=== PATIENT | male | born 1965 | race Caucasian/White ===

== ENCOUNTER 2019-09-05 00:25 | Inpatient (IN) | payer MEDICAID, SELFPAY ==
[2019-09-05] VITALS (15 sets, daily range): BP systolic 121–176; BP diastolic 65–112; PULSE 74–106; RESP 18–25; TEMP 36.6–37.1; O2SAT 90–97; BMI 31.4; BMI 31.1
--- NOTE | 2019-09-05 00:28 | ED.RN ---
CALLED FOR EKG, PULLED OLD EKGS FOR
--- NOTE | 2019-09-05 00:42 | EKG12_ITS ---
Test Reason : CP,SOB Blood Pressure : / mmHG Vent. Rate : 090 BPM Atrial Rate : 090 BPM P-R Int : 124 ms QRS Dur : 096 ms QT Int : 392 ms P-R-T Axes : 070 044 065 degrees QTc Int : 479 ms Normal sinus rhythm Nonspecific with ST flattening Borderline ECG Confirmed by EITAN YU ([id number]), assistant film editor YOLIE MAHONEY ([id number]) on 09/07/2019 11:13:42 AM Referred By: JUANIS Confirmed By:EITAN YU
--- NOTE | 2019-09-05 00:42 | CT_ITS ---
STUDY: CTA CHEST REASON FOR EXAM: Male, 53 years old. Chest pain RADIATION DOSAGE (If Supplied By Facility): CTDIvol = ( 7.64 ) mGy, DLP = ( 548.41 ) mGycm TECHNIQUE: The examination was performed with the intravenous administration of IV Isovue 370 100ml. Post-processing of the angiographic images was performed, with multiplanar reformation and 3D reconstruction. Individualized dose optimization techniques were used for this CT. COMPARISON: None. FINDINGS: Normal enhancement of the main pulmonary artery and right and left pulmonary arteries. Normal enhancement of the bilateral peripheral pulmonary arteries. There is no demonstrated pulmonary embolism. Normal thoracic aorta and visualized great vessels. There is no demonstrated aortic dissection. Normal heart and pericardium. Normal mediastinum. Normal hilar regions. Normal visualized trachea and bronchi. Lungs are expanded. There are moderate emphysematous changes. There are scattered fibrotic changes. There is a 12 mm spiculated density in the RIGHT upper lung on image 185. There is noncalcified nodular density in the LEFT lower lung on image 202. These could be fibrotic changes. Neoplastic nodules not entirely excluded. Short-term follow-up may be indicated. Normal chest wall structures. Normal osseous structures. Normal visualized upper abdomen. CT/CTA Chest W/WO Contrast IMPRESSION: Normal CTA chest examination, without a demonstrated pulmonary embolism or arterial dissection. Lungs are expanded. There are moderate emphysematous changes. There are scattered fibrotic changes. There is a 12 mm spiculated density in the RIGHT upper lung on image 185. There is noncalcified nodular density in the LEFT lower lung on image 202. These could be fibrotic changes. Neoplastic nodules not entirely excluded. Short-term follow-up may be indicated. Electronically Signed: Michele Gerber MD at 2:14 EST , Service support ,
--- NOTE | 2019-09-05 00:43 | ED.VIS.GEN ---
History of Present Illness Chief Complaint: Chest Pain Narrative: This patient is a 53-year-old male who presents with chest pain and shortness of breath. He initially developed left leg swelling and pain 1 week ago. Today he developed left-sided chest pain. He rates this as 7 out of 10. It is dull and aching. It is not pleuritic. No exacerbating factors but it does feel little better when he rubs his chest. He also complains of increased shortness of breath although he is short of breath at baseline with his COPD. He also has a chronic cough which he notes is slightly harsher than usual. Today he felt dizzy which he describes as near syncope. He has limited mobility and spends most of his time sitting due to his COPD. Otherwise no recent travel or surgery. No history of DVT, pulmonary embolism, known coagulopathies. Past Medical History - Allergies and Home Meds Allergies/Adverse Reactions: Allergies No Known Allergies Allergy (Verified 09/05/19 00:30) Primary Care Physician: Adolfo Bruce MD [Primary Care Provider] - Past Medical History: - - Prediabetes, hypertension, hyperlipidemia, COPD Surgical History: herniorrhaphy Smoking Status: Current every day smoker - Family History Maternal Family History: Reports: No pertinent history Paternal Family History: Reports: No pertinent history Review of Systems All systems negative except as indicated General: Denies: Fever Cardiovascular: Reports: Chest pain Respiratory: Reports: Dyspnea, Cough Gastrointestinal: Denies: Nausea, Vomiting Musculoskeletal: Reports: Extremity Pain. Denies: Myalgias Neurological: Reports: Headache Hematologic: Denies: Easy bruising, Easy bleeding Physical Exam Vital Signs/Narrative: Vital Signs Temp Pulse Resp BP Pulse Ox 09/05/19 00:37 94 19 H 163/105 H 96 09/05/19 00:26 98.6 F 98 25 H 176/112 H 90 Inital Vital Signs reviewed: Yes General: Well nourished, Well developed Head: Normocephalic Eyes: EOMI ENT: Moist mucous membranes Neck: Supple Cardiovascular: Regular rate, Regular rhythm Respiratory: - - Tachypnea with diffuse inspiratory and expiratory wheezing no rales breath sounds equal bilaterally Abdomen: Soft, Nontender, Nondistended Extremities: Nontender, - - Left lower extremity edema, calf tenderness, mild erythema, easily palpable dorsalis pedis pulse with brisk capillary refill and normal sensation to light touch Skin: Normal color Neurological: Alert Psychological: Normal affect Diagnostic/Tx/Re-eval Impressions Chest CTA 09/05/19 00:42 IMPRESSION: Normal CTA chest examination, without a demonstrated pulmonary embolism or arterial dissection. Lungs are expanded. There are moderate emphysematous changes. There are scattered fibrotic changes. There is a 12 mm spiculated density in the RIGHT upper lung on image 185. There is noncalcified nodular density in the LEFT lower lung on image 202. These could be fibrotic changes. Neoplastic nodules not entirely excluded. Short-term follow-up may be indicated. Electronically Signed: Michele Gerber MD at 2:14 EST , Service support , 09/05/19 00:42 CTA Chest W/WO Contrast [CT] Stat Laboratory Results 09/05/19 09/05/19 09/05/19 00:30 00:30 00:30 WBC 9.3 RBC 4.94 Hgb 15.1 Hct 45.8 MCV 92.7 MCH 30.6 MCHC 33.0 RDW Std Deviation 45.0 H RDW Coeff of Solange 13.2 Plt Count 302 MPV 11.2 Immature Gran % (Auto) 0.200 Neut % (Auto) 59.8 Lymph % (Auto) 26.9 [place] % (Auto) 8.0 Eos % (Auto) 4.2 Baso % (Auto) 0.9 Absolute Neuts (auto) 5.6 Absolute Lymphs (auto) 2.50 Nucleated RBC % 0 PT 13.3 INR 1.0 Sodium 139 Potassium 3.5 Chloride 106 Carbon Dioxide 27.0 Anion Gap 6 BUN 10 Creatinine 1.05 Estim Creat Clear Calc 85.94 Est GFR (MDRD) Af Amer 95 Est GFR (MDRD) Non-Af 79 BUN/Creatinine Ratio 9.5 L Glucose 98 Calcium 9.3 Troponin I < 0.015 - Medical Decision Making Patient's initial presentation was very concerning for possible pulmonary embolism. Therefore laboratory studies and a CTA of the chest were ordered. EKG shows normal sinus rhythm at a rate of 90. Labs unremarkable. CTA shows no demonstrated pulmonary embolism but there is a 12 mm spiculated density in the right upper lung. 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 There is also nodular density in the left lower lung. Although no PE was demonstrated patient will likely need a follow-up venous duplex of his left leg to rule out DVT. He does feel better after aerosols but is still on oxygen by nasal cannula and speaking in short sentences. Therefore we will treat as a COPD exacerbation. He was given IV Solu-Medrol. Patient was discussed with the hospitalist and admitted. ED Disposition - Plan for ED Patient: Disposition: Acute Care Hospital [facility] Diagnosis: COPD exacerbation, Left leg pain Referrals: Adolfo Bruce MD [Primary Care Provider] -
[2019-09-05] MEDS: Ondansetron 4 MG/2 ML Vial IV (00:48)
[2019-09-05] MEDS: Morphine 4 MG/ML Syringe IV (00:48)
[2019-09-05 00:58] LABS: Absolute Neutrophil Count 5.6 X10^3/uL (2.0-7.7); Basophil# 0.08 X10^3/uL; Basophil% 0.9 % (0-1); Eosinophil# 0.39 X10^3/uL; Eosinophils% 4.2 % (0-5); Hematocrit 45.8 % (40-54); Hemoglobin 15.1 g/dL (13.0-16.5); Lymphocyte % 26.9 % (19-41); Mean Corpuscular Hgb 30.6 pg (27.0-32.0); Mean Corpuscular Volume 92.7 fL (80-94); Mean Platelet Vol. 11.2 fl (6.2-12.0); Monocyte# 0.74 X10^3/uL; NRBC Flagged by Analyzer 0 % (0-5); Neutrophil # 5.56 X10^3/uL (2.7-7.7); Neutrophil % 59.8 % (47-70); Platelet Count 302 K/mm3 (150-450); RBC Distribution Width CV 13.2 % (11.6-14.6); Red Blood Count 4.94 M/mm3 (4.6-6.2); White Blood Count 9.3 K/mm3 (4.4-11.0)
[2019-09-05 01:01] LABS: Prothrombin Time (Protime)PT. 13.3 SECONDS (11.7-14.9)
[2019-09-05 01:07] LABS: Anion Gap 6 (5-15); BUN 10 mg/dL (7-18); BUN/Creat Ratio 9.5 RATIO (10-20); Calcium,Total 9.3 mg/dL (8.5-10.1); Chloride 106 mmol/L (98-107); Creatinine, Serum 1.05 mg/dL (0.70-1.30); EST Glomerular Filtration Rate 79 mL/min (>60); Est Glom Filt Rate - Afr Amer 95 mL/min (>60); Estimated Creatinine Clearance 85.94 ml/min; Glucose 98 mg/dL (74-106); Potassium 3.5 mmol/L (3.5-5.1); Sodium Level 139 mmol/L (136-145)
[2019-09-05] MEDS: Albuterol 2.5 MG/3 ML VIAL.NEB. INHALATION (01:17)
[2019-09-05] MEDS: Ipratropium/Albuterol Sulfate 3 ML AMPUL.NEB INHALATION ×6 (01:17→23:09)
[2019-09-05] MEDS: MethylPREDNISolone 125 MG/2 ML Vial IV (02:21)
--- NOTE | 2019-09-05 03:13 | HP.PCM_ITS ---
Problem List (1) COPD exacerbation Status: Acute History of Present Illness Date of Admission: 09/05/19 Chief Complaint: shortness of breath The patient is a 53 year old M with known severe COPD presents with 1 day history of increasing shortness of breath. Patient was feeling well has been chronically short of breath but became much worse yesterday. He was coughing up some yellow phlegm had some nasal congestion, rhinitis and [place] [facility] [place] 90% on room air. Placed on oxygen and sats improved. In the emergency room, patient received methylprednisolone as well as bronchodilators. Feeling somewhat better at this time. Patient has COPD and is still continue to smoke pack of cigarettes per day. [] Past Medical History Past Medical History (Chronic Problems): Chronic Problems COPD (chronic obstructive pulmonary disease) (Chronic) Hyperlipidemia (Chronic) Hypertension (Chronic) Allergies No Known Allergies Allergy (Verified 09/05/19 00:30) Home Medications: Ambulatory Orders Medication Instructions Recorded Albuterol Inhaler [Ventolin Hfa] 2 puff INHALATION Q6H PRN PRN 11/29/15 Lisinopril [Zestril] 10 mg PO DAILY 11/29/15 Pantoprazole Sodium [Protonix] 20 mg PO DAILY 11/29/15 Aspirin 325 mg PO DAILY@0800 09/05/19 Atorvastatin Calcium 10 mg PO DAILY 09/05/19 Mometasone/Formoterol [Dulera 200 2 puff IH DAILY 09/05/19 Mcg/5 Mcg Inhaler] Naproxen Sodium [Aleve] 220 mg PO BID 09/05/19 Ranitidine [Zantac] 150 mg PO DAILY 09/05/19 Umeclidinium [place] [Incruse 1 puff IH DAILY 09/05/19 Ellipta] metFORMIN HCl [Glucophage] 500 mg PO DAILY 09/05/19 Surgical History: herniorrhaphy Psychiatric History: No pertinent psych hx Smoking Status: Heavy Smoker (>10/day) Tobacco Use: Cigarettes - *Family History Maternal History Items: No pertinent history Paternal History Items: COPD Sibling History Items: COPD Review of Systems Constitutional: Denies: Anorexia, Chills, Fever, Night Sweats Eyes: Denies: Blurred vision, Double vision HEENT: Reports: Nasal Congestion, Sinus Congestion Cardiovascular: Reports: Edema - The past several days and left lower extremity. Denies: Chest Pain, Palpitations Respiratory: Reports: Cough, Shortness of Breath Gastrointestinal: Denies: Abdominal Pain, Nausea, Vomiting Genitourinary: Denies: Dysuria Musculoskeletal: Denies: Joint Pain, Joint Tenderness Skin: Denies: Dryness, Jaundice Neurological: Denies: Numbness, Tingling, Focal weakness Psychiatric: Denies: Anxiety, Depression Endocrine: Denies: Change in Body Habitus, Heat/ Cold Intolerance Hematologic/ Lymphatic: Denies: Easy Bruising, Easy Bleeding, Hx of blood clot Comment: All review systems are otherwise negative except for as mentioned above and in HPI. VTE Information - Inpt Only VTE Present on Admission: No VTE Mechan Device Prophylaxis: None VTE Pharm Prophylaxis ordered?: Yes Patient Problems: Active and Suspected Problems COPD exacerbation (Acute) Left leg pain (Acute) - Physical Exam Vitals/I&O's: Vital Signs Temp Pulse Resp BP Pulse Ox 37.0 C 96 18 160/94 H 93 09/05/19 00:26 09/05/19 02:01 09/05/19 02:01 09/05/19 02:01 09/05/19 02:01 Oxygen Flow Rate (L/min) 2 Oxygen Delivery Method Nasal Cannula Weight: 99.5 kg Body Mass Index (BMI) 31.4 General: Alert, Cooperative, No apparent distress HEENT: Atraumatic, PERRLA, EOMI, Normocephalic Oral: Moist Mucosa, No Gingival or Mucosal Lesions/ Ulcerations Neck: No Nodes, Trachea Midline Lungs: Diminished, Wheezes Cardiovascular: Regular rate, Regular Rhythm, Normal S1, Normal S2, No murmurs Abdomen: Bowel Sounds Present, Soft, Non Tender, Non-Distended, No Hepato- splenomegaly Extremities: No Calf Tenderness, Edema - in left lower extremity Skin: No rashes, No breakdown Musculoskeletal: No Tenderness to Palpation of Joints or Extremities, No Muscle Wasting Neurological: Deep Tendon Reflexes 2+/4 and Symmetrical, Sensory exam intact to light touch and pain Psych/Mental Status: Normal Affect, Appropriate Laboratory Results 09/05/19 00:30: WBC 9.3, RBC 4.94, Hgb 15.1, Hct 45.8, MCV 92.7, MCH 30.6, MCHC 33.0, RDW Std Deviation 45.0 H, RDW Coeff of Solange 13.2, Plt Count 302, MPV 11.2, Immature Gran % (Auto) 0.200, Neut % (Auto) 59.8, Lymph % (Auto) 26.9, [place] % (Auto) 8.0, Eos % (Auto) 4.2, Baso % (Auto) 0.9, Absolute Neuts (auto) 5.6, Absolute Lymphs (auto) 2.50, Nucleated RBC % 0 09/05/19 00:30: PT 13.3, INR 1.0 09/05/19 00:30: Sodium 139, Potassium 3.5, Chloride 106, Carbon Dioxide 27.0, Anion Gap 6, BUN 10, Creatinine 1.05, Estim Creat Clear Calc 85.94, Est GFR (MDRD) Af Amer 95, Est GFR (MDRD) Non-Af 79, BUN/Creatinine Ratio 9.5 L, Glucose 98, Calcium 9.3, Troponin I < 0.015 CTA of the chest reviewed and showed no PE, no infiltrate. Some emphysematous changes noted. Assessment/Plan All Active Problems COPD exacerbation (Acute) Left leg pain (Acute) Acute respiratory insufficiency (Acute) Acute kidney injury (Acute) COPD exacerbation (Acute) 1. Acute COPD exacerbation * Plan is to continue with methylprednisolone and bronchodilators. Will also add azithromycin to his regimen. * Patient reports that he has severe COPD. Patient is a smoker which is certainly a factor but given his fairly young age and severe COPD I be worried about underlying genetic process such as alpha-1 antitrypsin, particularly given his first-degree relatives with a COPD. 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 2. Left lower extremity edema * Patient had a negative CTA * The patient does have asymmetric swelling which is fairly new for the patient and not present previously * We will check a duplex of the left lower extremity 3. VTE prophylaxis: Moderate risk. Enoxaparin. 4. Advanced care planning: Discussed with patient. Patient wishes to have intubation in the event of respiratory arrest or failure and CPR in the event of cardiopulmonary arrest. Therefore, the patient is full CODE STATUS. Code Visit Inpatient E&M: 74785 Init Hosp L3
--- NOTE | 2019-09-05 03:36 | VDLE_ITS ---
Reason For Study: LLE Edema Procedure LEFT Exam performed portable in patient room. GSV is normal. A preliminary report was called and/or faxed CFV is compressible, spontaneous, phasic, to MS3. competent, and demonstrates normal augmentation. FV is compressible, spontaneous, phasic, competent and demonstrates normal augmentation. POP V is compressible, spontaneous, phasic, competent and demonstrates normal augmentation. T/P Trunk is compressible. PTV is compressible. LT PerV is compressible. Interpretation Summary There is no evidence of left lower extremity deep vein thrombosis. Left great saphenous vein appears patent and compressible segmentally. Ordering Physician: Dany Mckeon Referring Physician: Bill Bruce Performed By: Nancy Marcano RVT
[2019-09-05 06:46] LABS: Bedside Glucose 130 mg/dL (70-110)
[2019-09-05] MEDS: 0.9% Saline Lock 10 ML Syringe IV ×4 (06:58→21:59)
[2019-09-05] MEDS: Acetaminophen 325 MG Tablet 650 MG PO (07:24)
[2019-09-05] MEDS: Aspirin 325 MG Tablet PO (08:42)
[2019-09-05] MEDS: Enoxaparin 40 MG/0.4 ML Syringe SC (09:33)
[2019-09-05] MEDS: Naproxen 250 MG Tablet PO (09:34)
[2019-09-05] MEDS: Famotidine 20 MG Tablet PO (09:34)
[2019-09-05] MEDS: Pantoprazole Sodium 20 MG Tablet PO (09:34)
[2019-09-05] MEDS: Lisinopril 10 MG Tablet PO (09:34)
--- NOTE | 2019-09-05 11:03 | PN_ITS ---
Patient Problems: Active and Suspected Problems COPD exacerbation (Acute) Left leg pain (Acute) Subjective: Patient was seen and examined. He feels improved. Currently on 2 L of oxygen. Still wheezing. Denied any chest pain or dizziness. Vitals/I&O's: Vital Signs Temp Pulse Resp BP Pulse Ox 97.9 F 88 20 H 138/87 H 94 09/05/19 08:40 09/05/19 08:40 09/05/19 08:40 09/05/19 08:40 09/05/19 08:40 Oxygen Flow Rate (L/min) 2 Oxygen Delivery Method Nasal Cannula Weight: 98.43 kg Body Mass Index (BMI) 31.1 Intake and Output for Last 24 Hours 09/03/19 09/04/19 09/05/19 23:59 23:59 23:59 Intake Total 275 / 275 Balance 275 / 275 General: Alert, Oriented x3, Cooperative, No apparent distress HEENT: Atraumatic, PERRLA, EOMI, Normocephalic Oral: Moist Mucosa Neck: Supple Lungs: Diminished, Wheezes Cardiovascular: Regular rate, Regular Rhythm, Normal S1, Normal S2, No murmurs Abdomen: Bowel Sounds Present, Soft, Non Tender, Non-Distended, No Hepato- splenomegaly Extremities: No edema Skin: No rashes, No breakdown Musculoskeletal: No Tenderness to Palpation of Joints or Extremities Lymphatic: No Cervical, Supraclavicular, or Inguinal Adenopathy Neurological: Cranial nerves II-XII grossly intact, Neuro grossly intact Psych/Mental Status: Normal Affect, Appropriate Laboratory Results 09/05/19 00:30: WBC 9.3, RBC 4.94, Hgb 15.1, Hct 45.8, MCV 92.7, MCH 30.6, MCHC 33.0, RDW Std Deviation 45.0 H, RDW Coeff of Solange 13.2, Plt Count 302, MPV 11.2, Immature Gran % (Auto) 0.200, Neut % (Auto) 59.8, Lymph % (Auto) 26.9, [place] % (Auto) 8.0, Eos % (Auto) 4.2, Baso % (Auto) 0.9, Absolute Neuts (auto) 5.6, Absolute Lymphs (auto) 2.50, Nucleated RBC % 0 09/05/19 00:30: PT 13.3, INR 1.0 09/05/19 00:30: Sodium 139, Potassium 3.5, Chloride 106, Carbon Dioxide 27.0, Anion Gap 6, BUN 10, Creatinine 1.05, Estim Creat Clear Calc 85.94, Est GFR (MDRD) Af Amer 95, Est GFR (MDRD) Non-Af 79, BUN/Creatinine Ratio 9.5 L, Glucose 98, Calcium 9.3, Troponin I < 0.015 09/05/19 06:34: POC Glucose 130 H Current Medications Acetaminophen (Tylenol) 650 mg PO Q6H PRN PRN PRN Reason: Pain Score 1-3/Temp > 100.7 F Last Admin: 09/05/19 07:24 Dose: 650 mg Documented by: Albuterol Sulfate (Ventolin Aerosols) 2.5 mg INHALATION Q2H PRN PRN PRN Reason: SHORTNESS OF BREATH Albuterol/Ipratropium (Duoneb) 3 ml INHALATION Q4H.RT [facility] Last Admin: 09/05/19 07:05 Dose: 3 ml Documented by: Aspirin (Aspirin) 325 mg PO DAILY@0800 [facility] Last Admin: 09/05/19 08:42 Dose: 325 mg Documented by: Dextrose (D50w Syringe) 0 gm IV X1 PRN; Protocol PRN Reason: Hypoglycemia Enoxaparin Sodium (Lovenox) 40 mg SC DAILY@1000 [facility] Last Admin: 09/05/19 09:33 Dose: 40 mg Documented by: Famotidine (Pepcid) 20 mg PO DAILY [facility] Last Admin: 09/05/19 09:34 Dose: 20 mg Documented by: Glucagon () 1 mg IM .X1 PRN PRN Reason: Hypoglycemia Azithromycin 500 mg/ Dextrose 255 mls @ 250 mls/hr IV Q24 [facility] Stop: 09/07/19 11:02 Last Infusion: 09/05/19 10:30 Dose: Infused Documented by: Sodium Chloride () 250 mls @ 15 mls/hr IV .[id number] PRN PRN Reason: Saline Flush Ibuprofen (Motrin) 400 mg PO Q4H PRN PRN PRN Reason: Pain Score 1-3/Temp > 100.7 F Insulin Human Lispro (Humalog Kwikpen (Bkc)) 0 unit SC TIDAC [facility]; Protocol Last Admin: 09/05/19 06:58 Dose: Not Given Documented by: Lisinopril (Zestril) 10 mg PO DAILY [facility] Last Admin: 09/05/19 09:34 Dose: 10 mg Documented by: Melatonin (Melatonin) 3 mg PO QHS PRN PRN PRN Reason: INSOMNIA Methylprednisolone (Solu-Medrol) 40 mg IV Q8 [facility] Last Admin: 09/05/19 06:57 Dose: 40 mg Documented by: Naproxen (Naprosyn) 250 mg PO BID [facility] Last Admin: 09/05/19 09:34 Dose: 250 mg Documented by: Nicotine (Nicoderm Cq (Pbkc)) 21 mg TRANSDERM. DAILY [facility] Last Admin: 09/05/19 09:41 Dose: 21 mg Documented by: Ondansetron HCl (Zofran) 4 mg IV Q8H PRN PRN PRN Reason: NAUSEA/VOMITING Pantoprazole Sodium (Protonix) 20 mg PO DAILY [facility] Last Admin: 09/05/19 09:34 Dose: 20 mg Documented by: Sodium Chloride () 10 - 40 ml IV UD PRN PRN Reason: SALINE FLUSH Last Admin: 09/05/19 09:34 Dose: 10 ml Documented by: STROKE Vital Signs/Narrative: Vital Signs Temp Pulse Resp BP Pulse Ox 09/05/19 08:40 97.9 F 88 20 H 138/87 H 94 09/05/19 07:05 88 20 H 96 Medical Necessity - Tobacco Use Smoking Status: Heavy Smoker (>10/day) Tobacco Use: Cigarettes Assessment/Plan All Active Problems COPD exacerbation (Acute) Left leg pain (Acute) Acute respiratory insufficiency (Acute) Acute kidney injury (Acute) COPD exacerbation (Acute) 1. Acute COPD exacerbation, reported underlining COPD Currently on 2 L of oxygen, wheezes on exam Continue on Solu-Medrol, breathing treatments, azithromycin 2. Hypoxia secondary to #1, encourage use of incentive spirometer, Wean off oxygen 3. Nicotine dependence, advised to quit, on replacement 4. Hypertension, controlled, continue on lisinopril 5. Type II DM, on metformin, off metformin for now, blood sugars fairly controlled, continue insulin sliding scale 6. DVT prophylaxis with Lovenox subcu Code Visit Inpatient E&M: 73245 Subs Hosp L2
[2019-09-05 11:35] LABS: Bedside Glucose 233 mg/dL (70-110)
[2019-09-05] MEDS: Insulin Lispro 100 UNIT/ML INSULN.PEN SC (12:48)
--- NOTE | 2019-09-05 12:54 | CASEMGMT ---
RN CM Assessment Presentation: COPD exacerbation Intro role of CM and purpose of RN CM assessment to patient in room. Pt is awake, alert and able to participate in assessment. Demographics, PCP and Pharmacy verified. ANDREW CATHERINE spoke at length with pt re: smoking cessation. Pt has stopped in past, now is smoking again. States he understands he needs to quit for his health. Pt states his mother smoked for 45 years and is now on oxygen, and his sister quit nearly three years ago, but still has shortness of breath symptoms. Pt states he has a plan to have cigarettes out of home, and he already has smoking cessation patches. Discussed pt may need oxygen testing prior to discharge and if qualifies, may need Home oxygen set up. PCP: Dr. dAolfo Bruce Preferred Pharmacy: [facility] Insurance: [employer] Prescription Benefit: yes LNOK: Wendi sung Living Arrangements: Lives independently. No care needs identified. Pt states he is independent in ADL. Transportation: Drives DME: none. If Home O2 is needed, [facility], [facility] [place], [facility] are In Network. HHC: none Patient DC goals: Home DC PLAN: Home, may need Home oxygen testing prior to dc. Segundo CRAWFORD RN ACM
[2019-09-05 17:01] LABS: Bedside Glucose 135 mg/dL (70-110)
[2019-09-05 22:45] LABS: Bedside Glucose 144 mg/dL (70-110)
[2019-09-06] VITALS (11 sets, daily range): BP systolic 119–149; BP diastolic 77–86; PULSE 94–115; RESP 18–24; TEMP 36.6–36.9; O2SAT 84–96
[2019-09-06] MEDS: 0.9% Saline Lock 10 ML Syringe IV ×2 (06:52→22:02)
[2019-09-06] MEDS: Ipratropium/Albuterol Sulfate 3 ML AMPUL.NEB INHALATION ×5 (07:00→22:42)
[2019-09-06 07:16] LABS: Bedside Glucose 114 mg/dL (70-110)
[2019-09-06] MEDS: Enoxaparin 40 MG/0.4 ML Syringe SC (09:55)
[2019-09-06] MEDS: Aspirin 325 MG Tablet PO (09:55)
[2019-09-06] MEDS: Pantoprazole Sodium 20 MG Tablet PO (09:56)
[2019-09-06] MEDS: Famotidine 20 MG Tablet PO (09:56)
[2019-09-06] MEDS: Lisinopril 10 MG Tablet PO (09:56)
[2019-09-06 11:41] LABS: Bedside Glucose 149 mg/dL (70-110)
--- NOTE | 2019-09-06 12:24 | PN_ITS ---
Patient Problems: Active and Suspected Problems COPD exacerbation (Acute) Left leg pain (Acute) Subjective: Follow up on hypoxia and acute COPD exacerbation: Patient was seen and examined. He feels improved but still has wheezes. His oxygen levels drop with ambulation to 84%. Denies any fever or chills. Objective: Physical exam: General: Alert, Oriented x3, Cooperative, No apparent distress HEENT: Atraumatic, PERRLA, EOMI, Normocephalic Oral: Moist Mucosa Neck: Supple Lungs: Diminished, Wheezes ++ Cardiovascular: Regular rate, Regular Rhythm, Normal S1, Normal S2, No murmurs Abdomen: Bowel Sounds Present, Soft, Non Tender, Non-Distended, No Hepato- splenomegaly Extremities: No edema Skin: No rashes, No breakdown Musculoskeletal: No Tenderness to Palpation of Joints or Extremities Lymphatic: No Cervical, Supraclavicular, or Inguinal Adenopathy Neurological: Cranial nerves II-XII grossly intact, Neuro grossly intact Psych/Mental Status: Normal Affect, Appropriate Vitals/I&O's: Vital Signs Temp Pulse Resp BP Pulse Ox 98.2 F 102 H 20 H 135/86 H 92 09/06/19 09:48 09/06/19 11:17 09/06/19 11:17 09/06/19 09:48 09/06/19 11:17 Oxygen Flow Rate (L/min) 1 Oxygen Delivery Method Nasal Cannula Weight: 98.43 kg Body Mass Index (BMI) 31.1 Intake and Output for Last 24 Hours 09/04/19 09/05/19 09/06/19 23:59 23:59 23:59 Intake Total 1575 / 1875 1235 / 1235 Balance 1575 / 1875 1235 / 1235 Laboratory Results 09/05/19 16:40: POC Glucose 135 H 09/05/19 21:58: POC Glucose 144 H 09/06/19 06:48: POC Glucose 114 H 09/06/19 11:35: POC Glucose 149 H Current Medications Acetaminophen (Tylenol) 650 mg PO Q6H PRN PRN PRN Reason: Pain Score 1-3/Temp > 100.7 F Last Admin: 09/05/19 07:24 Dose: 650 mg Documented by: Albuterol Sulfate (Ventolin Aerosols) 2.5 mg INHALATION Q2H PRN PRN PRN Reason: SHORTNESS OF BREATH Albuterol/Ipratropium (Duoneb) 3 ml INHALATION Q4H.RT [facility] [place] Last Admin: 09/06/19 11:17 Dose: 3 ml Documented by: Aspirin (Aspirin) 325 mg PO DAILY@0800 [facility] [place] Last Admin: 09/06/19 09:55 Dose: 325 mg Documented by: Dextrose (D50w Syringe) 0 gm IV X1 PRN; Protocol PRN Reason: Hypoglycemia Enoxaparin Sodium (Lovenox) 40 mg SC DAILY@1000 [facility] [place] Last Admin: 09/06/19 09:55 Dose: 40 mg Documented by: Famotidine (Pepcid) 20 mg PO DAILY [facility] [place] Last Admin: 09/06/19 09:56 Dose: 20 mg Documented by: Glucagon () 1 mg IM .X1 PRN PRN Reason: Hypoglycemia Azithromycin 500 mg/ Dextrose 255 mls @ 250 mls/hr IV Q24 [facility] [place] Stop: 09/07/19 11:02 Last Infusion: 09/06/19 11:05 Dose: Infused Documented by: Sodium Chloride () 250 mls @ 15 mls/hr IV .[id number] PRN PRN Reason: Saline Flush Ibuprofen (Motrin) 400 mg PO Q4H PRN PRN PRN Reason: Pain Score 1-3/Temp > 100.7 F Insulin Human Lispro (Humalog [place] (Bkc)) 0 unit SC TIDAC [facility] [place]; Protocol Last Admin: 09/06/19 11:35 Dose: Not Given Documented by: Lisinopril (Zestril) 10 mg PO DAILY [facility] Last Admin: 09/06/19 09:56 Dose: 10 mg Documented by: Melatonin (Melatonin) 3 mg PO QHS PRN PRN PRN Reason: INSOMNIA Methylprednisolone (Solu-Medrol) 40 mg IV Q8 [facility] [place] Last Admin: 09/06/19 06:52 Dose: 40 mg Documented by: Nicotine (Nicoderm Cq (Pbkc)) 21 mg TRANSDERM. DAILY [facility] Last Admin: 09/06/19 09:54 Dose: 21 mg Documented by: Ondansetron HCl (Zofran) 4 mg IV Q8H PRN PRN PRN Reason: NAUSEA/VOMITING Pantoprazole Sodium (Protonix) 20 mg PO DAILY [facility] [place] Last Admin: 09/06/19 09:56 Dose: 20 mg Documented by: Sodium Chloride () 10 - 40 ml IV UD PRN PRN Reason: SALINE FLUSH Last Admin: 09/06/19 06:52 Dose: 10 ml Documented by: STROKE Vital Signs/Narrative: Vital Signs Temp Pulse Resp BP Pulse Ox 09/06/19 11:17 102 H 20 H 92 09/06/19 09:52 84 09/06/19 09:48 98.2 F 102 H 18 135/86 H 94 Medical Necessity - Tobacco Use Smoking Status: Heavy Smoker (>10/day) Tobacco Use: Cigarettes Assessment/Plan All Active Problems COPD exacerbation (Acute) Left leg pain (Acute) Acute respiratory insufficiency (Acute) Acute kidney injury (Acute) COPD exacerbation (Acute) 1. Acute COPD exacerbation, reported underlining COPD, Still has wheezes Will continue on Solu-Medrol, breathing treatments, azithromycin 2. Hypoxia secondary to #1, encourage use of incentive spirometer, Wean off oxygen 3. Nicotine dependence, advised to quit, on replacement 4. Hypertension, controlled, continue on lisinopril 5. Type II DM, on metformin, off metformin for now, blood sugars fairly controlled, continue insulin sliding scale 6. DVT prophylaxis with Lovenox subcu Code Visit Inpatient E&M: 35178 Subs Hosp L2
--- NOTE | 2019-09-06 15:01 | CON.PCM_ITS ---
Problem List (1) Lung nodule Status: Chronic Comment: Right upper lobe, followed by [facility] (2) COPD exacerbation Status: Acute (3) Left leg pain Status: Acute (4) Acute respiratory insufficiency Status: Acute (5) Acute kidney injury Status: Acute (6) Hyperlipidemia Status: Chronic (7) Hypertension Status: Chronic Reason for Consult Date of Consultation: 09/06/19 Reason for Consultation: COPD exacerbation History of Present Illness: The patient is a 53 year old M, with past medical history listed below, who presented with [facility] on 09/05/2019 secondary to progressive shortness of breath and pleuritic chest pain. Patient reported that he had developed some left lower extremity swelling and pain approximately 1 week ago. This progressed to left-sided chest pain that he rated at a 7 out of 10 and described as dull and achy. Patient started to notice a change in his sputum and increased shortness of breath. Patient states that he felt dizzy after some paroxysmal type coughing and decided to come to the ER for evaluation. Patient denied any recent travel or surgery. Patient does not have any history of DVT, PE or other known coagulopathies. Patient is an active smoker. In the emergency department, patient was noted to be desaturating on room air. Patient does not use supplemental oxygen at baseline. High clinical concern for pulmonary embolism led to a CTA of the chest. CTA head showed a 12 mm spiculated nodule in the right upper lobe. Duplex of the left lower extremity did not show any DVT. Patient was given aerosols, but failed to improve, so was admitted to the floor for further evaluation. Since being admitted, patient reports subjective improvement in overall condition. Patient states he continues to have a cough and reports that the chest pain has turned pleuritic in nature. Patient denies any hemoptysis. Patient does state that he follows with the [facility], Dr. Moreno at baseline. Patient is aware of his right upper lobe nodule and states that it was last visualized in October. Patient is unaware of his previous size of the lesion, but states that he has had 2 separate bronchoscopies for investigation that if been negative. Patient continues to smoke approximately 1 pack/day. Patient states that his last known FEV1 was 29%. Patient states that he has had 2 exacerbations in the last year requiring hospitalization. Patient does report snoring and states he has unrestful sleep. However, patient is never had a sleep study and is not on any CPAP or BiPAP to help with sleep. Patient does not believe he is ever been intubated or required noninvasive therapy secondary to a COPD exacerbation. Patient reports that he is contemplative on smoking cessation because this keeps landing me in the hospital. Patient reports that he is currently disabled. Patient does report exposure to fiberglass and possible asbestos in the past. Patient denies any alcohol or illicit drug use. No vaping is been reported. Review of systems otherwise negative from a constitutional, HEENT, respiratory, cardiovascular, GI, genitourinary, musculoskeletal, skin, neurologic, psychiatric and hematologic system unless stated above. Past Medical History Past Medical History (Chronic Problems): Chronic Problems Lung nodule (Chronic) Right upper lobe, followed by [facility] COPD (chronic obstructive pulmonary disease) (Chronic) Hyperlipidemia (Chronic) Hypertension (Chronic) Allergies No Known Allergies Allergy (Verified 09/05/19 00:30) Home Medications: Ambulatory Orders Medication Instructions Recorded Albuterol Inhaler [Ventolin Hfa] 2 puff INHALATION Q6H PRN PRN 11/29/15 Lisinopril [Zestril] 10 mg PO DAILY 11/29/15 Pantoprazole Sodium [Protonix] 20 mg PO QODAY 11/29/15 Aspirin 325 mg PO DAILY@0800 09/05/19 Mometasone/Formoterol [Dulera 200 2 puff IH BID 09/05/19 Mcg/5 Mcg Inhaler] Naproxen Sodium [Aleve] 220 mg PO BID 09/05/19 Ranitidine [Zantac] 150 mg PO QODAY 09/05/19 Umeclidinium Nogal [Incruse 1 puff IH DAILY 09/05/19 Ellipta] metFORMIN HCl [Glucophage] 500 mg PO DAILY 09/05/19 Surgical History: herniorrhaphy Psychiatric History: No pertinent psych hx Smoking Status: Heavy Smoker (>10/day) Tobacco Use: Cigarettes - *Family History Maternal History Items: No pertinent history Paternal History Items: COPD Sibling History Items: COPD Review of Systems Comment: See HPI Patient Problems: Active and Suspected Problems COPD exacerbation (Acute) Left leg pain (Acute) Objective: All imaging was personally reviewed. CTA of the chest shows no clots, but patient does have extensive emphysematous changes. Nodule described at 12 mm does have surrounding emphysematous changes and positive airway sign. No significant mediastinal lymphadenopathy is appreciated. - Physical Exam Vitals/I&O's: Vital Signs Temp Pulse Resp BP Pulse Ox 36.9 C 100 20 H 135/84 H 93 09/06/19 14:10 09/06/19 14:10 09/06/19 14:10 09/06/19 14:10 09/06/19 14:10 Oxygen Flow Rate (L/min) 1 Oxygen Delivery Method Room Air Weight: 98.43 kg Body Mass Index (BMI) 31.1 Intake and Output for Last 24 Hours 09/04/19 09/05/19 09/06/19 23:59 23:59 23:59 Intake Total 1575 / 1875 1235 / 1235 Balance 1575 / 1875 1235 / 1235 General: Alert, Oriented x3, Cooperative, - - Mild conversational dyspnea. Obese. HEENT: Atraumatic, PERRLA, EOMI, Normocephalic, - - No scleral icterus or injection noted Oral: Moist Mucosa, No Gingival or Mucosal Lesions/ Ulcerations Neck: Supple, No JVD, No Nodes, Trachea Midline Lungs: No rhonchi, No rales, Diminished, Wheezes, - - Symmetric expansion. No dullness to percussion. Cardiovascular: Regular rate, Regular Rhythm, Normal S1, Normal S2, No murmurs, No rub noted, No Gallop Abdomen: Bowel Sounds Present, Soft, Non Tender, Non-Distended Extremities: No clubbing, No cyanosis, Capillary Refill Less than 3 Seconds, Edema - 1+ left lower extremity Skin: No rashes, No breakdown Musculoskeletal: No Tenderness to Palpation of Joints or Extremities Lymphatic: No Cervical, Supraclavicular, or Inguinal Adenopathy Neurological: Cranial nerves II-XII grossly intact, Neuro grossly intact, Motor Exam 5/5 strength throughout Psych/Mental Status: Alert and oriented to time, place, person, mood and affect Laboratory Results 09/05/19 16:40: POC Glucose 135 H 09/05/19 21:58: POC Glucose 144 H 09/06/19 06:48: POC Glucose 114 H 09/06/19 11:35: POC Glucose 149 H Clinical Impression(s) from Imaging Studies Chest CTA 09/05/19 00:42 IMPRESSION: Normal CTA chest examination, without a demonstrated pulmonary embolism or arterial dissection. Lungs are expanded. There are moderate emphysematous changes. There are scattered fibrotic changes. There is a 12 mm spiculated density in the RIGHT upper lung on image 185. There is noncalcified nodular density in the LEFT lower lung on image 202. These could be fibrotic changes. Neoplastic nodules not entirely excluded. Short-term follow-up may be indicated. Electronically Signed: Michele Gerber MD at 2:14 EST , Service support , Current Medications Acetaminophen (Tylenol) 650 mg PO Q6H PRN PRN PRN Reason: Pain Score 1-3/Temp > 100.7 F Last Admin: 09/05/19 07:24 Dose: 650 mg Documented by: Albuterol Sulfate (Ventolin Aerosols) 2.5 mg INHALATION Q2H PRN PRN PRN Reason: SHORTNESS OF BREATH Albuterol/Ipratropium (Duoneb) 3 ml INHALATION Q4H.RT [facility] Last Admin: 09/06/19 11:17 Dose: 3 ml Documented by: Aspirin (Aspirin) 325 mg PO DAILY@0800 [facility] Last Admin: 09/06/19 09:55 Dose: 325 mg Documented by: Dextrose (D50w Syringe) 0 gm IV X1 PRN; Protocol PRN Reason: Hypoglycemia Enoxaparin Sodium (Lovenox) 40 mg SC DAILY@1000 [facility] Last Admin: 09/06/19 09:55 Dose: 40 mg Documented by: Famotidine (Pepcid) 20 mg PO DAILY [facility] Last Admin: 09/06/19 09:56 Dose: 20 mg Documented by: Glucagon () 1 mg IM .X1 PRN PRN Reason: Hypoglycemia Azithromycin 500 mg/ Dextrose 255 mls @ 250 mls/hr IV Q24 [facility] Stop: 09/07/19 11:02 Last Infusion: 09/06/19 11:05 Dose: Infused Documented by: Sodium Chloride () 250 mls @ 15 mls/hr IV .[id number] PRN PRN Reason: Saline Flush Ibuprofen (Motrin) 400 mg PO Q4H PRN PRN PRN Reason: Pain Score 1-3/Temp > 100.7 F Insulin Human Lispro (Humalog Kwikpen (Bkc)) 0 unit SC TIDAC [facility]; Protocol Last Admin: 09/06/19 11:35 Dose: Not Given Documented by: Lisinopril (Zestril) 10 mg PO DAILY [facility] Last Admin: 09/06/19 09:56 Dose: 10 mg Documented by: Melatonin (Melatonin) 3 mg PO QHS PRN PRN PRN Reason: INSOMNIA Methylprednisolone (Solu-Medrol) 40 mg IV Q8 [facility] Last Admin: 09/06/19 14:11 Dose: 40 mg Documented by: Nicotine (Nicoderm Cq (Pbkc)) 21 mg TRANSDERM. DAILY [facility] Last Admin: 09/06/19 09:54 Dose: 21 mg Documented by: Ondansetron HCl (Zofran) 4 mg IV Q8H PRN PRN PRN Reason: NAUSEA/VOMITING Pantoprazole Sodium (Protonix) 20 mg PO DAILY [facility] Last Admin: 09/06/19 09:56 Dose: 20 mg Documented by: Sodium Chloride () 10 - 40 ml IV UD PRN PRN Reason: SALINE FLUSH Last Admin: 09/06/19 06:52 Dose: 10 ml Documented by: Assessment/Plan All Active Problems COPD exacerbation (Acute) Left leg pain (Acute) Acute respiratory insufficiency (Acute) Acute kidney injury (Acute) COPD exacerbation (Acute) RECOMMENDATIONS: 1. Continue with IV steroids, bronchodilators and antibiotics 2. Possibly add mucolytic if fails to respond to therapy 3. Outpatient polysomnogram for evaluation of obstructive sleep apnea versus BiPAP 4. Follow-up with [facility] on nodule IMPRESSIONS: 1. Acute hypoxic respiratory insufficiency secondary to an acute COPD exacerbation Patient with reported relatively advanced COPD with an FEV1 of 29%. Patient is on appropriate therapy at this time, but do anticipate a protracted course given severity of underlying lung disease. Patient should continue with Solu-Medrol at current dosing for now. Would continue with aerosol therapy. Patient is unaware of any previous multidrug-resistant organisms. Would obtain a sputum culture if possible. Patient will need to follow-up with [facility] as an outpatient in the next 2 to 4 weeks. 2. Lung nodule Patient with a 12 mm right upper lobe nodule. This is not a very precarious position for CT-guided biopsy as it is surrounded by emphysematous changes and an airway. Patient reportedly has had negative biopsies in the past. Would defer to [facility]. Unclear if patient has had a PET scan previously. Patient is not reporting any signs or symptoms that require urgent inpatient evaluation. 3. Lower extremity edema Clinical suspicion for an element of cor pulmonale secondary to advanced lung disease and hypoxemia associated with COPD exacerbation. DVT and PE work- up have been negative thus far. Do not believe patient requires active diuresis, but will need a walking oximetry prior to discharge. 4. Tobacco abuse/hypertension/type 2 diabetes mellitus Complicates care, management, recovery and prognosis. Patient is aware that he is not a candidate for transplant as long as he is smoking. Will need to watch blood sugars very closely given IV Solu-Medrol. Blood pressure is acceptable at this time. Continue to discuss with patient about smoking cessation. Code Visit Inpatient E&M: 93339 Init Hosp L3
[2019-09-06 16:46] LABS: Bedside Glucose 128 mg/dL (70-110)
[2019-09-06 22:11] LABS: Bedside Glucose 131 mg/dL (70-110)
[2019-09-06] MEDS: MELATONIN 3 MG TABLET PO (23:48)
[2019-09-07] VITALS (12 sets, daily range): BP systolic 133–144; BP diastolic 73–90; PULSE 92–112; RESP 18–22; TEMP 36.6–36.8; O2SAT 85–96
[2019-09-07] MEDS: Ipratropium/Albuterol Sulfate 3 ML AMPUL.NEB INHALATION ×3 (02:20→11:30)
[2019-09-07] MEDS: 0.9% Saline Lock 10 ML Syringe IV ×3 (06:09→13:39)
[2019-09-07] MEDS: Ibuprofen 400 MG Tablet PO (06:14)
[2019-09-07 06:43] LABS: Absolute Lymphocyte Count 0.95 X10^3/uL (0.83-4.51); Absolute Neutrophil Count 13.5 X10^3/uL (2.0-7.7); Basophil# 0.01 X10^3/uL; Basophil% 0.1 % (0-1); Hematocrit 42.6 % (40-54); Hemoglobin 13.7 g/dL (13.0-16.5); Lymphocyte # 0.95 X10^3/ul (4.0); Lymphocyte % 6.3 % (19-41); Mean Corp Hgb Conc 32.2 g/dL (32-36); Mean Corpuscular Hgb 30.3 pg (27.0-32.0); Mean Corpuscular Volume 94.2 fL (80-94); Monocyte# 0.52 X10^3/uL; Monocyte% 3.4 % (0-10); NRBC Flagged by Analyzer 0 % (0-5); Neutrophil % 89.4 % (47-70); Platelet Count 270 K/mm3 (150-450); RBC Distribution Width SD 47.8 fl (35.1-43.9); Red Blood Count 4.52 M/mm3 (4.6-6.2); White Blood Count 15.1 K/mm3 (4.4-11.0)
[2019-09-07 06:46] LABS: Bedside Glucose 118 mg/dL (70-110)
[2019-09-07 06:59] LABS: Anion Gap 8 (5-15); BUN 28 mg/dL (7-18); BUN/Creat Ratio 24.6 RATIO (10-20); Calcium,Total 8.9 mg/dL (8.5-10.1); Chloride 105 mmol/L (98-107); Creatinine, Serum 1.14 mg/dL (0.70-1.30); EST Glomerular Filtration Rate 72 mL/min (>60); Est Glom Filt Rate - Afr Amer 87 mL/min (>60); Estimated Creatinine Clearance 79.15 ml/min; Glucose 130 mg/dL (74-106); Potassium 4.1 mmol/L (3.5-5.1); Sodium Level 139 mmol/L (136-145)
--- NOTE | 2019-09-07 07:10 | PN_ITS ---
Patient Problems: Active and Suspected Problems COPD exacerbation (Acute) Left leg pain (Acute) Subjective: The patient was seen and examined at the bedside this morning. Events from the last 24 hours have been reviewed. The patient is currently afebrile, hemodynamically stable and maintaining appropriate oxygen saturations on 2 L/min via nasal cannula. This morning, the patient does report interval improvement in his breathing quality over the last 24 hours. He does not regularly utilize supplemental oxygen at his baseline. Objective: The patient's most recent lab work, culture data and imaging studies have all been personally reviewed. CTA chest revealed no evidence for pulmonary embolism. Emphysematous changes were noted bilaterally. A 1.2 cm density with spiculation was noted in the right upper lobe. Left lower extremity Doppler study revealed no evidence for DVT. - Physical Exam Vitals/I&O's: Vital Signs Temp Pulse Resp BP Pulse Ox 97.9 F 92 20 H 133/73 H 95 09/07/19 04:40 09/07/19 04:40 09/07/19 04:48 09/07/19 04:40 09/07/19 04:48 Oxygen Flow Rate (L/min) 2 Oxygen Delivery Method Nasal Cannula Weight: 217 lb 0.016 oz Body Mass Index (BMI) 31.1 Intake and Output for Last 24 Hours 09/05/19 09/06/19 09/07/19 23:59 23:59 23:59 Intake Total 1575 / 1875 1235 / 1735 600 / 600 Balance 1575 / 1875 1235 / 1735 600 / 600 General: Alert, Oriented x3, Cooperative, No apparent distress HEENT: Atraumatic, PERRLA, Normocephalic Oral: Moist Mucosa, No Gingival or Mucosal Lesions/ Ulcerations Neck: Supple, No Nodes, Trachea Midline Lungs: Diminished, Wheezes - B/L Cardiovascular: Regular rate, Regular Rhythm, Normal S1, Normal S2, No murmurs Abdomen: Bowel Sounds Present, Soft, Non Tender, Obese Extremities: No clubbing, No cyanosis, Edema Skin: No breakdown Musculoskeletal: No Tenderness to Palpation of Joints or Extremities, No Muscle Wasting Lymphatic: No Cervical, Supraclavicular, or Inguinal Adenopathy Neurological: Cranial nerves II-XII grossly intact, Neuro grossly intact Psych/Mental Status: Alert and oriented to time, place, person, mood and affect Labs (Last 48 Hours) 09/05/19 09/05/19 09/05/19 11:29 16:40 21:58 WBC RBC Hgb Hct MCV MCH MCHC RDW Std Deviation RDW Coeff of Solange Plt Count MPV Immature Gran % (Auto) Neut % (Auto) Lymph % (Auto) [place] % (Auto) Eos % (Auto) Baso % (Auto) Absolute Neuts (auto) Absolute Lymphs (auto) Nucleated RBC % Sodium Potassium Chloride Carbon Dioxide Anion Gap BUN Creatinine Estim Creat Clear Calc Est GFR (MDRD) Af Amer Est GFR (MDRD) Non-Af BUN/Creatinine Ratio Glucose Calcium POC Glucose 233 H 135 H 144 H 09/06/19 09/06/19 09/06/19 06:48 11:35 16:39 WBC RBC Hgb Hct MCV MCH MCHC RDW Std Deviation RDW Coeff of Solange Plt Count MPV Immature Gran % (Auto) Neut % (Auto) Lymph % (Auto) [place] % (Auto) Eos % (Auto) Baso % (Auto) Absolute Neuts (auto) Absolute Lymphs (auto) Nucleated RBC % Sodium Potassium Chloride Carbon Dioxide Anion Gap BUN Creatinine Estim Creat Clear Calc Est GFR (MDRD) Af Amer Est GFR (MDRD) Non-Af BUN/Creatinine Ratio Glucose Calcium POC Glucose 114 H 149 H 128 H 09/06/19 09/07/19 09/07/19 21:59 06:10 06:10 WBC 15.1 H RBC 4.52 L Hgb 13.7 Hct 42.6 MCV 94.2 H MCH 30.3 MCHC 32.2 RDW Std Deviation 47.8 H RDW Coeff of Solange 14.0 Plt Count 270 MPV 11.0 Immature Gran % (Auto) 0.800 Neut % (Auto) 89.4 H Lymph % (Auto) 6.3 L [place] % (Auto) 3.4 Eos % (Auto) 0.0 Baso % (Auto) 0.1 Absolute Neuts (auto) 13.5 H Absolute Lymphs (auto) 0.95 Nucleated RBC % 0 Sodium 139 Potassium 4.1 Chloride 105 Carbon Dioxide 26.0 Anion Gap 8 BUN 28 H Creatinine 1.14 Estim Creat Clear Calc 79.15 Est GFR (MDRD) Af Amer 87 Est GFR (MDRD) Non-Af 72 BUN/Creatinine Ratio 24.6 H Glucose 130 H Calcium 8.9 POC Glucose 131 H 09/07/19 06:33 WBC RBC Hgb Hct MCV MCH MCHC RDW Std Deviation RDW Coeff of Solange Plt Count MPV Immature Gran % (Auto) Neut % (Auto) Lymph % (Auto) [place] % (Auto) Eos % (Auto) Baso % (Auto) Absolute Neuts (auto) Absolute Lymphs (auto) Nucleated RBC % Sodium Potassium Chloride Carbon Dioxide Anion Gap BUN Creatinine Estim Creat Clear Calc Est GFR (MDRD) Af Amer Est GFR (MDRD) Non-Af BUN/Creatinine Ratio Glucose Calcium POC Glucose 118 H Clinical Impression(s) from Imaging Studies Chest CTA 09/05/19 00:42 IMPRESSION: Normal CTA chest examination, without a demonstrated pulmonary embolism or arterial dissection. Lungs are expanded. There are moderate emphysematous changes. There are scattered fibrotic changes. There is a 12 mm spiculated density in the RIGHT upper lung on image 185. There is noncalcified nodular density in the LEFT lower lung on image 202. These could be fibrotic changes. Neoplastic nodules not entirely excluded. Short-term follow-up may be indicated. Electronically Signed: Michele Gerber MD at 2:14 EST , Service support , Current Medications Acetaminophen (Tylenol) 650 mg PO Q6H PRN PRN PRN Reason: Pain Score 1-3/Temp > 100.7 F Last Admin: 09/05/19 07:24 Dose: 650 mg Documented by: Albuterol Sulfate (Ventolin Aerosols) 2.5 mg INHALATION Q2H PRN PRN PRN Reason: SHORTNESS OF BREATH Albuterol/Ipratropium (Duoneb) 3 ml INHALATION Q4H.RT [facility] Last Admin: 09/07/19 06:59 Dose: 3 ml Documented by: Aspirin (Aspirin) 325 mg PO DAILY@0800 [facility] Last Admin: 09/06/19 09:55 Dose: 325 mg Documented by: Dextrose (D50w Syringe) 0 gm IV X1 PRN; Protocol PRN Reason: Hypoglycemia Enoxaparin Sodium (Lovenox) 40 mg SC DAILY@1000 [facility] Last Admin: 09/06/19 09:55 Dose: 40 mg Documented by: Famotidine (Pepcid) 20 mg PO DAILY [facility] Last Admin: 09/06/19 09:56 Dose: 20 mg Documented by: Glucagon () 1 mg IM .X1 PRN PRN Reason: Hypoglycemia Azithromycin 500 mg/ Dextrose 255 mls @ 250 mls/hr IV Q24 [facility] Stop: 09/07/19 11:02 Last Infusion: 09/06/19 11:05 Dose: Infused Documented by: Sodium Chloride () 250 mls @ 15 mls/hr IV .[id number] PRN PRN Reason: Saline Flush Ibuprofen (Motrin) 400 mg PO Q4H PRN PRN PRN Reason: Pain Score 1-3/Temp > 100.7 F Last Admin: 09/07/19 06:14 Dose: 400 mg Documented by: Insulin Human Lispro (Humalog [place] (Bkc)) 0 unit SC TIDAC [facility]; Protocol Last Admin: 09/07/19 06:33 Dose: Not Given Documented by: Lisinopril (Zestril) 10 mg PO DAILY [facility] Last Admin: 09/06/19 09:56 Dose: 10 mg Documented by: Melatonin (Melatonin) 3 mg PO QHS PRN PRN PRN Reason: INSOMNIA Last Admin: 09/06/19 23:48 Dose: 3 mg Documented by: Methylprednisolone (Solu-Medrol) 40 mg IV Q8 [facility] Last Admin: 09/07/19 06:09 Dose: 40 mg Documented by: Nicotine (Nicoderm Cq (Pbkc)) 21 mg TRANSDERM. DAILY [facility] Last Admin: 09/06/19 09:54 Dose: 21 mg Documented by: Ondansetron HCl (Zofran) 4 mg IV Q8H PRN PRN PRN Reason: NAUSEA/VOMITING Pantoprazole Sodium (Protonix) 20 mg PO DAILY [facility] Last Admin: 09/06/19 09:56 Dose: 20 mg Documented by: Sodium Chloride () 10 - 40 ml IV UD PRN PRN Reason: SALINE FLUSH Last Admin: 09/07/19 06:09 Dose: 10 ml Documented by: Medical Necessity - Tobacco Use Smoking Status: Heavy Smoker (>10/day) Tobacco Use: Cigarettes Assessment/Plan All Active Problems COPD exacerbation (Acute) Left leg pain (Acute) Acute respiratory insufficiency (Acute) Acute kidney injury (Acute) COPD exacerbation (Acute) RECOMMENDATIONS: 1. Continue scheduled bronchodilators and IV steroids. 2. Check respiratory viral panel. 3. Antibiotics can likely be discontinued, given the lack of pneumonia noted on CTA chest. 4. Wean supplemental oxygen to maintain saturations at or above 90%. 5. Encourage incentive spirometer use and mobilize patient as tolerated. 6. Outpatient follow-up with primary supervisor customer records division within 2 weeks of discharge. IMPRESSIONS: 1. Acute hypoxic respiratory insufficiency secondary to an acute COPD exacerbation Patient with reported relatively advanced COPD with an FEV1 of 29%. Patient is on appropriate therapy at this time, but do anticipate a protracted course given severity of underlying lung disease. Patient should continue with Solu-Medrol at current dosing for now. Would continue with aerosol therapy. Patient is unaware of any previous multidrug-resistant organisms. Recommend checking respiratory viral panel. Wean supplemental oxygen to maintain saturations at or above 90%. 2. Lung nodule Patient with a 12 mm right upper lobe nodule. Patient reportedly has had negati ve biopsies in the past. Would defer to [facility]. Unclear if patient has had a PET scan previously. Patient is not reporting any signs or symptoms that require urgent inpatient evaluation. 3. Lower extremity edema Clinical suspicion for an element of cor pulmonale secondary to advanced lung disease and hypoxemia associated with COPD exacerbation. DVT and PE work-up have been negative thus far. 4. Tobacco abuse/hypertension/type 2 diabetes mellitus Complicates care, management, recovery and prognosis. Smoking cessation is ad vised. Nicotine replacement therapy can be continued while admitted to the hospital. This note was generated with Encentuate dictation software. It may contain incorrect words, spelling, and punctuation that were not noted in checking the note before signing. Code Visit Inpatient E&M: 37557 Subs Hosp L2
[2019-09-07] MEDS: Aspirin 325 MG Tablet PO (07:38)
--- NOTE | 2019-09-07 07:49 | NURSING ---
Addendum entered by Bhargavi Tao 09/07/19 07:50: Requested PATIENCE Original Note: Request for records refaxed- awaiting results.
[2019-09-07] MEDS: Enoxaparin 40 MG/0.4 ML Syringe SC (09:04)
[2019-09-07] MEDS: Lisinopril 10 MG Tablet PO (09:09)
[2019-09-07] MEDS: Pantoprazole Sodium 20 MG Tablet PO (09:09)
[2019-09-07] MEDS: Famotidine 20 MG Tablet PO (09:09)
--- NOTE | 2019-09-07 09:14 | DCINST_ITS ---
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 You are advised not to smoke or go near open flames blunt on oxygen. Use your oxygen all the time. Complete your steroid taper. Continue to use your inhaler as needed for shortness of breath. Follow-up with your film touch up inspector within 1 to 2 weeks as well as with your primary care doctor. Allergies/Adverse Reactions: Allergies No Known Allergies Allergy (Verified 09/05/19 00:30) Medications to take at Discharge Albuterol Inhaler [Ventolin Hfa] 2 puff INHALATION Q6H PRN PRN 11/29/15 Lisinopril [Zestril] 10 mg PO DAILY 11/29/15 Pantoprazole Sodium [Protonix] 20 mg PO QODAY 11/29/15 Aspirin 325 mg PO DAILY@0800 09/05/19 Mometasone/Formoterol [Dulera 200 Mcg/5 Mcg Inhaler] 2 puff IH BID 09/05/19 Ranitidine [Zantac] 150 mg PO QODAY 09/05/19 Umeclidinium [place] [Incruse Ellipta] 1 puff IH DAILY 09/05/19 metFORMIN HCl [Glucophage] 500 mg PO DAILY 09/05/19 Nicotine [Nicoderm Cq] 21 mg TRANSDERM. DAILY #30 patch 09/07/19 Prednisone 10 mg PO DAILY #30 tab 09/07/19 The following prescriptions were given: Nicotine [Nicoderm Cq] 21 mg TRANSDERM. DAILY #30 patch Transmission Status: Pending to [facility] #30 Prednisone 10 mg PO DAILY #30 tab Transmission Status: Pending to [facility] #30 Primary Care Physician: Adolfo Bruce MD [Primary Care Provider] - Please follow up with your Primary Care Physician in: within 1-2 weeks Test Results: Test results from this visit will be discussed in further detail at your follow- up appointment, if applicable. When: Follow-up with your film touch up inspector within 2 weeks Proposed Discharge Date: 09/07/19
--- NOTE | 2019-09-07 09:31 | DS.PCM_ITS ---
Discharge Date and Diagnosis Date of Admission: 09/05/19 Date of Discharge: 09/07/19 - Primary Discharge Diagnosis Active and Suspected Problems Acute COPD exacerbation Nicotine dependence Hypoxia - Secondary Discharge Diagnosis Chronic Problems Lung nodule (Chronic) Right upper lobe, followed by [facility] COPD (chronic obstructive pulmonary disease) (Chronic) Hyperlipidemia (Chronic) Hypertension (Chronic) Hospital Course and Treatment Imaging Results: Clinical Impression(s) from Imaging Studies Chest CTA 09/05/19 00:42 IMPRESSION: Normal CTA chest examination, without a demonstrated pulmonary embolism or arterial dissection. Lungs are expanded. There are moderate emphysematous changes. There are scattered fibrotic changes. There is a 12 mm spiculated density in the RIGHT upper lung on image 185. There is noncalcified nodular density in the LEFT lower lung on image 202. These could be fibrotic changes. Neoplastic nodules not entirely excluded. Short-term follow-up may be indicated. Electronically Signed: Michele Gerber MD at 2:14 EST , Service support , Pulmonology Operations: None Procedures: None Summary of Care Provided: The patient is a 53 year old M with past medical history of reported COPD, questionable alpha antitrypsin 1 deficiency, follows up with a senior attorney in the [facility] system comes in with complaints of progressive shortness of breath. Patient's admitting CTA chest as she was negative for acute infiltrates. It showed moderate emphysematous changes with scattered fibrotic changes. There was a 12 mm spiculated density in the right upper lung that is not new. Had Doppler ultrasound done for leg swelling that was negative for acute DVT. Patient's management on the [facility] floor was of acute COPD exacerbation. Respiratory panel was negative. He was managed on breathing treatments, IV steroids, IV azithromycin. He completed 3 days of IV azithromycin. He was seen by pulmonology and recommended continuation of treatment. Patient qualified for home oxygen with SPO2 of 84% on ambulation, improved with 3 L of oxygen. He was discharged with a steroid taper asked to follow-up with his senior attorney in the outpatient within 2 weeks as well as his primary care doctor. He was advised to quit smoking especially while is on oxygen. Subjective: On the day of discharge, patient denied any new complaints. He felt improved. He had a few scattered wheezes. Remained on 2 L of oxygen. He was evaluated for ambulatory oxygen and qualified for oxygen because his SPO2 on ambulation dropped to 84%. Objective: Physical exam: General: Alert, Oriented x3, Cooperative, No apparent distress, on 2L oxygen HEENT: Atraumatic, PERRLA, EOMI, Normocephalic Oral: Moist Mucosa Neck: Supple Lungs: Diminished, few wheezes Cardiovascular: Regular rate, Regular Rhythm, Normal S1, Normal S2, No murmurs Abdomen: Bowel Sounds Present, Soft, Non Tender, Non-Distended, No Hepato- splenomegaly Extremities: No edema Skin: No rashes, No breakdown Musculoskeletal: No Tenderness to Palpation of Joints or Extremities Lymphatic: No Cervical, Supraclavicular, or Inguinal Adenopathy Neurological: Cranial nerves II-XII grossly intact, Neuro grossly intact Psych/Mental Status: Normal Affect, Appropriate - Physical Exam Vitals/I&O's: Vital Signs Temp Pulse Resp BP Pulse Ox 98.2 F 97 18 144/90 H 96 09/07/19 07:50 09/07/19 07:50 09/07/19 07:58 09/07/19 07:50 09/07/19 07:58 Oxygen Flow Rate (L/min) 2 Oxygen Delivery Method Nasal Cannula Weight: 98.43 kg Body Mass Index (BMI) 31.1 Intake and Output for Last 24 Hours 09/05/19 09/06/19 09/07/19 23:59 23:59 23:59 Intake Total 1575 / 1875 1235 / 1735 600 / 600 Balance 1575 / 1875 1235 / 1735 600 / 600 Laboratory Results 09/06/19 11:35: POC Glucose 149 H 09/06/19 16:39: POC Glucose 128 H 09/06/19 21:59: POC Glucose 131 H 09/07/19 06:10: WBC 15.1 H, RBC 4.52 L, Hgb 13.7, Hct 42.6, MCV 94.2 H, MCH 30.3, MCHC 32.2, RDW Std Deviation 47.8 H, RDW Coeff of Solange 14.0, Plt Count 270, MPV 11.0, Immature Gran % (Auto) 0.800, Neut % (Auto) 89.4 H, Lymph % (Auto) 6.3 L, [place] % (Auto) 3.4, Eos % (Auto) 0.0, Baso % (Auto) 0.1, Absolute Neuts (auto) 13.5 H, Absolute Lymphs (auto) 0.95, Nucleated RBC % 0 09/07/19 06:10: Sodium 139, Potassium 4.1, Chloride 105, Carbon Dioxide 26.0, Anion Gap 8, BUN 28 H, Creatinine 1.14, Estim Creat Clear Calc 79.15, Est GFR (MDRD) Af Amer 87, Est GFR (MDRD) Non-Af 72, BUN/Creatinine Ratio 24.6 H, Glucose 130 H, Calcium 8.9 09/07/19 06:33: POC Glucose 118 H Current Medications Acetaminophen (Tylenol) 650 mg PO Q6H PRN PRN PRN Reason: Pain Score 1-3/Temp > 100.7 F Last Admin: 09/05/19 07:24 Dose: 650 mg Documented by: Albuterol Sulfate (Ventolin Aerosols) 2.5 mg INHALATION Q2H PRN PRN PRN Reason: SHORTNESS OF BREATH Albuterol/Ipratropium (Duoneb) 3 ml INHALATION Q4H.RT [facility] Last Admin: 09/07/19 06:59 Dose: 3 ml Documented by: Aspirin (Aspirin) 325 mg PO DAILY@0800 [facility] Last Admin: 09/07/19 07:38 Dose: 325 mg Documented by: Dextrose (D50w Syringe) 0 gm IV X1 PRN; Protocol PRN Reason: Hypoglycemia Enoxaparin Sodium (Lovenox) 40 mg SC DAILY@1000 [facility] Last Admin: 09/07/19 09:04 Dose: 40 mg Documented by: Famotidine (Pepcid) 20 mg PO DAILY [facility] Last Admin: 09/07/19 09:09 Dose: 20 mg Documented by: Glucagon () 1 mg IM .X1 PRN PRN Reason: Hypoglycemia Azithromycin 500 mg/ Dextrose 255 mls @ 250 mls/hr IV Q24 [facility] Stop: 09/07/19 11:02 Last Admin: 09/07/19 09:11 Dose: 250 mls/hr Documented by: Sodium Chloride () 250 mls @ 15 mls/hr IV .[id number] PRN PRN Reason: Saline Flush Ibuprofen (Motrin) 400 mg PO Q4H PRN PRN PRN Reason: Pain Score 1-3/Temp > 100.7 F Last Admin: 09/07/19 06:14 Dose: 400 mg Documented by: Insulin Human Lispro (Humalog Kwikpen (Bkc)) 0 unit SC TIDAC [facility]; Protocol Last Admin: 09/07/19 06:33 Dose: Not Given Documented by: Lisinopril (Zestril) 10 mg PO DAILY [facility] Last Admin: 09/07/19 09:09 Dose: 10 mg Documented by: Melatonin (Melatonin) 3 mg PO QHS PRN PRN PRN Reason: INSOMNIA Last Admin: 09/06/19 23:48 Dose: 3 mg Documented by: Methylprednisolone (Solu-Medrol) 40 mg IV Q8 [facility] Last Admin: 09/07/19 06:09 Dose: 40 mg Documented by: Nicotine (Nicoderm Cq ([facility])) 21 mg TRANSDERM. DAILY [facility] Last Admin: 09/07/19 09:06 Dose: 21 mg Documented by: Ondansetron HCl (Zofran) 4 mg IV Q8H PRN PRN PRN Reason: NAUSEA/VOMITING Pantoprazole Sodium (Protonix) 20 mg PO DAILY [facility] Last Admin: 09/07/19 09:09 Dose: 20 mg Documented by: Sodium Chloride () 10 - 40 ml IV UD PRN PRN Reason: SALINE FLUSH Last Admin: 09/07/19 09:17 Dose: 10 ml Documented by: Discharge Diet: Low fat/ Low Cholesterol, 2000 mg Sodium Diet Discharge Activity: Return to Normal Activity Home Medications: Medications to take at Discharge Albuterol Inhaler [Ventolin Hfa] 2 puff INHALATION Q6H PRN PRN 11/29/15 Lisinopril [Zestril] 10 mg PO DAILY 11/29/15 Pantoprazole Sodium [Protonix] 20 mg PO QODAY 11/29/15 Aspirin 325 mg PO DAILY@0800 09/05/19 Mometasone/Formoterol [Dulera 200 Mcg/5 Mcg Inhaler] 2 puff IH BID 09/05/19 Ranitidine [Zantac] 150 mg PO QODAY 09/05/19 Umeclidinium [place] [Incruse Ellipta] 1 puff IH DAILY 09/05/19 metFORMIN HCl [Glucophage] 500 mg PO DAILY 09/05/19 Nicotine [Nicoderm Cq] 21 mg TRANSDERM. DAILY #30 patch 09/07/19 Prednisone 10 mg PO DAILY #30 tab 09/07/19 Following Prescrptions Were Given to Patient: Nicotine [Nicoderm Cq] 21 mg TRANSDERM. DAILY #30 patch Transmission Status: Received by [facility] #30 Prednisone 10 mg PO DAILY #30 tab Transmission Status: Received by [facility] #30 Primary Care Physician: Adolfo Bruce MD [Primary Care Provider] - Please follow up with your Primary Care Physician in: within 1-2 weeks When: Follow-up with your senior attorney within 2 weeks Disposition: Home Minutes spent on discharge:: 40 Patient Condition:: Stable Medical Necessity - Tobacco Use Smoking Status: Heavy Smoker (>10/day) Tobacco Use: Cigarettes Meaningful Use Info Meaningful Use Diagnoses (Choose all that apply): None applicable Code Visit Inpatient E&M: 71354 Disch Hosp
--- NOTE | 2019-09-07 11:05 | NURSING ---
Medical records obtained from [facility] at this time and placed in chart- Dr. Painter notified via [employer].
--- NOTE | 2019-09-07 12:00 | CASEMGMT ---
ANDREW CATHERINE received update from nursing that patient will need home oxygen at discharge. ANDREW CATHERINE in to discuss home oxygen and DME companies with patient. ANDREW CATHERINE provided list of DME companies and patient prefers [employer]. ANDREW CATHERINE received script for home oxygen and sent referral to [employer] and arranged for oxygen tank to be delivered to patient's room prior to discharge. Patient updated and had no further needs or concern at this time. Patient states he will follow-up with Dr. Moreno his bindery supervisor.
[2019-09-07 12:30] LABS: Bedside Glucose 98 mg/dL (70-110)
--- NOTE | 2019-09-10 15:58 | CASEMGMT ---
ANDREW CATHERINE DC PHONE CALL DC DATE: 09.08.19 DC Disposition: Home Diagnosis on Discharge: COPD LACE/STRATA: 07/26 No answer to phone call.
== END 2019-09-07 14:20 | disposition home or self-care (01) | DRG 140 ==
LOC: ED 02:21 → MS3 02:33
PROVIDERS: Emergency Provider Emergency Medicine; Family Provider Family Medicine; PCP Family Medicine; Visit Provider Internal Medicine
DX: J44.1 Chronic obstructive pulmonary disease with (acute) exacerbation (principal); R09.02 Hypoxemia; R60.0 Localized edema; R91.1 Solitary pulmonary nodule; E78.5 Hyperlipidemia, unspecified; I10 Essential (primary) hypertension; F17.210 Nicotine dependence, cigarettes, uncomplicated; Z79.84 Long term (current) use of oral hypoglycemic drugs; Z79.51 Long term (current) use of inhaled steroids; Z79.82 Long term (current) use of aspirin; Z79.899 Other long term (current) drug therapy; E11.9 Type 2 diabetes mellitus without complications; R06.89 Other abnormalities of breathing; N17.9 Acute kidney failure, unspecified; E66.9 Obesity, unspecified; Z68.31 Body mass index [BMI] 31.0-31.9, adult
CPT/HCPCS: 36415; 71275; 80048; 82962; 84484; 85025; 85610; 87633; 93005; 93971; 94640; 94667; 94668; 99251; 99285; 99406; J7040; Q9967; 90686; A4216; G0463; J2405

== ENCOUNTER 2021-09-21 08:34 | Emergency (ER) | payer MEDICAID, SELFPAY ==
[2021-09-21 08:35] VITALS: BP 149/102; PULSE 120; RESP 20; TEMP 36.6; O2SAT 95; BMI 29.0
--- NOTE | 2021-09-21 08:51 | EKG12_ITS ---
Test Reason : Blood Pressure : / mmHG Vent. Rate : 105 BPM Atrial Rate : 105 BPM P-R Int : 114 ms QRS Dur : 086 ms QT Int : 336 ms P-R-T Axes : 079 001 055 degrees QTc Int : 444 ms Sinus tachycardia Inferior infarct , age undetermined Abnormal ECG Confirmed by DEANDRA BLUM, MATTIE ([id number]), commissioning editor ESTELLE REYES ([id number]) on 09/22/2021 7:55:07 AM Referred By: CAESAR Confirmed By:MATTIE LIRIANO MD
--- NOTE | 2021-09-21 08:52 | EX.ED.DYSGE1 ---
HPI History of Present Illness Chief Complaint: Shortness of Breath Informant: patient Onset/Context/Timing Onset: Days Current Severity: Moderate Maximum Severity: Severe Narrative Narrative: Patient presents secondary to shortness of breath. He has a history of COPD and is on home oxygen. He states he is just getting over bronchitis and finished his antibiotics 2 days ago. He states since stopping the antibiotics he feels like his lungs of tightened up again. He received a DuoNeb treatment with EMS and states his breathing is much improved now. No fever or chills. Cough noted with clear sputum. He was on a steroid taper but is now back to his regular daily steroid dose. [facility] Medical History COPD (chronic obstructive pulmonary disease) Hyperlipidemia Hypertension Home Medications albuterol sulfate [Ventolin HFA] 2 puff INHALATION Q6H PRN PRN 11/29/15 [History Last Taken 09/04/19 23:30 2 puffs] lisinopril 10 mg PO DAILY 11/29/15 [History Last Taken 09/04/19 08:00 10 mg] pantoprazole 20 mg PO QODAY 11/29/15 [History Last Taken 09/04/19 08:00 20 mg] aspirin 325 mg PO DAILY@0800 09/05/19 [History Last Taken 09/04/19 08:00 325 mg] metformin 500 mg PO DAILY 09/05/19 [History Last Taken 09/04/19 08:00 500 mg] mometasone-formoterol 2 puff IH BID 09/05/19 [History Last Taken 09/04/19 22:00 2 puff] ranitidine HCl 150 mg PO QODAY 09/05/19 [History Last Taken 09/03/19 08:00 150 mg] umeclidinium 1 puff IH DAILY 09/05/19 [History Last Taken 09/04/19 08:00 1 puff] nicotine 21 mg TRANSDERM. DAILY #30 patch 09/07/19 [Rx Last Taken Unknown] prednisone 10 mg PO DAILY #30 tab 09/07/19 [Rx Last Taken Unknown] doxycycline monohydrate 100 mg PO BID #20 cap 09/21/21 [Rx Last Taken Unknown] prednisone See Taper PO DAILY #63 tab 09/21/21 [Rx Last Taken Unknown] Allergy/AdvReac Type Severity Reaction Status Date / Time No Known Allergies Allergy Verified 09/21/21 08:39 Social History Smoking Status: Heavy Smoker (>10/day) ROS ROS ED Constitutional Constitutional ED: Denies chills or fever(s) Eyes Eyes: Denies change in vision ENT ENT ED: Denies sore throat Cardiovascular Cardiovascular: Reports chest pain Respiratory/Chest Respiratory/Chest: Reports cough, dyspnea and sputum Gastrointestinal Gastrointestinal: Denies abdominal pain, diarrhea, nausea or vomiting Genitourinary Genitourinary ED: Denies dysuria Musculoskeletal Musculoskeletal: Denies back pain Integumentary Denies rash Neurologic Neurologic: Denies headache(s) or weakness Allergic/Immunologic Allergic/Immunologic ED: Denies urticaria EXAM Physical Exam Const Vital Signs: 09/21/21 08:35 09/21/21 09:20 09/21/21 09:21 Temperature 97.9 F 97.9 F Temperature Source Temporal Oral Pulse Rate 120 H 117 H 16 L Respiratory Rate 20 H 21 H 21 H Respiratory Effort Normal Non-Labored Respiratory Pattern Tachypnea Tachypnea Blood Pressure 149/102 H 133/86 H Blood Pressure Mean 117 101 Pulse Ox 95 90 Oxygen Delivery Method Nasal Cannula Nasal Cannula Oxygen Flow Rate (L/min) 2.5 2 09/21/21 11:09 09/21/21 11:10 09/21/21 11:12 Temperature 98.4 F Temperature Source Temporal Pulse Rate 89 Respiratory Rate 18 Respiratory Effort Respiratory Pattern Blood Pressure 129/83 H Blood Pressure Mean 98 Pulse Ox 96 94 Oxygen Delivery Method Room Air Room Air Room Air Oxygen Flow Rate (L/min) Positive well nourished and well developed General Appearance ED: well developed HEENT Reports normocephalic and head/scalp atraumatic Eyes PERRL and EOMs intact bilaterally Neck supple Chest Wall inspection of chest normal and palpation of chest normal Resp Resp Narrative: Tachypnea with expiratory wheezes throughout. Cardio regular rhythm Rate: tachycardic GI normal to inspection, nondistended, normoactive bowel sounds and non-tender Palpation: soft Extremity normal to inspection Neuro oriented x3 and no sensory deficits noted Sensorium / Orientation: alert Motor Exam: strength 5/5 throughout Psych mental status grossly normal Skin no rashes or lesions noted MDM MDM MDM Narrative Medical decision making narrative: Patient was given IV Solu-Medrol along with 2 additional albuterol treatments. He received a DuoNeb treatment just prior to arrival. Covid, lab work, chest x-ray obtained. Lab Data Attestation: I reviewed the patient's lab results. Labs: Laboratory Results - last 24 hr 09/21/21 09/21/21 08:25 08:25 WBC 12.9 H RBC 4.86 Hgb 15.9 Hct 49.8 MCV 102.5 H MCH 32.7 H MCHC 31.9 L RDW Std Deviation 51.3 H RDW Coeff of Solange 13.4 Plt Count 279 MPV 11.4 Immature Gran % (Auto) 0.500 Neut % (Auto) 92.8 H Lymph % (Auto) 3.5 L [place] % (Auto) 3.0 Eos % (Auto) 0.0 Baso % (Auto) 0.2 Absolute Neuts (auto) 12.0 H Absolute Lymphs (auto) 0.45 L Nucleated RBC % 0 Differential Comment COMMENT Sodium 141 Potassium 4.3 Chloride 104 Carbon Dioxide 34.0 H Anion Gap 3 L BUN 15 Creatinine 0.91 Estim Creat Clear Calc 96.93 Est GFR (MDRD) Af Amer 112 Est GFR (MDRD) Non-Af 92 BUN/Creatinine Ratio 16.5 Glucose 106 Calcium 9.3 Rapid Covid: Negative Radiography Chest X-Ray - ED: 1 View, Read by ED Physician and Chronic Changes Diagnostic Testing: Clinical Impression(s) from Imaging Studies Chest X-Ray 09/21/21 09:30 IMPRESSION: Hyperinflation. The lungs are clear. Electronically Signed: Simba Diaz MD at 10:06 EST , Service support , Treatment and Re-Evaluation Comments:: On repeat evaluation patient reports much improvement in his breathing. He is currently in 3 and half liters and satting in the high 90s. He was able to take his oxygen off for 10 minutes and did not desaturate. He does still have expiratory wheezes on auscultation, but much improved compared to earlier. He feels comfortable with discharge to home at this time. He will be placed on a longer prednisone taper. He has been on 2 rounds of Levaquin recently and will be placed on doxycycline at this time. Return instructions provided. Discharge Plan Triage Chief Complaint: Shortness of Breath ED Provider: Mandi Briones Dx/Rx/DC Orders Clinical Impression: COPD exacerbation Instructions: ED COPD Flare Prescriptions: New prednisone 10 mg tablet See Taper mg PO DAILY Qty: 63 RF: 0 doxycycline monohydrate 100 MG capsule 100 mg PO BID Qty: 20 RF: 0 No Action pantoprazole 20 MG tablet 20 mg PO QODAY RF: 0 lisinopril 10 MG tablet 10 mg PO DAILY RF: 0 albuterol sulfate [Ventolin HFA] 1 INHALER inhaler 2 puff inhalation Q6H PRN PRN (Reason: Sob &/Or Wheezing) RF: 0 metformin 500 MG tablet 500 mg PO DAILY RF: 0 aspirin 325 MG tablet 325 mg PO DAILY@0800 RF: 0 ranitidine HCl 150 MG tablet 150 mg PO QODAY RF: 0 mometasone-formoterol 13 GM HFA aerosol inhaler 2 puff IH BID RF: 0 umeclidinium 62.5 MCG blister with device 1 puff IH DAILY RF: 0 nicotine 21 MG patch 21 mg TRANSDERM. DAILY Qty: 30 RF: 0 prednisone 10 MG tablet 10 mg PO DAILY Qty: 30 RF: 0 Primary Care Provider: Adolfo Bruce Referrals: Adolfo Bruce MD [Primary Care Provider] - Activity Restrictions/Additional Instructions: Follow-up with your curriculum development specialist in 1 week. Please return to the ER if not improving. Disposition Disposition: Home, Self Care
[2021-09-21 09:01] LABS: Absolute Lymphocyte Count 0.45 X10^3/uL (0.83-4.51); Basophil# 0.02 X10^3/uL; Basophil% 0.2 % (0-1); Hematocrit 49.8 % (40-54); Hemoglobin 15.9 g/dL (13.0-16.5); Lymphocyte # 0.45 X10^3/ul (0.83-4.51); Lymphocyte % 3.5 % (19-41); Mean Corp Hgb Conc 31.9 g/dL (32-36); Mean Corpuscular Hgb 32.7 pg (27.0-32.0); Mean Corpuscular Volume 102.5 fL (80-94); Mean Platelet Vol. 11.4 fl (6.2-12.0); Monocyte# 0.39 X10^3/uL; NRBC Flagged by Analyzer 0 % (0-5); Neutrophil # 11.96 X10^3/uL (2.7-7.7); Neutrophil % 92.8 % (47-70); POSITIVE DIFFERENTIAL YES; Platelet Count 279 K/mm3 (150-450); RBC Distribution Width CV 13.4 % (11.6-14.6); RBC Distribution Width SD 51.3 fl (35.1-43.9); Red Blood Count 4.86 M/mm3 (4.6-6.2); White Blood Count 12.9 K/mm3 (4.4-11.0)
[2021-09-21 09:05] LABS: Differential Indicated SCAN CRITERIA MET
[2021-09-21] MEDS: Albuterol 2.5 MG/3 ML VIAL.NEB. INHALATION ×3 (09:18)
[2021-09-21] MEDS: MethylPREDNISolone 125 MG/2 ML Vial IV (09:19)
[2021-09-21 09:20] VITALS: PULSE 117; RESP 21
[2021-09-21 09:21] VITALS: BP 133/86; PULSE 16; RESP 21; TEMP 36.6; O2SAT 90
[2021-09-21 09:22] LABS: Anion Gap 3 (5-15); BUN 15 mg/dL (7-18); BUN/Creat Ratio 16.5 RATIO (10-20); Calcium,Total 9.3 mg/dL (8.5-10.1); Chloride 104 mmol/L (98-107); Creatinine, Serum 0.91 mg/dL (0.70-1.30); EST Glomerular Filtration Rate 92 mL/min (>60); Est Glom Filt Rate - Afr Amer 112 mL/min (>60); Estimated Creatinine Clearance 96.93 ml/min; Glucose 106 mg/dL (74-106); Potassium 4.3 mmol/L (3.5-5.1); Sodium Level 141 mmol/L (136-145)
--- NOTE | 2021-09-21 09:30 | RAD_ITS ---
STUDY: X-RAY CHEST REASON FOR EXAM: Male, 55 years old. 2-3 week history of shortness of breath. TECHNIQUE: Single AP portable view of the chest. COMPARISON: Comparison is made with prior study dated 05/04/2016. FINDINGS: EKG electrodes are seen. There is hyperinflation of the lungs consistent with chronic obstructive lung disease (COPD). There is no demonstrated pleural abnormality. Normal size heart. Normal mediastinum and fantasma. Normal visualized pulmonary arteries. Normal visualized aortic arch and descending thoracic aorta. Normal visualized thoracic spine. Normal visualized ribs, clavicles, and shoulders. There is no demonstrated abnormality of the visualized soft tissue structures of the upper abdomen. RAD/Chest 1 View (Portable) IMPRESSION: Hyperinflation. The lungs are clear. Electronically Signed: Simba Diaz MD at 10:06 EST , Service support ,
[2021-09-21 11:09] VITALS: O2SAT 96
[2021-09-21 11:12] VITALS: BP 129/83; PULSE 89; RESP 18; TEMP 36.9; O2SAT 94
[2021-09-21 12:57] VITALS: BP 137/90; PULSE 101; RESP 18; TEMP 37; O2SAT 96
== END 2021-09-21 13:02 | disposition home or self-care (01) ==
PROVIDERS: Emergency Provider Emergency Medicine; PCP Family Medicine
DX: J44.1 Chronic obstructive pulmonary disease with (acute) exacerbation (principal); F17.200 Nicotine dependence, unspecified, uncomplicated; I10 Essential (primary) hypertension; Z79.51 Long term (current) use of inhaled steroids; Z79.52 Long term (current) use of systemic steroids; Z79.82 Long term (current) use of aspirin; Z79.899 Other long term (current) drug therapy; Z79.84 Long term (current) use of oral hypoglycemic drugs
CPT/HCPCS: 71045; 80048; 85025; 87426; 93005; 94640; 96374; 99285; A4216

== ENCOUNTER 2021-10-13 11:33 | Emergency (ER) | payer MEDICAID, SELFPAY ==
[2021-10-13] VITALS (8 sets, daily range): BP systolic 128–169; BP diastolic 73–113; PULSE 88–112; RESP 12–28; TEMP 36.6; O2SAT 98–100; BMI 27.8
--- NOTE | 2021-10-13 11:34 | RAD_ITS ---
STUDY: X-RAY CHEST REASON FOR EXAM: Male, 56 years old. Cough, pneumonia, bilateral wheezing TECHNIQUE: Single AP portable view of the chest. COMPARISON: Comparison is made with prior study dated 09/21/2021. FINDINGS: EKG electrodes are seen. There is hyperinflation of the lungs consistent with chronic obstructive lung disease (COPD). Mild residual increased markings in the left suprahilar region. Further follow-up is recommended. There is no demonstrated pleural abnormality. Normal size heart. Normal mediastinum and fantasma. Normal visualized pulmonary arteries. Normal visualized aortic arch and descending thoracic aorta. Normal visualized thoracic spine. Normal visualized ribs, clavicles, and shoulders. There is no demonstrated abnormality of the visualized soft tissue structures of the upper abdomen. RAD/Chest 1 View (Portable) IMPRESSION: Hyperinflation. Mild degree of residual increased markings in the left suprahilar region as compared to prior study. Further radiographic follow-up is recommended. Electronically Signed: Simba Diaz MD at 14:18 EST , Service support ,
--- NOTE | 2021-10-13 11:35 | EKG12_ITS ---
Test Reason : Blood Pressure : / mmHG Vent. Rate : 099 BPM Atrial Rate : 099 BPM P-R Int : 116 ms QRS Dur : 092 ms QT Int : 368 ms P-R-T Axes : 080 -05 072 degrees QTc Int : 472 ms Normal sinus rhythm Low voltage QRS (Limb Leads) Anterior [place], age undetermined, cannot be excluded Inferior Mi, age undetermined, cannot b excluded Confirmed by DEANDRA BLUM, MATTIE ([id number]), index editor ESTELLE REYES ([id number]) on 10/19/2021 8:32:01 AM Referred By: ARSLAN Confirmed By:MATTIE LIRIANO MD
--- NOTE | 2021-10-13 11:38 | ED.VIS.DYS ---
HPI History of Present Illness Chief Complaint: Shortness of Breath Detail of Chief Complaint: Shortness of breath requiring more oxygen and pneumonia Informant: patient Onset/Context/Timing Onset: Weeks (Diagnosed with pneumonia in August. He just completed his fourth course of antibiotics.) Context: sudden and rest Timing: Continuous (Patient with significantly increased shortness of breath with increased oxygen demand.) Quality: Positive for Dyspnea on exertion and Wheezing; Negative for Orthopnea and PND Current Severity: Moderate Maximum Severity: Severe Worsened by: Exertion Relieved by: Nothing Associated Symptoms cough; Negative for rhinorrhea, post nasal drip, fever, sore throat, subjective or chills Chest Pain: Positive for None Narrative Narrative: Patient is a 56-year-old male with stage IV gold criteria COPD on home oxygen at 2 L by nasal cannula. Patient continues to smoke. Patient completed a course of amoxicillin this past Tuesday. That was his fourth course of antibiotics for pneumonia noted on chest x-ray. Patient's had multiple negative Covid test. Patient was vaccinated for the flu. He was not vaccinated for Covid and did not receive a Pneumovax. Patient denies history of PE or DVT. He does report leg swelling. He does not know if he has pulmonary hypertension. He denies history of congestive heart failure. Patient is presently on 10 mg of prednisone daily. PE Risk Factors: Negative for Cancer, OCP + Smoking + > 35, Prior DVT or PE, Recent immobilization, Recent surgery and Recent travel Prior similar symptoms: Yes Recent Illness/Hospitalization: Yes [facility] Medical History COPD (chronic obstructive pulmonary disease) Emphysema lung Hyperlipidemia Hypertension Home Medications albuterol sulfate [Ventolin HFA] 2 puff INHALATION Q6H PRN PRN 11/29/15 [History Last Taken 10/13/21] lisinopril 10 mg PO DAILY 11/29/15 [History Last Taken 10/12/21] aspirin 325 mg PO DAILY@0800 09/05/19 [History Last Taken 10/13/21] metformin 500 mg PO DAILY 09/05/19 [History Last Taken 10/13/21] mometasone-formoterol 2 puff IH BID 09/05/19 [History Last Taken 10/13/21] prednisone 10 mg PO DAILY #30 tab 09/07/19 [Rx Last Taken 10/13/21] dexamethasone [Decadron] 6 mg PO DAILY #9 tab 10/13/21 [Rx Last Taken Unknown] ezetimibe 10 mg PO DAILY 10/13/21 [History Last Taken 10/13/21] fluticasone propion-salmeterol 1 inh INHALATION BID 10/13/21 [History Last Taken 10/13/21] ibuprofen 800 mg PO .Q4-6H PRN 10/13/21 [History Last Taken 10/12/21] tiotropium bromide [Spiriva with HandiHaler] 18 mcg INHALATION DAILY 10/13/21 [History Last Taken 10/13/21] Allergy/AdvReac Type Severity Reaction Status Date / Time No Known Allergies Allergy Verified 10/13/21 11:40 Social History (Updated 10/13/21 @ 11:[address] Mitchell Egan MD) household members: none Smoking Status: Heavy Smoker (>10/day) substance use type: does not use ROS ROS ED Constitutional Constitutional ED: Reports weight loss; Denies chills, fever(s) or sweats Eyes Eyes: Denies blurry vision, change in vision or diplopia ENT ENT ED: Reports sore throat; Denies ear pain or rhinorrhea Cardiovascular Cardiovascular: Reports palpitations; Denies chest pain, orthopnea, paroxysmal nocturnal dyspnea or racing heartbeat Respiratory/Chest Respiratory/Chest: Reports cough, dyspnea and dyspnea on exertion; Denies orthopnea or paroxysmal nocturnal dyspnea Gastrointestinal Gastrointestinal: Denies abdominal pain, constipation, diarrhea, melena, nausea or vomiting Genitourinary Genitourinary ED: Denies dysuria, hematuria, LMP (females 10-50) or urinary frequency Musculoskeletal Musculoskeletal: Denies arthralgias, back pain, myalgias or neck pain Integumentary Reports rash; Denies Abrasions Neurologic Neurologic: Reports weakness; Denies headache(s) Psychiatric Psychiatric: Denies anxiety or depression Endocrine Endocrinology: Denies polydipsia, polyphagia or polyuria Hematologic/Lymphatic Hematologic/Lymphatic: Denies easy bleeding or easy bruising EXAM Physical Exam Const Vital Signs: 10/13/21 11:34 10/13/21 11:38 10/13/21 11:43 Temperature 97.9 F 97.9 F Temperature Source Axillary Axillary Pulse Rate 112 H 109 H Respiratory Rate 22 H 24 H Respiratory Effort Short of Breath Labored Respiratory Depth Shallow Respiratory Pattern Tachypnea Blood Pressure 169/113 H 169/113 H Blood Pressure Mean 131 131 Pulse Ox 100 100 Oxygen Delivery Method Room Air Nasal Cannula Nasal Cannula Oxygen Flow Rate (L/min) 2 2 10/13/21 12:16 10/13/21 12:30 10/13/21 13:20 Temperature Temperature Source Pulse Rate 88 108 H 108 H Respiratory Rate 20 H 28 H 12 Respiratory Effort Respiratory Depth Respiratory Pattern Normal Blood Pressure 147/96 H 144/97 H Blood Pressure Mean 113 112 Pulse Ox 99 99 Oxygen Delivery Method Venturi Mask Nasal Cannula Oxygen Flow Rate (L/min) 2 10/13/21 16:14 Temperature Temperature Source Pulse Rate 100 Respiratory Rate 21 H Respiratory Effort Respiratory Depth Respiratory Pattern Blood Pressure 129/73 H Blood Pressure Mean 91 Pulse Ox 98 Oxygen Delivery Method Room Air Oxygen Flow Rate (L/min) Positive well nourished and well developed Constitutional Narrative: Patient is in obvious respiratory distress with use of accessory muscles. He is tachycardic and tachypneic. Pulse ox on room air was 84%. General Appearance ED: well developed; Negative for NAD or pallor HEENT Reports TM's clear and dry mucous membranes HEENT Narrative: Nares patent. Ears normal. atraumatic Tympanic Membrane ED: Yes TM's clear Mouth ED: Yes dry mucous membranes Mouth: dry mucous membranes Eyes PERRL and EOMs intact bilaterally General Eye ED: Negative for pale conjunctiva or scleral icterus Neck no lymphadenopathy, supple, no meningeal signs and no JVD Resp No normal respiratory effort and No clear to auscultation bilaterally Effort and Inspection: Negative for pain with movement Auscultation: wheezes expiratory wheezes, scattered wheezes and throughout and diminished lung sounds Cardio regular rhythm and no murmurs; Negative for regular rate Rate: tachycardic GI non-tender, non-distended and no masses Auscultation: normoactive bowel sounds Palpation: soft Back/Spine no CVA tenderness and normal to inspection Extremity Negative for normal to inspection Extremity Narrative: Pitting edema bilaterally 3 to 4 mm General Extremety ED: Yes edema; Negative for tenderness General Extremity: edema Neuro oriented x3 and CN's II-XII intact bilaterally Whitney Coma Scale: document GCS findings Spontaneous Obeys Commands Oriented 15 Sensorium / Orientation: alert Psych mental status grossly normal Thought Process: normal thought process Skin no wounds General Skin Exam: Negative for jaundice or pallor Lesions: no lesions Rashes: no rashes MDM MDM MDM Narrative Medical decision making narrative: With respiratory distress history of persistent pneumonia with no improvement respiratory panel was obtained to determine if he has a viral pneumonia. Because he is on prednisone he received 125 mg Solu-Medrol. Oxygen was increased to 4 L. He received DuoNeb and albuterol as well. CBC was obtained assess white count and H&H. Basic metabolic panel to assess electrolytes as well as glucose since he has history of diabetes on Metformin. EKG to rule out cardiac ischemia. Chest x-ray to confirm infiltrate. Lab Data Attestation: I reviewed the patient's lab results. Lab results narrative: Respiratory panel was negative for all tests. Covid PCR test is negative. Plan is burst of prednisone. Follow-up with Mandi Tarango and Dr. Zazueta at the [facility] Labs: Laboratory Results - last 24 hr 10/13/21 10/13/21 10/13/21 11:45 11:45 12:00 WBC 8.5 RBC 4.58 L Hgb 14.7 Hct 45.5 MCV 99.3 H MCH 32.1 H MCHC 32.3 RDW Std Deviation 45.6 H RDW Coeff of Solange 12.6 Plt Count 230 MPV 10.7 Immature Gran % (Auto) 0.400 Neut % (Auto) 83.9 H Lymph % (Auto) 11.1 L [place] % (Auto) 4.0 Eos % (Auto) 0.4 Baso % (Auto) 0.2 Absolute Neuts (auto) 7.1 Absolute Lymphs (auto) 0.94 Nucleated RBC % 0 Sodium 140 Potassium 4.8 Chloride 102 Carbon Dioxide 31.0 Anion Gap 7 BUN 13 Creatinine 0.79 Estim Creat Clear Calc 110.37 Est GFR (MDRD) Af Amer 132 Est GFR (MDRD) Non-Af 109 BUN/Creatinine Ratio 16.5 Glucose 113 H Lactic Acid 1.1 Calcium 8.8 COVID-19 (ASCENCION) 10/13/21 12:16 WBC RBC Hgb Hct MCV MCH MCHC RDW Std Deviation RDW Coeff of Solange Plt Count MPV Immature Gran % (Auto) Neut % (Auto) Lymph % (Auto) [place] % (Auto) Eos % (Auto) Baso % (Auto) Absolute Neuts (auto) Absolute Lymphs (auto) Nucleated RBC % Sodium Potassium Chloride Carbon Dioxide Anion Gap BUN Creatinine Estim Creat Clear Calc Est GFR (MDRD) Af Amer Est GFR (MDRD) Non-Af BUN/Creatinine Ratio Glucose Lactic Acid Calcium COVID-19 (ASCENCION) Not Detected ABG Data ABG results: ABG 10/13/21 12:17 Specimen Type ART Sample Site L Radial pH 7.33 L Bicarbonate Actual 32.3 H Total CO2 34 Base Excess 6 H O2 Saturation 99 ABG pCO2 62.0 H ABG pO2 134 H Al Test Positive O2 Delivery Device Cannula Liter Flow 2.0 Radiography Chest X-Ray - ED: 1 View and Read by ED Physician (There is some haziness in the left super hilar region on the left. This is unchanged from prior.) Diagnostic Testing: Clinical Impression(s) from Imaging Studies Chest X-Ray 10/13/21 11:34 IMPRESSION: Hyperinflation. Mild degree of residual increased markings in the left suprahilar region as compared to prior study. Further radiographic follow-up is recommended. Electronically Signed: Simba Diaz MD at 14:18 EST , Service support , Rhythm Strip Rhythm Strip: Sinus Tach Rate: 115 Ectopy: - (ST segments look suspicious for ischemia. Twelve-lead EKG is pending.) EKG Initial EKG: Attestation: I personally reviewed and interpreted this EKG as follows: Interpretation: Sinus Rhythm (Normal sinus rhythm with a ventricular rate of 99. NM interval 260 ms per cures duration 92 ms. QT duration 3 and 68 ms. [place] is normal. EKG is normal.) Discharge Plan Triage Chief Complaint: Shortness of Breath ED Provider: Mitchell Egan Dx/Rx/DC Orders Clinical Impression: Acute exacerbation of chronic obstructive pulmonary disease, Acute bronchospasm Instructions: ED - COVID Monoclonal AB Infusion ..., ED COPD Flare Prescriptions: New dexamethasone [Decadron] 6 mg tablet 6 mg PO DAILY Qty: 9 RF: 0 No Action lisinopril 10 MG tablet 10 mg PO DAILY RF: 0 albuterol sulfate [Ventolin HFA] 1 INHALER inhaler 2 puff inhalation Q6H PRN PRN (Reason: Sob &/Or Wheezing) RF: 0 metformin 500 MG tablet 500 mg PO DAILY RF: 0 aspirin 325 MG tablet 325 mg PO DAILY@0800 RF: 0 mometasone-formoterol 13 GM HFA aerosol inhaler 2 puff IH BID RF: 0 prednisone 10 MG tablet 10 mg PO DAILY Qty: 30 RF: 0 fluticasone propion-salmeterol 250-50 mcg/dose blister with device 1 inh INHALATION BID RF: 0 ibuprofen 200 mg Tablet 800 mg PO .Q4-6H PRN (Reason: Pain) RF: 0 ezetimibe 10 mg tablet 10 mg PO DAILY RF: 0 Spiriva with HandiHaler 18 mcg capsule, w/inhalation device 18 mcg INHALATION DAILY RF: 0 Primary Care Provider: Adolfo Bruce Referrals: Adolfo Bruce MD [Primary Care Provider] - As Needed Disposition Disposition: Home, Self Care
[2021-10-13 11:59] LABS: Absolute Lymphocyte Count 0.94 X10^3/uL (0.83-4.51); Absolute Neutrophil Count 7.1 X10^3/uL (2.0-7.7); Basophil# 0.02 X10^3/uL; Basophil% 0.2 % (0-1); Eosinophil# 0.03 X10^3/uL; Eosinophils% 0.4 % (0-5); Hematocrit 45.5 % (40-54); Hemoglobin 14.7 g/dL (13.0-16.5); Lymphocyte # 0.94 X10^3/ul (0.83-4.51); Lymphocyte % 11.1 % (19-41); Mean Corp Hgb Conc 32.3 g/dL (32-36); Mean Corpuscular Hgb 32.1 pg (27.0-32.0); Mean Corpuscular Volume 99.3 fL (80-94); Mean Platelet Vol. 10.7 fl (6.2-12.0); Monocyte# 0.34 X10^3/uL; NRBC Flagged by Analyzer 0 % (0-5); Neutrophil # 7.12 X10^3/uL (2.7-7.7); Neutrophil % 83.9 % (47-70); Platelet Count 230 K/mm3 (150-450); RBC Distribution Width CV 12.6 % (11.6-14.6); RBC Distribution Width SD 45.6 fl (35.1-43.9); Red Blood Count 4.58 M/mm3 (4.6-6.2); White Blood Count 8.5 K/mm3 (4.4-11.0)
[2021-10-13] MEDS: 0.9% Normal Saline 1,000 ML 150 ML IV (12:02)
[2021-10-13] MEDS: MethylPREDNISolone 125 MG/2 ML Vial IV (12:02)
[2021-10-13] MEDS: Albuterol 2.5 MG/3 ML VIAL.NEB. INHALATION ×3 (12:16)
[2021-10-13] MEDS: Ipratropium/Albuterol Sulfate 3 ML AMPUL.NEB INHALATION (12:16)
[2021-10-13 12:21] LABS: Allen Test Positive; Base Excess 6 mmol/L (-2 to +2); Bicarbonate 32.3 mmol/L (22-26); Blood Gas Specimen Type ART; O2 Delivery Device Cannula; PO2 134 mmHG (75-100); SITE L Radial; SO2 99 % (95-99); Total Carbon Dioxide 34 mmol/L; pH 7.33 (7.35-7.45)
[2021-10-13 12:24] LABS: Anion Gap 7 (5-15); BUN 13 mg/dL (7-18); BUN/Creat Ratio 16.5 RATIO (10-20); Calcium,Total 8.8 mg/dL (8.5-10.1); Chloride 102 mmol/L (98-107); Creatinine, Serum 0.79 mg/dL (0.70-1.30); EST Glomerular Filtration Rate 109 mL/min (>60); Est Glom Filt Rate - Afr Amer 132 mL/min (>60); Estimated Creatinine Clearance 110.37 ml/min; Glucose 113 mg/dL (74-106); Potassium 4.8 mmol/L (3.5-5.1); Sodium Level 140 mmol/L (136-145)
[2021-10-13 12:33] LABS: Lactic Acid 1.1 mmol/L (0.4-1.9)
[2021-10-13] MEDS: dexAMETHasone 4 MG Tablet 6 MG PO (16:02)
== END 2021-10-13 17:07 | disposition home or self-care (01) ==
PROVIDERS: Emergency Provider Emergency Medicine; PCP Family Medicine
DX: J44.1 Chronic obstructive pulmonary disease with (acute) exacerbation (principal); F17.200 Nicotine dependence, unspecified, uncomplicated; I10 Essential (primary) hypertension; Z79.84 Long term (current) use of oral hypoglycemic drugs; Z99.81 Dependence on supplemental oxygen; Z79.82 Long term (current) use of aspirin; Z79.51 Long term (current) use of inhaled steroids
CPT/HCPCS: 36415; 36600; 71045; 80048; 82803; 83605; 85025; 87040; 87633; 87635; 93005; 94640; 96374; 99285; J7030; U0005; A4216; U0003

== ENCOUNTER 2021-10-22 03:34 | Inpatient (IN) | payer MEDICAID, SELFPAY ==
[2021-10-22] VITALS (20 sets, daily range): BP systolic 103–182; BP diastolic 54–127; PULSE 78–124; RESP 18–28; TEMP 36.5–37; O2SAT 74–98; BMI 27.4; BMI 27.0
--- NOTE | 2021-10-22 03:51 | EKG12_ITS ---
Test Reason : DYSRHYTHMIA Blood Pressure : / mmHG Vent. Rate : 113 BPM Atrial Rate : 113 BPM P-R Int : 112 ms QRS Dur : 090 ms QT Int : 342 ms P-R-T Axes : 092 005 074 degrees QTc Int : 469 ms Sinus tachycardia Otherwise normal ECG Poor R wave progression Anteroseptal Infarct Confirmed by AREN BLUM, NATY ([id number]), editorial writer ESTELLE REYES ([id number]) on 11/04/2021 10:24:00 AM Referred By: CHETAN Confirmed By:NATY YOUNGER MD
--- NOTE | 2021-10-22 03:51 | CT_ITS ---
STUDY: CTA CHEST REASON FOR EXAM: Male, 56 years old. Hemoptysis and hypoxia RADIATION DOSAGE (If Supplied By Facility): CTDIvol = ( 22.42 ) mGy, DLP = ( 454.86 ) mGycm TECHNIQUE: The examination was performed with the intravenous administration of IV 100mL Isovue-370. Post-processing of the angiographic images was performed, with multiplanar reformation and 3D reconstruction. Individualized dose optimization techniques were used for this CT. COMPARISON: 10/13/2021 chest x-ray, 09/21/2021, CT scan chest 09/05/2019 FINDINGS: Normal enhancement of the main pulmonary artery and right and left pulmonary arteries. Normal enhancement of the bilateral peripheral pulmonary arteries. There is no demonstrated pulmonary embolism. Normal thoracic aorta and visualized great vessels. There is no demonstrated aortic dissection. There is mild cardiac enlargement. There are coronary calcifications. There are a few nonspecific subcentimeter mediastinal lymph nodes. Normal hilar regions. This visualized bronchiectasis similar to the prior studies. There is minimal peribronchial thickening. However within the right upper lobe periphery, there is visualized focal nodularity and/or mucoid thickening of the distended bronchus bronchial structure collectively measuring 1.2 x 0.9 cm. Image #179 series 2. Within the left upper lobe there is a focus of patchy nodular density measuring 0.8 x 1.0 cm. There is peripheral peribronchial inflammatory change within the left lingula creating an almost nodular appearance. In part this is due to possible mucous plugging. There is a filling defect in one of the bronchial structures on image #175 series 2. There is also minimal mucoid material within the left mainstem bronchus. There are patchy areas of bronchiectasis and diffuse small emphysematous blebs throughout the hyperinflated lungs. Normal pleura. Normal chest wall structures. There are degenerative changes of thoracic spine. There is a well-circumscribed cyst right kidney measuring 2.2 cm with HOUNSFIELD units in the range of simple fluid. There is partial visualization of a cystic structure that measures 1.7 cm with HOUNSFIELD units in the range of simple fluid. CT/CTA Chest W/WO Contrast IMPRESSION: Pulmonary emphysema, chronic obstructive pulmonary disease bronchiectasis with areas of inflammatory mucoid thickening and/or plugging versus nodules in both lungs as detailed above. There is mild peribronchial inflammatory change or endobronchial mucous or inflammation in the left upper lobe bronchial structures. Findings are compatible with bronchiolitis.. Recommend follow-up to clearing given the nodular appearance. Mild cardiac enlargement coronary calcification. Benign-appearing right renal cysts. Electronically Signed: Ana Nguyen MD at 5:18 EST Tel , Service support ,
--- NOTE | 2021-10-22 03:57 | EX.ED.DYSGE1 ---
HPI History of Present Illness Chief Complaint: GI Bleed Narrative Narrative: Patient is a 56-year-old male past medical history of COPD who is to wear 2 L of nasal cannula oxygen 16/05. He states he has been sick for 3 to 4 weeks and was recently evaluated in ER on October 13. At that time he had a chest x-ray as well as basic labs and a viral swab obtained. He states that his work-up was negative and he was discharged home and placed on steroid. He reports he has just recently finished those and this evening he had increased shortness of breath and began coughing up blood. He states he is on a full-strength aspirin but denies any true blood thinners. He reports with the hemoptysis and increased shortness of breath he was concerned and therefore presents to the ER for evaluation [facility] Medical History COPD (chronic obstructive pulmonary disease) Emphysema lung Hyperlipidemia Hypertension Home Medications albuterol sulfate [Ventolin HFA] 2 puff INHALATION Q6H PRN PRN 11/29/15 [History Last Taken 10/13/21] lisinopril 10 mg PO DAILY 11/29/15 [History Last Taken 10/12/21] aspirin 325 mg PO DAILY@0800 09/05/19 [History Last Taken 10/13/21] metformin 500 mg PO DAILY 09/05/19 [History Last Taken 10/13/21] mometasone-formoterol 2 puff IH BID 09/05/19 [History Last Taken 10/13/21] prednisone 10 mg PO DAILY #30 tab 09/07/19 [Rx Last Taken 10/13/21] ezetimibe 10 mg PO DAILY 10/13/21 [History Last Taken 10/13/21] fluticasone propion-salmeterol 1 inh INHALATION BID 10/13/21 [History Last Taken 10/13/21] ibuprofen 800 mg PO .Q4-6H PRN 10/13/21 [History Last Taken 10/12/21] tiotropium bromide [Spiriva with HandiHaler] 18 mcg INHALATION DAILY 10/13/21 [History Last Taken 10/13/21] Allergy/AdvReac Type Severity Reaction Status Date / Time No Known Allergies Allergy Verified 10/22/21 03:35 Surgical History (Updated 10/22/21 @ 03:41 by Xi Austin) History of hand surgery History of hernia repair Social History (Updated 10/13/21 @ 11:[address] Mitchell Egan MD) household members: none Smoking Status: Heavy Smoker (>10/day) substance use type: does not use ROS ROS ED Constitutional Constitutional ED: Denies chills or fever(s) ENT ENT ED: Denies rhinorrhea or sore throat Cardiovascular Cardiovascular: Reports chest pain Respiratory/Chest Respiratory/Chest: Reports cough, dyspnea, sputum and other Details: Positive hemoptysis Gastrointestinal Gastrointestinal: Denies abdominal pain, diarrhea, nausea or vomiting Genitourinary Genitourinary ED: Denies dysuria Musculoskeletal Musculoskeletal: Denies myalgias Integumentary Denies rash Neurologic Neurologic: Denies headache(s) Hematologic/Lymphatic Hematologic/Lymphatic: Denies easy bleeding or easy bruising EXAM Physical Exam Const Vital Signs: 10/22/21 03:35 10/22/21 03:58 10/22/21 04:25 Temperature 98.1 F Temperature Source Temporal Pulse Rate 124 H 102 H 96 Respiratory Rate 28 H 26 H 18 Respiratory Effort Short of Breath Labored Accessory Muscle Use Retracting Respiratory Depth Shallow Respiratory Pattern Tachypnea Blood Pressure 182/127 H 120/76 Blood Pressure Mean 145 90 Pulse Ox 74 95 97 Oxygen Delivery Method Room Air Nasal Cannula Nasal Cannula Oxygen Flow Rate (L/min) 5 5 10/22/21 05:39 Temperature 98.6 F Temperature Source Temporal Pulse Rate 87 Respiratory Rate 18 Respiratory Effort Respiratory Depth Respiratory Pattern Blood Pressure 118/73 Blood Pressure Mean 88 Pulse Ox 95 Oxygen Delivery Method Room Air Oxygen Flow Rate (L/min) Positive well nourished, well developed and obese General Appearance ED: well developed Nutritional Appearance: obese HEENT HEENT Narrative: No tongue or lip swelling but there is blood noted throughout the oral cavity and posterior pharynx consistent with his hemoptysis. No obvious airway edema or compromise. No active bleeding noted Eyes PERRL and EOMs intact bilaterally General Eye ED: Negative for pale conjunctiva Neck supple and No no JVD Neck Narrative: No crepitance palpated Chest Wall palpation of chest normal Resp Resp Narrative: Patient is in moderate respiratory distress with tachypnea and accessory muscle use and slight retractions. Breath sounds are diminished throughout with diffuse inspiratory and expiratory wheezes. Cardio regular rhythm Rate: tachycardic and other Other Details: Radial pulses are +2-4 bilaterally are equal and symmetric GI normal to inspection, nondistended, normoactive bowel sounds, non-tender, non-distended and no masses GI Narrative: No voluntary guarding or rigidity no pulsatile mass Auscultation: normoactive bowel sounds Palpation: soft Extremity Extremity Narrative: +3 pitting edema to the bilateral lower extremities that is equal and symmetric. Negative Homans' sign Neuro oriented x3 and CN's II-XII intact bilaterally Sensorium / Orientation: alert Motor Exam: strength 5/5 throughout Psych mental status grossly normal Skin no rashes or lesions noted MDM MDM MDM Narrative Medical decision making narrative: Patient presented to the ER tachycardic and hypertensive in moderate distress with tachypnea and accessory muscle use and slight retraction. He reported hemoptysis at home and had a white washcloth that was covered in bright red blood in his oral mucosa was also stained completely with blood. Despite this however there was no active bleeding noted. With the patient's vital signs and hemoptysis there is concern he could have a pulmonary embolus so a basic work-up with CTA was added. White count was elevated 18.6 but he does state he just finished steroids and as patient is afebrile I feel the leukocytosis is most likely related to the steroids and not infection. The CTA showed no PE but it did show areas of mucous plugging and inflammation which could be secondary to a bacterial infection. Therefore he was started on Rocephin and Zithromax. The patient was given multiple breathing treatments and steroids and did have improvement in his breath sounds as well as work of breathing. At this time based on the patient's worsening symptoms and hemoptysis he will be kept in the hospital for further observation Lab Data Attestation: I reviewed the patient's lab results. Labs: Laboratory Results - last 24 hr 10/22/21 10/22/21 10/22/21 03:40 03:40 03:40 WBC 18.6 H RBC 5.09 Hgb 16.4 Hct 50.0 MCV 98.2 H MCH 32.2 H MCHC 32.8 RDW Std Deviation 44.6 H RDW Coeff of Solange 12.3 Plt Count 360 MPV 11.0 Immature Gran % (Auto) 0.600 Neut % (Auto) 80.2 H Lymph % (Auto) 11.7 L Berrien % (Auto) 7.3 Eos % (Auto) 0.0 Baso % (Auto) 0.2 Absolute Neuts (auto) 14.9 H Absolute Lymphs (auto) 2.17 Nucleated RBC % 0 PT INR APTT Sodium 136 Potassium 4.4 Chloride 103 Carbon Dioxide 23.0 Anion Gap 10 BUN 16 Creatinine 1.09 Estim Creat Clear Calc 79.99 Est GFR (MDRD) Af Amer 91 Est GFR (MDRD) Non-Af 75 BUN/Creatinine Ratio 14.7 Glucose 119 H Calcium 8.4 L Magnesium 2.0 Troponin I High Sens 54 B-Natriuretic Peptide 655.0 H 10/22/21 04:05 WBC RBC Hgb Hct MCV MCH MCHC RDW Std Deviation RDW Coeff of Solange Plt Count MPV Immature Gran % (Auto) Neut % (Auto) Lymph % (Auto) Berrien % (Auto) Eos % (Auto) Baso % (Auto) Absolute Neuts (auto) Absolute Lymphs (auto) Nucleated RBC % PT 13.3 INR 1.1 APTT 22.9 L Sodium Potassium Chloride Carbon Dioxide Anion Gap BUN Creatinine Estim Creat Clear Calc Est GFR (MDRD) Af Amer Est GFR (MDRD) Non-Af BUN/Creatinine Ratio Glucose Calcium Magnesium Troponin I High Sens B-Natriuretic Peptide Radiography Diagnostic Testing: Clinical Impression(s) from Imaging Studies Chest CTA 10/22/21 03:51 IMPRESSION: Pulmonary emphysema, chronic obstructive pulmonary disease bronchiectasis with areas of inflammatory mucoid thickening and/or plugging versus nodules in both lungs as detailed above. There is mild peribronchial inflammatory change or endobronchial mucous or inflammation in the left upper lobe bronchial structures. Findings are compatible with bronchiolitis.. Recommend follow-up to clearing given the nodular appearance. Mild cardiac enlargement coronary calcification. Benign-appearing right renal cysts. Electronically Signed: Ana Nguyen MD at 5:18 EST Tel , Service support , Discharge Plan Triage Chief Complaint: GI Bleed ED Provider: Ricky Israel Dx/Rx/DC Orders Clinical Impression: Hemoptysis, Acute exacerbation of chronic obstructive pulmonary disease (COPD) Prescriptions: No Action lisinopril 10 MG tablet 10 mg PO DAILY RF: 0 albuterol sulfate [Ventolin HFA] 1 INHALER inhaler 2 puff inhalation Q6H PRN PRN (Reason: Sob &/Or Wheezing) RF: 0 metformin 500 MG tablet 500 mg PO DAILY RF: 0 aspirin 325 MG tablet 325 mg PO DAILY@0800 RF: 0 mometasone-formoterol 13 GM HFA aerosol inhaler 2 puff IH BID RF: 0 prednisone 10 MG tablet 10 mg PO DAILY Qty: 30 RF: 0 fluticasone propion-salmeterol 250-50 mcg/dose blister with device 1 inh INHALATION BID RF: 0 ibuprofen 200 mg Tablet 800 mg PO .Q4-6H PRN (Reason: Pain) RF: 0 ezetimibe 10 mg tablet 10 mg PO DAILY RF: 0 Spiriva with HandiHaler 18 mcg capsule, w/inhalation device 18 mcg INHALATION DAILY RF: 0 Primary Care Provider: Adolfo Bruce Referrals: Adolfo Bruce MD [Primary Care Provider] - Disposition Disposition: Acute Care Hospital [facility]
[2021-10-22] MEDS: Albuterol 2.5 MG/3 ML VIAL.NEB. INHALATION (03:58)
[2021-10-22] MEDS: Ipratropium/Albuterol Sulfate 3 ML AMPUL.NEB 6 ML INHALATION (03:58)
[2021-10-22] MEDS: dilTIAZem 25 MG/5 ML Vial IV BOLUS (04:08)
[2021-10-22] MEDS: MethylPREDNISolone 125 MG/2 ML Vial IV (04:10)
[2021-10-22 04:16] LABS: Absolute Lymphocyte Count 2.17 X10^3/uL (0.83-4.51); Absolute Neutrophil Count 14.9 X10^3/uL (2.0-7.7); Basophil# 0.03 X10^3/uL; Basophil% 0.2 % (0-1); Hemoglobin 16.4 g/dL (13.0-16.5); Lymphocyte # 2.17 X10^3/ul (0.83-4.51); Lymphocyte % 11.7 % (19-41); Mean Corp Hgb Conc 32.8 g/dL (32-36); Mean Corpuscular Hgb 32.2 pg (27.0-32.0); Mean Corpuscular Volume 98.2 fL (80-94); Monocyte# 1.35 X10^3/uL; Monocyte% 7.3 % (0-10); NRBC Flagged by Analyzer 0 % (0-5); Neutrophil # 14.94 X10^3/uL (2.7-7.7); Neutrophil % 80.2 % (47-70); Platelet Count 360 K/mm3 (150-450); RBC Distribution Width CV 12.3 % (11.6-14.6); RBC Distribution Width SD 44.6 fl (35.1-43.9); Red Blood Count 5.09 M/mm3 (4.6-6.2); White Blood Count 18.6 K/mm3 (4.4-11.0)
[2021-10-22 04:22] LABS: International Normalized Ratio 1.1; Partial Thromboplast Time 22.9 Seconds (24.1-36.2); Prothrombin Time (Protime)PT. 13.3 SECONDS (11.7-14.9)
--- NOTE | 2021-10-22 04:34 | CPS ---
Additional x1 Duoneb and x1 Albuterol given to pt. in ER
[2021-10-22 04:36] LABS: Anion Gap 10 (5-15); BUN 16 mg/dL (7-18); BUN/Creat Ratio 14.7 RATIO (10-20); Calcium,Total 8.4 mg/dL (8.5-10.1); Chloride 103 mmol/L (98-107); Creatinine, Serum 1.09 mg/dL (0.70-1.30); EST Glomerular Filtration Rate 75 mL/min (>60); Est Glom Filt Rate - Afr Amer 91 mL/min (>60); Estimated Creatinine Clearance 79.99 ml/min; Glucose 119 mg/dL (74-106); Potassium 4.4 mmol/L (3.5-5.1); Sodium Level 136 mmol/L (136-145); Troponin-I HS 54 pg/mL (3.0-78.0)
[2021-10-22] MEDS: Ceftriaxone 1 GM/50 ML BAG IV (06:17)
--- NOTE | 2021-10-22 06:24 | ECHOCS_ITS ---
Version 2 Reason For Study: CHF Procedure This was a 2D Doppler, Color Flow transthoracic echocardiogram. The study was technically difficult. Exam performed portable in patient room. Left Ventricle Mild concentric left ventricular hypertrophy. Left ventricle appears mildly dilated. There is significant regional variation wall motion abnormality. The entire distal anterior wall the distal septum the left ventricular apex and apical inferior wall are akinetic. As a result difficult to estimate overall ejection fraction, visually estimated left ventricular ejection fraction is 25 to 30%. Contrast was used for better delineation of wall motion and cavity size. Did not see any definite filling defect to suggest LV apical thrombus although the akinetic apex is a det up for thrombus formation. Right Ventricle Normal RV size. Right ventricular size and systolic function appear normal. Atria Normal left atrium. Normal right atrium. Mitral Valve The mitral valve is structurally normal. No prolapse or stenosis seen. There is trivial mitral regurgitation. Mitral valve leaflets appear normal. There is no evidence of mitral annular calcification. Tricuspid Valve Normal tricuspid valve. There is no appreciable tricuspid regurgitation, his PA systolic pressure could not be estimated. Aortic Valve Normal aortic valve. Pulmonic Valve The pulmonic valve is not well visualized. Great Vessels Mildly dilated aortic root. Normal inferior vena cava. Pericardium/Pleural No pericardial effusion. There is no pleural effusion. Medication Diluted definity 2ml given slow IV push to enhance endocardial definition. MMode/2D Measurements & Calculations LVIDd: 5.3 cm IVSd: 1.2 cm Ao root diam: 3.5 cm LVIDs: 4.1 cm LVPWd: 1.2 cm RVDd: 3.3 cm FS: 23.7 % LAV(MOD-bp): 33.8 ml LVAd ap4: 45.4 cm2 LVAd ap2: 46.3 cm2 LAV(MOD-bp) Indexed: 16.5 ml/m2 LVLd ap4: 9.3 cm LVLd ap2: 9.3 cm LAV(MOD-sp2): 33.8 ml EDV(MOD-sp4): 181.9 ml EDV(MOD-sp2): 187.0 ml LAV(MOD-sp4): 29.8 ml EDV(sp4-el): 188.0 ml EDV(sp2-el): 194.7 ml LVAs ap4: 36.6 cm2 LVAs ap2: 37.1 cm2 LVLs ap4: 8.4 cm LVLs ap2: 8.7 cm ESV(MOD-sp4): 129.5 ml ESV(MOD-sp2): 127.4 ml ESV(sp4-el): 135.4 ml ESV(sp2-el): 133.9 ml EF(MOD-sp4): 28.8 % EF(MOD-sp2): 31.9 % EF(sp4-el): 28.0 % SV(MOD-sp4): 52.5 ml SV(MOD-sp2): 59.6 ml SV(sp4-el): 52.6 ml LA A4 area: 12.6 cm2 LA dimension(2D): 3.2 cm RA A4 area: 12.5 cm2 Time Measurements MV dec time: 0.23 sec Doppler Measurements & Calculations MV E max addi: 57.9 cm/sec Lat Peak E' Addi: 9.6 cm/sec Med Peak E' Addi: 5.5 cm/sec MV A max addi: 69.1 cm/sec E/E' lat: 6.0 E/E' med: 10.5 MV E/A: 0.84 Ao V2 max: 125.1 cm/sec LV V1 max: 86.6 cm/sec PA V2 max: 95.2 cm/sec Ao max P.3 mmHg LV V1 max P.0 mmHg ECHO/Echo Complete W/ Contrast Interpretation Summary Left ventricle appears mildly dilated. There is significant regional variation in wall motion. The entire distal anter ior wall the distal septum the left ventricular apex and apical inferior wall are akinetic. As a re sult it is difficult to estimate overall ejection fraction, visually estimated left ventricular ejec tion fraction is 25 to 30%. Contrast was used for better delineation of wall motion and cavity size. Grossly normal valves. Did not see any definite filling defect to suggest LV apical thrombus although the akinetic apex is a set up for this. There is no appreciable tricuspid regurgitation, PA systolic pressure could not be estimated. No previous echocardiogram report is available for comparison. . Ordering Physician: Josiane Comer Referring Physician: JULIAN CULLEN Performed By: Leeann Rincon RDCS
--- NOTE | 2021-10-22 06:27 | HP.PCM.HOS_ITS ---
[facility] - General General Date of Admission: 10/22/21 Date of Service: 10/22/21 Chief Complaint: Hemoptysis/shortness of breath HPI Narrative LEOBARDO AG, is a 56 M who presented to the emergency department [facility] on 10/22/2021 with a chief complaint of shortness of breath and hemoptysis. The patient has had ongoing shortness of breath with cough, fever, chills, and increased sputum production over the last month or so. He sees Dr. Moreno for pulmonology and saw him early on when his symptoms started and was placed on a tapering dose of prednisone as well as antibiotics. He is completed the antibiotics and he is currently on 10 mg of prednisone daily. Despite this treatment he has had persistently worsening shortness of breath and he presented finally today because he had an episode of hemoptysis. He had never had this previously and evidently he soaked a small washcloth with bloody secretions. He has had no hemoptysis since presentation. He is on a full dose aspirin at baseline but is not into anti-coagulated otherwise. The patient indicates he has had fevers of 101-101.5 at home with the most recent fever being last evening. He had been seen in the ER on 10/13/2021 and had a chest x- ray that was stable and basic labs that were unremarkable as well as a viral swab which was normal and he was discharged home. Upon my evaluation he also complained of some left intermittent chest pain that radiated to his left shoulder which was new as well. His exam revealed bilateral lower extremity e cecelia which he indicates is worse in the last month also. He is chronically on 2 L of oxygen at baseline and continues to smoke approximately 1 pack of cigarettes daily. He also had environmental exposures with work that increases risk for COPD. His vital signs in the emergency department show that he was mildly tachycardic on presentation but this has since resolved. He has been afebrile since presentation. He is tachypneic with respiratory rate from 18-28 and his oxygen saturations were 74% on room air and improved to 95 to 97% on 5 L nasal cannula. His CBC shows an elevated white count at 18.6 with a left shift however the patient has been on steroids. His hemoglobin is normal at 16.4. His platelet count is normal at 360. Coags were obtained and were normal. A BMP showed no significant abnormalities. A BNP was obtained and was elevated at 655. There are no previous for comparison.On initial presentation. A high-sensitivity troponin was obtained and was 54 on initial presentation. His EKG shows mild sinus tachycardia without any ST-T wave changes consistent with ischemia. A CTA of his chest was performed given his hemoptysis on presentation and it showed pulmonary emphysema with COPD and bronchiectasis as well as inflammatory changes with mucoid thickening and plugging versus nodules in both lungs, mild peribronchial inflammation and endobronchial mucous with inflammation of the left upper lobe bronchial structures. It is commented that the findings are consistent with bronchiolitis. He is also noted to have cardiac coronary calcification and benign-appearing renal cyst on the right. Given his hemoptysis and abnormal CTA of his chest the case was discussed with pulmonary medicine prior to admission and they recommended treatment for his bronchiolitis as well as antimicrobials to include CAP coverage. In the emergency department he was given a dose of azithromycin and ceftriaxone and was treated with methylprednisolone 125 mg x 1 dose as well as a DuoNeb x1. He will be admitted to PCU given his chest pain and BNP elevation. [facility] Medical History COPD (chronic obstructive pulmonary disease) Emphysema lung Hyperlipidemia Hypertension Home Medications albuterol sulfate [Ventolin HFA] 2 puff INHALATION Q6H PRN PRN 11/29/15 [History Last Taken 10/13/21] lisinopril 10 mg PO DAILY 11/29/15 [History Last Taken 10/12/21] aspirin 325 mg PO DAILY@0800 09/05/19 [History Last Taken 10/13/21] metformin 500 mg PO DAILY 09/05/19 [History Last Taken 10/13/21] mometasone-formoterol 2 puff IH BID 09/05/19 [History Last Taken 10/13/21] prednisone 10 mg PO DAILY #30 tab 09/07/19 [Rx Last Taken 10/13/21] ezetimibe 10 mg PO DAILY 10/13/21 [History Last Taken 10/13/21] fluticasone propion-salmeterol 1 inh INHALATION BID 10/13/21 [History Last Taken 10/13/21] ibuprofen 800 mg PO .Q4-6H PRN 10/13/21 [History Last Taken 10/12/21] tiotropium bromide [Spiriva with HandiHaler] 18 mcg INHALATION DAILY 10/13/21 [History Last Taken 10/13/21] Allergy/AdvReac Type Severity Reaction Status Date / Time No Known Allergies Allergy Verified 10/22/21 03:35 Family History (Updated 10/22/21 @ 06:[address] Josiane Comer DO) Other COPD (chronic obstructive pulmonary disease) Diabetes Heart disease Hypertension Surgical History History of hand surgery History of hernia repair Social History (Updated 10/22/21 @ 06:[address] Josiane Comer DO) household members: none Smoking Status: Heavy Smoker (>10/day) alcohol intake: current alcohol intake frequency: holidays/special occasions only substance use type: does not use ROS Constitutional Constitutional: Reports chills, fatigue, fever(s) and malaise; Denies anorexia, change in weight, night sweats, weakness or other Eyes Eyes: Denies blurry vision, change in eye color, change in vision, discharge from eye(s), double vision, erythema, eye pain, loss of vision or other ENT HEENT: Denies abnormal hearing, dysphagia, ear pain, epistaxis, headache(s), hearing loss, nasal congestion, nasal discharge, post nasal drip, sinus pressure, sore throat or other Cardiovascular Cardiovascular: Reports chest pain and dyspnea on exertion; Denies claudication, edema, lightheadedness, orthopnea, palpitations, paroxysmal nocturnal dyspnea, rapid heart rate, syncope or other Respiratory/Chest Respiratory/Chest: Reports cough, dyspnea, excessive phlegm production, hemoptysis, productive cough, shortness of breath at rest, shortness of breath with exertion and wheezing Gastrointestinal Gastrointestinal: Denies abdominal pain, coffee ground emesis, constipation, diarrhea, dyspepsia, hematemesis, hematochezia, loose stools, melena, nausea, vomiting or other Genitourinary Genitourinary: Denies burning urination, difficulty urinating, dysuria, hematuria, nocturia, urinary frequency, urinary hesitancy, urinary incontinence, urinary urgency or other Musculoskeletal Musculoskeletal: Denies arthralgias, back pain, joint pain, joint stiffness, joint swelling, myalgias, neck pain or other Neurologic Neurologic: Denies abnormal gait, abnormal speech, confusion, disequilibrium, dizziness, focal weakness, headache(s), numbness, paresthesias, seizure-like activity, seizures, syncope, tingling, tremor(s) or other Psychiatric Psychiatric: Denies anxiety, depression, homicidal ideation, suicidal ideation or other Endocrine Endocrinology: Denies change in body appearance, cold intolerance, excessive sweating, heat intolerance, polydipsia, polyuria or other Hematologic/Lymphatic Hematologic/Lymphatic: Denies anemia, easy bleeding, easy bruising, lymphadenopathy or other Allergic/Immunologic Allergic/Immunologic: Denies rhinitis, hives, eczemia, asthma or other Vital Signs Vital Signs Vital Signs: 10/22/21 03:35 10/22/21 03:58 10/22/21 04:25 Temperature 98.1 F Temperature Source Temporal Pulse Rate 124 H 102 H 96 Respiratory Rate 28 H 26 H 18 Respiratory Effort Short of Breath Labored Accessory Muscle Use Retracting Respiratory Depth Shallow Respiratory Pattern Tachypnea Blood Pressure 182/127 H 120/76 Blood Pressure Mean 145 90 Pulse Ox 74 95 97 Oxygen Delivery Method Room Air Nasal Cannula Nasal Cannula Oxygen Flow Rate (L/min) 5 5 10/22/21 05:39 Temperature 98.6 F Temperature Source Temporal Pulse Rate 87 Respiratory Rate 18 Respiratory Effort Respiratory Depth Respiratory Pattern Blood Pressure 118/73 Blood Pressure Mean 88 Pulse Ox 95 Oxygen Delivery Method Room Air Oxygen Flow Rate (L/min) Weight Weight: 86.8 kg Body Mass Index (BMI) 27.4 Physical Exam Const alert, oriented x3, no apparent distress and well nourished Constitutional Narrative: Middle-aged white male sitting up in bed, appears much older than stated age, smells of tobacco, nursing at bedside, nontoxic-appearing General Appearance: cooperative HEENT normocephalic, head/scalp atraumatic, hearing grossly normal bilaterally and moist oral mucous membranes HEENT Narrative: Patient does have some dried blood around his mouth, Mallampati is 2, no thrush, poor dentition Eyes PERRL, EOMs intact bilaterally and conjunctivae normal Eyes Narrative: No scleral icterus Neck no lymphadenopathy, supple, no JVD and no carotid bruits Neck Narrative: Trachea midline, no thyroid enlargement Resp normal respiratory effort, no retractions and no use of accessory muscles Resp Narrative: Mild dyspnea with conversation, markedly diminished diffusely, scattered inspiratory and expiratory wheezes Auscultation: wheezes; Negative for crackles, rales or rhonchi Cardio regular rate, regular rhythm, S1 normal heart sound, S2 normal heart sound, no murmurs, no rub, no gallops, no clicks and no JVD GI normal to inspection, nondistended, normoactive bowel sounds, soft to palpation, non-tender and non-distended Extremity Extremity Narrative: Clubbing without cyanosis, bilateral lower extremity 2+ pitting edema Peripheral Pulses: Yes pulses 2+ throughout Skin no rashes or lesions noted, no wounds, skin turgor normal, no jaundice, no petechiae and no mottling Skin Narrative: Bilateral lower extremity skin is very soft and doughy Neuro oriented x3, CN's II-XII intact bilaterally, moves all extremities and no focal motor deficits Sensorium / Orientation: awake and alert Speech: speech normal Motor Exam: strength 5/5 throughout Psych Psych Narrative: Affect is slightly flat but patient appropriately interactive Results Lab / Micro Data Attestation: I reviewed the patient's lab results. Result Diagrams: 10/22/21 03:40 10/22/21 03:40 Labs: Laboratory Results - last 24 hr 10/22/21 03:40: WBC 18.6 H, RBC 5.09, Hgb 16.4, Hct 50.0, MCV 98.2 H, MCH 32.2 H , MCHC 32.8, RDW Std Deviation 44.6 H, RDW Coeff of Solange 12.3, Plt Count 360, MPV 11.0, Immature Gran % (Auto) 0.600, Neut % (Auto) 80.2 H, Lymph % (Auto) 11.7 L, [place] % (Auto) 7.3, Eos % (Auto) 0.0, Baso % (Auto) 0.2, Absolute Neuts (auto) 14.9 H, Absolute Lymphs (auto) 2.17, Nucleated RBC % 0 10/22/21 03:40: Sodium 136, Potassium 4.4, Chloride 103, Carbon Dioxide 23.0, Anion Gap 10, BUN 16, Creatinine 1.09, Estim Creat Clear Calc 79.99, Est GFR (MDRD) Af Amer 91, Est GFR (MDRD) Non-Af 75, BUN/Creatinine Ratio 14.7, Glucose 119 H, Calcium 8.4 L, Magnesium 2.0, Troponin I High Sens 54 10/22/21 03:40: B-Natriuretic Peptide 655.0 H 10/22/21 04:05: PT 13.3, INR 1.1, APTT 22.9 L Micro: Microbiology 10/22/21 03:55 Nasal Secretion SARS-CoV-2 Antigen (Rapid) - Final Radiology Impression Chest CTA 10/22/21 03:51 IMPRESSION: Pulmonary emphysema, chronic obstructive pulmonary disease bronchiectasis with areas of inflammatory mucoid thickening and/or plugging versus nodules in both lungs as detailed above. There is mild peribronchial inflammatory change or endobronchial mucous or inflammation in the left upper lobe bronchial structures. Findings are compatible with bronchiolitis.. Recommend follow-up to clearing given the nodular appearance. Mild cardiac enlargement coronary calcification. Benign-appearing right renal cysts. Electronically Signed: Ana Nguyen MD at 5:18 EST Tel , Service support , Assessment & Plan Assessment/Plan (1) Acute respiratory failure with hypoxia: (2) Community acquired pneumonia: (3) Hemoptysis: (4) Lower extremity edema: (5) Elevated brain natriuretic peptide (BNP) level: (6) Chest pain: (7) Bronchiolitis: PLAN: Acute on chronic hypoxic respiratory failure-multifactorial -secondary to CAP/COPD exacerbation/bronchiolitis/decompensated heart failure -Baseline oxygen requirements are 2 L -Patient is currently requiring 5 L nasal cannula to maintain sats -Wean as able and titrate as needed -Check viral respiratory panel -Check strep pneumo and Legionella antigens -Solu-Medrol 40 every 8 -Incentive spirometry/Pep -Mucinex -Antibiotics with ceftriaxone and azithromycin -Pulmonary medicine consult Hemoptysis -Suspect related to acute infection -Hemoglobin was 16.4 on admission -We will repeat hemoglobin at 12 PM to assess for stability -No further hemoptysis since presentation -Hold home full dose aspirin -Pulmonary medicine consulted Chest pain -We will cycle out cardiac enzymes -Check echocardiogram -Hold aspirin given hemoptysis -If cardiac enzymes are elevated or echo shows wall motion abnormality would pursue cardiac work-up further -Initial troponin was 54 -EKG showed no changes consistent with acute ischemia -CTA is negative for PE -Patient does have a strong family history of coronary disease Bilateral lower extremity edema -Suspect patient at least has some right-sided heart failure given severity of lung disease -Start Lasix IV push twice daily -BNP is elevated at greater than 600 -Fluid restriction at 1500 cc daily -Sodium diet -Check echocardiogram COPD -Hold home inhalers while patient is being treated for acute exacerbation -Patient follows with Dr. Moreno as an outpatient -Consult pulmonary medicine Hypertension -Continue lisinopril DM-2 -Check hemoglobin A1c -Hold home metformin -Moderate high-dose sliding scale given steroid use -Accu-Cheks before meals and at bedtime Hyperlipidemia -Continue Zetia -Check lipids Tobacco abuse -Patient with ongoing tobacco abuse to spite severe COPD and baseline home O2 needs -Recommend cessation -Nicotine patch available DVT prophylaxis -SCDs -We will avoid chemoprophylaxis at this time given hemoptysis on presentation CODE STATUS -Full code Charges/Coding Visit Charges Inpatient E&M: 79822 Init Hosp L3
[2021-10-22 07:05] LABS: Bedside Glucose 185 mg/dL (70-110)
[2021-10-22] MEDS: Insulin Lispro 100 UNIT/ML INSULN.PEN SC ×2 (07:10→17:30)
[2021-10-22 07:55] LABS: Troponin-I HS 325 pg/mL (3.0-78.0)
[2021-10-22] MEDS: Ipratropium/Albuterol Sulfate 3 ML AMPUL.NEB INHALATION ×4 (08:13→19:23)
[2021-10-22] MEDS: Ezetimibe 10 MG Tablet PO (08:21)
[2021-10-22] MEDS: Lisinopril 10 MG Tablet PO (08:21)
[2021-10-22] MEDS: Famotidine 20 MG Tablet PO ×2 (08:21→21:16)
[2021-10-22] MEDS: Furosemide 40 MG/4 ML Vial IV (08:21)
[2021-10-22] MEDS: Azithromycin 250 MG Tablet 500 MG PO (08:22)
[2021-10-22 09:32] LABS: Hemoglobin A1c 5.9 % (3.8-5.6)
[2021-10-22 09:39] LABS: Cholesterol 217 mg/dL (200); High Density Lipoprotein 55 mg/dL; Triglycerides 131 mg/dL; Troponin-I HS 506 pg/mL (3.0-78.0); Very Low Density Lipoprotein 26 mg/dL (5-40)
--- NOTE | 2021-10-22 11:00 | PCM.CONS.C ---
HPI Consult Data Date of Consult: 10/24/21 HPI Narrative Reason for Consultation: Cardiology is asked to evaluate this patient at the request of Vijay Ricks [facility] Narrative: LEOBARDO AG, is a 56 M who presentsTo the emergency department with coughing up blood. He has had similar symptoms for more than 2 weeks. He has had worsening shortness of breath and cough, was treated with outpatient steroids and antibiotics with minimal relief. He continues to smoke a pack per day, has a diagnosis of COPD, requiring home oxygen 2 L/min. In the emergency department he also complained of chest discomfort, pressure sensation associated with coughing and deep breathing not associated with radiation to the neck arm or jaw, the chest pressure was also present prior to admission. Patient denies fever chills, orthopnea PND, has noticed lower extremity edema, no palpitations lightheadedness presyncope or syncope.His EKGs have shown a pattern of anterior septal myocardial infarction with Q waves and poor R wave progression. These changes were also noted on an EKG from 09/21/2021. Chest x-ray shows mild increase in cardiac silhouette. Cardiac risk factors include male sex hypertension diabetes dyslipidemia nicotine dependence and strong family history of premature coronary artery disease, father had a coronary event in his 40s. No history of recent travel or trauma Laboratory data showed GFR greater than 60 elevated troponin which is rising, with normal troponin on admission, CBC shows normal hemoglobin and hematocrit. BNP level is elevated. Medications and allergies reviewed. Review of systems is negative for headache diplopia difficulty swallowing sore throat vision disturbances abdominal pain nausea vomiting weakness of his lower extremities nuchal rigidity, positive for lower extremity edema. On physical examination patient is alert oriented x3 not in obvious distress in fact he was asleep. Did not appreciate jugular venous distention no carotid bruit patient does not appear toxic. He is afebrile. HEENT anicteric normocephalic lungs are clear with distant breath sounds heart sounds are regular without murmur rub or gallop abdomen is soft and nontender without epigastric or renal arterial bruit extremities show 2+ pitting edema at the ankles and above neurologically he has no gross cranial nerve deficits he is alert oriented x3 moves all extremities. Skin shows no petechia or rash musculoskeletal no major deformities identified. Echocardiogram was interpreted by me to show akinesis/severe hypokinesis of the mid and distal anterior wall the entire left ventricular apex and the apical inferior wall. Valves are grossly normal. RV systolic function grossly normal. PA pressure could not be estimated. No pericardial effusion. IVC shows normal collapse. Assessment: 1. Patient with an anterior apical myocardial infarction which probably occurred sometime before 09/21/2021 as evidenced by persistent EKG abnormalities dating back to that date. 2. Probable congestive heart failure 3. Recurrence of chest discomfort 4. Rising troponins-this could represent a reinfarction in the LAD distribution( post infarction angina with CHF ) 5. Severe LV systolic dysfunction 6. Multiple cardiac risk factors including diabetes hypertension dyslipidemia nicotine dependence and family history for premature coronary artery disease 7. Bronchiolitis 8. COPD on home oxygen. 9 Mixed hyperlipidemia 10.GFR greater than 60. Recommendations: 1. Echocardiogram was ordered and reviewed 2. Patient will benefit from aggressive risk factor modification, optimization of medical therapy to include beta-blockers and Entresto. Renal function should be closely followed. 3. High intensity statins-lipid profile shows elevated triglycerides and total cholesterol and LDL. Lovaza should be added if patient can afford it. 4. If other diabetic medications allow, he should be on Jardiance or Farxiga. Will defer to primary service 5. We will proceed with coronary angiography and possible intervention. Procedure risk benefits and alternatives were discussed, risk discussed included but were not limited to MD, stroke, , peripheral vascular compromise and allergic reaction to dye. Patient agrees to proceed. Please maintain n.p.o. except meds status, procedure to be done later today. Additional recommendations to be based on clinical course and findings. Encouraged patient to abstain from nicotine. Thank you for allowing us to participate in this patient's care, please do not hesitate to call if further questions arise, Sincerely, Clarisa Forrester MD [facility] Medical History COPD (chronic obstructive pulmonary disease) Emphysema lung Hyperlipidemia Hypertension Home Medications albuterol sulfate [Ventolin HFA] 2 puff INHALATION Q6H PRN PRN 11/29/15 [History Last Taken 10/13/21] lisinopril 10 mg PO DAILY 11/29/15 [History Last Taken 10/12/21] aspirin 325 mg PO DAILY@0800 09/05/19 [History Last Taken 10/13/21] metformin 500 mg PO DAILY 09/05/19 [History Last Taken 10/13/21] mometasone-formoterol 2 puff IH BID 09/05/19 [History Last Taken 10/13/21] prednisone 10 mg PO DAILY #30 tab 09/07/19 [Rx Last Taken 10/13/21] ezetimibe 10 mg PO DAILY 10/13/21 [History Last Taken 10/13/21] fluticasone propion-salmeterol 1 inh INHALATION BID 10/13/21 [History Last Taken 10/13/21] ibuprofen 800 mg PO .Q4-6H PRN 10/13/21 [History Last Taken 10/12/21] tiotropium bromide [Spiriva with HandiHaler] 18 mcg INHALATION DAILY 10/13/21 [History Last Taken 10/13/21] Allergy/AdvReac Type Severity Reaction Status Date / Time No Known Allergies Allergy Verified 10/22/21 03:35 Family History (Updated 10/22/21 @ 06:[address] Josiane Comer DO) Other COPD (chronic obstructive pulmonary disease) Diabetes Heart disease Hypertension Surgical History History of hand surgery History of hernia repair Social History (Updated 10/22/21 @ 06:[address] Josiane Comer DO) household members: none Smoking Status: Heavy Smoker (>10/day) alcohol intake: current alcohol intake frequency: holidays/special occasions only substance use type: does not use Risk Stratification Risk Stratification Applicable: Yes Age >/= 65: No >/= 3 CAD Risk Factors (HTN, HLD, DM, family hx of CAD, or current smoker): Yes Aspirin Use in the Past 7 Days: Yes Severe Angina (>/= episodes in 24 hours): Yes EKG ST Changes >/= 0.5mm: No Positive Cardiac Marker: Yes STAN Risk Stratification Score: 4 STAN % Risk: 20% Risk Objective Data Vital Signs: Vital Signs Temp Pulse Resp BP Pulse Ox 97.7 F L 98 24 H 120/72 97 10/22/21 08:05 10/22/21 08:10 10/22/21 08:10 10/22/21 08:05 10/22/21 08:10 Oxygen Flow Rate (L/min) 4 Oxygen Delivery Method Nasal Cannula Weight: 188 lb 7.924 oz Body Mass Index (BMI) 27.0 Intake & Output: Intake and Output for Last 24 Hours 10/20/21 10/21/21 10/22/21 23:59 23:59 23:59 Intake Total 50 / 50 Balance 50 / 50 Lab / Micro Data Result Diagrams: 10/23/21 05:28 10/23/21 05:28 Labs: Laboratory Results - last 24 hr 10/22/21 03:40: WBC 18.6 H, RBC 5.09, Hgb 16.4, Hct 50.0, MCV 98.2 H, MCH 32.2 H, MCHC 32.8, RDW Std Deviation 44.6 H, RDW Coeff of Solange 12.3, Plt Count 360, MPV 11.0, Immature Gran % (Auto) 0.600, Neut % (Auto) 80.2 H, Lymph % (Auto) 11.7 L, [place] % (Auto) 7.3, Eos % (Auto) 0.0, Baso % (Auto) 0.2, Absolute Neuts (auto) 14.9 H, Absolute Lymphs (auto) 2.17, Nucleated RBC % 0 10/22/21 03:40: Sodium 136, Potassium 4.4, Chloride 103, Carbon Dioxide 23.0, Anion Gap 10, BUN 16, Creatinine 1.09, Estim Creat Clear Calc 79.99, Est GFR (MDRD) Af Amer 91, Est GFR (MDRD) Non-Af 75, BUN/Creatinine Ratio 14.7, Glucose 119 H, Calcium 8.4 L, Magnesium 2.0, Troponin I High Sens 54 10/22/21 03:40: B-Natriuretic Peptide 655.0 H 10/22/21 04:05: PT 13.3, INR 1.1, APTT 22.9 L 10/22/21 06:45: Troponin I High Sens 325 H* 10/22/21 07:02: POC Glucose 185 H 10/22/21 08:38: Troponin I High Sens 506 H*, Triglycerides 131, Cholesterol 217 H, LDL Cholesterol 136 H, VLDL Cholesterol 26, HDL Cholesterol 55 10/22/21 08:38: Hemoglobin A1c 5.9 H Micro: Microbiology 10/22/21 06:20 Urine, Clean Catch Legionella Antigen - Final 10/22/21 06:20 Urine, Clean Catch Streptococcus pneumoniae Antigen (M - Final 10/22/21 03:55 Nasal Secretion SARS-CoV-2 Antigen (Rapid) - Final Cardiology Labs/Tests 10/22/21 03:40: WBC 18.6 H, RBC 5.09, Hgb 16.4, Hct 50.0, MCV 98.2 H, MCH 32.2 H, MCHC 32.8, Plt Count 360, MPV 11.0, Immature Gran % (Auto) 0.600, Neut % (Auto) 80.2 H, Lymph % (Auto) 11.7 L, [place] % (Auto) 7.3, Eos % (Auto) 0.0, Baso % (Auto) 0.2, Absolute Neuts (auto) 14.9 H, Nucleated RBC % 0 10/22/21 03:40: Sodium 136, Potassium 4.4, Chloride 103, Carbon Dioxide 23.0, Anion Gap 10, BUN 16, Creatinine 1.09, Est GFR (MDRD) Af Amer 91, Est GFR (MDRD) Non-Af 75, BUN/Creatinine Ratio 14.7, Glucose 119 H, Calcium 8.4 L, Magnesium 2.0 10/22/21 03:40: B-Natriuretic Peptide 655.0 H 10/22/21 04:05: PT 13.3, INR 1.1, APTT 22.9 L 10/22/21 08:38: Triglycerides 131, Cholesterol 217 H, LDL Cholesterol 136 H, VLDL Cholesterol 26, HDL Cholesterol 55 10/22/21 08:38: Hemoglobin A1c 5.9 H Rhythm: EKG: ECHO: Stress Test: Cardiac Cath: PCI: CT Surgery: Holter monitor: EPS: PPM: CXR: Chest CT Scan: Radiography Diagnostic Testing: Radiology Impression Chest CTA 10/22/21 03:51 IMPRESSION: Pulmonary emphysema, chronic obstructive pulmonary disease bronchiectasis with areas of inflammatory mucoid thickening and/or plugging versus nodules in both lungs as detailed above. There is mild peribronchial inflammatory change or endobronchial mucous or inflammation in the left upper lobe bronchial structures. Findings are compatible with bronchiolitis.. Recommend follow-up to clearing given the nodular appearance. Mild cardiac enlargement coronary calcification. Benign-appearing right renal cysts. Electronically Signed: Ana Nguyen MD at 5:18 EST Tel , Service support ,
--- NOTE | 2021-10-22 11:12 | CASEMGMT ---
According to [place] [employer] website, the following are tertiary facilities in-network with patient's insurance: [facility], [facility], [facility], [facility], [facility], [facility], [facility], [place], [facility], . ANDREW Yeager CM
--- NOTE | 2021-10-22 11:30 | CASEMGMT ---
RN CM Assessment: Face to Face with patient for initial transition planning/care coordination assessment. Patient alert and oriented, sitting up in bed with oxygen in place, in no apparent distress. CCM introduced self and role at [facility]. Care providers, pharmacy, and demographics verified. 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 LNOK: , Wendi Connolly Living Arrangements: Patient lives with , daughter and son in two story house with one step to enter the home. Patient states independent with ADLs prior to hospitalization. Social: smokes 1 ppd x 30 years, occasional ETOH, denies drug use Transportation: Self DME/HHC: Patient has oxygen concentrator and portable oxygen tanks at home, supplied by [employer] and ordered at 2LPM continuous. Patient also has nebulizer. Denies previous HHC or SNF stays. Plan: home
[2021-10-22 11:45] LABS: Hematocrit 43.8 % (40-54)
--- NOTE | 2021-10-22 11:51 | CHAPLAIN ---
Type of Pastoral Visit _x__ Initial Visit ___ Follow-up Visit ___ On-call Visit ___ General Patient Visit ___ Spiritual Assessment ___ Family Conference ___ Bereavement ___ Rapid Response ___ Code Blue ___ Other (describe below) Pastoral Care Referral From _x__ Patient ___ Family ___ Nurse ___ Physician ___ Manager Multimedia ___ Machine Builder ___ Other (describe below) Sacrament/Intervention _x__ Active listening ___ Anointing ___ Worship ___ Bereavement ___ Communion ___ Shauna exploration ___ ___ Life review _x__ Prayer ___ Reconciliation ___ Sacrament of Sick _x__ Supportive presence ___ Wedding ___ Other (describe below) Pastoral Comments patient reports this as a gipson for a month and a half; pt said he grew in concern and came to the hospital; pt is open to spiritual care and prayer
--- NOTE | 2021-10-22 12:07 | PN.HOSP_ITS ---
Documented by User: Fallon Carter NP-C 10/22/21 12:18 Subjective Subjective Patient seen and examined. Patient continues to complain of intermittent chest pain/pressure. Patient sitting in bed no distress noted. Patient undergoing echocardiogram at this time Objective Data Objective Data Vital Signs: Vital Signs Temp Pulse Resp BP Pulse Ox 97.7 F L 108 H 24 H 120/72 97 10/22/21 08:05 10/22/21 11:21 10/22/21 11:21 10/22/21 08:05 10/22/21 08:10 Oxygen Flow Rate (L/min) 4 Oxygen Delivery Method Nasal Cannula Weight: 188 lb 7.924 oz Body Mass Index (BMI) 27.0 Intake & Output: Intake and Output for Last 24 Hours 10/20/21 10/21/21 10/22/21 23:59 23:59 23:59 Intake Total 50 / 50 Balance 50 / 50 Lab / Micro Data Result Diagrams: 10/22/21 11:37 10/22/21 03:40 Labs: Laboratory Results - last 24 hr 10/22/21 03:40: WBC 18.6 H, RBC 5.09, Hgb 16.4, Hct 50.0, MCV 98.2 H, MCH 32.2 H , MCHC 32.8, RDW Std Deviation 44.6 H, RDW Coeff of Solange 12.3, Plt Count 360, MPV 11.0, Immature Gran % (Auto) 0.600, Neut % (Auto) 80.2 H, Lymph % (Auto) 11.7 L, [place] % (Auto) 7.3, Eos % (Auto) 0.0, Baso % (Auto) 0.2, Absolute Neuts (auto) 14.9 H, Absolute Lymphs (auto) 2.17, Nucleated RBC % 0 10/22/21 03:40: Sodium 136, Potassium 4.4, Chloride 103, Carbon Dioxide 23.0, Anion Gap 10, BUN 16, Creatinine 1.09, Estim Creat Clear Calc 79.99, Est GFR (MDRD) Af Amer 91, Est GFR (MDRD) Non-Af 75, BUN/Creatinine Ratio 14.7, Glucose 119 H, Calcium 8.4 L, Magnesium 2.0, Troponin I High Sens 54 10/22/21 03:40: B-Natriuretic Peptide 655.0 H 10/22/21 04:05: PT 13.3, INR 1.1, APTT 22.9 L 10/22/21 06:45: Troponin I High Sens 325 H* 10/22/21 07:02: POC Glucose 185 H 10/22/21 08:38: Troponin I High Sens 506 H*, Triglycerides 131, Cholesterol 217 H, LDL Cholesterol 136 H, VLDL Cholesterol 26, HDL Cholesterol 55 10/22/21 08:38: Hemoglobin A1c 5.9 H 10/22/21 11:37: Hgb 15.0, Hct 43.8 Micro: Microbiology 10/22/21 06:20 Urine, Clean Catch Legionella Antigen - Final 10/22/21 06:20 Urine, Clean Catch Streptococcus pneumoniae Antigen (M - Final 10/22/21 03:55 Nasal Secretion SARS-CoV-2 Antigen (Rapid) - Final Radiography Diagnostic Testing: Radiology Impression Chest CTA 10/22/21 03:51 IMPRESSION: Pulmonary emphysema, chronic obstructive pulmonary disease bronchiectasis with areas of inflammatory mucoid thickening and/or plugging versus nodules in both lungs as detailed above. There is mild peribronchial inflammatory change or endobronchial mucous or inflammation in the left upper lobe bronchial structures. Findings are compatible with bronchiolitis.. Recommend follow-up to clearing given the nodular appearance. Mild cardiac enlargement coronary calcification. Benign-appearing right renal cysts. Electronically Signed: Ana Nguyen MD at 5:18 EST Tel , Service support , Physical Exam Const alert, oriented x3 and no apparent distress HEENT head/scalp atraumatic Head and Scalp: normocephalic Eyes conjunctivae normal and no scleral icterus Neck full ROM and supple Resp normal respiratory effort Effort and Inspection: able to speak in complete sentences, symmetric chest movement and tachypneic Auscultation: diminished lung sounds Cardio regular rate, regular rhythm, S1 normal heart sound and S2 normal heart sound GI normal to inspection, nondistended, normoactive bowel sounds, soft to palpation and non-tender Extremity normal to inspection and full ROM General Extremity: edema bilateral lower extremity Details: moderate Peripheral Pulses: Yes pulses 2+ throughout Neuro oriented x3, moves all extremities, no focal motor deficits and no sensory deficits noted Sensorium / Orientation: awake and alert Psych affect normal Assessment & Plan Assessment/Plan (1) Chest pain: QUALIFIERS: Chest pain type: unspecified Qualified Code(s): R07.9 - Chest pain, unspecified (2) Bronchiolitis: (3) Elevated troponin: PLAN: 1. Chest pain with elevated troponin -Cardiology consulted, plan for patient to go for cardiac catheterization this afternoon due to continually elevated troponins -Per cardiology patient to be initiated on beta-blockers and Entresto along with high intensity statins. -Echo demonstrates EF 25 to 30% along with akinesis of distal anterior wall, distal septum, the left ventricle apex and apical inferior wall. 2. Bronchiolitis -Continue Mucinex, Solu-Medrol, Rocephin and azithromycin. -Patient currently on 2 L nasal cannula which is patient's baseline -Rapid antigen Covid negative as are Legionella and Streptococcus antigen. 3. Diabetes mellitus type 2 -AC at bedtime blood sugars with sliding scale insulin ordered -Home medication regimen on hold Continue patient's home medication regimens for chronic diseases as ordered. DVT prophylaxis-SCDs This patient was seen by RAMU Bermudez under the supervision of Dr. Kerns. Documented by User: Dr. Haider Kerns MD 10/22/21 18:50 Subjective Subjective Seen and examined. Patient having symptoms of shortness of breath for about 1 month. Patient also had hemoptysis. Bilateral leg swelling and dyspnea on minimal exertion. History of coronary artery disease and sudden cardiac in his father. Troponins admit inpatient cardiac cath in the morning. Objective Data Lab / Micro Data Result Diagrams: 10/22/21 11:37 10/22/21 03:40 Physical Exam Narrative General: Alert, Oriented x3, Cooperative, overweight BMI 27 kg/m? HEENT: Atraumatic, PERRLA, EOMI, Normocephalic Oral: No Gingival or Mucosal Lesions/ Ulcerations Neck: Supple, No JVD, Negative Carotid Bruits Lungs: Air entry diminished in bilateral lung bases. Bilateral crepitation pre sent. Cardiovascular: Regular rate, Regular Rhythm, Normal S1, Normal S2, No murmurs Abdomen: Bowel Sounds Present, Soft, Non Tender, Non-Distended : No renal angle tenderness. No suprapubic tenderness. Extremities: 2+ bilateral leg pitting edema, Capillary Refill Less than 3 Seconds Skin: No rashes, No breakdown Musculoskeletal: No Tenderness to Palpation of Joints or Extremities Neurological: Cranial nerves II-XII grossly intact, DTR 2+/4 and Symmetrical, Neuro grossly intact Psych/Mental Status: Normal Affect, Appropriate. Assessment & Plan Assessment/Plan (1) NSTEMI, initial episode of care: PLAN: This patient was seen in conjunction with ANTONY Lehman. I have independently interviewed and examined the patient and reviewed pertinent history, examination findings, laboratory and plan of management. I have reviewed the note and agree with the documented findings with the few additional points. In brief, patient is admitted for shortness of breath, chest pain with troponin consistent with non-STEMI. EKG showed anterior septal ME with Q waves and poor R wave progression. Patient had cardiac cath triple-vessel disease, RCA, diagonal and LAD. 2D echo reported EF 25 to 30%. Patient is recommended CABG therefore transfer call was made to [facility] and patient is accepted there. Patient is on metoprolol, Entresto, high intensity statin and Lasix. Patient has acute onset CHF Due to non-STEMI. Aspirin on hold because of anticipated CABG Patient CTA chest shows bronchiolitis with peribronchial thickening. On Mucinex Solu-Medrol Rocephin and Zithromax. Rapid antigen urinary antigens are negative Other comorbidities include diverticulitis type II. I have discussed my assessment with ANTONY Lehman and orders have been reviewed. Charges/Coding Visit Charges Inpatient E&M: 94187 Subs Hosp L2
--- NOTE | 2021-10-22 12:56 | CON.PCM.CA_ITS ---
HPI Consult Data Date of Consult: 10/22/21 HPI Narrative HPI Narrative: LEOBARDO AG, is a 56 M who presents [facility] Medical History COPD (chronic obstructive pulmonary disease) Emphysema lung Hyperlipidemia Hypertension Home Medications albuterol sulfate [Ventolin HFA] 2 puff INHALATION Q6H PRN PRN 11/29/15 [History Last Taken 10/13/21] lisinopril 10 mg PO DAILY 11/29/15 [History Last Taken 10/12/21] aspirin 325 mg PO DAILY@0800 09/05/19 [History Last Taken 10/13/21] metformin 500 mg PO DAILY 09/05/19 [History Last Taken 10/13/21] mometasone-formoterol 2 puff IH BID 09/05/19 [History Last Taken 10/13/21] prednisone 10 mg PO DAILY #30 tab 09/07/19 [Rx Last Taken 10/13/21] ezetimibe 10 mg PO DAILY 10/13/21 [History Last Taken 10/13/21] fluticasone propion-salmeterol 1 inh INHALATION BID 10/13/21 [History Last Taken 10/13/21] ibuprofen 800 mg PO .Q4-6H PRN 10/13/21 [History Last Taken 10/12/21] tiotropium bromide [Spiriva with HandiHaler] 18 mcg INHALATION DAILY 10/13/21 [History Last Taken 10/13/21] Allergy/AdvReac Type Severity Reaction Status Date / Time No Known Allergies Allergy Verified 10/22/21 03:35 Family History (Updated 10/22/21 @ 06:[address] Josiane Comer DO) Other COPD (chronic obstructive pulmonary disease) Diabetes Heart disease Hypertension Surgical History History of hand surgery History of hernia repair Social History (Updated 10/22/21 @ 06:[address] Josiane Comer DO) household members: none Smoking Status: Heavy Smoker (>10/day) alcohol intake: current alcohol intake frequency: holidays/special occasions only substance use type: does not use Objective Data Vital Signs: Vital Signs Temp Pulse Resp BP Pulse Ox 97.7 F L 108 H 24 H 120/72 97 10/22/21 08:05 10/22/21 11:21 10/22/21 11:21 10/22/21 08:05 10/22/21 08:10 Oxygen Flow Rate (L/min) 4 Oxygen Delivery Method Nasal Cannula Weight: 188 lb 7.924 oz Body Mass Index (BMI) 27.0 Intake & Output: Intake and Output for Last 24 Hours 10/20/21 10/21/21 10/22/21 23:59 23:59 23:59 Intake Total 50 / 50 Balance 50 / 50 Lab / Micro Data Result Diagrams: 10/22/21 11:37 10/22/21 03:40 Labs: Laboratory Results - last 24 hr 10/22/21 03:40: WBC 18.6 H, RBC 5.09, Hgb 16.4, Hct 50.0, MCV 98.2 H, MCH 32.2 H , MCHC 32.8, RDW Std Deviation 44.6 H, RDW Coeff of Solange 12.3, Plt Count 360, MPV 11.0, Immature Gran % (Auto) 0.600, Neut % (Auto) 80.2 H, Lymph % (Auto) 11.7 L, [place] % (Auto) 7.3, Eos % (Auto) 0.0, Baso % (Auto) 0.2, Absolute Neuts (auto) 14.9 H, Absolute Lymphs (auto) 2.17, Nucleated RBC % 0 10/22/21 03:40: Sodium 136, Potassium 4.4, Chloride 103, Carbon Dioxide 23.0, Anion Gap 10, BUN 16, Creatinine 1.09, Estim Creat Clear Calc 79.99, Est GFR ( RD) Af Amer 91, Est GFR (MDRD) Non-Af 75, BUN/Creatinine Ratio 14.7, Glucose 119 H, Calcium 8.4 L, Magnesium 2.0, Troponin I High Sens 54 10/22/21 03:40: B-Natriuretic Peptide 655.0 H 10/22/21 04:05: PT 13.3, INR 1.1, APTT 22.9 L 10/22/21 06:45: Troponin I High Sens 325 H* 10/22/21 07:02: POC Glucose 185 H 10/22/21 08:38: Troponin I High Sens 506 H*, Triglycerides 131, Cholesterol 217 H, LDL Cholesterol 136 H, VLDL Cholesterol 26, HDL Cholesterol 55 10/22/21 08:38: Hemoglobin A1c 5.9 H 10/22/21 11:37: Hgb 15.0, Hct 43.8 Micro: Microbiology 10/22/21 06:20 Urine, Clean Catch Legionella Antigen - Final 10/22/21 06:20 Urine, Clean Catch Streptococcus pneumoniae Antigen (M - Final 10/22/21 03:55 Nasal Secretion SARS-CoV-2 Antigen (Rapid) - Final Cardiology Labs/Tests 10/22/21 03:40: WBC 18.6 H, RBC 5.09, Hgb 16.4, Hct 50.0, MCV 98.2 H, MCH 32.2 H , MCHC 32.8, Plt Count 360, MPV 11.0, Immature Gran % (Auto) 0.600, Neut % (Auto) 80.2 H, Lymph % (Auto) 11.7 L, [place] % (Auto) 7.3, Eos % (Auto) 0.0, Baso % (Auto) 0.2, Absolute Neuts (auto) 14.9 H, Nucleated RBC % 0 10/22/21 03:40: Sodium 136, Potassium 4.4, Chloride 103, Carbon Dioxide 23.0, Anion Gap 10, BUN 16, Creatinine 1.09, Est GFR (MDRD) Af Amer 91, Est GFR (MDRD) Non-Af 75, BUN/Creatinine Ratio 14.7, Glucose 119 H, Calcium 8.4 L, Magnesium 2.0 10/22/21 03:40: B-Natriuretic Peptide 655.0 H 10/22/21 04:05: PT 13.3, INR 1.1, APTT 22.9 L 10/22/21 08:38: Triglycerides 131, Cholesterol 217 H, LDL Cholesterol 136 H, VLDL Cholesterol 26, HDL Cholesterol 55 10/22/21 08:38: Hemoglobin A1c 5.9 H 10/22/21 11:37: Hgb 15.0, Hct 43.8 Rhythm: EKG: ECHO: Stress Test: Cardiac Cath: PCI: CT Surgery: Holter monitor: EPS: PPM: CXR: Chest CT Scan: Radiography Diagnostic Testing: Radiology Impression Chest CTA 10/22/21 03:51 IMPRESSION: Pulmonary emphysema, chronic obstructive pulmonary disease bronchiectasis with areas of inflammatory mucoid thickening and/or plugging versus nodules in both lungs as detailed above. There is mild peribronchial inflammatory change or endobronchial mucous or inflammation in the left upper lobe bronchial structures. Findings are compatible with bronchiolitis.. Recommend follow-up to clearing given the nodular appearance. Mild cardiac enlargement coronary calcification. Benign-appearing right renal cysts. Electronically Signed: Ana Nguyen MD at 5:18 EST Tel , Service support ,
--- NOTE | 2021-10-22 13:12 | PCIREPORT_ITS ---
PCI Cardiac Cath Report PCI Report: Patient underwent left heart catheterization selective coronary angiography measurement of left ventricular end-diastolic pressure LV AO pullback via the right radial approach. Clinical indication: Rising troponins, abnormal EKG suggesting anterior lateral Q wave myocardial infarction, chest discomfort, congestive heart failure, and echocardiogram suggesting large anterior apical myocardial infarction. Right radial approach was used. A 5/6 slender sheath was inserted into the right radial artery without difficulty. All catheter exchanges were made over a 0.035 guidewire. A 5 Uzbek angled pigtail catheter was advanced into the left ventricle across the aortic valve. Left ventricular end-diastolic pressure was measured. Left ventriculography was deferred given echo findings, and to minimize contrast, and a slow manual pullback was performed across the aortic valve. The angled pigtail catheter was removed. A 5 Uzbek [place] diagnostic catheter was advanced in the left main coronary artery was selectively engaged, angiography was performed in multiple views. The same catheter was used to selectively engage the right coronary artery but selectively engaged the conus branch of the right coronary artery. Catheter was removed. In the process of exchanging catheters, the sheath was accidentally pulled out. The wire was in place. A 6 Uzbek short sheath was advanced over the existing wire into the right radial artery. Patient received intra-arterial nitroglycerin and heparin prior to the beginning of the procedure and after the sheath exchange. 5 Uzbek JR 5 diagnostic catheter was then advanced, and the right coronary artery was s electively engaged. Angiography of the right coronary artery was performed. The catheter was removed. The right radial sheath was removed and hemostasis was achieved. There were no immediate complications. Hemodynamics: Central aortic pressure was in the 90s, rhythm was sinus heart rate was in the low 100s, patient received IV metoprolol 2.5 mg x 2 doses. Left ventricular end-diastolic pressure was 15 mmHg with respiratory variation. No systolic gradient across the aortic valve. Coronary angiography: Patient has right dominant system Right coronary artery is large, proximal vessel has less than 10% stenosis mid vessel has 80% stenosis distal vessel has 20 to 30% smooth stenosis. Posterior descending artery and posterolateral ventricular branches measure 2.25 to 2.5 mm and have less than 10% stenosis. The right coronary artery arises from the right sinus of Valsalva. The conus branch arises separately, the conus branch is angiographically normal. The left main coronary artery arises from the left sinus of Valsalva. It trifurcates into the left anterior descending artery, ramus intermedius branch and the left circumflex artery. The left anterior descending artery has 20 to 30% smooth proximal stenosis. There is a complex lesion in the proximal mid left anterior descending artery, 80% in severity, with poststenotic ectasia. A major second mdiagonal branch measuring about 3 mm arises from within the segment of disease in the left anterior descending artery. This complexity is best outlined in the NEPALI caudal view. The distal mid and distal left anterior descending artery have less than 10% stenosis. Left anterior descending artery curves around the left ventricular apex. Septal perforators are relatively small and normal. The left circumflex artery is nondominant, and continues as a major obtuse marginal branch. The proximal left circumflex artery has about 20 to 30% smooth stenosis. The ramus intermedius branch measures about 3 mm, and has about 20% luminal narrowing. Summary: Right dominant system Left main coronary artery less than 10% stenosis Large wraparound left anterior descending artery with complex 80% proximal mid stenosis involving and extending into the origin of a large diagonal branch, which also has 80% ostial stenosis Ramus intermedius branch and left circumflex artery with mild disease Dominant RCA with 80% mid stenosis LVEDP 15 mmHg no systolic gradient across the aortic valve Left ventriculography was deferred, echocardiogram shows extensive severe wall motion abnormality mid and distal anterior wall and apex consistent with recent anterior apical myocardial infarction No mitral regurgitation based on echocardiogram Given patient's age, and diabetes and anatomical details, patient is best served with coronary artery bypass grafting. He is agreeable. Findings were discussed with hospitalist service. There were no immediate complications 49 cc of contrast was used. Films were reviewed with Dr. Adrian Walker, who agrees with the above plan.
[2021-10-22 13:18] LABS: Troponin-I HS 689 pg/mL (3.0-78.0)
[2021-10-22] MEDS: Metoprolol(XL)Succ 25 MG Tablet PO (13:22)
[2021-10-22 13:30] LABS: Bedside Glucose 120 mg/dL (70-110)
--- NOTE | 2021-10-22 13:50 | EX.PCM.CONCC ---
Assessment & Plan Assessment/Plan (1) Bronchiolitis: (2) Elevated troponin: PLAN: RECOMMENDATIONS: 1. Continue scheduled bronchodilators. 2. Continue IV steroids. Transition to prednisone taper at discharge. 3. Continue antimicrobials to complete 7 days of therapy. 4. Encourage incentive spirometer use and mobilize patient as tolerated. 5. Perform walking oximetry study prior to consideration for discharge home. 6. Potential transfer to tertiary care facility for CABG evaluation. 7. Given that the patient is at his baseline from a respiratory perspective, will sign off. Please call if hemoptysis recurs. IMPRESSIONS: 1. Self-limited hemoptysis Suspect that this could be related to underlying infection given radiographic evidence of bronchitis and bronchiectasis. The patient is currently maintaining appropriate oxygen saturations on his baseline 2 L/min. Hemoglobin is stable. No further hemoptysis has been noted. Recommend that the patient be continued on antimicrobials to complete 7 days of therapy along with scheduled bronchodilators and steroids. Perform walking oximetry study prior to consideration for discharge home. 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 2. Advanced age COPD/chronic hypoxemic respiratory failure/chronic tobacco dependency Continue supportive measures as noted above, including scheduled bronchodilators, IV steroids and antimicrobials. Continue nicotine replacement therapy as ordered. 3. Myocardial infarction The patient is status post cardiac catheterization with surgical revascularization recommended. Potential transfer to tertiary care facility is pending. This note was generated with [employer] dictation software. It may contain incorrect words, spelling, and punctuation that were not noted in checking the note before signing. HPI Consult Data Date of Consult: 10/22/21 HPI Narrative Reason for Consultation: Hemoptysis HPI Narrative: The patient is a 56-year-old male, with a history as outlined below, who presented to the emergency department on October 22 with shortness of breath and hemoptysis. The patient has an apparent history of advanced stage COPD/emphysema along with chronic hypoxemic respiratory failure with a baseline 2 L/min oxygen requirement and an extensive tobacco abuse history. He is currently followed by Dr. Moreno at [facility]. He is on a triple therapy inhaler regimen at his baseline. The patient reported that this morning he coughed up blood which soaked a small washcloth. He has not experienced any further episodes of hemoptysis since that time. He denies any epistaxis episodes recently. He is not on any systemic anticoagulation. On presentation to the emergency department, the patient was noted to be hypertensive, tachycardic and tachypneic. Laboratory evaluation revealed a white blood cell count of 18,000. Chemistry profile was unrevealing. Troponin was elevated at 325. BNP was elevated at 655. Rapid coronavirus antigen testing was negative. CTA chest showed no evidence for pulmonary embolism but did demonstrate evidence of emphysema with bronchiectasis along with findings consistent with bronchitis/bronchiolitis. The patient was initially placed on antimicrobials, bronchodilators and IV steroids. He was admitted to the progressive care unit for further management. Surface echocardiogram demonstrated a significant regional wall motion abnormality with an ejection fraction of 25 to 30%. The patient was subsequently evaluated by cardiology and taken for cardiac catheterization. [facility] Medical History COPD (chronic obstructive pulmonary disease) Emphysema lung Hyperlipidemia Hypertension Home Medications albuterol sulfate [Ventolin HFA] 2 puff INHALATION Q6H PRN PRN 11/29/15 [History Last Taken 10/13/21] lisinopril 10 mg PO DAILY 11/29/15 [History Last Taken 10/12/21] aspirin 325 mg PO DAILY@0800 09/05/19 [History Last Taken 10/13/21] metformin 500 mg PO DAILY 09/05/19 [History Last Taken 10/13/21] mometasone-formoterol 2 puff IH BID 09/05/19 [History Last Taken 10/13/21] prednisone 10 mg PO DAILY #30 tab 09/07/19 [Rx Last Taken 10/13/21] ezetimibe 10 mg PO DAILY 10/13/21 [History Last Taken 10/13/21] fluticasone propion-salmeterol 1 inh INHALATION BID 10/13/21 [History Last Taken 10/13/21] ibuprofen 800 mg PO .Q4-6H PRN 10/13/21 [History Last Taken 10/12/21] tiotropium bromide [Spiriva with HandiHaler] 18 mcg INHALATION DAILY 10/13/21 [History Last Taken 10/13/21] Allergy/AdvReac Type Severity Reaction Status Date / Time No Known Allergies Allergy Verified 10/22/21 03:35 Family History (Updated 10/22/21 @ 06:[address] Josiane Comer DO) Other COPD (chronic obstructive pulmonary disease) Diabetes Heart disease Hypertension Surgical History History of hand surgery History of hernia repair Social History (Updated 10/22/21 @ 06:[address] Josiane Comer DO) household members: none Smoking Status: Heavy Smoker (>10/day) alcohol intake: current alcohol intake frequency: holidays/special occasions only substance use type: does not use ROS Constitutional Constitutional: Denies chills, fatigue or fever(s) Eyes Eyes: Denies blurry vision or change in vision ENT HEENT: Denies epistaxis or headache(s) Cardiovascular Cardiovascular: Reports chest pain and dyspnea Respiratory/Chest Respiratory/Chest: Reports cough, dyspnea and hemoptysis Gastrointestinal Gastrointestinal: Denies abdominal pain, diarrhea, nausea or vomiting Genitourinary Genitourinary: Denies difficulty urinating Musculoskeletal Musculoskeletal: Denies arthralgias, back pain or joint pain Integumentary Integumentary: Denies lesions, rash or skin ulcer Neurologic Neurologic: Denies abnormal gait Psychiatric Psychiatric: Denies anxiety or depression Endocrine Endocrinology: Denies fatigue, polydipsia or polyuria Hematologic/Lymphatic Hematologic/Lymphatic: Denies easy bleeding or easy bruising Physical Exam Const alert, oriented x3 and no apparent distress General Appearance: cooperative HEENT normocephalic and head/scalp atraumatic Eyes PERRL, EOMs intact bilaterally and conjunctivae normal Neck supple General: trachea midline Chest inspection of chest normal Resp Auscultation: wheezes scattered wheezes and diminished lung sounds Cardio regular rate and regular rhythm Extremity no clubbing, cyanosis or edema Skin no rashes or lesions noted Neuro CN's II-XII intact bilaterally, moves all extremities and no focal motor deficits Psych cooperative and affect normal Lab / Micro Data Result Diagrams: 10/22/21 11:37 10/22/21 03:40 Labs: Laboratory Results - last 24 hr 10/22/21 03:40: WBC 18.6 H, RBC 5.09, Hgb 16.4, Hct 50.0, MCV 98.2 H, MCH 32.2 H, MCHC 32.8, RDW Std Deviation 44.6 H, RDW Coeff of Solange 12.3, Plt Count 360, MPV 11.0, Immature Gran % (Auto) 0.600, Neut % (Auto) 80.2 H, Lymph % (Auto) 11.7 L, [place] % (Auto) 7.3, Eos % (Auto) 0.0, Baso % (Auto) 0.2, Absolute Neuts (auto) 14.9 H, Absolute Lymphs (auto) 2.17, Nucleated RBC % 0 10/22/21 03:40: Sodium 136, Potassium 4.4, Chloride 103, Carbon Dioxide 23.0, Anion Gap 10, BUN 16, Creatinine 1.09, Estim Creat Clear Calc 79.99, Est GFR (MDRD) Af Amer 91, Est GFR (MDRD) Non-Af 75, BUN/Creatinine Ratio 14.7, Glucose 119 H, Calcium 8.4 L, Magnesium 2.0, Troponin I High Sens 54 10/22/21 03:40: B-Natriuretic Peptide 655.0 H 10/22/21 04:05: PT 13.3, INR 1.1, APTT 22.9 L 10/22/21 06:45: Troponin I High Sens 325 H* 10/22/21 07:02: POC Glucose 185 H 10/22/21 08:38: Troponin I High Sens 506 H*, Triglycerides 131, Cholesterol 217 H, LDL Cholesterol 136 H, VLDL Cholesterol 26, HDL Cholesterol 55 10/22/21 08:38: Hemoglobin A1c 5.9 H 10/22/21 11:37: Hgb 15.0, Hct 43.8 10/22/21 12:40: Troponin I High Sens 689 H* 10/22/21 13:19: POC Glucose 120 H Micro: Microbiology 10/22/21 06:20 Urine, Clean Catch Legionella Antigen - Final 10/22/21 06:20 Urine, Clean Catch Streptococcus pneumoniae Antigen (M - Final 10/22/21 03:55 Nasal Secretion SARS-CoV-2 Antigen (Rapid) - Final Radiology Impression Chest CTA 10/22/21 03:51 IMPRESSION: Pulmonary emphysema, chronic obstructive pulmonary disease bronchiectasis with areas of inflammatory mucoid thickening and/or plugging versus nodules in both lungs as detailed above. There is mild peribronchial inflammatory change or endobronchial mucous or inflammation in the left upper lobe bronchial structures. Findings are compatible with bronchiolitis.. Recommend follow-up to clearing given the nodular appearance. Mild cardiac enlargement coronary calcification. Benign-appearing right renal cysts. Electronically Signed: Ana Nguyen MD at 5:18 EST Tel , Service support , Charges/Coding Visit Charges Inpatient E&M: 79624 Init Hosp L3
[2021-10-22] MEDS: Furosemide 40 MG/4 ML Vial 20 MG IV (17:34)
[2021-10-22 17:56] LABS: Bedside Glucose 177 mg/dL (70-110)
--- NOTE | 2021-10-22 19:41 | PCS.PANDOC ---
PANDEMIC DOCUMENTATION INITIATED: Date: 06/08/2021 Time: 190
[2021-10-22] MEDS: 0.9% Saline Lock 10 ML Syringe IV (21:08)
[2021-10-22] MEDS: Atorvastatin Calcium 80 MG Tablet PO (21:16)
[2021-10-23] VITALS (16 sets, daily range): BP systolic 117–127; BP diastolic 67–80; PULSE 81–108; RESP 16–24; TEMP 36.4–36.7; O2SAT 94–96
[2021-10-23] MEDS: Ipratropium/Albuterol Sulfate 3 ML AMPUL.NEB INHALATION ×6 (03:43→23:25)
[2021-10-23 06:15] LABS: Absolute Lymphocyte Count 0.44 X10^3/uL (0.83-4.51); Absolute Neutrophil Count 12.4 X10^3/uL (2.0-7.7); Hematocrit 42.5 % (40-54); Hemoglobin 13.7 g/dL (13.0-16.5); Lymphocyte # 0.44 X10^3/ul (0.83-4.51); Lymphocyte % 3.3 % (19-41); Mean Corp Hgb Conc 32.2 g/dL (32-36); Mean Corpuscular Hgb 31.5 pg (27.0-32.0); Mean Corpuscular Volume 97.7 fL (80-94); Mean Platelet Vol. 10.7 fl (6.2-12.0); Monocyte# 0.59 X10^3/uL; Monocyte% 4.4 % (0-10); NRBC Flagged by Analyzer 0 % (0-5); Neutrophil # 12.36 X10^3/uL (2.7-7.7); Neutrophil % 91.8 % (47-70); POSITIVE DIFFERENTIAL YES; Platelet Count 265 K/mm3 (150-450); RBC Distribution Width CV 12.5 % (11.6-14.6); RBC Distribution Width SD 45.3 fl (35.1-43.9); Red Blood Count 4.35 M/mm3 (4.6-6.2); White Blood Count 13.5 K/mm3 (4.4-11.0)
[2021-10-23 06:24] LABS: Differential Indicated SCAN CRITERIA MET
[2021-10-23] MEDS: 0.9% Saline Lock 10 ML Syringe IV ×2 (06:30→20:54)
[2021-10-23 06:41] LABS: Bedside Glucose 136 mg/dL (70-110)
[2021-10-23 06:57] LABS: AST(SGOT) 12 U/L (15-37); Alanine Aminotransfer ALT/SGPT 33 U/L (16-61); Albumin, Serum 2.8 g/dL (3.2-5.0); Alkaline Phosphatase 58 U/L (45-117); Anion Gap 5 (5-15); BUN 24 mg/dL (7-18); BUN/Creat Ratio 29.8 RATIO (10-20); Calcium,Total 8.1 mg/dL (8.5-10.1); Chloride 101 mmol/L (98-107); Creatinine, Serum 0.81 mg/dL (0.70-1.30); EST Glomerular Filtration Rate 106 mL/min (>60); Est Glom Filt Rate - Afr Amer 128 mL/min (>60); Estimated Creatinine Clearance 107.65 ml/min; Globulin 2.8 g/dL (2.2-4.2); Glucose 135 mg/dL (74-106); Magnesium 2.3 mg/dL (1.6-2.6); Protein, Total 5.6 g/dL (6.4-8.2); Sodium Level 137 mmol/L (136-145)
[2021-10-23 07:06] LABS: Phosphorus 4.3 mg/dL (2.5-4.9)
[2021-10-23] MEDS: Metoprolol(XL)Succ 25 MG Tablet PO (09:04)
[2021-10-23] MEDS: Famotidine 20 MG Tablet PO ×2 (09:04→20:54)
[2021-10-23] MEDS: Furosemide 40 MG/4 ML Vial 20 MG IV ×2 (09:04→17:01)
[2021-10-23] MEDS: Azithromycin 250 MG Tablet 500 MG PO (09:21)
[2021-10-23] MEDS: Ceftriaxone 1 GM/50 ML BAG IV (10:41)
--- NOTE | 2021-10-23 11:02 | PN.HOSP_ITS ---
Documented by User: Fallon Carter NP-C 10/23/21 11:24 Subjective Subjective Seen and examined. Patient lying in bed no distress noted. Patient's family at bedside. Patient updated on status of transfer to [facility], voiced understanding. Objective Data Objective Data Vital Signs: Vital Signs Temp Pulse Resp BP Pulse Ox 97.9 F 82 21 H 122/75 H 94 10/23/21 08:17 10/23/21 10:54 10/23/21 10:54 10/23/21 09:04 10/23/21 08:22 Oxygen Flow Rate (L/min) 2 Oxygen Delivery Method Nasal Cannula Weight: 185 lb 10.067 oz Body Mass Index (BMI) 27.0 Intake & Output: Intake and Output for Last 24 Hours 10/21/21 10/22/21 10/23/21 23:59 23:59 23:59 Intake Total 530 / 530 Output Total 1450 / 1700 950 / 950 Balance -920 / -1170 -950 / -950 Medical Nutrition Assessment Dietitian: Malnutrition Criteria Met Start: 10/22/21 15:35 Freq: Status: Active Protocol: Document 10/22/21 15:35 AG (Rec: 10/22/21 15:35 AG [id number]) Nutrition Malnutrition Evidence of Malnutrition Exists Yes Malnutrition (severe): Acute Illness/Injury Evidenced By Suboptimal Energy Intake ( Severe),Weight Loss (Severe) Clinical Problem Acute Disease or Injury Related Malnutrition Etiology severe, acute malnutrition r/t inadequate energy intake Signs/Symptoms as evidenced by unintentional wt loss of 23.5#/11% x 1 month , estimated PO intake meeting <75% of estimated energy needs x 1 month Status Active Problem Recommendation Dietitian Recommendations/Changes continue cardiac, consistent CHO diet; will increase to 2200 calories/day to meet estimated needs. continue glucerna ONS TID Lab / Micro Data Result Diagrams: 10/23/21 05:28 10/23/21 05:28 Labs: Laboratory Results - last 24 hr 10/22/21 11:37: Hgb 15.0, Hct 43.8 10/22/21 12:40: Troponin I High Sens 689 H* 10/22/21 13:19: POC Glucose 120 H 10/22/21 17:28: POC Glucose 177 H 10/23/21 05:28: WBC 13.5 H, RBC 4.35 L, Hgb 13.7, Hct 42.5, MCV 97.7 H, MCH 31.5, MCHC 32.2, RDW Std Deviation 45.3 H, RDW Coeff of [place]ange 12.5, Plt Count 265, MPV 10.7, Immature Gran % (Auto) 0.500, Neut % (Auto) 91.8 H, Lymph % (Auto) 3.3 L, [place] % (Auto) 4.4, Eos % (Auto) 0.0, Baso % (Auto) 0.0, Absolute Neuts (auto) 12.4 H, Absolute Lymphs (auto) 0.44 L, Nucleated RBC % 0 10/23/21 05:28: Sodium 137, Potassium 4.0, Chloride 101, Carbon Dioxide 31.0, Anion Gap 5, BUN 24 H, Creatinine 0.81, Estim Creat Clear Calc 107.65, Est GFR (MDRD) Af Amer 128, Est GFR (MDRD) Non-Af 106, BUN/Creatinine Ratio 29.8 H, Glucose 135 H, Calcium 8.1 L, Magnesium 2.3, Total Bilirubin 0.50, AST 12 L, ALT 33, Alkaline Phosphatase 58, Total Protein 5.6 L, Albumin 2.8 L, Globulin 2.8, Albumin/Globulin Ratio 1.0 10/23/21 05:28: Phosphorus 4.3 10/23/21 06:25: POC Glucose 136 H Micro: Microbiology 10/22/21 06:20 Urine, Clean Catch Legionella Antigen - Final 10/22/21 06:20 Urine, Clean Catch Streptococcus pneumoniae Antigen (M - Final 10/22/21 03:55 Nasal Secretion SARS-CoV-2 Antigen (Rapid) - Final Physical Exam Const alert, oriented x3 and no apparent distress HEENT head/scalp atraumatic Head and Scalp: normocephalic Eyes conjunctivae normal and no scleral icterus Neck supple Resp normal respiratory effort and normal air movement Effort and Inspection: able to speak in complete sentences and symmetric chest movement Auscultation: diminished lung sounds Cardio regular rate, regular rhythm, S1 normal heart sound and S2 normal heart sound GI normal to inspection, nondistended, normoactive bowel sounds, soft to palpation and non-tender Extremity normal to inspection and full ROM Peripheral Pulses: Yes pulses 2+ throughout Skin no rashes or lesions noted, no wounds and skin turgor normal Neuro oriented x3, moves all extremities, no focal motor deficits and no sensory deficits noted Sensorium / Orientation: awake and alert Psych affect normal Assessment & Plan Assessment/Plan (1) NSTEMI, initial episode of care: (2) Bronchiolitis: (3) Acute respiratory failure with hypoxia: PLAN: 1. Acute respiratory failure with hypoxia secondary to congestive heart failure -Cardiology following, managing adjustments to medications regarding CHF 2. NSTEMI -Patient has been accepted at [facility] for evaluation for coronary artery bypass however they have no beds available at this time. -Continue cardiac monitoring as well as cardiac medications to optimize patient prior to transfer. DVT prophylaxis-SCDs This patient was seen by RAMU Bermudez under the supervision of Dr. Kerns. Documented by User: Dr. Haider Kerns MD 10/23/21 17:13 Objective Data Lab / Micro Data Result Diagrams: 10/23/21 05:28 10/23/21 05:28 Physical Exam Narrative Seen and examined Mild chest pain/pressure but resolved on its own. Still waiting for bed for transfer. General: Alert, Oriented x3, Cooperative, overweight BMI 27 kg/m? HEENT: Atraumatic, PERRLA, EOMI, Normocephalic Oral: No Gingival or Mucosal Lesions/ Ulcerations Neck: Supple, No JVD, Negative Carotid Bruits Lungs: Air entry diminished in bilateral lung bases. Lungs clear. No crepitations Cardiovascular: Regular rate, Regular Rhythm, Normal S1, Normal S2, No murmurs Abdomen: Bowel Sounds Present, Soft, Non Tender, Non-Distended : No renal angle tenderness. No suprapubic tenderness. Extremities: 2+ bilateral leg pitting edema, Capillary Refill Less than 3 Se conds Skin: No rashes, No breakdown Musculoskeletal: No Tenderness to Palpation of Joints or Extremities Neurological: Cranial nerves II-XII grossly intact, DTR 2+/4 and Symmetrical, Neuro grossly intact Psych/Mental Status: Normal Affect, Appropriate. HEENT normocephalic, head/scalp atraumatic, hearing grossly normal bilaterally and moist oral mucous membranes Eyes PERRL, EOMs intact bilaterally, conjunctivae normal and no scleral icterus Eyes Narrative: No scleral icterus Neck full ROM, no lymphadenopathy, supple, no JVD and no carotid bruits Neck Narrative: Trachea midline, no thyroid enlargement Resp normal respiratory effort, normal air movement and no use of accessory muscles Resp Narrative: Mild dyspnea with conversation, markedly diminished diffusely, scattered inspiratory and expiratory wheezes Effort and Inspection: able to speak in complete sentences, symmetric chest movement and tachypneic Auscultation: wheezes and diminished lung sounds; Negative for crackles, rales or rhonchi Cardio regular rate, regular rhythm, S1 normal heart sound, S2 normal heart sound, no murmurs, no rub, no gallops, no clicks and no JVD GI normal to inspection, nondistended, normoactive bowel sounds, soft to palpation, non-tender and non-distended Extremity normal to inspection and full ROM Extremity Narrative: Clubbing without cyanosis, bilateral lower extremity 2+ pitting edema General Extremity: edema bilateral lower extremity Details: moderate Skin no rashes or lesions noted, no wounds, skin turgor normal, no jaundice, no petechiae and no mottling Skin Narrative: Bilateral lower extremity skin is very soft and doughy Neuro oriented x3, CN's II-XII intact bilaterally, moves all extremities, no focal motor deficits and no sensory deficits noted Sensorium / Orientation: awake and alert Speech: speech normal Motor Exam: strength 5/5 throughout Psych affect normal Psych Narrative: Affect is slightly flat but patient appropriately interactive Assessment & Plan Assessment/Plan (1) NSTEMI, initial episode of care: PLAN: This patient was seen in conjunction with ANTONY Lehman. I have independently interviewed and examined the patient and reviewed pertinent history, examination findings, laboratory and plan of management. I have reviewed the note and agree with the documented findings with the few additional points. In brief, patient is admitted for shortness of breath, chest pain with troponin consistent with non-STEMI. EKG showed anterior septal TX with Q waves and poor R wave progression. Patient had cardiac cath triple-vessel disease, RCA, diagonal and LAD. 2D echo reported EF 25 to 30%. Patient is recommended CABG therefore transfer call was made to [facility] and patient is accepted there. Patient is on metoprolol, Entresto, high intensity statin and Lasix. Patient has acute onset CHF Due to non-STEMI. Aspirin on hold because of anticipated CABG Patient CTA chest shows bronchiolitis with peribronchial thickening. On Mucinex Solu-Medrol Rocephin and Zithromax. Rapid antigen urinary antigens are negative. Pulmonary consult reviewed. Recommended prednisone taper at discharge and continue antimicrobial to complete a total of 7 days. Continue incentive spirometry. Other comorbidities include diverticulitis type II. I have discussed my assessment with ANTONY Lehman and orders have been reviewed. Charges/Coding Visit Charges Inpatient E&M: 85249 Subs Hosp L2
[2021-10-23] MEDS: Insulin Lispro 100 UNIT/ML INSULN.PEN SC (11:12)
[2021-10-23 11:21] LABS: Bedside Glucose 166 mg/dL (70-110)
[2021-10-23 16:06] LABS: Bedside Glucose 152 mg/dL (70-110)
--- NOTE | 2021-10-23 19:52 | PCM.PN.CARD ---
Subjective Subjective Patient remains in respiratory isolation. He was interviewed and examined from a distance but within the room. He is resting comfortably laying flat in bed in no respiratory distress, his shortness of breath and cough have improved vastly. He denies any chest pressure tightness or heaviness. Objective Data Patient is awake alert speaking in full sentences no respiratory distress chest is rising symmetric. He is not coughing. His abdomen is not distended and his extremities show no edema. He is grossly nonfocal. Assessment:and Recommendations : 1. Patient with acute on chronic biventricular systolic heart failure related to a anterior apical myocardial infarction that happened sometime in August 2021, based on EKG changes, with postinfarction angina pectoris, and decompensated heart failure. 2. The hemoptysis he described on presentation I believe is more consistent with congestive heart failure, pulmonary service also following, patient is on steroids. 3. He does have a history of bronchiolitis. 4. He has extensive wall motion abnormalities on his echocardiogram involving the LAD distribution, with overall left ventricular ejection fraction of about 20 to 25% and no major valvular abnormalities. 5. He appears euvolemic today. 6. Had discussed with Dr. Arnold and decreased Lasix yesterday. 7. I would like to initiate Entresto, after lisinopril washout. Would start with 24/26 at bedtime, and increase to 24/26 p.o. twice daily as tolerated by blood pressure and potassium and renal function. 8. Can discontinue diuretics and use as needed at this time. 9. Patient should be evaluated and given the option for coronary artery bypass grafting. I understand that he is awaiting a bed at [facility]. Vital Signs: Vital Signs Temp Pulse Resp BP Pulse Ox 98.1 F 98 16 121/74 H 95 10/23/21 16:59 10/23/21 19:00 10/23/21 16:59 10/23/21 16:59 10/23/21 16:59 Oxygen Flow Rate (L/min) 2 Oxygen Delivery Method Nasal Cannula Weight: 185 lb 10.067 oz Body Mass Index (BMI) 27.0 Intake & Output: Intake and Output for Last 24 Hours 10/21/21 10/22/21 10/23/21 23:59 23:59 23:59 Intake Total 530 / 530 1350 / 1350 Output Total 1450 / 1700 3000 / 3000 Balance -920 / -1170 -1650 / -1650 Lab / Micro Data Result Diagrams: 10/23/21 05:28 10/23/21 05:28 Labs: Laboratory Results - last 24 hr 10/23/21 05:28: WBC 13.5 H, RBC 4.35 L, Hgb 13.7, Hct 42.5, MCV 97.7 H, MCH 31.5, MCHC 32.2, RDW Std Deviation 45.3 H, RDW Coeff of Solange 12.5, Plt Count 265, MPV 10.7, Immature Gran % (Auto) 0.500, Neut % (Auto) 91.8 H, Lymph % (Auto) 3.3 L, [place] % (Auto) 4.4, Eos % (Auto) 0.0, Baso % (Auto) 0.0, Absolute Neuts (auto) 12.4 H, Absolute Lymphs (auto) 0.44 L, Nucleated RBC % 0 10/23/21 05:28: Sodium 137, Potassium 4.0, Chloride 101, Carbon Dioxide 31.0, Anion Gap 5, BUN 24 H, Creatinine 0.81, Estim Creat Clear Calc 107.65, Est GFR (MDRD) Af Amer 128, Est GFR (MDRD) Non-Af 106, BUN/Creatinine Ratio 29.8 H, Glucose 135 H, Calcium 8.1 L, Magnesium 2.3, Total Bilirubin 0.50, AST 12 L, ALT 33, Alkaline Phosphatase 58, Total Protein 5.6 L, Albumin 2.8 L, Globulin 2.8, Albumin/Globulin Ratio 1.0 10/23/21 05:28: Phosphorus 4.3 10/23/21 06:25: POC Glucose 136 H 10/23/21 11:11: POC Glucose 166 H 10/23/21 16:00: POC Glucose 152 H Cardiology Labs/Tests 10/23/21 05:28: WBC 13.5 H, RBC 4.35 L, Hgb 13.7, Hct 42.5, MCV 97.7 H, MCH 31.5, MCHC 32.2, Plt Count 265, MPV 10.7, Immature Gran % (Auto) 0.500, Neut % (Auto) 91.8 H, Lymph % (Auto) 3.3 L, [place] % (Auto) 4.4, Eos % (Auto) 0.0, Baso % (Auto) 0.0, Absolute Neuts (auto) 12.4 H, Nucleated RBC % 0 10/23/21 05:28: Sodium 137, Potassium 4.0, Chloride 101, Carbon Dioxide 31.0, Anion Gap 5, BUN 24 H, Creatinine 0.81, Est GFR (MDRD) Af Amer 128, Est GFR (MDRD) Non-Af 106, BUN/Creatinine Ratio 29.8 H, Glucose 135 H, Calcium 8.1 L, Magnesium 2.3, Total Bilirubin 0.50 10/23/21 05:28: Phosphorus 4.3 Rhythm: EKG: ECHO: Stress Test: Cardiac Cath: PCI: CT Surgery: Holter monitor: EPS: PPM: CXR: Chest CT Scan:
[2021-10-23] MEDS: Atorvastatin Calcium 80 MG Tablet PO (20:54)
[2021-10-23 21:01] LABS: Bedside Glucose 163 mg/dL (70-110)
[2021-10-24] VITALS (14 sets, daily range): BP systolic 110–135; BP diastolic 64–106; PULSE 71–113; RESP 16–20; TEMP 36.6–36.9; O2SAT 94–100
[2021-10-24] MEDS: 0.9% Saline Lock 10 ML Syringe IV ×2 (05:04→07:20)
[2021-10-24 06:56] LABS: Bedside Glucose 139 mg/dL (70-110)
--- NOTE | 2021-10-24 07:00 | EKG12_ITS ---
Test Reason : CP Blood Pressure : / mmHG Vent. Rate : 094 BPM Atrial Rate : 094 BPM P-R Int : 116 ms QRS Dur : 102 ms QT Int : 370 ms P-R-T Axes : 072 009 087 degrees QTc Int : 462 ms Normal sinus rhythm Inferior infarct , age undetermined Abnormal ECG When compared with ECG of 22-OCT-2021 04:02, MANUAL COMPARISON REQUIRED, DATA IS UNCONFIRMED Confirmed by ROMMEL BLUM, CIERA ([id number]), editorial director ESTELLE REYES ([id number]) on 11/05/2021 2:00:21 PM Referred By: MEHDI Confirmed By:PRIYANKA CARNEY MD
[2021-10-24] MEDS: Nitroglycerin (INPATIENT USE) 0.4 MG TAB.SUBL SL ×2 (07:02→07:09)
[2021-10-24] MEDS: Ipratropium/Albuterol Sulfate 3 ML AMPUL.NEB INHALATION ×3 (07:03→16:02)
[2021-10-24] MEDS: Morphine 2 MG/ML Syringe IV (07:20)
[2021-10-24 09:11] LABS: Troponin-I HS 175 pg/mL (3.0-78.0)
[2021-10-24] MEDS: Furosemide 40 MG/4 ML Vial 20 MG IV ×2 (09:54→17:06)
[2021-10-24] MEDS: Azithromycin 250 MG Tablet 500 MG PO (09:56)
[2021-10-24] MEDS: Metoprolol(XL)Succ 25 MG Tablet PO (09:56)
[2021-10-24] MEDS: Famotidine 20 MG Tablet PO (09:56)
[2021-10-24] MEDS: Ceftriaxone 1 GM/50 ML BAG IV (10:00)
[2021-10-24 10:12] LABS: Troponin-I HS 178 pg/mL (3.0-78.0)
--- NOTE | 2021-10-24 10:42 | PN.HOSP_ITS ---
Documented by User: RAMU Bermudez 10/24/21 10:47 Subjective Subjective Patient seen and examined. Patient lying in bed no distress noted. Patient reports that his shortness of breath and chest pressure has greatly improved over the past 24 hours however patient continues to require 2 L nasal cannula oxygen Objective Data Objective Data Vital Signs: Vital Signs Temp Pulse Resp BP Pulse Ox 97.9 F 91 16 110/71 96 10/24/21 09:51 10/24/21 09:56 10/24/21 09:51 10/24/21 09:56 10/24/21 09:51 Oxygen Flow Rate (L/min) 2 Oxygen Delivery Method Nasal Cannula Weight: 180 lb 5.41 oz Body Mass Index (BMI) 27.0 Intake & Output: Intake and Output for Last 24 Hours 10/22/21 10/23/21 10/24/21 23:59 23:59 23:59 Intake Total 530 / 530 1350 / 1350 400 / 400 Output Total 1450 / 1700 3000 / 3000 1025 / 1025 Balance -920 / -1170 -1650 / -1650 -625 / -625 Medical Nutrition Assessment Dietitian: Malnutrition Criteria Met Start: 10/22/21 15:35 Freq: Status: Active Protocol: Document 10/22/21 15:35 AG (Rec: 10/22/21 15:35 AG [id number]) Nutrition Malnutrition Evidence of Malnutrition Exists Yes Malnutrition (severe): Acute Illness/Injury Evidenced By Suboptimal Energy Intake ( Severe),Weight Loss (Severe) Clinical Problem Acute Disease or Injury Related Malnutrition Etiology severe, acute malnutrition r/t inadequate energy intake Signs/Symptoms as evidenced by unintentional wt loss of 23.5#/11% x 1 month , estimated PO intake meeting <75% of estimated energy needs x 1 month Status Active Problem Recommendation Dietitian Recommendations/Changes continue cardiac, consistent CHO diet; will increase to 2200 calories/day to meet estimated needs. continue glucerna ONS TID Lab / Micro Data Result Diagrams: 10/23/21 05:28 10/23/21 05:28 Labs: Laboratory Results - last 24 hr 10/23/21 11:11: POC Glucose 166 H 10/23/21 16:00: POC Glucose 152 H 10/23/21 20:53: POC Glucose 163 H 10/24/21 06:37: POC Glucose 139 H 10/24/21 07:36: Troponin I High Sens 175 H* 10/24/21 09:20: Troponin I High Sens 178 H* Micro: Microbiology 10/22/21 06:20 Urine, Clean Catch Legionella Antigen - Final 10/22/21 06:20 Urine, Clean Catch Streptococcus pneumoniae Antigen (M - Final 10/22/21 03:55 Nasal Secretion SARS-CoV-2 Antigen (Rapid) - Final Physical Exam Const alert, oriented x3, no apparent distress and well nourished General Appearance: cooperative HEENT normocephalic, head/scalp atraumatic and moist oral mucous membranes Eyes conjunctivae normal and no scleral icterus Neck full ROM, no lymphadenopathy and supple Resp normal respiratory effort, normal air movement and no use of accessory muscles Effort and Inspection: able to speak in complete sentences, symmetric chest movement and tachypneic Auscultation: wheezes and diminished lung sounds Cardio regular rate, regular rhythm, S1 normal heart sound and S2 normal heart sound GI normal to inspection, nondistended, normoactive bowel sounds, soft to palpation and non-tender Extremity normal to inspection and full ROM Skin no rashes or lesions noted and no wounds Neuro oriented x3, moves all extremities, no focal motor deficits and no sensory de ficits noted Sensorium / Orientation: awake and alert Speech: speech normal Psych affect normal Assessment & Plan Assessment/Plan (1) NSTEMI, initial episode of care: PLAN: 1. Acute respiratory failure with hypoxia secondary to congestive heart failure -Cardiology following, managing adjustments to medications regarding CHF -Patient much improved with medication adjustments made by cardiology. 2. NSTEMI -Patient has been accepted at [facility] for evaluation for coronary artery bypass however they have no beds available at this time. -Continue cardiac monitoring as well as cardiac medications to optimize patient prior to transfer. DVT prophylaxis-SCDs This patient was seen by RAMU Bermudez under the supervision of Dr. Kerns. Documented by User: Dr. Hadier Kerns MD 10/24/21 13:17 Subjective Subjective Patient complain of right-sided chest calender let off operator today which moved to central and then radiation to left arm. Patient also has COPD exacerbation with wheezing. He presently feels more pain when he lays down feels better on leaning forward. Patient on IV Solu-Medrol. I talked to the rotary rig engine operator. Objective Data Lab / Micro Data Result Diagrams: 10/23/21 05:28 10/23/21 05:28 Physical Exam Narrative Seen and examined General: Alert, Oriented x3, Cooperative, overweight BMI 27 kg/m? HEENT: Atraumatic, PERRLA, EOMI, Normocephalic Oral: No Gingival or Mucosal Lesions/ Ulcerations Neck: Supple, No JVD, Negative Carotid Bruits Lungs: Air entry diminished in bilateral lung bases. Bilateral rhonchi and wheezing. Getting better Cardiovascular: Regular rate, Regular Rhythm, PVCs normal S1, Normal S2, No murmurs Abdomen: Bowel Sounds Present, Soft, Non Tender, Non-Distended : No renal angle tenderness. No suprapubic tenderness. Extremities: 2+ bilateral leg pitting edema, Capillary Refill Less than 3 Sec onds Skin: No rashes, No breakdown Musculoskeletal: No Tenderness to Palpation of Joints or Extremities Neurological: Cranial nerves II-XII grossly intact, DTR 2+/4 and Symmetrical, Neuro grossly intact Psych/Mental Status: Normal Affect, Appropriate. Assessment & Plan Assessment/Plan (1) NSTEMI, initial episode of care: PLAN: This patient was seen in conjunction with ANTONY Lehman. I have independently interviewed and examined the patient and reviewed pertinent history, examination findings, laboratory and plan of management. I have reviewed the note and agree with the documented findings with the few additional points. In brief, patient is admitted for shortness of breath, chest pain with troponin consistent with non-STEMI. EKG showed anterior septal VA with Q waves and poor R wave progression. Patient had cardiac cath triple-vessel disease, RCA, diagonal and LAD. 2D echo reported EF 25 to 30%. Patient is recommended CABG therefore transfer call was made to [facility] and patient is accepted there. Patient is on metoprolol, Entresto, high intensity statin and Lasix. P atient has acute onset CHF Due to non-STEMI. Aspirin on hold because of anticipated CABG Patient has chest pain right-sided with radiation to left arm. Discussed with the rotary rig engine operator. Twelve-lead EKG does not show acute change from previous EKG. High-sensitivity troponin is better than before. I discussed with the rotary rig engine operator Dr. Forrester and recommended 1 time GI cocktail. Patient on Protonix. Patient is also on IV Solu-Medrol for COPD exacerbation that will cover for pericarditis/pleuritis as anti-inflammatory. COPD exacerbation: Patient CTA chest shows bronchiolitis with peribronchial thickening. On Mucinex, Solu-Medrol Rocephin and Zithromax. Rapid antigen urinary antigens are negative. Pulmonary consult reviewed. Recommended prednisone taper at discharge and continue antimicrobial to complete a total of 7 days. Continue incentive spirometry. Other comorbidities include diverticulitis type II. I have discussed my assessment with ANTONY Lehman and orders have been reviewed. Charges/Coding Visit Charges Inpatient E&M: 99305 Subs Hosp L2
[2021-10-24] MEDS: Insulin Lispro 100 UNIT/ML INSULN.PEN SC (11:04)
[2021-10-24 11:16] LABS: Bedside Glucose 252 mg/dL (70-110)
[2021-10-24] MEDS: Mag Hydrox/Al Hydrox/Simeth 30 ML UDC PO (13:34)
[2021-10-24 16:01] LABS: Bedside Glucose 115 mg/dL (70-110)
--- NOTE | 2021-10-24 16:50 | NURSING ---
Report called to Angi at the [facility] at 1645.
[2021-10-24] MEDS: Aspirin 81 MG TAB.CHEW 324 MG PO (17:15)
--- NOTE | 2021-10-24 18:02 | PN.CARD_ITS ---
Subjective Subjective This morning patient had anterior chest discomfort. He described this as a pressure sensation that started on the right side of the chest then moved to the center of the chest and bent down his left arm. Discussed with the hospitalist Dr. Arnold. Patient was given sublingual nitroglycerin with improvement in sympt oms. EKG did not show any acute or diagnostic ST-T abnormalities. Patient was given aspirin 324 mg today. He had been on and off on aspirin. Aspirin will be continued at 81 mg daily. Patient does not complain of any shortness of breath, hemoptysis has resolved, orthopnea has resolved and lower extremity edema has resolved. Objective Data Hemodynamically stable, saturating at 100% remaining in normal sinus rhythm. There is extensive wheezing/rhonchi in both posterior lung hernandez no crepitations. Heart sounds are regular distant no murmur rub or gallop abdomen is soft and extremities show no edema patient is alert and oriented x3. Moving all extremities. Vital Signs: Vital Signs Temp Pulse Resp BP Pulse Ox 97.9 F 90 20 H 120/95 H 100 10/24/21 16:59 10/24/21 16:59 10/24/21 16:59 10/24/21 16:59 10/24/21 16:59 Oxygen Flow Rate (L/min) 2 Oxygen Delivery Method Nasal Cannula Weight: 180 lb 5.41 oz Body Mass Index (BMI) 27.0 Intake & Output: Intake and Output for Last 24 Hours 10/22/21 10/23/21 10/24/21 23:59 23:59 23:59 Intake Total 530 / 530 1350 / 1350 1060 / 1060 Output Total 1450 / 1700 3000 / 3000 2024 / 2024 Balance -920 / -1170 -1650 / -1650 -965 / -965 Lab / Micro Data Result Diagrams: 10/23/21 05:28 10/23/21 05:28 Labs: Laboratory Results - last 24 hr 10/23/21 20:53: POC Glucose 163 H 10/24/21 06:37: POC Glucose 139 H 10/24/21 07:36: Troponin I High Sens 175 H* 10/24/21 09:20: Troponin I High Sens 178 H* 10/24/21 11:01: POC Glucose 252 H 10/24/21 15:56: POC Glucose 115 H Cardiology Labs/Tests Rhythm: EKG: ECHO: Stress Test: Cardiac Cath: PCI: CT Surgery: Holter monitor: EPS: PPM: CXR: Chest CT Scan: Assessment & Plan Assessment/Plan (1) NSTEMI, initial episode of care: PLAN: Patient underwent coronary angiography which identified critical disease of the proximal mid left anterior descending artery and major diagonal branch, as well as mid RCA of dominant right coronary artery. LVEDP 20 mmHg. LVEF by echo 20%. Clinical impression is that of anterior apical myocardial infarction around September 21, 2021 or before, based on EKG abnormalities, with postinfarction angina pectoris and biventricular systolic heart failure functional class IV. Given age, diabetes, and anatomic details, coronary artery bypass grafting is the best recommended approach for revascularization. Patient has comorbidities to include history of bronchitis and currently there is exacerbation of reactive airway disease possible bronchiolitis. He remains on steroid therapy. The episode of chest discomfort he had today is probably angina pectoris, cannot exclude totally GI issues of chest discomfort. Based on coronary anatomy, unless to be proposed coronary vasospasm, rest angina seems unlikely. Hesitant to increase beta-blockers because of extensive bronchospasm. Please see prior notes regarding other details Recommendations: 1. Personally discussed with tertiary care center [facility], along with nurse practitioner Rambo. 2. Patient has been waiting for a bed at [facility] for a few days. 3. Patient has been accepted at [facility] vascular [place], I personally discussed clinical scenario with the accepting c ardiologist. 4. We will continue to optimize heart failure therapy. 5. Add nitrates, continue Entresto, increase dose as tolerated. Thank you Patient appears clinically stable for ground transport. (2) Elevated troponin: (3) Bronchiolitis: (4) Chest pain: QUALIFIERS: Chest pain type: unspecified Qualified Code(s): R07.9 - Chest pain, unspecified (5) Acute respiratory failure with hypoxia:
--- NOTE | 2021-10-25 08:01 | PCM.DC ---
Discharge Instructions Diet Discharge Diet: Low fat / Low cholesterol Follow Up Care Test Results: Test results from this visit will be discussed in further detail at your follow-up appointment, if applicable. Discharge Plan Admission Admit Date/Time: 10/22/21 06:00 Primary Reason for Your Visit: NSTEMI Attending Provider: Haider Kerns Primary Care Provider: Adolfo Bruce Consulting Providers: Eduardo Orellana ; Saud Gonzalez ; Elisa Huerta NP ; Clarisa Forrester Instructions Additional Instructions / Restrictions: Patient Problems: Altered Health Status related to Hospitalization Patient Goals: *Optimal Level of Health *Keep Appointments *Medication Compliance *Remain Safe Discharge Orders/Prescriptions Prescriptions: No Action lisinopril 10 MG tablet 10 mg PO DAILY RF: 0 albuterol sulfate [Ventolin HFA] 1 INHALER inhaler 2 puff inhalation Q6H PRN PRN (Reason: Sob &/Or Wheezing) RF: 0 metformin 500 MG tablet 500 mg PO DAILY RF: 0 aspirin 325 MG tablet 325 mg PO DAILY@0800 RF: 0 mometasone-formoterol 13 GM HFA aerosol inhaler 2 puff IH BID RF: 0 prednisone 10 MG tablet 10 mg PO DAILY Qty: 30 RF: 0 fluticasone propion-salmeterol 250-50 mcg/dose blister with device 1 inh INHALATION BID RF: 0 ibuprofen 200 mg Tablet 800 mg PO .Q4-6H PRN (Reason: Pain) RF: 0 ezetimibe 10 mg tablet 10 mg PO DAILY RF: 0 Spiriva with HandiHaler 18 mcg capsule, w/inhalation device 18 mcg INHALATION DAILY RF: 0 Referrals / Follow Up: Adolfo Bruce MD [Primary Care Provider] - Disposition Disposition (needs filled in before D/C Order can be placed): Acute Care Hospital
--- NOTE | 2021-10-25 08:03 | PCM.DC.SUM ---
Documented by User: RAMU Bermudez 10/25/21 08:08 Providers Date of Admission: 10/22/21 Primary Care Physician: Dr. Adolfo Bruce MD Consultations 10/22/21 06:39 Consult: Food Production Worker / Pulmonary Medicine Routine Consulting Provider: Pulmonary Medicine randall [place] Reason for Consult: Broncholitis/PNA/Hemoptysis EMERGENT Consult: No MD Notified: Yes Date Notified: 10/22/21 Time Notified: 06:54 Method of Notification: Text 10/22/21 09:52 Consult: Cardiology Routine Consulting Provider: Clarisa Forrester Reason for Consult: Elevated troponin EMERGENT Consult: No Notified: Yes Date Notified: 10/22/21 Time Notified: 09:52 Method of Notification: Provider Initiated Reason For Visit: CAP/BRONCHIOLITIS Diagnosis Discharge Diagnosis (1) NSTEMI, initial episode of care: Status: Acute Code(s): I21.4 - Non-ST elevation (NSTEMI) myocardial infarction (2) Elevated troponin: Status: Acute Code(s): R77.8 - Other specified abnormalities of plasma proteins (3) Bronchiolitis: Status: Acute Code(s): J21.9 - Acute bronchiolitis, unspecified (4) Chest pain: Status: Acute Code(s): R07.9 - Chest pain, unspecified Qualifiers: Chest pain type: unspecified Qualified Code(s): R07.9 - Chest pain, unspecified (5) Acute respiratory failure with hypoxia: Status: Acute Code(s): J96.01 - Acute respiratory failure with hypoxia Medications at Discharge Home Medications albuterol sulfate [Ventolin HFA] 2 puff INHALATION Q6H PRN PRN 11/29/15 lisinopril 10 mg PO DAILY 11/29/15 aspirin 325 mg PO DAILY@0800 09/05/19 metformin 500 mg PO DAILY 09/05/19 mometasone-formoterol 2 puff IH BID 09/05/19 prednisone 10 mg PO DAILY #30 tab 09/07/19 ezetimibe 10 mg PO DAILY 10/13/21 fluticasone propion-salmeterol 1 inh INHALATION BID 10/13/21 ibuprofen 800 mg PO .Q4-6H PRN 10/13/21 tiotropium bromide [Spiriva with HandiHaler] 18 mcg INHALATION DAILY 10/13/21 Hospital Course Operations None Procedures 2-D Echocardiogram, Cardiac catheterization and EKG Summary of Care Provided Minutes Spent on Discharge: 35 Hospital Course: Patient is a 56-year-old male who initially presented with shortness of breath and chest pain as well as lower extremity edema. Patient underwent an echocardiogram as well as a cardiac catheterization during his admission. Echocardiogram demonstrates EF running 5 to 30% with an akinetic left ventricular apex and apical inferior wall. Patient underwent cardiac catheterization which demonstrates 80% stenosis in the left anterior descending which extends to the origin of the large diagonal branch as well as 80% stenosis in the RCA. At cardiology's recommendations patient was transferred to [facility] for evaluation for coronary artery bypass graft. Prior to patient's transfer medications changes were made per cardiology to optimize patient's CHF exacerbation prior to evaluation for CABG. Physical Exam Const alert, oriented x3, no apparent distress and well nourished General Appearance: cooperative HEENT normocephalic, head/scalp atraumatic and moist oral mucous membranes Eyes conjunctivae normal and no scleral icterus Neck full ROM, no lymphadenopathy and supple Neck Narrative: Trachea midline, no thyroid enlargement Resp normal respiratory effort, normal air movement and no use of accessory muscles Effort and Inspection: able to speak in complete sentences, symmetric chest movement and tachypneic Auscultation: wheezes and diminished lung sounds Cardio regular rate, regular rhythm, S1 normal heart sound and S2 normal heart sound GI normal to inspection, nondistended, normoactive bowel sounds, soft to palpation and non-tender Extremity normal to inspection and full ROM Extremity Narrative: Clubbing without cyanosis, bilateral lower extremity 2+ pitting edema General Extremity: edema bilateral lower extremity Details: moderate Skin no rashes or lesions noted and no wounds Neuro oriented x3, moves all extremities, no focal motor deficits and no sensory deficits noted Sensorium / Orientation: awake and alert Speech: speech normal Motor Exam: strength 5/5 throughout Psych affect normal Weight / BMI Weight Weight: 180 lb 5.41 oz Body Mass Index (BMI) 27.0 ABG / Lab / Microbiology Data Result Diagrams: 10/23/21 05:28 10/23/21 05:28 Laboratory: Laboratory Results - last 24 hr 10/24/21 07:36: Troponin I High Sens 175 H* 10/24/21 09:20: Troponin I High Sens 178 H* 10/24/21 11:01: POC Glucose 252 H 10/24/21 15:56: POC Glucose 115 H Microbiology: Microbiology 10/22/21 06:20 Urine, Clean Catch Legionella Antigen - Final 10/22/21 06:20 Urine, Clean Catch Streptococcus pneumoniae Antigen (M - Final 10/22/21 03:55 Nasal Secretion SARS-CoV-2 Antigen (Rapid) - Final D/C Instructions Discharge Diet: Low fat / Low cholesterol Meaningful Use Info Meaningful Use Diagnoses (Choose all that apply): CHF CHF KINGS/ARB ordered at discharge?: Yes Documented LVEF (%): 25 Discharge Plan Admission Admit Date/Time: 10/22/21 06:00 Primary Reason for Your Visit: NSTEMI Attending Provider: Haider Kerns Primary Care Provider: Adolfo Bruce Consulting Providers: Eduardo Orellana ; Saud Gonzalez ; Elisa Huerta INFORMATION SYSTEMS AUDIT MANAGER ; Clarisa Forrester Instructions Additional Instructions / Restrictions: Patient Problems: Altered Health Status related to Hospitalization Patient Goals: *Optimal Level of Health *Keep Appointments *Medication Compliance *Remain Safe Discharge Orders/Prescriptions Prescriptions: No Action lisinopril 10 MG tablet 10 mg PO DAILY RF: 0 albuterol sulfate [Ventolin HFA] 1 INHALER inhaler 2 puff inhalation Q6H PRN PRN (Reason: Sob &/Or Wheezing) RF: 0 metformin 500 MG tablet 500 mg PO DAILY RF: 0 aspirin 325 MG tablet 325 mg PO DAILY@0800 RF: 0 mometasone-formoterol 13 GM HFA aerosol inhaler 2 puff IH BID RF: 0 prednisone 10 MG tablet 10 mg PO DAILY Qty: 30 RF: 0 fluticasone propion-salmeterol 250-50 mcg/dose blister with device 1 inh INHALATION BID RF: 0 ibuprofen 200 mg Tablet 800 mg PO .Q4-6H PRN (Reason: Pain) RF: 0 ezetimibe 10 mg tablet 10 mg PO DAILY RF: 0 Spiriva with HandiHaler 18 mcg capsule, w/inhalation device 18 mcg INHALATION DAILY RF: 0 Referrals / Follow Up: Adolfo Bruce MD [Primary Care Provider] - Disposition Disposition (needs filled in before D/C Order can be placed): [facility] Documented by User: Dr. Haider Kerns MD 10/25/21 15:47 Providers Date of Admission: 10/22/21 Date of Discharge: 10/24/21 Reason For Visit: CAP/BRONCHIOLITIS Medications at Discharge Home Medications albuterol sulfate [Ventolin HFA] 2 puff INHALATION Q6H PRN PRN 11/29/15 lisinopril 10 mg PO DAILY 11/29/15 aspirin 325 mg PO DAILY@0800 09/05/19 metformin 500 mg PO DAILY 09/05/19 mometasone-formoterol 2 puff IH BID 09/05/19 prednisone 10 mg PO DAILY #30 tab 09/07/19 ezetimibe 10 mg PO DAILY 10/13/21 fluticasone propion-salmeterol 1 inh INHALATION BID 10/13/21 ibuprofen 800 mg PO .Q4-6H PRN 10/13/21 tiotropium bromide [Spiriva with HandiHaler] 18 mcg INHALATION DAILY 10/13/21 Hospital Course Summary of Care Provided Hospital Course: This patient was seen in conjunction with ANTONY Lehman. I have independently interviewed and examined the patient and reviewed pertinent history, examination findings, laboratory and plan of management. I have reviewed the note and agree with the documented findings with the few additional points. In brief, patient is admitted for shortness of breath, chest pain with troponin consistent with non-STEMI. EKG showed anterior septal MS with Q waves and poor R wave progression. Patient had cardiac cath triple-vessel disease, RCA, diagonal and LAD. 2D echo showed EF 25 to 30% with akinetic left ventricular apex and apical inferior wall. Patient is on metoprolol, Entresto, high intensity statin and Lasix. Patient has acute onset CHF Due to non-STEMI. Aspirin on hold because of anticipated CABG Patient has chest pain right-sided with radiation to left arm on 10/24. Discussed with the material assembler. Twelve-lead EKG does not show acute change from previous EKG. High-sensitivity troponin is better than before. I discussed with the material assembler Dr. Forrester and recommended 1 time GI cocktail. Patient on Protonix. Patient is also on IV Solu-Medrol for COPD exacerbation that will cover for pericarditis/pleuritis as anti-inflammatory. As per material assembler it seems patient chest pain was of angina quality therefore required urgent transfer. As mentioned in progress note, patient is recommended CABG therefore transfer call was made to [facility] and patient was accepted there. After waiting for 2 days patient is still did not had a bed therefore transfer call was made to [facility] with the patient was accepted there and transferred there. COPD exacerbation: Patient CTA chest shows bronchiolitis with peribronchial thickening. On Mucinex, Solu-Medrol Rocephin and Zithromax. Rapid antigen urinary antigens are negative. Pulmonary consult reviewed. Recommended prednisone taper at discharge and continue antimicrobial to complete a total of 7 days. Continue incentive spirometry. Other comorbidities include diverticulitis type II. I have discussed my assessment with ANTONY Lehman and orders have been reviewed. Physical Exam Narrative Patient was transferred to [facility] for evaluation and management for CABG. Physical finding as documented in the progress note of the same date. ABG / Lab / Microbiology Data Result Diagrams: 10/23/21 05:28 10/23/21 05:28 Discharge Plan Admission Admit Date/Time: 10/22/21 06:00 Primary Reason for Your Visit: NSTEMI Attending Provider: Haider Kenrs Primary Care Provider: Adolfo Bruce Consulting Providers: Eduardo Orellana ; Saud Gonzalez ; Elisa Huerta INFORMATION SYSTEMS AUDIT MANAGER ; Clarisa Forrester Instructions Additional Instructions / Restrictions: Patient Problems: Altered Health Status related to Hospitalization Patient Goals: *Optimal Level of Health *Keep Appointments *Medication Compliance *Remain Safe Discharge Orders/Prescriptions Prescriptions: No Action lisinopril 10 MG tablet 10 mg PO DAILY RF: 0 albuterol sulfate [Ventolin HFA] 1 INHALER inhaler 2 puff inhalation Q6H PRN PRN (Reason: Sob &/Or Wheezing) RF: 0 metformin 500 MG tablet 500 mg PO DAILY RF: 0 aspirin 325 MG tablet 325 mg PO DAILY@0800 RF: 0 mometasone-formoterol 13 GM HFA aerosol inhaler 2 puff IH BID RF: 0 prednisone 10 MG tablet 10 mg PO DAILY Qty: 30 RF: 0 fluticasone propion-salmeterol 250-50 mcg/dose blister with device 1 inh INHALATION BID RF: 0 ibuprofen 200 mg Tablet 800 mg PO .Q4-6H PRN (Reason: Pain) RF: 0 ezetimibe 10 mg tablet 10 mg PO DAILY RF: 0 Spiriva with HandiHaler 18 mcg capsule, w/inhalation device 18 mcg INHALATION DAILY RF: 0 Referrals / Follow Up: Adolfo Bruce MD [Primary Care Provider] - Disposition Disposition (needs filled in before D/C Order can be placed): Acute Care Hospital Charges/Coding Addendum Addendum: Please cancel the progress note on the same date of 10/24/2021 Visit Charges Inpatient E&M: 64939 Disch Hosp
== END 2021-10-24 18:50 | disposition short-term general hospital (02) | DRG 190 ==
LOC: ED 06:11 → PCU 06:22
PROVIDERS: Hospitalist; Admitting Provider Internal Medicine; Emergency Provider Emergency Medicine; PCP Family Medicine; Visit Provider Internal Medicine
DX: I21.4 Non-ST elevation (NSTEMI) myocardial infarction (principal); J96.21 Acute and chronic respiratory failure with hypoxia; E43 Unspecified severe protein-calorie malnutrition; I50.23 Acute on chronic systolic (congestive) heart failure; E11.9 Type 2 diabetes mellitus without complications; I11.0 Hypertensive heart disease with heart failure; J44.0 Chronic obstructive pulmonary disease with (acute) lower respiratory infection; J44.1 Chronic obstructive pulmonary disease with (acute) exacerbation; F17.200 Nicotine dependence, unspecified, uncomplicated; E78.2 Mixed hyperlipidemia; J21.9 Acute bronchiolitis, unspecified; Z79.51 Long term (current) use of inhaled steroids; Z79.82 Long term (current) use of aspirin; Z79.84 Long term (current) use of oral hypoglycemic drugs; Z68.27 Body mass index [BMI] 27.0-27.9, adult; Z99.81 Dependence on supplemental oxygen; E66.9 Obesity, unspecified; N28.1 Cyst of kidney, acquired
CPT/HCPCS: 36415; 71275; 80048; 80053; 80061; 82962; 83036; 83735; 83880; 84100; 84484; 85014; 85018; 85025; 85610; 85730; 87426; 87449; 87633; 93005; 93306; 93454; 94640; 94667; 94668; 97802; 99152; 99153; 99251; 99285; 99406; J7040; J7050; Q9957; Q9967; A4216; C1769; C1894; C8929; G0463; J1940

== ENCOUNTER 2021-11-07 07:28 | Emergency (ER) | payer MEDICAID, SELFPAY ==
[2021-11-07 07:30] VITALS: BP 158/100; PULSE 103; RESP 25; TEMP 36.8; O2SAT 100; BMI 24.7
[2021-11-07 07:34] VITALS: O2SAT 100
--- NOTE | 2021-11-07 07:42 | EKG12_ITS ---
Test Reason : CP Blood Pressure : / mmHG Vent. Rate : 098 BPM Atrial Rate : 098 BPM P-R Int : 110 ms QRS Dur : 096 ms QT Int : 368 ms P-R-T Axes : 073 002 085 degrees QTc Int : 469 ms Sinus rhythm Low voltage QRS (Limb Leads) Anteroseptal NV, age undetermined, cannot be excluded Confirmed by DEANDRA BLUM, MATTIE ([id number]), newspaper copy editor ESTELLE REYES ([id number]) on 11/09/2021 11:19:25 AM Referred By: MORE Confirmed By:MATTIE LIRIANO MD
[2021-11-07 07:44] VITALS: O2SAT 100
[2021-11-07 07:54] LABS: Absolute Lymphocyte Count 2.24 X10^3/uL (0.83-4.51); Absolute Neutrophil Count 10.9 X10^3/uL (2.0-7.7); Basophil# 0.06 X10^3/uL; Basophil% 0.4 % (0-1); Eosinophils% 1.4 % (0-5); Hematocrit 41.5 % (40-54); Hemoglobin 13.9 g/dL (13.0-16.5); Lymphocyte # 2.24 X10^3/ul (0.83-4.51); Lymphocyte % 15.5 % (19-41); Mean Corp Hgb Conc 33.5 g/dL (32-36); Mean Corpuscular Hgb 31.8 pg (27.0-32.0); Mean Platelet Vol. 10.2 fl (6.2-12.0); Monocyte# 0.82 X10^3/uL; Monocyte% 5.7 % (0-10); NRBC Flagged by Analyzer 0 % (0-5); Neutrophil # 10.89 X10^3/uL (2.7-7.7); Neutrophil % 75.3 % (47-70); Platelet Count 236 K/mm3 (150-450); RBC Distribution Width CV 12.1 % (11.6-14.6); RBC Distribution Width SD 43.1 fl (35.1-43.9); Red Blood Count 4.37 M/mm3 (4.6-6.2); White Blood Count 14.5 K/mm3 (4.4-11.0)
[2021-11-07] MEDS: Aspirin 81 MG TAB.CHEW 324 MG PO (08:03)
--- NOTE | 2021-11-07 08:08 | RAD_ITS ---
STUDY: X-RAY CHEST REASON FOR EXAM: Male, 56 years old. chest pain TECHNIQUE: AP COMPARISON: 10/13/2021 FINDINGS: EKG leads project over the chest. Lungs are hyperexpanded with coarsened interstitial lung markings. No airspace consolidation is seen. Patchy nodular densities evident on prior CTA are not clearly seen on this exam. There is no demonstrated pleural abnormality. Normal size heart. Normal mediastinum and fantasma. Normal visualized pulmonary arteries. There is atherosclerotic tortuosity of the aortic arch and descending thoracic aorta. Normal visualized thoracic spine. Old posterior left rib fracture. There is no demonstrated abnormality of the visualized soft tissue structures of the upper abdomen. RAD/Chest 1 View (Portable) IMPRESSION: 1. No airspace consolidation or pleural effusion. 2. Emphysema. Electronically Signed: Sam Acosta MD (Brooks) at 8:20 EST , Service support ,
[2021-11-07 08:11] LABS: Anion Gap 9 (5-15); BUN 14 mg/dL (7-18); BUN/Creat Ratio 13.6 RATIO (10-20); Calcium,Total 8.9 mg/dL (8.5-10.1); Chloride 98 mmol/L (98-107); Creatinine, Serum 1.03 mg/dL (0.70-1.30); EST Glomerular Filtration Rate 80 mL/min (>60); Est Glom Filt Rate - Afr Amer 97 mL/min (>60); Estimated Creatinine Clearance 84.65 ml/min; Glucose 114 mg/dL (74-106); Potassium 4.1 mmol/L (3.5-5.1); Sodium Level 134 mmol/L (136-145); Troponin-I HS 68 pg/mL (3.0-78.0)
--- NOTE | 2021-11-07 08:29 | EDS_ITS ---
HPI History of Present Illness Chief Complaint: Chest Pain Narrative Narrative: 56-year-old male presenting with left-sided upper chest pain which he felt was tightness. This started about 630 when he woke up. He states he was very shaky. Patient relates that he had cardiac stents done in [place] on Tuesday. He states he was initially here at [facility] but was transferred down there to have his stents placed. 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 He states he has history of MO last July but did not for stents he received were on Tuesday. Patient states he is on O2 chronically as needed for COPD. [facility] Medical History Acute respiratory insufficiency COPD (chronic obstructive pulmonary disease) Emphysema lung Hyperlipidemia Hypertension Home Medications albuterol sulfate [Ventolin HFA] 2 puff INHALATION Q6H PRN PRN 11/29/15 [History Last Taken 10/13/21] metformin 500 mg PO DAILY 09/05/19 [History Last Taken 10/13/21] mometasone-formoterol 2 puff IH BID 09/05/19 [History Last Taken 10/13/21] prednisone 10 mg PO DAILY #30 tab 09/07/19 [Rx Last Taken 10/13/21] ezetimibe 10 mg PO DAILY 10/13/21 [History Last Taken 10/13/21] fluticasone propion-salmeterol 1 inh INHALATION BID 10/13/21 [History Last Taken 10/13/21] tiotropium bromide [Spiriva with HandiHaler] 18 mcg INHALATION DAILY 10/13/21 [History Last Taken 10/13/21] aspirin 81 mg PO DAILY 11/07/21 [History Last Taken Unknown] clopidogrel 75 mg PO DAILY 11/07/21 [History Last Taken Unknown] furosemide 20 mg PO DAILY 11/07/21 [History Last Taken Unknown] hydroxyzine HCl 25 mg PO DAILY 11/07/21 [History Last Taken Unknown] metoprolol succinate 25 mg PO BID 11/07/21 [History Last Taken Unknown] nitroglycerin 0.4 mg SUBLINGUAL PRN PRN 11/07/21 [History Last Taken Unknown] spironolactone 25 mg PO DAILY 11/07/21 [History Last Taken Unknown] Allergy/AdvReac Type Severity Reaction Status Date / Time No Known Allergies Allergy Verified 11/07/21 07:29 Family History Other COPD (chronic obstructive pulmonary disease) Diabetes Heart disease Hypertension Surgical History History of hand surgery History of hernia repair Social History household members: none Smoking Status: Heavy Smoker (>10/day) alcohol intake: current alcohol intake frequency: holidays/special occasions only substance use type: does not use ROS ROS ED Constitutional Constitutional ED: Denies chills or fever(s) Eyes Eyes: Denies blurry vision or change in vision ENT ENT ED: Denies rhinorrhea or sore throat Cardiovascular Cardiovascular: Reports as per HPI Respiratory/Chest Respiratory/Chest: Reports dyspnea Gastrointestinal Gastrointestinal: Denies abdominal pain, nausea or vomiting Genitourinary Genitourinary ED: Denies dysuria or hematuria Musculoskeletal Musculoskeletal: Denies arthralgias or myalgias Integumentary Denies rash Neurologic Neurologic: Denies headache(s) or paresthesias EXAM Physical Exam Const Vital Signs: 11/07/21 07:30 11/07/21 07:34 11/07/21 07:44 Temperature 98.2 F Temperature Source Oral Pulse Rate 103 H Respiratory Rate 25 H Respiratory Effort Normal Non-Labored Respiratory Pattern Normal Blood Pressure 158/100 H Blood Pressure Mean 119 Pulse Ox 100 100 100 Oxygen Delivery Method Nasal Cannula Nasal Cannula Nasal Cannula Oxygen Flow Rate (L/min) 2 2 2 11/07/21 09:04 11/07/21 11:45 Temperature Temperature Source Pulse Rate 90 84 Respiratory Rate 21 H 16 Respiratory Effort Respiratory Pattern Blood Pressure 114/83 H 123/83 H Blood Pressure Mean 93 96 Pulse Ox 94 99 Oxygen Delivery Method Nasal Cannula Nasal Cannula Oxygen Flow Rate (L/min) 2 2 Positive well nourished General Appearance ED: NAD; Negative for pallor HEENT Reports moist mucous membranes normocephalic and atraumatic Eyes PERRL and EOMs intact bilaterally Resp normal respiratory effort Effort and Inspection: respiratory distress Cardio regular rate and regular rhythm Extremity normal to inspection General Extremety ED: Negative for edema or tenderness General Extremity: Negative for edema Neuro oriented x3 and CN's II-XII intact bilaterally Sensorium / Orientation: awake and alert Motor Exam: strength 5/5 throughout Psych mental status grossly normal Skin General Skin Exam: Negative for jaundice or pallor Heart Score History: Moderately Suspicious ECG: Normal Age: >45 - <65 years Risk Factors: >/= 3 Risk Factors or History of CAD Troponin: </= Normal Limit Score: 4 MDM MDM MDM Narrative Medical decision making narrative: Patient presenting with chest pain which started this morning upon awakening. He states he felt shaky. EKG performed on arrival shows a normal sinus rhythm with ventricular rate of 98 bpm without sign of ischemic change. Chest x-ray does not show anything acute on my interpretation and the radiologist does agree. CBC shows a slight leukocytosis of 14.5And the patient's last 2 white blood cell counts have been higher than this. Patient on his baseline oxygen which she wears as needed. His oxygen sats are 94 to 100%. He does not appear to be in distress. BMP is unremarkable. High-sensitivity troponin is 68. This is far lower than his previous troponins when he was in the hospital previously. Will obtain a delta troponin. Noted that the patient had a CTA of the chest performed on the . This was negative for PE or dissection. Patient still troponin was 54. During his stay he had one episode of shortness of breath where his heart rate was a little bit rapid and we did catch this on a rhythm strip. This was reviewed by myself and appears to be a sinus rhythm with respiratory variation. I did discuss with Dr. Hartmann who agreed. Given patient's ultimately negative work-up I feel he is safe to be discharged home. He is given return precautions. He is to follow-up with cardiology outpatient. Impression: 1. Chest pain noncardiac 2. Dyspnea Lab Data Labs: Laboratory Results - last 24 hr 11/07/21 11/07/21 11/07/21 07:35 07:35 09:32 WBC 14.5 H RBC 4.37 L Hgb 13.9 Hct 41.5 MCV 95.0 H MCH 31.8 MCHC 33.5 RDW Std Deviation 43.1 RDW Coeff of [place] 12.1 Plt Count 236 MPV 10.2 Immature Gran % (Auto) 1.700 H Neut % (Auto) 75.3 H Lymph % (Auto) 15.5 L [place] % (Auto) 5.7 Eos % (Auto) 1.4 Baso % (Auto) 0.4 Absolute Neuts (auto) 10.9 H Absolute Lymphs (auto) 2.24 Nucleated RBC % 0 Sodium 134 L Potassium 4.1 Chloride 98 Carbon Dioxide 27.0 Anion Gap 9 BUN 14 Creatinine 1.03 Estim Creat Clear Calc 84.65 Est GFR (MDRD) Af Amer 97 Est GFR (MDRD) Non-Af 80 BUN/Creatinine Ratio 13.6 Glucose 114 H Calcium 8.9 Troponin I High Sens 68 54 Radiography Diagnostic Testing: Clinical Impression(s) from Imaging Studies Chest X-Ray 11/07/21 08:08 IMPRESSION: 1. No airspace consolidation or pleural effusion. 2. Emphysema. Electronically Signed: Sam Acosta MD (Brooks) at 8:20 EST , Service support , Discharge Plan Triage Chief Complaint: Chest Pain ED Provider: Eric Grubbs Dx/Rx/DC Orders Instructions: ED Chest Pain, Noncardiac Prescriptions: No Action albuterol sulfate [Ventolin HFA] 1 INHALER inhaler 2 puff inhalation Q6H PRN PRN (Reason: Sob &/Or Wheezing) RF: 0 metformin 500 MG tablet 500 mg PO DAILY RF: 0 mometasone-formoterol 13 GM HFA aerosol inhaler 2 puff IH BID RF: 0 prednisone 10 MG tablet 10 mg PO DAILY Qty: 30 RF: 0 fluticasone propion-salmeterol 250-50 mcg/dose blister with device 1 inh INHALATION BID RF: 0 ezetimibe 10 mg tablet 10 mg PO DAILY RF: 0 Spiriva with HandiHaler 18 mcg capsule, w/inhalation device 18 mcg INHALATION DAILY RF: 0 clopidogrel 75 mg tablet 75 mg PO DAILY RF: 0 spironolactone 25 mg tablet 25 mg PO DAILY RF: 0 nitroglycerin 0.4 mg tablet, sublingual 0.4 mg sublingual PRN PRN (Reason: Chest Pain) RF: 0 aspirin 81 mg tablet,chewable 81 mg PO DAILY RF: 0 hydroxyzine HCl 25 mg tablet 25 mg PO DAILY RF: 0 furosemide 20 mg tablet 20 mg PO DAILY RF: 0 metoprolol succinate 25 mg tablet extended release 24 hr 25 mg PO BID RF: 0 Primary Care Provider: Adolfo Bruce Referrals: Leonid Green MD [STAFF PHYSICIAN] - As soon as possible Adolfo Bruce MD [Primary Care Provider] - Disposition Disposition: Home, Self Care Discharge Date/Time: 11/07/21 11:47
[2021-11-07 09:04] VITALS: BP 114/83; PULSE 90; RESP 21; O2SAT 94
[2021-11-07 09:57] LABS: Troponin-I HS 54 pg/mL (3.0-78.0)
[2021-11-07 11:45] VITALS: BP 123/83; PULSE 84; RESP 16; O2SAT 99
== END 2021-11-07 11:47 | disposition home or self-care (01) ==
PROVIDERS: Emergency Provider Student in an Organized Health Care Education/Training Program; PCP Family Medicine; Visit Provider Student in an Organized Health Care Education/Training Program
DX: R07.89 Other chest pain (principal); J43.9 Emphysema, unspecified; E78.5 Hyperlipidemia, unspecified; I10 Essential (primary) hypertension; I25.2 Old myocardial infarction; F17.200 Nicotine dependence, unspecified, uncomplicated; Z99.81 Dependence on supplemental oxygen; Z79.02 Long term (current) use of antithrombotics/antiplatelets; Z79.82 Long term (current) use of aspirin; Z79.84 Long term (current) use of oral hypoglycemic drugs; Z79.899 Other long term (current) drug therapy
CPT/HCPCS: 71045; 80048; 84484; 85025; 93005; 99285; A4216

== ENCOUNTER 2021-12-08 08:22 | Outpatient (CLI) | payer MEDICAID, SELFPAY ==
--- NOTE | 2021-12-08 08:31 | CR.HP_ITS ---
CR - History & Physical - General Arrival date:: 12/08/21 Arrival time:: 08:34 Date of Referral:: 11/10/21 Date of CR Evaluation:: 12/08/21 Referring Physician: Dr. Adrian Walker Primary Diagnosis: NSTMEI, PCI w/coronary stent - History of Present Cardiac Event Onset Date: Enter Onset Date of cardiac illnesses in Comment field below Acute Myocardial Infarction within 12 months:: Yes - 10/22/21 PTCA or coronary stenting:: Yes - 10/22/2021 x 2 stents at [facility] Heart Failure EF <35%:: Yes - 25-30% echo on 10/22/2021 Type of Symptoms:: left sided upper chest pain which he felt was tight. Patient initially was transfer to [facility] for his first stents. - Sleep Disorder Evaluation Hx of Sleep Apnea: No Do you snore loudly (louder than talking or can be heard through closed doors)?: Yes Do you often feel tired/ fatigued/ sleepy during daytime?: Yes Has anyone observed you stop breathing during sleep?: No History of Hypertension (for STOP score): Yes STOP Results: Positive - Medications Home Medications: Ambulatory Orders Medication Instructions Recorded albuterol sulfate [Ventolin HFA] 2 puff INHALATION Q6H PRN PRN 11/29/15 metformin 500 mg PO DAILY 09/05/19 mometasone-formoterol 2 puff IH BID 09/05/19 prednisone 10 mg PO DAILY #30 tab 09/07/19 ezetimibe 10 mg PO DAILY 10/13/21 tiotropium bromide [Spiriva with 18 mcg INHALATION DAILY 10/13/21 HandiHaler] aspirin 81 mg PO DAILY 11/07/21 clopidogrel 75 mg PO DAILY 11/07/21 nitroglycerin 0.4 mg SUBLINGUAL PRN PRN 11/07/21 spironolactone 25 mg PO DAILY 11/07/21 carvedilol 12.5 mg tablet 12.5 mg PO BID #60 tab 11/10/21 dapagliflozin 5 mg tablet 5 mg PO DAILY #90 tab 11/10/21 furosemide 40 mg tablet 40 mg PO DAILY #90 tab 11/10/21 hydroxyzine HCl 25 mg tablet 25 mg PO Q6H PRN tab 11/10/21 sacubitril 24 mg-valsartan 26 mg 1 tab PO BID #60 tab 11/10/21 tablet oxygen-air delivery systems 12/08/21 - Allergies Allergies/Adverse Reactions: Allergies No Known Allergies Allergy (Verified 11/10/21 12:18) Advanced Directives - Advanced Directives Power of Selling Specialist: No Living Will: No Advance Directives Information Provided: Yes Advance Directives on File: No DNR Order?:: No - MOLST See MOLST form: No Past Medical History - Covid-19 Screening Fever: No Unexplained muscle aches: No Current respiratory symptoms: Yes - Chronic Obstructive Pulmonary Disease (COPD) Upper respiratory infections symptoms: No Has tested positive for COVID-19 in last 30 days: No Date of testin12/08/21 - has not been vaccinated for SARS-COVID19 Had contact w/person w/symptoms or Covid-19 (+) last 14 days: No 65 years or older:: No Lives in Assisted Living facility:: No Has a chronic lung disease or moderate to severe asthma:: Yes Has a serious heart condition:: Yes Severely obese (Body Mass Index of 40 or higher):: No Diabetic:: Yes Has chronic kidney disease undergoing dialysis:: No Has liver disease:: No - Past Medical Illness Medical History: Past Medical History (Last Reviewed 11/10/21 @ 14:[address] Adrian Walker MD) Acute exacerbation of chronic obstructive pulmonary disease (COPD) J44.1 Atherosclerosis of coronary artery without angina pectoris I25.10 Bronchiolitis J21.9 Chronic HFrEF (heart failure with reduced ejection fraction) I50.22 Chronic respiratory failure with hypoxia J96.11 Community acquired pneumonia J18.9 COPD (chronic obstructive pulmonary disease) J44.9 Emphysema lung J43.9 Essential hypertension I10 History of non-ST elevation myocardial infarction (NSTEMI) Onset Date: 10/22/21 I25.2 Hyperlipidemia E78.5 Ischemic cardiomyopathy I25.5 Lung nodule R91.1 Right upper lobe, followed by [facility] Old anteroseptal myocardial infarction I25.2 Old inferior wall myocardial infarction I25.2 Tobacco dependence due to cigarettes F17.210 Type 2 diabetes mellitus E11.9 - Past Surgical History Surgical History: Past Surgical History (Last Reviewed 11/10/21 @ 14:[address] Adrian Walker MD) History of coronary artery stent placement Onset Date: 11/03/21 Z95.5 BSP-SCQ-Lysh LAD w/ 3.0 x 23mm Xience and CHERYL-Mid RCA w/ 3.0 x 23mm Xience Stent 11/03/2021 History of hand surgery Z98.890 History of hernia repair Z98.890, Z87.19 History of left heart catheterization Onset Date: 10/22/21 Z98.890 Large wraparound left anterior descending artery with complex 80% proximal mid stenosis involving and extending into the origin of a large diagonal branch, which also has 80% ostial stenosis. Ramus intermedius branch and left circumflex artery with mild disease Dominant RCA with 80% mid stenosis LVEDP 15 mmHg no systolic gradient across the aortic valve Left ventriculography was deferred, echocardiogram shows extensive severe wall motion abnormality mid and distal anterior wall and apex consistent with recent anterior apical myocardial infarction. CABG recommended Surgical History: herniorrhaphy - Family History Summary Family History: Family History (Last Reviewed 11/10/21 @ 14:[address] Adrian Walker MD) Other COPD (chronic obstructive pulmonary disease) Diabetes Heart disease Hypertension Social History - Smoking History Smoking Status: Former smoker Years Smokin Packs Smoked per Day: 0.5 - quit 3 weeks started back smoking about 7 per day Hx Smoking Cessation Date: 10/22/21 Hx Tobacco Use: Yes Hx Smoking Exposure: Yes - Alcohol Use Alcohol Usage: Yes - holidays and psecial occasions - Substance Abuse Hx Substance Use: No - Occupation Occupation (List type of work in comments):: Retired - disability - Hobbies, Recreation, Social Activities Hobbies: Sports - watch TV SPorts football NASCAR, Other Recreational Activities: I am able to engage in a few activities Social Environment - Status Marital Status: - Current Living Arrangements Living Environment:: Spouse - Children How many children do you have?: 2 Do any of your children live nearby?: Yes - Safety Do you feel safe in your surroundings?: Yes - Assistance Do you need any assistance at home?: no Review of Systems - Review of Systems Hints: Right click = Denies (Slash). Left click = Reports ([place]) Review of Present Symptoms: Reports: Shortness of Breath with Exertion - Primarily related to the COPd, but has also lessened due to quitting msoking and having the stents., Fatigue, Heart Arrhythmia/Irregularities, Appetite - Normal, Appetite - Special Diet - low fat, low sodium, low cholesterol, Sleep - Normal. Denies: Shortness of Breath at Rest, Angina, Dizziness/Lightheadedness - Pain Is Patient Pain Free?: Yes Pain Location: none Pain Level: 0/10 Risk Factor Assessment - Chief Complaint Chief Complaint: 56 yr old male patient of Dr. Walker who presents to cardiac rehab today following recent NSTEMI and PCI intervention with stent placement completed at [facility]. Patient aslo has secondary history of COPD which requires 2 liters of oxygen 16/05 due to hypoxemia. - Vital Signs Temperature: 98.4 F Respiratory Rate: 24 Pulse Ox: 98 - 2 liters Blood Pressure: 136/80 - Pulse Pulse Rate: 78 - High Pulse Rhythm: Regular - Hypertension Blood Pressure Sitting - Left Arm: 136/80 - Blood Cholesterol/Lipids Total Cholesterol (mg/dL) Goal = less than 200 mg/dL: 217 HDL Cholesterol (mg/dL) Goal = less than 40 mg/dL: 55 LDL Cholesterol (mg/dL) Goal = less than 70 mg/dL: 136 Triglycerides (mg/dL) Goal = less than 150 mg/dL: 131 - Diabetes Diabetic History: Type II Nutrition Referral for Diabetes: Yes - Obesity Height: 5 ft 10 in Weight:: 181 lb Weight in Pounds: 181.0 lbs Weight Source: Stated by Patient Body Mass Index (BMI): 25.9 Nutritional Referral for Obesity: No - Physical Inactivity Physical Inactivity: None - Risk Stratification Risk Guidelines: Lowest Risk: Risk Factor for Diabetes - Glucose 114, HbA1c 5.9, Risk Factor for Obesity, Moderate Risk: Risk Factor for Dyslipidemia, Risk Factor for Hypertension - 136/80 Stage One Hypertension, Risk Factor for Sedentary Lifestyle, Highest Risk: Risk Factor for Smoking - Family History Family History: Family History (Last Reviewed 11/10/21 @ 14:[address] Adrian Walker MD) Other COPD (chronic obstructive pulmonary disease) Diabetes Heart disease Hypertension Motivation - Motivation to Participate On a scale of 1 to 10, how prepared are you to commit to attending program?: 9 What do you see as barriers to successfully being able to complete the program?: no What do you see as the benefits of succesfully completing the program? In other words, what do you hope to get out of participating in the program?: more energy, feeling better, less shortness of breath Are there issues you are dealing with that will interfere with completing the program?: none Do you have a spouse or signficant other, family or friends who will help support you to complete the program?: Yes
--- NOTE | 2021-12-08 08:31 | PCM.CR.ITP ---
Diagnosis - General Information Admitting Diagnosis: NSTEMI, PCI w/coronary stenting Secondary Diagnosis: COPD Personal Learning Style:: Audio/Visual, Written Barriers to Learning: No Barriers Stage of change r/t lifestyle modifications:: Action Gave educational material for:: Treating Heart Disease, Emotions & Heart Disease, Stress Management & Relaxation, Sleep Disorders & Heart Disease, How The Heart Works, What it means to have Heart Disease, How Coronary Artery Disease is Diagnosed, Heart Procedures, What Heart Medications Do, Risk Factors & Modifications, Living an Active Life, Nutrition - Education/Goals Individual Counseling: Initial Assessment: Nicotine/Smoking, Abnormal Cholesterol Levels, High Blood Pressure - 136/80, Diabetes - Glucose 114 HbA1c 5.9%, A. Fasting Blood Sugar >100, C. High Triglycerides >150 - Triglycerides 131, Hypertension - 136/80, Sedentary Lifestyle Cardiac Rehabilitation Goals: 1. Maintain the individual as the primary focus of care. 2. To improve the patient's quality of life. 3. Identification of cardiac risk factors and provide cardiac risk factor management. 4. Enhance the psychosocial status of the patient. 5. Reconditioning enough to allow the patient to resume customary activities. 6. Control symptoms of cardiac disease Personal Goals: Initial Assessment: Quit smoking (participate in smoking cessation, Improve management of stress and emotions, Improve energy level, Improve knowledge of cardiac disease, Improve muscle strength and endurance, Improve diet and eating habits (eat healthier), Control risk factors (learn risk factor modification) Scale for measuring improvement of personal goals: Enter appropriate number in Comments. 2 = Unchanged. 3 = Slightly Better. 4 = Moderate Improvement. 5 = Met my Goal - Diagnosis & Disease Process Outcomes/Goals: Pt IDs own risk factors & lifestyle modifications by Session 10, Verbalizes symptoms of angina & response by session 3., Pt independently manages Plan/Interventions: Assist Pt to ID & engage in lifestyle modification to reduce CVD risk, Instruct on individual risk factors, Review symptoms of angina & emergency actions, Review secondary diagnosis & identify educational needs. - Safety Referral to Physical Therapy: No Referral to [facility] Case Management: No Assistive Devices:: Wheelchair Exercise - Initial Assessment - Visit Date of Eval: 12/08/21 Session #:: 0 - Pre-cardiac rehab evaluation Mets: Pre-: >5 METS for 30 minutes by discharge - Physician Prescribed Exercise Modalities: Treadmill, Airdyne, NuStep, SciFit Frequency: 3x/week for 12 weeks [36 sessions] Intensity: 60-80% of age predicted maximum heart rate reserve Current METSs:: 2.5 Target Heart Rate:: 107-141 Resting Blood Pressure: 136/80 EKG Type: Sinus Tachycardia - Outcomes & Goals Goals:: Verbalizes understanding of THR, RPE & goal METS by session 6, Documents in home exercise log/reports 30 min aerobic 5 day/wk by DC, Demonstrates accurate pulse taking by DC - Intervention & Plan Exercise Program Goals: Instruct on personal THR & RPE, Instruct on MET level & personal MET goal, Instruct on home exercise - Physical Activity Home Exercise Physical Activity - Home Exercise: Safe Exercise, Warm-up, Self-monitoring, Cool-Down, Home Exercise > 30 min Daily, Sitting Time <3 hours/daily - Outcomes & Goals Outcomes/Goals: Demonstrates correct Warm-up/exercise Cool-Down (S3) if = 2.5 METs, Verbalizes symptoms of exercise intolerance by Session 3 (S3), Demonstrate safe equipment use (S3) & follows exercise prescrition (6) - Intervention & Plan Plan/Intervention: Instruct warm-up & cool-down if exercising at > 2 METs, Instruct on symptoms of exercise intolerance & actions to take, Instruct & monitor on saf, Assess intial functional capacity & safety risk Nutrition - Initial Assessment - Program Goals Nutrition Program Goals: LDL <100 optimal. 100 - 129 Near optimal. 130 - 159 Borderline High. 160 - 189 High. Total Cholesterol <200 desirable. 200 - 239 Borderline High. >/= 240 High. HDL < 40 Low >/=60 High. Triglycerides <150 desirable. <199 optimal. VlDL 5 - 40. HgbA1C <7%. BMI <25 Patient has diagnosis of Hyperlipidemia (ICD E78)?: Yes - Visit Date of Assessment:: 12/08/21 Session #:: 0 - pre-cardiac rehab evaluation - Cholesterol/Lipids Triglycerides (mg/dL): 131 Total Cholesterol (mg/dL): 217 LDL Cholesterol (mg/dL): 136 HDL Cholesterol (mg/dL): 55 Determine presence & major risk factors that modify LDL goal: Cigarette smoking, Hypertension or hypertensive medication, Family history of premature CHD in Male < 55 years: female <65 yearsFa, Age men > 45 years; women >/= 55 years Outcomes/Goals: Pt IDs own risk factors & lifestyle modifications by Session 10, Verbalizes symptoms of angina & response by session 3., Pt independently manages Intervention/Plan: Instruct on personal lipid levels & lipid goals/NCEP guidelines, Instruct on cholesterol Referral to dietitian:: Yes - Medical Nutrition Therapy - Diabetes (Other Core Measures) Diabetes Type: Diagnosis Type II ICD-10 E11 Fasting blood glucose:: 114 Hgb A1C (4.2 - 6.3): 5.9 Insulin dependent injection/pump?: No Non-Insulin Dependent?: Yes - Metformin 500mg Outcomes/Goals:: Able to state symptoms of, Able to state, Able to state Intervention/Plan:: Instruct on, Refer to, Instruct on - Weight Mgt (Other Care) Not Applicable: No Height: 5 ft 10 in Weight:: 181 lb BMI: 25.9 Diagnosis Overweight/Obesity BMI> 30% ICD-10 E66: No Diagnosis High BMI/Morbid Obesity BMI> 35% ICD-10 Z68: No Outcomes/Goals: Pt sets, maintains & shows weight loss goal & trend during rehab Intervention/Plan: Instruct on ideal BMI & set weight loss goal w/patient, Assist pt to ID & incorporate diet changes for weight loss by S9 - Healthy Eating Habits Will attend diet classes:: Yes Outcomes/Goals:: Consume diet rich in vegs,fruits,whole grain/high fiber,fish,lean meat, Limit sat/trans fats,cholesterol & added salts & sugars Intervention/Plan:: Assess current eating habits - Education Gave educational materials for:: Signs & symptoms of hypoglycemia, Signs & symptoms of hyperglycemia, Relate diabetes to coronary artery disease, Healthy eating Nutrition - 30-Day Assessment Nutrition - 60-Day Assessment Nutrition - 90-Day Assessment Nutrition - Final Assessment Medical - Initial Assessment - Visit Date of Eval: 12/08/21 Session #:: 0 - pre-cardiac rehab evaluation - Medication Compliance Preventative Medication(s):: Aspirin, Clopidogrel/P2Y12 inhibit, Statin/lipid, Beta oliverio H/O mental health issues: depression, anxiety, or addiction?: No Doesn?t believe in the benefits of treatment?: No Believes medications are unnecessary or harmful?: No Has a concern about medication side effects?: No Expresses concern over the cost of medications?: No Outcomes/Goals: Verbalizes medications,desired effect & common side effects @ DC, Pt self-reports following medication regimen, Keeps card in wallet w/medications listed by DC Interventions/plans: Instruct on medication effects & side effects, Review medication list w/patient every two weeks, Instruct importance of taking meds as ordered & assist problem solving - Tobacco Use Tobacco Use: Cigarettes How long ago did you quit using tobacco products?: Less than 6 months ago How many cigarettes do you smoke per day?: 7 - went 3 weeks snd then replaced started back. Years Smokin Do you use smokeless tobacco?: No Outcomes/Goals: Smoking cessation achieved or maintained by discharge, Identify aids/strategies for achieving smoking cessation by session 6 Interventions/plan: Instruct on effects of smoking & provide smoking cessation resource, Assist pt to set quit date & provide encouragement, Assist pt to develop strategies to achieve/maintain quit date, Assist pt w/nicotine replacement & medication for cessation success - Hypertension Hypertension Diagnosis:: Hypertension ICD-10 I10 Resting Blood Pressure:: 138/60 [place] [employer] Hypertension Guidelines: [place] [employer] Hypertension Guidelines. Normal BP Less than 120/80. Elevated BP 120/80. Hypertension Stage 1: BP 130-139/80-89. Hypertesnion Stage 2: BP 140 or higher/90 or higher. Hypertension Crisis: BP higher than 180/120 Outcomes/Goals: Able to verbalize/achieve optimal blood pressure <130/80, Incorporates diet changes & exercise for blood pressure control by DC Interventions/plan: Instruct on optimal blood pressure, hypertension & medications, Instruct on effects of sodium, alcohol, stress, exercise &hypertension - Tobacco Cessation Referral Smoking Cessation Referral:: Yes Individual Education/Counseling:: Yes Education Schedule Given:: Yes Medical- 30-Day Assessment Medical- 60-Day Assessment Medical- 90-Day Assessment Medical - Final Assessment Psychosocial - Initial Assess - VIsit Date of Eval: 12/08/21 Session #:: 0 - pre-cardiac rehab evaluation History of Emotional Disorders: Anxious - Psychosocial Test Tool Used:: Florinda Junior QOL Cardiac, PHQ-9 Questionnaire phq-9 Severity: Severity. 1-4 Minimal Depression. 5-9 Mild Depression. 10-14 Moderate Depression. 15-19 Moderately Sever Depression. 20-27 Severe Depression. Rule: - Referral to Behavioral Health PS - Interventions: Yes Attend Stress Management Classes, No Referral to Behavioral Health if PHQ-9 score >9:, No Referral to Physician if PHQ-9 if score is 5-9: - Outcomes/Goals: See list Psychosocial Outcomes/Goals:: ID's personal stressors & 2 strategies to manage stress by discharge - Intervention/Plan: See List Interventions/Plan:: Assess stressors,coping strategies & signs of derpression on admission, Instruct/assist pt to develop coping & personal stress Mgt strategies, Instruct patient to recognize signs & symptoms of depression, Instruct patient to recog Psychosocial - 30-Day Assess Psychosocial - 60-Day Assess Psychosocial - 90-Day Assess Psychosocial - Final Assessmen Patient Health Questionnaire Initial Assessment 1. Little interest or pleasure in doing things: Not at all 2. Feeling down, depressed, or hopeless: Not at all 3. Trouble falling or staying asleep, or sleeping too much: Not at all 4. Feeling tired or having little energy: Several days 5. Poor appetite or overeating: Not at all 6. Feeling bad about yourself -- or that you are a failure or have let yourself or your family down: Not at all 7. Trouble concentrating on things, such as reading the newspaper or watching television: Not at all 8. Moving or speaking so slowly that other people could have noticed. Or the opposite - being so fidgety or restless that you have been moving around a lot more than usual: Not at all 9. Thoughts that you would be better off , or of hurting yourself in some way: Not at all How difficult have these problems made it for you to do your work, take care of things at home, or get along with other people?: Not difficult at all Total Score: 1 RAMIREZ-Q SV Test - Statements CAD is a disease of the arteries in the heart: False Examples of risk factors for heart disease: True Angina is chest pain or discomfort: True The benefits of resistance training include: I Don't Know Eating more meat and dairy products: False Anti-platelet medications such as aspirin are important: True The only effective way to manage stress: False An exercise warm-up slowly increases heart rate: True Prepared, processed foods usually have high sodium: True Depression is common after a heart attack: True The statin medications lower cholesterol: I Don't Know To control blood pressure, lower the amount of sodium: True If someone gets chest discomfort during walking: False Transfats are partially hydrogenated vegetable oils: True Sleep apnea that is not treated increases the risk: False To control cholesterol, one should become a vegetarian: False Someone knows if he/she is exercising at the right level: True Diabetes cannot be prevented with exercise & health eating: False Stress is a large risk for heart attack: True A diet that can help lower blood pressure is rich in: True - Total Score Total Correct Responses: 18 Self-Efficacy Initial Assessment We would like to know how confident you are in doing certain activities. Please select your confidence level for:: Select your confidence level for the following using the scale 1-10 where 1 is not at all confident and 10 is totally confident. Your score is the average of all 6 responses. Fatigue: How confident are you that you can keep the fatigue caused by your disease from interfering with the things you want to do? Select Number: 3 Physical Discomfort or Pain: How confident are you that you can keep the physical discomfort or pain of your disease from interfering with the things you want to do? Select Number: 3 Emotional Distress: How confident are you that you can keep the emotional distress caused by your disease from interfering with the things you want to do? Select Number: 2 Other Symptoms or Health Problems: How confident are you that you can keep other symptoms or health problems from interfering with the things you want to do? Select Number: 3 Different Tasks and Activities: How confident are you that you can do the different tasks and activities needed to manage your health condition so as to reduce your need to see a doctor? Select Number: 4 Medication: How confident are you that you can do things other than just taking medication to reduce how much your illness affects your everyday life? Select Number: 7 Total Score:: 3 Nutrition Survey - Nutrition Survey Initial Have you lost >10 lbs over the past 2 months without trying?: Yes Are you following a special diet at home for diabetes, low fat, or low salt?: Yes Are you interested in meeting with a dietitian for help understanding your diet?: No Do you eat less than 3 meals a day?: No Do you eat fatty meats (fischer, sausage, ribs, etc), fried foods, desserts, large amounts of salad dressings, margarine, butter, or cheese most days?: No Do you have food allergies? [Enter types in comment field]: No Do you eat in restaurants more than 3 times a week?: No Do you season food with salt, seasoning salt, or garlic salt?: No Do you used canned, boxed, frozen meals, or soups, seasoning packets?: No Total Score:: 2
[2021-12-08 09:05] VITALS: BP 136/80; PULSE 78; RESP 24; TEMP 36.9; O2SAT 98; BMI 25.9
[2021-12-08 09:51] VITALS: BP 136/80; BP 138/60; BMI 25.9
== END 2021-12-08 23:59 | disposition home or self-care (01) ==
LOC: CR 08:24
PROVIDERS: PCP Family Medicine; Referring Provider Internal Medicine Cardiovascular Disease; Visit Provider Internal Medicine Cardiovascular Disease
DX: I25.5 Ischemic cardiomyopathy (principal); E11.9 Type 2 diabetes mellitus without complications; E78.5 Hyperlipidemia, unspecified; I10 Essential (primary) hypertension

== ENCOUNTER 2021-12-21 08:00 | Outpatient (RCR) | payer MEDICAID, SELFPAY | END 2021-12-21 23:59 | LOC: CR 08:00 | PROVIDERS: PCP Family Medicine; Referring Provider Internal Medicine Cardiovascular Disease; Visit Provider Internal Medicine Cardiovascular Disease | DX: I25.10 Atherosclerotic heart disease of native coronary artery without angina pectoris (principal); J44.9 Chronic obstructive pulmonary disease, unspecified; I50.22 Chronic systolic (congestive) heart failure; I11.0 Hypertensive heart disease with heart failure; J96.11 Chronic respiratory failure with hypoxia; E11.9 Type 2 diabetes mellitus without complications; I25.2 Old myocardial infarction; Z95.5 Presence of coronary angioplasty implant and graft; I25.5 Ischemic cardiomyopathy; E78.5 Hyperlipidemia, unspecified; F17.210 Nicotine dependence, cigarettes, uncomplicated | CPT/HCPCS: S9472 ×4; 93798 ==

== ENCOUNTER 2021-12-22 09:59 | Outpatient (CLI) | payer MEDICAID, SELFPAY ==
[2021-12-22 11:10] LABS: Anion Gap 4 (5-15); BNP,B-Type NATRIURETIC PEPTIDE 168.3 pg/mL (0-100); BUN 15 mg/dL (7-18); BUN/Creat Ratio 16.1 RATIO (10-20); Chloride 107 mmol/L (98-107); Creatinine, Serum 0.93 mg/dL (0.70-1.30); EST Glomerular Filtration Rate 90 mL/min (>60); Est Glom Filt Rate - Afr Amer 109 mL/min (>60); Glucose 111 mg/dL (74-106); Potassium 4.5 mmol/L (3.5-5.1); Sodium Level 139 mmol/L (136-145)
== END 2021-12-22 23:59 | disposition home or self-care (01) ==
LOC: LAB 10:02
PROVIDERS: PCP Family Medicine; Visit Provider Nurse Practitioner Family
DX: I25.5 Ischemic cardiomyopathy (principal); I11.0 Hypertensive heart disease with heart failure; I50.22 Chronic systolic (congestive) heart failure; E78.5 Hyperlipidemia, unspecified; R06.00 Dyspnea, unspecified; Z95.5 Presence of coronary angioplasty implant and graft
CPT/HCPCS: 36415; 80048; 83880

== ENCOUNTER 2022-01-15 08:00 | Outpatient (RCR) | payer MEDICAID, SELFPAY ==
--- NOTE | 2022-01-04 13:13 | PCM.CR.ITP ---
Diagnosis Exercise - 30-day Assessment - Visit Date of Eval: 01/04/22 Session #:: 10 - Physician Prescribed Exercise Modalities: Treadmill, Airdyne, NuStep Frequency: 3x/week for 12 weeks [36 sessions] Intensity: 60-80% of age predicted maximum heart rate reserve Current METSs:: 3 Target Heart Rate:: 107-141 Current RPE:: 12-13 Maximum Excercise HR:: 123 Resting Blood Pressure: 114/70 Maximum Exercise Blood Pressure: 130/70 EKG Type: NSR to ST - Outcomes & Goals Goals:: Verbalizes understanding of THR, RPE & goal METS by session 6, Documents in home exercise log/reports 30 min aerobic 5 day/wk by DC, Demonstrates accurate pulse taking by DC, Other additional outcome/goals: see below - Intervention & Plan Exercise Program Goals: Instruct on personal THR & RPE, Instruct on MET level & personal MET goal, Show patient to take own pulse /validate performance until accurate, Instruct on home exercise, Other additional plan/int - 30-day Reassessments 30 day Reassessments:: Progressing - Physical Activity Home Exercise Physical Activity - Home Exercise: Safe Exercise, Warm-up, Self-monitoring, Cool-Down, Home Exercise > 30 min Daily, Sitting Time <3 hours/daily - Outcomes & Goals Outcomes/Goals: Demonstrates correct Warm-up/exercise Cool-Down (S3) if = 2.5 METs, Verbalizes symptoms of exercise intolerance by Session 3 (S3), Demonstrate safe equipment use (S3) & follows exercise prescrition (6), Other: See below - Intervention & Plan Plan/Intervention: Instruct warm-up & cool-down if exercising at > 2 METs, Instruct on symptoms of exercise intolerance & actions to take, Instruct & monitor on saf, Assess intial functional capacity & safety risk, Other See below - 30-day Reassessments 30 day Reassessments:: Progressing Nutrition - Initial Assessment Nutrition - 30-Day Assessment - Program Goals Nutrition Program Goals: LDL <100 optimal. 100 - 129 Near optimal. 130 - 159 Borderline High. 160 - 189 High. Total Cholesterol <200 desirable. 200 - 239 Borderline High. >/= 240 High. HDL < 40 Low >/=60 High. Triglycerides <150 desirable. <199 optimal. VlDL 5 - 40. HgbA1C <7%. BMI <25 Patient has diagnosis of Hyperlipidemia (ICD E78)?: Yes - Visit Date of Assessment:: 01/04/22 Session #:: 10 - Cholesterol/Lipids Determine presence & major risk factors that modify LDL goal: Cigarette smoking, Hypertension or hypertensive medication, Low HDL cholesterol <40 mg/dL*, Family history of premature CHD in Male < 55 years: female <65 yearsFa, Age men > 45 years; women >/= 55 years Outcomes/Goals: Pt IDs own risk factors & lifestyle modifications by Session 10, Verbalizes symptoms of angina & response by session 3., Pt independently manages, Other Additional Outcomes/Goals: Intervention/Plan: Advocate for lipid panel cholesterol medication if applicable, Instruct on personal lipid levels & lipid goals/NCEP guidelines, Instruct on cholesterol, Other additional plan/int Referral to dietitian:: Yes 30-day Reassessments:: Progressing - Diabetes (Other Core Measures) Diabetes Type: Diagnosis Type II ICD-10 E11 Non-Insulin Dependent?: Yes - Metformin Outcomes/Goals:: Able to state symptoms of, Able to state, Able to state, Other additional Intervention/Plan:: Instruct on, Refer to, Instruct on, Other 30-day Reassessments:: Progressing - Weight Mgt (Other Care) Height: 5 ft 10 in Weight:: 76.204 kg BMI: 24.0 Outcomes/Goals: Pt sets, maintains & shows weight loss goal & trend during rehab, Other additional outcomes/goals Intervention/Plan: Instruct on ideal BMI & set weight loss goal w/patient, Assist pt to ID & incorporate diet changes for weight loss by S9, Refer to Structured Weight Loss program as appropriate, Encourage goal of using 250-300dcal per session for weight loss, Other additional plan/interventions 30 day Reassessments:: Progressing - Healthy Eating Habits Will attend diet classes:: Yes Outcomes/Goals:: Consume diet rich in vegs,fruits,whole grain/high fiber,fish,lean meat, Limit sat/trans fats,cholesterol & added salts & sugars, Other additional outcome/goals: Intervention/Plan:: Assess current eating habits, Other Additional plan/interventions 30-day Reassessments:: Progressing - Education Gave educational materials for:: Signs & symptoms of hypoglycemia, Signs & symptoms of hyperglycemia, Relate diabetes to coronary artery disease, Healthy eating Nutrition - 60-Day Assessment Nutrition - 90-Day Assessment Nutrition - Final Assessment Medical - Initial Assessment Medical- 30-Day Assessment - Visit Date of Eval: 01/04/22 Session #:: 10 - Medication Compliance Preventative Medication(s):: Aspirin, Clopidogrel/P2Y12 inhibit, Ticagrelor/P2Y12 inhibitor, Statin/lipid, Beta oliverio H/O mental health issues: depression, anxiety, or addiction?: No Doesn?t believe in the benefits of treatment?: No Believes medications are unnecessary or harmful?: No Has a concern about medication side effects?: No Outcomes/Goals: Verbalizes medications,desired effect & common side effects @ DC, Pt self-reports following medication regimen, Keeps card in wallet w/medications listed by DC, Other additional outcome/goals: Interventions/plans: Instruct on medication effects & side effects, Review medication list w/patient every two weeks, Instruct importance of taking meds as ordered & assist problem solving, Other additional 30-day Reassessments:: Progressing - Tobacco Use Tobacco Use: Cigarettes How many cigarettes do you smoke per day?: 7 Years Smokin Outcomes/Goals: Smoking cessation achieved or maintained by discharge, Identify aids/strategies for achieving smoking cessation by session 6, Other additional outcome/goals Interventions/plan: Instruct on effects of smoking & provide smoking cessation resource, Assist pt to set quit date & provide encouragement, Assist pt to develop strategies to achieve/maintain quit date, Assist pt w/nicotine replacement & medication for cessation success, Other additional plan/interventions 30-day Reassessments:: Progressing - Hypertension Hypertension Diagnosis:: Hypertension ICD-10 I10 Resting Blood Pressure:: 114/70 [employer] Hypertension Guidelines: [employer] [place] [employer] Hypertension Guidelines. Normal BP Less than 120/80. Elevated BP 120/80. Hypertension Stage 1: BP 130-139/80-89. Hypertesnion Stage 2: BP 140 or higher/90 or higher. Hypertension Crisis: BP higher than 180/120 Peak Exercise Blood Pressure:: 130/70 Outcomes/Goals: Able to verbalize/achieve optimal blood pressure <130/80, Incorporates diet changes & exercise for blood pressure control by DC, Other additional outcomes/goals Interventions/plan: Instruct on optimal blood pressure, hypertension & medications, Instruct on effects of sodium, alcohol, stress, exercise &hypertension, Other additional plan/interventions 30 day Reassessments:: Progressing - Tobacco Cessation Referral Smoking Cessation Referral:: Yes Individual Education/Counseling:: Yes Education Schedule Given:: Yes Medical- 60-Day Assessment Medical- 90-Day Assessment Medical - Final Assessment Psychosocial - Initial Assess Psychosocial - 30-Day Assess - VIsit Date of Eval: 01/04/22 Session #:: 10 History of Emotional Disorders: Anxious - Psychosocial Test Tool Used:: Florinda Junior QOL Cardiac, PHQ-9 Questionnaire phq-9 Severity: Severity. 1-4 Minimal Depression. 5-9 Mild Depression. 10-14 Moderate Depression. 15-19 Moderately Sever Depression. 20-27 Severe Depression. Rule: - Outcomes/Goals: See list Psychosocial Outcomes/Goals:: ID's personal stressors & 2 strategies to manage stress by discharge, Other Additional outcome/goals: - 30-day Reassessments: 30 day Reassessments:: Progressing Psychosocial - 60-Day Assess Psychosocial - 90-Day Assess Psychosocial - Final Assessmen Patient Health Questionnaire 30-Day Re-eval Assessment 1. Little interest or pleasure in doing things: Not at all 2. Feeling down, depressed, or hopeless: Not at all 3. Trouble falling or staying asleep, or sleeping too much: Not at all 4. Feeling tired or having little energy: Several days 5. Poor appetite or overeating: Not at all 6. Feeling bad about yourself -- or that you are a failure or have let yourself or your family down: Not at all 7. Trouble concentrating on things, such as reading the newspaper or watching television: Not at all 8. Moving or speaking so slowly that other people could have noticed. Or the opposite - being so fidgety or restless that you have been moving around a lot more than usual: Not at all 9. Thoughts that you would be better off , or of hurting yourself in some way: Not at all How difficult have these problems made it for you to do your work, take care of things at home, or get along with other people?: Not difficult at all Total Score: 1 Self-Efficacy 30-Day Re-eval Assessment We would like to know how confident you are in doing certain activities. Please select your confidence level for:: Select your confidence level for the following using the scale 1-10 where 1 is not at all confident and 10 is totally confident. Your score is the average of all 6 responses. Fatigue: How confident are you that you can keep the fatigue caused by your disease from interfering with the things you want to do? Select Number: 3 Physical Discomfort or Pain: How confident are you that you can keep the physical discomfort or pain of your disease from interfering with the things you want to do? Select Number: 3 Emotional Distress: How confident are you that you can keep the emotional distress caused by your disease from interfering with the things you want to do? Select Number: 2 Other Symptoms or Health Problems: How confident are you that you can keep other symptoms or health problems from interfering with the things you want to do? Select Number: 3 Different Tasks and Activities: How confident are you that you can do the different tasks and activities needed to manage your health condition so as to reduce your need to see a doctor? Select Number: 4 Medication: How confident are you that you can do things other than just taking medication to reduce how much your illness affects your everyday life? Select Number: 7 Total Score:: 3 Nutrition Survey
[2022-01-04 13:24] VITALS: BP 114/70; BP 130/70; BMI 24.0
== END 2022-01-21 23:59 | disposition home or self-care (01) ==
LOC: CR 08:00
PROVIDERS: PCP Family Medicine; Referring Provider Internal Medicine Cardiovascular Disease; Visit Provider Internal Medicine Cardiovascular Disease
DX: I25.2 Old myocardial infarction (principal); J44.9 Chronic obstructive pulmonary disease, unspecified; I50.22 Chronic systolic (congestive) heart failure; I11.0 Hypertensive heart disease with heart failure; J96.11 Chronic respiratory failure with hypoxia; E11.9 Type 2 diabetes mellitus without complications; I25.10 Atherosclerotic heart disease of native coronary artery without angina pectoris; I25.5 Ischemic cardiomyopathy; E78.5 Hyperlipidemia, unspecified; F17.210 Nicotine dependence, cigarettes, uncomplicated; Z95.5 Presence of coronary angioplasty implant and graft
CPT/HCPCS: S9472; 93798

== ENCOUNTER 2022-01-25 12:52 | Outpatient (CLI) | payer MEDICAID, SELFPAY ==
[2022-01-04 13:24] VITALS: BMI 24.0
--- NOTE | 2022-01-25 12:55 | ECHOCS_ITS ---
Reason For Study: CHF Procedure This was a 2D Doppler, Color Flow transthoracic echocardiogram. Very technically difficult study. Attempted images with patient both supine and in left lateral positions, breathing techniques were used. Patient very SOB. Contrast injection was performed. Exam performed in department. Left Ventricle Normal LV size. The estimated ejection fraction is 25 %. Stage 1 diastolic dysfunction. Moderately severe segmental systolic dysfunction (see wall motion). [place] : Akinetic. Mid-anteroseptal : Akinetic. Right Ventricle Normal RV size. Normal systolic function. Atria Normal left atrium. Normal right atrium. Mitral Valve Normal mitral valve. Tricuspid Valve Normal tricuspid valve. Pulmonic Valve The pulmonic valve is not well visualized. Great Vessels Normal aortic root. The pulmonary artery is normal size. Normal inferior vena cava. Pericardium/Pleural No pericardial effusion. Medication 22 gauge I.V. with prn adaptor inserted into left arm. Diluted definity 5ml given slow IV push to enhance endocardial definition. MMode/2D Measurements & Calculations LVIDd: 4.4 cm IVSd: 1.1 cm LA dimension: 3.3 cm LVIDs: 3.5 cm LVPWd: 1.1 cm RVDd: 3.2 cm FS: 21.4 % LAV(MOD-bp): 25.6 ml LA A4 area: 11.5 cm2 RA A4 area: 10.1 cm2 LAV(MOD-bp) Indexed: 13.2 ml/m2 LAV(MOD-sp2): 23.3 ml LAV(MOD-sp4): 26.8 ml Time Measurements MV dec time: 0.17 sec Doppler Measurements & Calculations MV E max addi: 54.4 cm/sec Lat Peak E' Addi: 4.8 cm/sec Med Peak E' Addi: 8.8 cm/sec MV A max addi: 71.0 cm/sec E/E' lat: 11.4 E/E' med: 6.2 MV E/A: 0.77 MV V2 max: 66.3 cm/sec MV P1/2t max addi: 53.9 cm/sec Ao V2 max: 89.9 cm/sec MV max P.8 mmHg MV P1/2t: 115.1 msec Ao max P.2 mmHg MV V2 mean: 38.6 cm/sec MV dec slope: 137.3 cm/sec2 MV mean P.67 mmHg MVA(P1/2t): 1.9 cm2 MV V2 VTI: 20.4 cm LV V1 max: 78.9 cm/sec PA V2 max: 70.1 cm/sec LV V1 max P.5 mmHg ECHO/Echo Complete W/ Contrast Interpretation Summary Normal LV size. The estimated ejection fraction is 25 %. Stage 1 diastolic dysfunction. Moderately severe segmental systolic dysfunction (see wall motion). No thrombus in apex. Contrast injection was performed. Compared to previous rosi dy, the left ventricular systolic function is the same.. Ordering Physician: Johnny Downey Referring Physician: Adolfo Bruce Performed By: Jeremías Miranda RCS
== END 2022-01-25 23:59 | disposition home or self-care (01) ==
LOC: CVS 12:53
PROVIDERS: PCP Family Medicine; Referring Provider Nurse Practitioner Family; Visit Provider Nurse Practitioner Family
DX: I50.9 Heart failure, unspecified (principal); Z95.5 Presence of coronary angioplasty implant and graft
CPT/HCPCS: 93306; Q9957; A4216; C8929

== ENCOUNTER 2022-02-10 08:00 | Outpatient (RCR) | payer MEDICAID, SELFPAY ==
[2022-01-04 13:24] VITALS: BMI 24.0
[2022-01-22 00:42] VITALS: BP 114/70; BP 130/70
--- NOTE | 2022-02-01 12:59 | PCM.CR.ITP ---
Diagnosis Exercise - 60-day Assessment - Visit Date of Eval: 02/01/22 Session #:: 14 Comments:: Patient has been absent from [facility] since 01/15/2022 due to an exacerbation of shortness of breath. He reported he was seen by his PCP and given medications and would be able to return to [facility] on Tuesday02/01/2022. However he called Tuesday leaving a voicemail message he would hope to return on Tuesday02/03/2022 if he felt better. Nutrition - Initial Assessment Nutrition - 30-Day Assessment Nutrition - 60-Day Assessment Nutrition - 90-Day Assessment Nutrition - Final Assessment Medical - Initial Assessment Medical- 30-Day Assessment Medical- 60-Day Assessment Medical- 90-Day Assessment Medical - Final Assessment Psychosocial - Initial Assess Psychosocial - 30-Day Assess Psychosocial - 60-Day Assess Psychosocial - 90-Day Assess Psychosocial - Final Assessmen Nutrition Survey
== END 2022-02-20 23:59 ==
LOC: CR 08:00
PROVIDERS: PCP Family Medicine; Referring Provider Internal Medicine Cardiovascular Disease; Visit Provider Internal Medicine Cardiovascular Disease
DX: I25.2 Old myocardial infarction (principal); I25.10 Atherosclerotic heart disease of native coronary artery without angina pectoris; Z95.5 Presence of coronary angioplasty implant and graft; I25.5 Ischemic cardiomyopathy; I11.0 Hypertensive heart disease with heart failure; I50.22 Chronic systolic (congestive) heart failure; E78.5 Hyperlipidemia, unspecified; J44.9 Chronic obstructive pulmonary disease, unspecified; J96.11 Chronic respiratory failure with hypoxia; E11.9 Type 2 diabetes mellitus without complications; F17.210 Nicotine dependence, cigarettes, uncomplicated
CPT/HCPCS: 93798

== ENCOUNTER 2022-02-22 06:11 | Outpatient (RCR) | payer MEDICAID, SELFPAY ==
[2022-01-04 13:24] VITALS: BMI 24.0
[2022-02-21 00:36] VITALS: BP 114/70; BP 130/70
== END 2022-03-23 23:59 ==
LOC: CR 06:11
PROVIDERS: PCP Family Medicine; Referring Provider Internal Medicine Cardiovascular Disease; Visit Provider Internal Medicine Cardiovascular Disease
DX: I25.2 Old myocardial infarction (principal); I25.10 Atherosclerotic heart disease of native coronary artery without angina pectoris; Z95.5 Presence of coronary angioplasty implant and graft; I25.5 Ischemic cardiomyopathy; I11.0 Hypertensive heart disease with heart failure; I50.22 Chronic systolic (congestive) heart failure; E78.5 Hyperlipidemia, unspecified; J44.9 Chronic obstructive pulmonary disease, unspecified; J96.11 Chronic respiratory failure with hypoxia; E11.9 Type 2 diabetes mellitus without complications; F17.210 Nicotine dependence, cigarettes, uncomplicated
CPT/HCPCS: 93798

== ENCOUNTER → 2022-07-02 | Outpatient (CLI) | payer MEDICAID, SELFPAY ==
[2022-01-04 13:24] VITALS: BMI 24.0
--- NOTE | 2022-07-02 07:45 | ECHOLC_ITS ---
Reason For Study: CHF Procedure This was a limited 2D transthoracic echocardiogram. The study was technically limited. Contrast injection was performed. Left Ventricle Normal LV size. The estimated ejection fraction is 30 %. Moderately severe segmental systolic dysfunction (see wall motion). [place] : Akinetic. Mid-anteroseptal : Hypokinetic. Mid-Anterior : Hypokinetic. The rest of the wall segments are normal. Right Ventricle Normal RV size. Normal systolic function. Atria Normal left atrium. Normal right atrium. Mitral Valve Normal mitral valve. Tricuspid Valve Normal tricuspid valve. Aortic Valve Trisinus/trileaflet aortic valve. Pulmonic Valve The pulmonic valve is not well visualized. Great Vessels Normal aortic root. The pulmonary artery is normal size. Normal inferior vena cava. Pericardium/Pleural No pericardial effusion. Medication 22 gauge I.V. with prn adaptor inserted into right arm. Diluted definity 1ml given slow IV push to enhance endocardial definition. MMode/2D Measurements & Calculations LAV(MOD-sp4): 23.2 ml SV(MOD-sp4): 87.4 ml LVAd ap4: 43.2 cm2 LVLd ap4: 9.5 cm EDV(MOD-sp4): 160.9 ml EDV(sp4-el): 166.4 ml LVAs ap4: 28.1 cm2 LVLs ap4: 8.9 cm ESV(MOD-sp4): 73.5 ml ESV(sp4-el): 75.1 ml EF(MOD-sp4): 54.3 % EF(sp4-el): 54.9 % SV(sp4-el): 91.3 ml LA A4 area: 11.3 cm2 RA A4 area: 13.9 cm2 ECHO/Echo Limited w/Contrast Interpretation Summary Normal LV size. The estimated ejection fraction is 30 %. Moderately severe segmental systolic dysfunction (see wall motion). Contrast injection was performed. Compared to previous study, the left ventricu lar systolic function has improved.. Ordering Physician: Johnny Downey Referring Physician: Johnny Downey Performed By: Veronica Greenberg RCS
== END | disposition home or self-care (01) ==
LOC: CVS 07:43
PROVIDERS: PCP Family Medicine; Referring Provider Nurse Practitioner Family; Visit Provider Nurse Practitioner Family
DX: I25.5 Ischemic cardiomyopathy (principal); I50.9 Heart failure, unspecified
CPT/HCPCS: 93308; Q9957; A4216; C8924

== ENCOUNTER → 2023-01-10 | Outpatient (CLI) | payer MEDICAID, SELFPAY ==
[2022-01-04 13:24] VITALS: BMI 24.0
--- NOTE | 2023-01-10 07:48 | ECHOL_ITS ---
Version 2 Reason For Study: CHF Procedure This was a limited 2D transthoracic echocardiogram. Exam performed in department. Left Ventricle Normal LV size. The estimated ejection fraction is 38 %. Moderate segmental systolic dysfunction (see wall motion). Septal [place] : Akinetic. Lateral [place] : Hypokinetic. Right Ventricle Normal RV size. Normal systolic function. Atria Normal left atrium. Normal right atrium. Mitral Valve Normal mitral valve. Tricuspid Valve Normal tricuspid valve. Aortic Valve Trisinus/trileaflet aortic valve. Pulmonic Valve Normal pulmonic valve. Great Vessels Normal aortic root. The pulmonary artery is normal size. Normal inferior vena cava. Pericardium/Pleural No pericardial effusion. MMode/2D Measurements & Calculations LAV(MOD-bp): 29.5 ml LVAd ap4: 32.2 cm2 SV(MOD-sp4): 51.3 ml LAV(MOD-bp) Indexed: 16.1 ml/m2 LVLd ap4: 8.1 cm LAV(MOD-sp2): 31.0 ml EDV(MOD-sp4): 103.9 ml LAV(MOD-sp4): 28.1 ml EDV(sp4-el): 108.2 ml LVAs ap4: 22.2 cm2 LVLs ap4: 7.5 cm ESV(MOD-sp4): 52.6 ml ESV(sp4-el): 55.9 ml EF(MOD-sp4): 49.4 % EF(sp4-el): 48.3 % SV(sp4-el): 52.3 ml LA A4 area: 13.1 cm2 RA A4 area: 15.5 cm2 ECHO/Echo, Limited Study Interpretation Summary Normal LV size. The estimated ejection fraction is 38 %. Moderate segmental systolic dysfunction (see wall motion). The global longitudinal strain is severely abnormal. The global longitudinal st rain = -12.2% (abnormal). Compared to previous study, the left ventricular systolic function has improved.. Ordering Physician: Johnny Downey Referring Physician: JULIAN CULLEN Performed By: Veronica Greenberg RCS
== END | disposition home or self-care (01) ==
LOC: CVS 07:46
PROVIDERS: PCP Family Medicine; Visit Provider Nurse Practitioner Family
DX: I25.5 Ischemic cardiomyopathy (principal); I50.9 Heart failure, unspecified
CPT/HCPCS: 93308

== ENCOUNTER 2024-01-02 16:47 | Inpatient (IN) | payer MEDICAID, SELFPAY ==
[2022-01-04 13:24] VITALS: BMI 24.0
[2024-01-02] VITALS (10 sets, daily range): BP systolic 88–107; BP diastolic 58–70; PULSE 69–93; RESP 18–24; TEMP 36.4–36.7; O2SAT 90–99; BMI 16.5
--- NOTE | 2024-01-02 16:57 | CT_ITS ---
INDICATION: right lower abdominal p[ain shortness of breath. EXAMINATION: CT ABDOMEN AND PELVIS with CONTRAST - CT Abdomen And Pelvis W/ Contrast Injection TECHNIQUE: Multiple axial images were obtained of the abdomen and pelvis following administration of IV contrast. Planar reconstructions obtained. A radiation dose optimization technique was used for this scan. RADIATION DOSAGE (If Supplied By Facility): CTDIvol = ( 8.88 ) mGy, DLP = ( 363.22 ) mGycm IV Contrast dosage and agent: 75 mL Isovue-370 Oral contrast: None. COMPARISON: No pertinent previous studies for comparison.. FINDINGS: LOWER THORAX: 1. External Lungs are moderately hyperexpanded at the lung bases. There however is an area of irregular nodular thickening along the lateral aspect of the RIGHT lower lobe which may represent areas of airspace consolidation extending to the pleural surface. Occult neoplastic process however is a consideration. 2. Cardiac contour is normal, no pericardial effusion. No coronary vascular calcifications noted. HEPATOBILIARY: Liver: The liver is homogeneous and shows no evidence of focal lesion. Gallbladder: The gallbladder is moderately distended. Pancreas: Pancreas is normal size configuration and density. No mass is noted. Spleen: The spleen is homogeneous and normal in size. . BOWEL: Stomach: The stomach is normal in size configuration, no evidence of focal masses, abnormal calcifications. There is a small hiatal hernia noted. Bowel: Small and large have normal configuration, no masses or bowel obstruction noted. Fluid-filled large bowel contents noted throughout the large bowel. Negligible formed stool is present. Appendix: The appendix is not positively visualized.: GENITOURINARY: Adrenals: Both adrenal glands are normal in size. Kidneys: Kidneys appear symmetric in size. No calcifications are seen in the collecting system. There is no hydronephrosis or surrounding fluid. Multiple renal cysts are present largest on the RIGHT measuring approximately 2.9 x 2.7 cm. Bladder: Normal Pelvic organs: The visualized pelvic organs are normal in size and configuration. No masses or adenopathy noted. RETROPERITONEUM: There is normal appearance of the abdominal aorta and inferior vena cava. LYMPH NODES: No evidence of retroperitoneal or para-aortic masses fluid collections or adenopathy. PERITONEAL CAVITY: No ascites noted ANTERIOR ABDOMINAL WALL: Normal, no hernia identified. BONES AND SOFT TISSUES: There is a mild compression deformity superior endplate of L3 at L1 on. Both appear to be remote in nature. No retropulsion subluxation canal stenosis. No acute destructive bony processes. OTHER: None CT/Abdomen/Pelvis W IV Cont ONLY IMPRESSION: 1. No masses bowel obstruction abscess free fluid or free air. 2. Large bowel contains large amount of fluid stool, no formed stool noted, sequelae of diffuse colitis is a consideration. 3. No mucosal fold thickening, pneumatosis, masses or diverticulitis. 4. No evidence small bowel obstruction. The appendix is not visualized. 5. Bilateral renal cysts greater on the RIGHT than LEFT. No obstructive uropathy. 6. Gallbladder is distended, no calcifications or ductal dilatation. 7. Hiatal hernia. 8. Irregular pleural and parenchymal scar and thickening along the periphery of the RIGHT lung base. Focal area of infiltrate is a consideration however appearance is suspicious of a area of consolidation in potential obscured mass. Previous imaging not available for comparison to assess interval change. In the absence of previous comparison, consider short-term follow-up following treatment to assess stability. Electronically Signed: Rob Amaya MD at 19:12 EDT ,
--- NOTE | 2024-01-02 16:57 | EKG12_ITS ---
Test Reason : PAIN, SOB Blood Pressure : / mmHG Vent. Rate : 087 BPM Atrial Rate : 087 BPM P-R Int : 136 ms QRS Dur : 088 ms QT Int : 388 ms P-R-T Axes : 088 060 086 degrees QTc Int : 466 ms Normal sinus rhythm Low voltage QRS Cannot rule out Anteroseptal infarct , age undetermined Abnormal ECG Confirmed by Prince Palomino ([id number]), magazine editor SPEEDY VO ([id number]) on 01/03/2024 11:19:01 AM Referred By: IRIS Confirmed By:Prince Palomino
--- NOTE | 2024-01-02 17:00 | EDS_ITS ---
HPI History of Present Illness Chief Complaint: Shortness of Breath Detail of Chief Complaint: Shortness of breath and abdominal pain Informant: patient Narrative Narrative: Patient states that he initially started with right low back pain radiating to his right lower abdomen about 3 days ago. He had nausea and several episodes of vomiting. He has no appetite. Since that time he is also noticed some increased difficulty breathing. He has history of COPD and wears 2 L of O2 at all times. Patient does have a chronic cough. He has had some low-grade fevers at home. Currently rates his pain a 3-4 out of 10 with pain in the abdomen worse with movement and cough. He denies sick contacts. No history of kidney stones. No prior abdominal surgeries. 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 Tobacco dependence due to cigarettes Type 2 diabetes mellitus Home Medications albuterol sulfate 90 mcg/actuation aerosol inhaler (Ventolin HFA) 2 puff inhalation Q6H PRN PRN Sob &/Or Wheezing 11/29/15 [History Last Taken 10/13/21] metformin 500 mg tablet 500 mg PO DAILY DM 09/05/19 [History Last Taken 10/13/21] mometasone-formoterol HFA 200 mcg-5 mcg/actuation aerosol inhaler 2 puff IH BID COPD 09/05/19 [History Last Taken 10/13/21] ezetimibe 10 mg tablet 10 mg PO DAILY CHOLESTEROL 10/13/21 [History Last Taken 10/13/21] tiotropium bromide 18 mcg capsule with inhalation device (Spiriva with HandiHaler) 18 mcg inhalation DAILY COPD 10/13/21 [History Last Taken 10/13/21] nitroglycerin 0.4 mg sublingual tablet 0.4 mg sublingual PRN PRN Chest Pain 11/07/21 [History Last Taken Unknown] hydroxyzine HCl 25 mg tablet 25 mg PO Q6H PRN anxiety 11/10/21 [History Last Taken Unknown] oxygen-air delivery systems 12/08/21 [History Last Taken Unknown] albuterol sulfate 2.5 mg/3 mL (0.083 %) solution for nebulization 2.5 mg inhalation Q4H PRN bronchospasm 12/22/21 [History Last Taken Unknown] acetaminophen 500 mg tablet 1,000 mg PO ONCE PRN pain 03/24/22 [History Last Taken Unknown] furosemide 40 mg tablet (Lasix) 40 mg PO DAILY #90 tabs 11/22/22 [Rx Last Taken Unknown] aspirin 81 mg chewable tablet 81 mg PO DAILY #90 tabs 01/25/23 [Rx Last Taken Unknown] sacubitril 49 mg-valsartan 51 mg tablet (Entresto) 1 tab PO BID #60 tabs 02/23/23 [Rx Last Taken Unknown] carvedilol 12.5 mg tablet 12.5 mg PO BID #60 tabs 06/20/23 [Rx Last Taken Unknown] dapagliflozin propanediol 5 mg tablet (Farxiga) See Rx Instructions .Route .COMPLEX #90 tabs 07/25/23 [Rx Last Taken Unknown] azithromycin 500 mg tablet 500 mg PO 09/08/23 [History Last Taken Unknown] ethambutol 400 mg tablet 400 mg PO 09/08/23 [History Last Taken Unknown] rifampin 300 mg capsule 300 mg PO 09/08/23 [History Last Taken Unknown] Allergy/AdvReac Type Severity Reaction Status Date / Time bee venom protein (honey bee) Allergy Severe swelling Verified 09/08/23 08:28 Wotrzls-ROD-ItG Reductase Allergy Severe myalgias Verified 09/08/23 08:28 Inhibitor Family History Other COPD (chronic obstructive pulmonary disease) Diabetes Heart disease Hypertension Surgical History History of coronary artery stent placement (11/03/21) History of hand surgery History of hernia repair History of left heart catheterization (10/22/21) Social History household members: none Smoking Status: Former smoker quit date: 10/22/21 pack-years: 35 how long ago did patient quit smokin10/23/21 alcohol intake: current alcohol intake frequency: holidays/special occasions only substance use type: does not use caffeine: Yes Type: carbonated beverages Number of servings: 5 ROS ROS ED Review of Systems ROS Unobtainable: other Constitutional Constitutional ED: Reports lethargy; Denies chills, fever(s), sweats or weight loss Eyes Eyes: Denies blurry vision, change in vision or diplopia ENT ENT ED: Denies rhinorrhea or sore throat Cardiovascular Cardiovascular: Denies chest pain, orthopnea or racing heartbeat Respiratory/Chest Respiratory/Chest: Reports cough, dyspnea and dyspnea on exertion; Denies orthopnea or sputum Gastrointestinal Gastrointestinal: Reports abdominal pain, nausea and vomiting; Denies diarrhea Genitourinary Genitourinary ED: Denies dysuria, hematuria or urinary frequency Musculoskeletal Musculoskeletal: Reports back pain; Denies arthralgias, myalgias or neck pain Integumentary Denies abscess, Abrasions or rash Neurologic Neurologic: Denies headache(s) or weakness Psychiatric Psychiatric: Denies anxiety, depression or suicidal thoughts Endocrine Endocrinology: Denies polydipsia, polyphagia or polyuria Hematologic/Lymphatic Hematologic/Lymphatic: Denies easy bleeding, easy bruising or lymphadenopathy Allergic/Immunologic Allergic/Immunologic ED: Denies mouth swelling, tongue swelling or urticaria EXAM Physical Exam Const Vital Signs: 01/02/24 16:51 01/02/24 16:55 01/02/24 17:00 Temperature 97.7 F L Temperature Source Temporal Pulse Rate 93 69 Respiratory Rate 22 H 18 Respiratory Effort Short of Breath Labored Accessory Muscle Use Retracting Respiratory Pattern Tachypnea Blood Pressure 88/62 L Blood Pressure Mean 70 Pulse Ox 97 Oxygen Delivery Method Nasal Cannula Oxygen Flow Rate (L/min) 2 2 01/02/24 17:48 01/02/24 18:00 01/02/24 19:00 Temperature Temperature Source Pulse Rate 90 91 92 Respiratory Rate 20 H 23 H 19 H Respiratory Effort Respiratory Pattern Blood Pressure 100/63 107/58 L 91/62 Blood Pressure Mean 75 74 71 Pulse Ox 98 99 98 Oxygen Delivery Method Nasal Cannula Nasal Cannula Nasal Cannula Oxygen Flow Rate (L/min) 2 2 01/02/24 20:00 01/02/24 20:32 Temperature 98.1 F Temperature Source Pulse Rate 80 89 Respiratory Rate 24 H 20 H Respiratory Effort Respiratory Pattern Blood Pressure 106/61 90/67 Blood Pressure Mean 76 74 Pulse Ox 90 96 Oxygen Delivery Method Nasal Cannula Oxygen Flow Rate (L/min) 2 Positive well nourished and well developed General Appearance ED: well developed and NAD HEENT Reports TM's clear and moist mucous membranes normocephalic and atraumatic; Negative for trauma or tenderness Tympanic Membrane ED: Yes TM's clear Eyes PERRL and EOMs intact bilaterally General Eye ED: Negative for pale conjunctiva or scleral icterus Neck no lymphadenopathy, supple and no JVD General: Negative for tenderness Chest Wall inspection of chest normal and palpation of chest normal Chest: Negative for tenderness Resp normal respiratory effort Resp Narrative: Mild tachypnea with mild conversational dyspnea. He has expiratory wheezes bilaterally with slightly diminished breath sounds bilaterally. Effort and Inspection: Negative for respiratory distress or pain with movement Auscultation: wheezes and diminished lung sounds; Negative for rhonchi Cardio regular rate, regular rhythm, S1 normal heart sound, S2 normal heart sound and no murmurs Peripheral Pulses: pulses 2+ throughout GI normal to inspection, nondistended, normoactive bowel sounds, soft to palpation, non-distended and no masses GI Narrative: Tenderness palpation over right lower quadrant with guarding. No rebound or rigidity. No obvious mass palpated. Back/Spine no CVA tenderness and no thoracic nor lumbar tenderness Extremity normal to inspection General Extremety ED: Negative for edema General Extremity: Negative for edema Neuro oriented x3, CN's II-XII intact bilaterally, no sensory deficits noted and gait normal Sensorium / Orientation: awake, alert, oriented to person, oriented to place and oriented to time Motor Exam: strength 5/5 throughout and strength abnormal Psych mental status grossly normal Skin no rashes or lesions noted and no wounds MDM MDM MDM Narrative Medical decision making narrative: Patient presents with abdominal pain as well as vomiting and diarrhea. Symptoms x 3 days. Patient also been coughing for about a week and bringing up some yellow phlegm. Patient presented wheezing and dyspneic. Patient normally on 2 L O2. IV line established. CBC with differential count 11.6 with hemoglobin 11.6 and platelet count of 415. Chemistries show sodium 134 with potassium 5.0 and CO2 of 11 and anion gap of 16 and BUN of 25 and creatinine 1.05. LFTs essentially unremarkable other than a slightly elevated alk phos of 138. Lipase was normal at 36. Urinalysis was unremarkable. 1 view chest x-ray obtained was read as possible consolidation left upper lobe cannot rule out mass. Patient also had a CT scan of the abdomen pelvis that showed colon that was filled with liquid stool but did not visualize the appendix. On repeat exam he continues to have some pain over the right lower quadrant. I did discuss case with general surgeon on-call Dr. Martino who recommended admission and repeating the CT scan with IV and p.o. contrast. I did discuss with hospitalist to evaluate patient for admission. Lab Data Attestation: I reviewed the patient's lab results. Labs: Laboratory Results - last 24 hr 01/02/24 01/02/24 17:07 19:00 WBC 11.6 H RBC 3.51 L Hgb 11.6 L Hct 36.6 L MCV 104.3 H MCH 33.0 H MCHC 31.7 L RDW Std Deviation 53.5 H RDW Coeff of Solange 14.1 Plt Count 415 MPV 8.6 Immature Gran % (Auto) 0.500 Neut % (Auto) 81.0 H Lymph % (Auto) 13.2 L [place] % (Auto) 4.5 Eos % (Auto) 0.4 Baso % (Auto) 0.4 Absolute Neuts (auto) 9.4 H Absolute Lymphs (auto) 1.53 Nucleated RBC % 0 Sodium 134 L Potassium 5.0 Chloride 107 Carbon Dioxide 11.0 L Anion Gap 16 H BUN 25 H Creatinine 1.05 Est GFR (MDRD) Af Amer 94 Est GFR (MDRD) Non-Af 78 BUN/Creatinine Ratio 23.8 H Glucose 51 L Lactic Acid 1.1 Calcium 9.8 Total Bilirubin 0.20 AST < 3 L ALT 7 L Alkaline Phosphatase 138 H Troponin I High Sens 7 Total Protein 7.5 Albumin 2.9 L Globulin 4.6 H Albumin/Globulin Ratio 0.6 L Lipase 36 Urine Color Yellow Urine Clarity Clear Urine pH 5.0 Ur Specific [place] 1.015 Urine Protein 30 H Urine Glucose (UA) 1000 H Urine Ketones 50 H Urine Occult Blood 10 H Urine Nitrite Positive H Urine Bilirubin Negative Urine Urobilinogen Normal Ur Leukocyte Esterase Negative Urine RBC 0 SEEN Urine WBC 0 SEEN Ur Squamous Epith Cells 0 SEEN Urine Bacteria RARE Urine Mucus 0 SEEN Radiography Diagnostic Testing: Clinical Impression(s) from Imaging Studies Abdomen/Pelvis CT 01/02/24 16:57 IMPRESSION: 1. No masses bowel obstruction abscess free fluid or free air. 2. Large bowel contains large amount of fluid stool, no formed stool noted, sequelae of diffuse colitis is a consideration. 3. No mucosal fold thickening, pneumatosis, masses or diverticulitis. 4. No evidence small bowel obstruction. The appendix is not visualized. 5. Bilateral renal cysts greater on the RIGHT than LEFT. No obstructive uropathy. 6. Gallbladder is distended, no calcifications or ductal dilatation. 7. Hiatal hernia. 8. Irregular pleural and parenchymal scar and thickening along the periphery of the RIGHT lung base. Focal area of infiltrate is a consideration however appearance is suspicious of a area of consolidation in potential obscured mass. Previous imaging not available for comparison to assess interval change. In the absence of previous comparison, consider short-term follow-up following treatment to assess stability. Electronically Signed: Rob Amaya MD at 19:12 EDT , Chest X-Ray 01/02/24 17:55 IMPRESSION: 1. Area of irregular density in the LEFT suprahilar region suspicious of an area of consolidation however pulmonary mass is a consideration. Additional areas of pleural thickening at the RIGHT lung base. 2. Consider follow-up evaluation with CT of the chest due to the significant interval change and to exclude underlying pulmonary mass. 3. No evidence congestive failure. Electronically Signed: Rob Amaya MD at 19:48 EDT , EKG Initial EKG: Attestation: I personally reviewed and interpreted this EKG as follows: Comments: Sinus rhythm with rate of 87 bpm with old inferior infarct and old septal infarct Discharge Plan Triage Chief Complaint: Shortness of Breath Other Complaint: Back ED Provider: Zan Freeman Dx/Rx/DC Orders Clinical Impression: Acute exacerbation of chronic obstructive pulmonary disease, Abdominal pain, Pneumonia, Dehydration Prescriptions: No Action albuterol sulfate 2.5 mg /3 mL (0.083 %) solution for nebulization 2.5 mg inhalation Q4H PRN (Reason: bronchospasm) acetaminophen 500 mg tablet 1,000 mg PO ONCE PRN (Reason: pain) azithromycin 500 mg tablet 500 mg PO Patient Comments: TAKE 1 TABLET BY MOUTH 3 (THREE) TIMES A WEEK Rx Instructions: three times a week ethambutol 400 mg tablet 400 mg PO Patient Comments: Take 4 tablets by mouth every Tuesday,Tuesday,Tuesday. rifampin 300 mg capsule 300 mg PO Patient Comments: TAKE 2 CAPSULES BY MOUTH 3 (THREE) TIMES A WEEK albuterol sulfate [Ventolin HFA] 1 INHALER inhaler 2 puff inhalation Q6H PRN PRN (Reason: Sob &/Or Wheezing) Patient Comments: breathing metformin 500 MG tablet 500 mg PO DAILY mometasone-formoterol 13 GM HFA aerosol inhaler 2 puff IH BID Patient Comments: Inhale 2 Puffs as instructed twice daily. ezetimibe 10 mg tablet 10 mg PO DAILY Patient Comments: Take 1 tablet by mouth once daily. tiotropium bromide [Spiriva with HandiHaler] 18 mcg capsule, w/inhalation device 18 mcg INHALATION DAILY Patient Comments: Inhale 1 capsule as instructed once daily. USE WITH HANDIHALER. nitroglycerin 0.4 mg tablet, sublingual 0.4 mg sublingual PRN PRN (Reason: Chest Pain) hydroxyzine HCl 25 mg tablet 25 mg PO Q6H PRN (Reason: anxiety) (DME) oxygen-air delivery systems Device MISCELLANEOUS Rx Instructions: 2 liters furosemide [Lasix] 40 mg tablet 40 mg PO DAILY Qty: 90 4RF Patient Comments: pt. states he only takes this when his legs get swollen which is about 2/3 times a week aspirin 81 mg tablet,chewable 81 mg PO DAILY Qty: 90 3RF Entresto 49-51 mg tablet 1 tab PO BID Qty: 60 12RF carvedilol 12.5 mg tablet 12.5 mg PO BID Qty: 60 11RF Rx Instructions: must administer with a meal/food Farxiga 5 mg tablet See Rx Instructions .ROUTE .COMPLEX Qty: 90 3RF Dose Instruction: TAKE 1 TABLET BY MOUTH DAILY Rx Instructions: TAKE 1 TABLET BY MOUTH DAILY Primary Care Provider: Adolfo Bruce Referrals: Adolfo Bruce MD [Primary Care Provider] - Disposition Disposition: Acute Care Hospital [facility]
[2024-01-02] MEDS: Ipratropium/Albuterol Sulfate 3 ML AMPUL.NEB INHALATION (17:01)
[2024-01-02] MEDS: Albuterol 2.5 MG/3 ML VIAL.NEB. INHALATION ×2 (17:07→17:08)
[2024-01-02] MEDS: Ondansetron 4 MG/2 ML Vial IV (17:08)
[2024-01-02] MEDS: Morphine 4 MG/ML Syringe IV (17:08)
[2024-01-02] MEDS: MethylPREDNISolone 125 MG/2 ML Vial IV (17:08)
[2024-01-02] MEDS: 0.9% Normal Saline (1000mL) 1,000 ML 125 ML IV ×2 (17:12→22:57)
[2024-01-02 17:17] LABS: Absolute Lymphocyte Count 1.53 X10^3/uL (0.83-4.51); Absolute Neutrophil Count 9.4 X10^3/uL (2.0-7.7); Basophil# 0.05 X10^3/uL; Basophil% 0.4 % (0-1); Eosinophil# 0.05 X10^3/uL; Eosinophils% 0.4 % (0-5); Hematocrit 36.6 % (40-54); Hemoglobin 11.6 g/dL (13.0-16.5); Lymphocyte # 1.53 X10^3/ul (0.83-4.51); Lymphocyte % 13.2 % (19-41); Mean Corp Hgb Conc 31.7 g/dL (32-36); Mean Corpuscular Volume 104.3 fL (80-94); Mean Platelet Vol. 8.6 fl (6.2-12.0); Monocyte# 0.52 X10^3/uL; Monocyte% 4.5 % (0-10); NRBC Flagged by Analyzer 0 % (0-5); Platelet Count 415 K/mm3 (150-450); RBC Distribution Width CV 14.1 % (11.6-14.6); RBC Distribution Width SD 53.5 fl (35.1-43.9); Red Blood Count 3.51 M/mm3 (4.6-6.2); White Blood Count 11.6 K/mm3 (4.4-11.0)
[2024-01-02 17:43] LABS: ALB/GLOB Ratio 0.6 RATIO (0.9-2.4); AST(SGOT) < 3 U/L (15-37); Alanine Aminotransfer ALT/SGPT 7 U/L (16-61); Albumin, Serum 2.9 g/dL (3.2-5.0); Alkaline Phosphatase 138 U/L (45-117); Anion Gap 16 (5-15); BUN 25 mg/dL (7-18); BUN/Creat Ratio 23.8 RATIO (10-20); Calcium,Total 9.8 mg/dL (8.5-10.1); Chloride 107 mmol/L (98-107); Creatinine, Serum 1.05 mg/dL (0.70-1.30); EST Glomerular Filtration Rate 78 mL/min (>60); Est Glom Filt Rate - Afr Amer 94 mL/min (>60); Globulin 4.6 g/dL (2.2-4.2); Glucose 51 mg/dL (74-106); Lactic Acid 1.1 mmol/L (0.4-1.9); Lipase 36 U/L (13-75); Protein, Total 7.5 g/dL (6.4-8.2); Sodium Level 134 mmol/L (136-145); Troponin-I HS 7 pg/mL (3.0-78.0)
--- NOTE | 2024-01-02 17:55 | RAD_ITS ---
INDICATION: dyspnea EXAMINATION/TECHNIQUE: X-RAY - XR Chest 1 View COMPARISON: 11/07/2021 FINDINGS: LIFE-SUPPORT AND LINES: 1. None HEART AND VESSELS: The cardiac silhouette, pulmonary vasculature have normal appearance. No evidence of congestive failure. LUNGS AND PLEURAL SPACES: Significant worsening of interstitial prominence in the LEFT suprahilar region, LEFT infrahilar region, and along the periphery of the RIGHT lung base. No adelita effusion however small amount pleural fluid at the RIGHT base is a consideration. No pulmonary mass is noted. MEDIASTINUM AND HILAR REGIONS: No masses adenopathy noted. No areas of calcification. Visualized upper airway is normal in position. BONY ELEMENTS: No acute bony changes noted. RAD/Chest 1 View (Portable) IMPRESSION: 1. Area of irregular density in the LEFT suprahilar region suspicious of an area of consolidation however pulmonary mass is a consideration. Additional areas of pleural thickening at the RIGHT lung base. 2. Consider follow-up evaluation with CT of the chest due to the significant interval change and to exclude underlying pulmonary mass. 3. No evidence congestive failure. Electronically Signed: Rob Amaya MD at 19:48 EDT ,
[2024-01-02] MEDS: Dextrose 50%-Water 25 GM/50 ML DISP.SYRIN IV (17:59)
[2024-01-02 19:06] LABS: Mucous, Urine 0 SEEN /hpf (<or=2+); Red Blood Cells-Urine 0 SEEN /hpf (0-5); Squamous Epithelial Cells - UA 0 SEEN /hpf (0-5); White Blood Cells 0 SEEN /hpf (0-5)
[2024-01-02 19:11] LABS: Color, Urine Yellow (Yellow); Glucose, Dipstick 1000 mg/dl (Normal); Ketone-Dipstick 50 mg/dl (Negative); Leukocyte Esterase-Dipstick Negative /ul (Negative); Nitrite-Dipstick Positive (Negative); Occult Blood-Urine 10 /ul (Negative); Protein-Dipstick 30 mg/dl (Negative); Specific Gravity, Urine 1.015 (1.002-1.030); Urine Bilirubin Dipstick Negative (Negative); Urine Clarity Clear (Clear); Urine Urobilinogen Normal (Normal)
[2024-01-02] MEDS: 0.9% Normal Saline (1000mL) 1,000 ML 999 ML IV (19:26)
[2024-01-02 20:12] LABS: Bacteria RARE /hpf (None Seen)
[2024-01-02] MEDS: Ceftriaxone 1 GM/50 ML BAG IV (20:24)
--- NOTE | 2024-01-02 20:27 | PCM.HP.STD ---
[facility] - General General Date of Admission: 01/02/24 Date of Service: 01/02/24 Chief Complaint: SOB and RLQ Pain. HPI Narrative LEOBARDO CONNOLLY, is a 58 M with a past medical history of essential hypertension, hyperlipidemia; with intolerance to statins, DM-2; of unknown control, CAD; s/p NSTEMI (2020) with LAD & RCA stent (2021), Chronic Diastolic CHF; with preserved LVEF, Ischemic Cardiomyopathy, history of TB; with RUL nodule and on chronic Ethambutol and Rifampin followed previously at [facility], and history of Tobacco Abuse; with subsequent COPD and Chronic Hypoxic Respiratory Failure; on 2L NC continuously who presents to [facility] ER complaining of SOB and RLQ pain. Mr. Connolly reports his symptoms began approximately three days prior to admission with the abrupt-onset of Right-sided low back pain radiating into his Right lower abdomen, ~3-4/10, cramping in nature and the pain is made worse with movement, cough and palpation over his RLQ. Then he noticed low-grade fevers and increased difficulty breathing with wheezing and in increase in his chronic cough. He denies a history of renal calculi, previous abdominal surgeries or known sick contacts. In the ER he underwent a CT scan of the abdomen and pelvis that revealed that his colon contained a large amount of fluid stool suspicious for colitis; with the appendix not visualized (suspicious for possible appendicitis), with gallbladder distention and thickening along the periphery of the Right lung base suspicious for an area of consolidation in potential obscured mass and he was then admitted to a negative pressure room on the PCU for ongoing care for a stay that is expected to be greater than 48 hours. [facility] Medical History Acute exacerbation of chronic obstructive pulmonary disease (COPD) Atherosclerosis of coronary artery without angina pectoris Bronchiolitis Chronic HFrEF (heart failure with reduced ejection fraction) Chronic respiratory failure with hypoxia Community acquired pneumonia COPD (chronic obstructive pulmonary disease) Emphysema lung Essential hypertension History of non-ST elevation myocardial infarction (NSTEMI) (10/22/21) Hyperlipidemia Ischemic cardiomyopathy Lung nodule Old anteroseptal myocardial infarction Old inferior wall myocardial infarction Tobacco dependence due to cigarettes Type 2 diabetes mellitus Home Medications albuterol sulfate 90 mcg/actuation aerosol inhaler (Ventolin HFA) 2 puff inhalation Q6H PRN PRN Sob &/Or Wheezing 11/29/15 [History Last Taken 10/13/21] metformin 500 mg tablet 500 mg PO DAILY DM 09/05/19 [History Last Taken 10/13/21] mometasone-formoterol HFA 200 mcg-5 mcg/actuation aerosol inhaler 2 puff IH BID COPD 09/05/19 [History Last Taken 10/13/21] ezetimibe 10 mg tablet 10 mg PO DAILY CHOLESTEROL 10/13/21 [History Last Taken 10/13/21] tiotropium bromide 18 mcg capsule with inhalation device (Spiriva with HandiHaler) 18 mcg inhalation DAILY COPD 10/13/21 [History Last Taken 10/13/21] nitroglycerin 0.4 mg sublingual tablet 0.4 mg sublingual PRN PRN Chest Pain 11/07/21 [History Last Taken Unknown] hydroxyzine HCl 25 mg tablet 25 mg PO Q6H PRN anxiety 11/10/21 [History Last Taken Unknown] oxygen-air delivery systems 12/08/21 [History Last Taken Unknown] albuterol sulfate 2.5 mg/3 mL (0.083 %) solution for nebulization 2.5 mg inhalation Q4H PRN bronchospasm 12/22/21 [History Last Taken Unknown] acetaminophen 500 mg tablet 1,000 mg PO ONCE PRN pain 03/24/22 [History Last Taken Unknown] furosemide 40 mg tablet (Lasix) 40 mg PO DAILY #90 tabs 11/22/22 [Rx Last Taken Unknown] aspirin 81 mg chewable tablet 81 mg PO DAILY #90 tabs 01/25/23 [Rx Last Taken Unknown] sacubitril 49 mg-valsartan 51 mg tablet (Entresto) 1 tab PO BID #60 tabs 02/23/23 [Rx Last Taken Unknown] carvedilol 12.5 mg tablet 12.5 mg PO BID #60 tabs 06/20/23 [Rx Last Taken Unknown] dapagliflozin propanediol 5 mg tablet (Farxiga) See Rx Instructions .Route .COMPLEX #90 tabs 07/25/23 [Rx Last Taken Unknown] azithromycin 500 mg tablet 500 mg PO .COMPLEX history of tb 09/08/23 [History Last Taken Unknown] ethambutol 400 mg tablet 400 mg PO .COMPLEX hx tb 09/08/23 [History Last Taken Unknown] rifampin 300 mg capsule 300 mg PO .COMPLEX hx tb 09/08/23 [History Last Taken Unknown] Allergy/AdvReac Type Severity Reaction Status Date / Time bee venom protein (honey bee) Allergy Severe swelling Verified 09/08/23 08:28 Hsyorzn-AMP-EbD Reductase Allergy Severe myalgias Verified 09/08/23 08:28 Inhibitor Family History Other COPD (chronic obstructive pulmonary disease) Diabetes Heart disease Hypertension Surgical History History of coronary artery stent placement (11/03/21) History of hand surgery History of hernia repair History of left heart catheterization (10/22/21) Social History household members: none Smoking Status: Former smoker quit date: 10/22/21 pack-years: 35 how long ago did patient quit smokin10/23/21 alcohol intake: current alcohol intake frequency: holidays/special occasions only substance use type: does not use caffeine: Yes Type: carbonated beverages Number of servings: 5 ROS ROS Narrative Review of systems: Constitutional: Patient admits to lethargy and subjective low-grade fevers with very cachectic appearance. He denies chills. Eyes: Patient denies blurry vision, change in vision or diplopia. ENT: Patient denies runny nose, sore throat or ear pain. Resp: Patient admits to SOB and cough - but he denies sputum production. CV: Patient denies chest pain or palpitations. GI: Patient admits to abdominal pain most pronounced in the RLQ. : Patient denies dysuria, hematuria or urinary frequency. MSK: Patient admits to Right low back pain radiating into his Right lower abdomen as per HPI. Skin: Patient denies abscess or rash. Neuro: Patient denies headache, paresthesias or focal neurologic weakness. Psych: Patient denies uncontrolled depression or anxiety. Endo: Patient denies polyuria, polydipsia or polyphagia. Hematology: Patient denies easy bleeding or easy bruisability. Allergic: Patient denies mouth swelling, tongue swelling or urticaria. 14 point ROS otherwise negative except for positives noted above in HPI. Vital Signs Vital Signs Vital Signs: 01/02/24 16:51 01/02/24 16:55 01/02/24 17:00 Temperature 97.7 F L Temperature Source Temporal Pulse Rate 93 69 Respiratory Rate 22 H 18 Respiratory Effort Short of Breath Labored Accessory Muscle Use Retracting Respiratory Pattern Tachypnea Blood Pressure 88/62 L Blood Pressure Mean 70 Pulse Ox 97 Oxygen Delivery Method Nasal Cannula Oxygen Flow Rate (L/min) 2 2 01/02/24 17:48 01/02/24 18:00 01/02/24 19:00 Temperature Temperature Source Pulse Rate 90 91 92 Respiratory Rate 20 H 23 H 19 H Respiratory Effort Respiratory Pattern Blood Pressure 100/63 107/58 L 91/62 Blood Pressure Mean 75 74 71 Pulse Ox 98 99 98 Oxygen Delivery Method Nasal Cannula Nasal Cannula Nasal Cannula Oxygen Flow Rate (L/min) 2 2 01/02/24 20:00 Temperature Temperature Source Pulse Rate 80 Respiratory Rate 24 H Respiratory Effort Respiratory Pattern Blood Pressure 106/61 Blood Pressure Mean 76 Pulse Ox 90 Oxygen Delivery Method Nasal Cannula Oxygen Flow Rate (L/min) 2 Physical Exam Const alert and oriented x3 Constitutional Narrative: Patient is awake and alert with mildly labored respirations. General Appearance: cooperative HEENT normocephalic, head/scalp atraumatic, hearing grossly normal bilaterally and moist oral mucous membranes Eyes PERRL and EOMs intact bilaterally Neck no lymphadenopathy and supple Resp Resp Narrative: Diminished throughout with scattered wheezing. Auscultation: wheezes Cardio regular rate and regular rhythm GI normal to inspection, nondistended, normoactive bowel sounds, soft to palpation and non-distended GI Narrative: Patient has TTP in the RLQ. Extremity normal to inspection, full ROM and no clubbing, cyanosis or edema Skin Skin Narrative: Patient has no evidence of rash. Neuro oriented x3, CN's II-XII intact bilaterally, moves all extremities and no focal motor deficits Sensorium / Orientation: awake, alert, oriented to person, oriented to place and oriented to time Speech: speech normal Motor Exam: strength 5/5 throughout Psych affect normal Results Medical Records Data Attestation: I reviewed the patient's medical records Lab / Micro Data Attestation: I reviewed the patient's lab results. 01/02/24 17:07 01/02/24 17:07 Labs: Laboratory Results - last 24 hr 01/02/24 17:07: WBC 11.6 H, RBC 3.51 L, Hgb 11.6 L, Hct 36.6 L, MCV 104.3 H, MCH 33.0 H, MCHC 31.7 L, RDW Std Deviation 53.5 H, RDW Coeff of Solange 14.1, Plt Count 415, MPV 8.6, Immature Gran % (Auto) 0.500, Neut % (Auto) 81.0 H, Lymph % (Auto) 13.2 L, [place] % (Auto) 4.5, Eos % (Auto) 0.4, Baso % (Auto) 0.4, Absolute Neuts (auto) 9.4 H, Absolute Lymphs (auto) 1.53, Nucleated RBC % 0, Sodium 134 L, Potassium 5.0, Chloride 107, Carbon Dioxide 11.0 L, Anion Gap 16 H, BUN 25 H, Creatinine 1.05, Est GFR (MDRD) Af Amer 94, Est GFR (MDRD) Non-Af 78, BUN/Creatinine Ratio 23.8 H, Glucose 51 L, Lactic Acid 1.1, Calcium 9.8, Total Bilirubin 0.20, AST < 3 L, ALT 7 L, Alkaline Phosphatase 138 H, Troponin I High Sens 7, Total Protein 7.5, Albumin 2.9 L, Globulin 4.6 H, Albumin/Globulin Ratio 0.6 L, Lipase 36 01/02/24 19:00: Urine Color Yellow, Urine Clarity Clear, Urine pH 5.0, Ur Specific [place] 1.015, Urine Protein 30 H, Urine Glucose (UA) 1000 H, Urine Ketones 50 H, Urine Occult Blood 10 H, Urine Nitrite Positive H, Urine Bilirubin Negative, Urine Urobilinogen Normal, Ur Leukocyte Esterase Negative, Urine RBC 0 SEEN, Urine WBC 0 SEEN, Ur Squamous Epith Cells 0 SEEN, Urine Bacteria RARE, Urine Mucus 0 SEEN Micro: Microbiology 01/02/24 17:07 Mucosa - Nose SARS-CoV-2, Influenza & RSV (PCR) - Final Imaging Radiology Impression Abdomen/Pelvis CT 01/02/24 16:57 IMPRESSION: 1. No masses bowel obstruction abscess free fluid or free air. 2. Large bowel contains large amount of fluid stool, no formed stool noted, sequelae of diffuse colitis is a consideration. 3. No mucosal fold thickening, pneumatosis, masses or diverticulitis. 4. No evidence small bowel obstruction. The appendix is not visualized. 5. Bilateral renal cysts greater on the RIGHT than LEFT. No obstructive uropathy. 6. Gallbladder is distended, no calcifications or ductal dilatation. 7. Hiatal hernia. 8. Irregular pleural and parenchymal scar and thickening along the periphery of the RIGHT lung base. Focal area of infiltrate is a consideration however appearance is suspicious of a area of consolidation in potential obscured mass. Previous imaging not available for comparison to assess interval change. In the absence of previous comparison, consider short-term follow-up following treatment to assess stability. Electronically Signed: oRb Amaya MD at 19:12 EDT , Chest X-Ray 01/02/24 17:55 IMPRESSION: 1. Area of irregular density in the LEFT suprahilar region suspicious of an area of consolidation however pulmonary mass is a consideration. Additional areas of pleural thickening at the RIGHT lung base. 2. Consider follow-up evaluation with CT of the chest due to the significant interval change and to exclude underlying pulmonary mass. 3. No evidence congestive failure. Electronically Signed: Rob Amaya MD at 19:48 EDT , Assessment & Plan Assessment/Plan (1) Pneumonia: QUALIFIERS: Laterality: right Lung location: unspecified part of lung Pneumonia type: due to unspecified organism Qualified Code(s): J18.9 - Pneumonia, unspecified organism (2) Tuberculosis: (3) Acute exacerbation of chronic obstructive pulmonary disease: (4) Diarrhea: QUALIFIERS: Diarrhea type: presumed infectious Qualified Code(s): R19.7 - Diarrhea, unspecified (5) Appendicitis: QUALIFIERS: Appendicitis type: unspecified Qualified Code(s): K37 - Unspecified appendicitis PLAN: 1. Thickening along the periphery of the Right lung base suspicious for an area of consolidation in potential obscured mass int the setting of a known history of (non-infectious) TB; with RUL nodule and on chronic Ethambutol and Rifampin followed previously at [facility] complicating #1 - Resume home regimen plus we will consult ID and pulmonary to see this patient on-rounds in the AM for further recommendations with help appreciated in advance. 2. AE COPD in the setting of Chronic Hypoxic Respiratory Failure on 2L NC continuously adding to the pathology of #1 - Continue IV antibiotics and IV Solu Medrol plus nebulizers and supplemental oxygen. 3. CT scan of the abdomen and pelvis that revealed that his colon contained a large amount of fluid stool suspicious for colitis; with the appendix not visualized (suspicious for possible appendicitis) complicating #1 & #2 - Place on enteric precautions and check stool studies. Check CT scan of the abdomen and pelvis with IV and PO contrast as per general surgeon's recommendation with formal consult pending in AM and appreciated in advance. 4. DM-2; of unknown control with hypoglycemia of 52 mg/dL present on admission - ADA diet. FSBS q. AC/HS plus SSI. Check HgbA1c. 5. Essential hypertension - Continue home regimen plus give prn IV Hydralazine for systolic blood pressure > 160 mm Hg. 6. Hyperlipidemia; with intolerance to statins - Check lipid profile this admission. 7. CAD; s/p NSTEMI (2020) with LAD & RCA stent (2021) - Noted. 8. Chronic Diastolic CHF; with preserved LVEF - Stable. 9. Ischemic Cardiomyopathy - Noted. 10. OA - Give Tylenol prn. 11. DVT prophylaxis - Lovenox 40 mg sq daily. Total time: Approximately 75 minutes. Charges/Coding Visit Charges Inpatient E&M: 66752 Init Hosp L3
--- NOTE | 2024-01-02 20:30 | CT_ITS ---
INDICATION: Suspected appendicits. -- Please give oral only, pt already had iv contrast today, ok per dr mccauley EXAMINATION: CT ABDOMEN AND PELVIS WITHOUT CONTRAST - CT Abdomen And Pelvis W/O Contrast Injection TECHNIQUE: Helically acquired images were obtained of the abdomen and pelvis without oral or IV contrast. A radiation dose optimization technique was used for this scan. IV Contrast dosage and agent: None. Oral contrast: Oral contrast is present. RADIATION DOSAGE (If Supplied By Facility): CTDIvol = ( 6.11 ) mGy, DLP = ( 291.49 ) mGycm COMPARISON: Postcontrast examination of 01/02/2024 FINDINGS: LOWER CHEST: Redemonstration of area of irregular pleural thickening along the periphery of the RIGHT lower lobe. Additional areas of mild interstitial prominence at the lung bases. No effusion. No cardiomegaly or pericardial effusion. No significant coronary vascular calcifications present. LIVER: The liver has normal configuration and density given the limitation of noncontrast exam. No focal mass. GALLBLADDER AND BILIARY TREE: The gallbladder is moderately distended. No intraluminal stones. No gallbladder distension or wall edema. No intra- or extrahepatic biliary ductal dilation. PANCREAS: No focal cystic or solid mass. SPLEEN: Normal size without focal cystic or solid mass. ADRENAL GLANDS: No nodules. KIDNEYS AND URETERS: Kidneys are unchanged configuration, small amount of excreted contrast noted in nondilated collecting systems. No evidence of obstructive uropathy. RIGHT renal cysts again noted. No hydronephrosis. PERITONEUM: No ascites or free air. No other fluid collection. BOWEL: Large small bowel loops have unchanged appearance. Subtle contrast noted in mid to distal small bowel. No bowel obstruction. Fluid-filled contents within the large bowel. The appendix is not positively identified. No evidence however of periappendiceal or RIGHT lower quadrant soft tissue stranding fluid or abscess. The cecum is a pelvic location and is fluid-filled. No focal inflammatory change. LYMPH NODES: No enlarged mesenteric or retroperitoneal lymph nodes. VESSELS: Scattered calcifications in the abdominal aorta. No aneurysmal dilatation. URINARY BLADDER: Unremarkable. REPRODUCTIVE ORGANS: No pelvic masses. ABDOMINAL WALL: No discrete abdominal or pelvic wall hernia. BONES: Redemonstration of mild deformity of the superior endplate of L3 and L1 without change. CT/Abdomen/Pel W ORAL Cont Only IMPRESSION: 1. Oral contrast present. No evidence of bowel obstruction. Contrast passes to the mid to distal small bowel. 2. Fluid-filled large bowel without interval change. Negligible formed stool noted as previously described. 3. The appendix is not positively identified however no CT evidence of appendicitis. Fluid-filled mildly distended cecum extends into the RIGHT hemipelvis. 4. RIGHT renal cyst. No evidence of obstructive uropathy. 5. No evidence cholelithiasis or duct dilatation. 6. Redemonstration of pleural-parenchymal thickening along the periphery of the RIGHT lower lobe 7. Redemonstration of mild deformity superior endplate of L3 and L1 without change. Electronically Signed: Rob Amaya MD at 23:10 EDT ,
[2024-01-02] MEDS: Azithromycin 500 MG in Dextrose 5%-Water (250mL Bag) 250 ML 250 MG IV (21:13)
[2024-01-02] MEDS: MethylPREDNISolone 125 MG/2 ML Vial 60 MG IV (22:56)
[2024-01-02] MEDS: guaiFENesin 1,200 MG Tablet 1200 MG PO (22:57)
[2024-01-03] MEDS: 0.9% Saline Lock 10 ML Syringe IV ×4 (01:49→21:04)
[2024-01-03] MEDS: Morphine 2 MG/ML Syringe IV ×2 (01:49→06:09)
[2024-01-03 04:40] VITALS: BP 100/58; PULSE 72; RESP 18; TEMP 36.5; O2SAT 99
[2024-01-03] MEDS: 0.9% Normal Saline (1000mL) 1,000 ML 125 ML IV (06:11)
--- NOTE | 2024-01-03 06:50 | EX.PCM.CON.S ---
Assessment & Plan Assessment/Plan (1) Dehydration: (2) Abdominal pain: PLAN: Plan The patient does have a history of tuberculosis and does have a pleural lesion that was concerning for mass on CT scan. The patient also had elevated white count and nausea vomiting with lower abdominal pain. On physical exam the lower abdominal pain appears nonspecific and he was complaining of pain on both sides when I palpated. I reviewed the CT scan and there is no inflammation but the oral contrast did not make it to the appendix on last night CT. There was no concern for bowel obstruction on the CT or inflammation. The white count is likely from his pneumonia. I recommend antibiotics to cover the pneumonia. I will start him on clear liquids and if he tolerates this I may advance him to regular later today or tomorrow. White count is improving. I do not believe the patient has acute appendicitis but will continue to observe. Justin Martino MD Pager: [facility] [address] [place] [address], [address] [place] [address] Office: HPI Consult Data Date of Consult: 01/03/24 HPI Narrative HPI Narrative: LEOBARDO AG, is a 58 M who presents with abdominal pain and nausea and vomiting of 3 days. Patient reports that 3 days ago he started having nausea and vomiting and right lower quadrant pain that wraps all the way around his back all the way to his left back. The patient reports that overnight he has not had any nausea or vomiting. He has been passing gas which she was not doing before and he feels less painful than he did when he came in. He does not report any bowel movements overnight. [facility] Medical History Acute exacerbation of chronic obstructive pulmonary disease (COPD) Atherosclerosis of coronary artery without angina pectoris Bronchiolitis Chronic HFrEF (heart failure with reduced ejection fraction) Chronic respiratory failure with hypoxia Community acquired pneumonia COPD (chronic obstructive pulmonary disease) Emphysema lung Essential hypertension History of non-ST elevation myocardial infarction (NSTEMI) (10/22/21) Hyperlipidemia Ischemic cardiomyopathy Lung nodule Old anteroseptal myocardial infarction Old inferior wall myocardial infarction Tobacco dependence due to cigarettes Type 2 diabetes mellitus Home Medications albuterol sulfate 90 mcg/actuation aerosol inhaler (Ventolin HFA) 2 puff inhalation Q6H PRN PRN Sob &/Or Wheezing 11/29/15 [History Last Taken 10/13/21] metformin 500 mg tablet 500 mg PO DAILY DM 09/05/19 [History Last Taken 10/13/21] mometasone-formoterol HFA 200 mcg-5 mcg/actuation aerosol inhaler 2 puff IH BID COPD 09/05/19 [History Last Taken 10/13/21] ezetimibe 10 mg tablet 10 mg PO DAILY CHOLESTEROL 10/13/21 [History Last Taken 10/13/21] tiotropium bromide 18 mcg capsule with inhalation device (Spiriva with HandiHaler) 18 mcg inhalation DAILY COPD 10/13/21 [History Last Taken 10/13/21] nitroglycerin 0.4 mg sublingual tablet 0.4 mg sublingual PRN PRN Chest Pain 11/07/21 [History Last Taken Unknown] hydroxyzine HCl 25 mg tablet 25 mg PO Q6H PRN anxiety 11/10/21 [History Last Taken Unknown] oxygen-air delivery systems 12/08/21 [History Last Taken Unknown] albuterol sulfate 2.5 mg/3 mL (0.083 %) solution for nebulization 2.5 mg inhalation Q4H PRN bronchospasm 12/22/21 [History Last Taken Unknown] acetaminophen 500 mg tablet 1,000 mg PO ONCE PRN pain 03/24/22 [History Last Taken Unknown] furosemide 40 mg tablet (Lasix) 40 mg PO DAILY #90 tabs 11/22/22 [Rx Last Taken Unknown] aspirin 81 mg chewable tablet 81 mg PO DAILY #90 tabs 01/25/23 [Rx Last Taken Unknown] sacubitril 49 mg-valsartan 51 mg tablet (Entresto) 1 tab PO BID #60 tabs 02/23/23 [Rx Last Taken Unknown] carvedilol 12.5 mg tablet 12.5 mg PO BID #60 tabs 06/20/23 [Rx Last Taken Unknown] dapagliflozin propanediol 5 mg tablet (Farxiga) See Rx Instructions .Route .COMPLEX #90 tabs 07/25/23 [Rx Last Taken Unknown] azithromycin 500 mg tablet 500 mg PO .COMPLEX history of tb 09/08/23 [History Last Taken Unknown] ethambutol 400 mg tablet 400 mg PO .COMPLEX hx tb 09/08/23 [History Last Taken Unknown] rifampin 300 mg capsule 300 mg PO .COMPLEX hx tb 09/08/23 [History Last Taken Unknown] Allergy/AdvReac Type Severity Reaction Status Date / Time bee venom protein (honey bee) Allergy Severe swelling Verified 09/08/23 08:28 [id number] Reductase Allergy Severe myalgias Verified 09/08/23 08:28 Inhibitor Family History Other COPD (chronic obstructive pulmonary disease) Diabetes Heart disease Hypertension Surgical History History of coronary artery stent placement (11/03/21) History of hand surgery History of hernia repair History of left heart catheterization (10/22/21) Social History household members: none Smoking Status: Former smoker quit date: 10/22/21 pack-years: 35 how long ago did patient quit smokin10/23/21 alcohol intake: current alcohol intake frequency: holidays/special occasions only substance use type: does not use caffeine: Yes Type: carbonated beverages Number of servings: 5 ROS Constitutional Constitutional: Denies anorexia or fatigue Eyes Eyes: Denies blurry vision ENT HEENT: Denies abnormal hearing Cardiovascular Cardiovascular: Denies chest pain Respiratory/Chest Respiratory/Chest: Denies cough or dyspnea Gastrointestinal Gastrointestinal: Reports abdominal pain, nausea and vomiting; Denies constipation Genitourinary Genitourinary: Denies change in urinary stream Musculoskeletal Musculoskeletal: Denies abnormal gait Integumentary Integumentary: Denies new lesions Psychiatric Psychiatric: Denies anxiety Physical Exam Const alert and oriented x3 HEENT normocephalic Eyes PERRL Resp normal respiratory effort Cardio Rate: regular rate Rhythm: regular rhythm GI soft to palpation Palpation: tender LLQ and RLQ Lab / Micro Data 01/02/24 17:07 01/02/24 17:07 Labs: Laboratory Results - last 24 hr 01/02/24 17:07: WBC 11.6 H, RBC 3.51 L, Hgb 11.6 L, Hct 36.6 L, MCV 104.3 H, MCH 33.0 H, MCHC 31.7 L, RDW Std Deviation 53.5 H, RDW Coeff of Solange 14.1, Plt Count 415, MPV 8.6, Immature Gran % (Auto) 0.500, Neut % (Auto) 81.0 H, Lymph % (Auto) 13.2 L, [place] % (Auto) 4.5, Eos % (Auto) 0.4, Baso % (Auto) 0.4, Absolute Neuts (auto) 9.4 H, Absolute Lymphs (auto) 1.53, Nucleated RBC % 0, Sodium 134 L, Potassium 5.0, Chloride 107, Carbon Dioxide 11.0 L, Anion Gap 16 H, BUN 25 H, Creatinine 1.05, Est GFR (MDRD) Af Amer 94, Est GFR (MDRD) Non-Af 78, BUN/Creatinine Ratio 23.8 H, Glucose 51 L, Lactic Acid 1.1, Calcium 9.8, Total Bilirubin 0.20, AST < 3 L, ALT 7 L, Alkaline Phosphatase 138 H, Troponin I High Sens 7, Total Protein 7.5, Albumin 2.9 L, Globulin 4.6 H, Albumin/Globulin Ratio 0.6 L, Lipase 36 01/02/24 19:00: Urine Color Yellow, Urine Clarity Clear, Urine pH 5.0, Ur Specific [place] 1.015, Urine Protein 30 H, Urine Glucose (UA) 1000 H, Urine Ketones 50 H, Urine Occult Blood 10 H, Urine Nitrite Positive H, Urine Bilirubin Negative, Urine Urobilinogen Normal, Ur Leukocyte Esterase Negative, Urine RBC 0 SEEN, Urine WBC 0 SEEN, Ur Squamous Epith Cells 0 SEEN, Urine Bacteria RARE, Urine Mucus 0 SEEN Micro: Microbiology 01/02/24 22:55 Mucosa - Nasopharyngeal Respiratory Panel (PCR) - Final 01/02/24 23:20 Urine, Clean Catch Legionella Antigen - Final 01/02/24 23:20 Urine, Clean Catch Streptococcus pneumoniae Antigen (M - Final 01/02/24 17:07 Mucosa - Nose SARS-CoV-2, Influenza & RSV (PCR) - Final Imaging Radiology Impression Abdomen/Pelvis CT 01/02/24 16:57 IMPRESSION: 1. No masses bowel obstruction abscess free fluid or free air. 2. Large bowel contains large amount of fluid stool, no formed stool noted, sequelae of diffuse colitis is a consideration. 3. No mucosal fold thickening, pneumatosis, masses or diverticulitis. 4. No evidence small bowel obstruction. The appendix is not visualized. 5. Bilateral renal cysts greater on the RIGHT than LEFT. No obstructive uropathy. 6. Gallbladder is distended, no calcifications or ductal dilatation. 7. Hiatal hernia. 8. Irregular pleural and parenchymal scar and thickening along the periphery of the RIGHT lung base. Focal area of infiltrate is a consideration however appearance is suspicious of a area of consolidation in potential obscured mass. Previous imaging not available for comparison to assess interval change. In the absence of previous comparison, consider short-term follow-up following treatment to assess stability. Electronically Signed: Rob Amaya MD at 19:12 EDT , Chest X-Ray 01/02/24 17:55 IMPRESSION: 1. Area of irregular density in the LEFT suprahilar region suspicious of an area of consolidation however pulmonary mass is a consideration. Additional areas of pleural thickening at the RIGHT lung base. 2. Consider follow-up evaluation with CT of the chest due to the significant interval change and to exclude underlying pulmonary mass. 3. No evidence congestive failure. Electronically Signed: Rob Amaya MD at 19:48 EDT , Abdomen CT 01/02/24 20:30 IMPRESSION: 1. Oral contrast present. No evidence of bowel obstruction. Contrast passes to the mid to distal small bowel. 2. Fluid-filled large bowel without interval change. Negligible formed stool noted as previously described. 3. The appendix is not positively identified however no CT evidence of appendicitis. Fluid-filled mildly distended cecum extends into the RIGHT hemipelvis. 4. RIGHT renal cyst. No evidence of obstructive uropathy. 5. No evidence cholelithiasis or duct dilatation. 6. Redemonstration of pleural-parenchymal thickening along the periphery of the RIGHT lower lobe 7. Redemonstration of mild deformity superior endplate of L3 and L1 without change. Electronically Signed: Rob Amaya MD at 23:10 EDT ,
[2024-01-03 08:00] VITALS: BP 95/57; PULSE 66; RESP 16; TEMP 36.3; O2SAT 99
[2024-01-03 08:25] VITALS: O2SAT 95
[2024-01-03] MEDS: Influenza Virus Vac Quad 23-24 60 MCG/0.5 ML SYRINGE IM (08:36)
[2024-01-03] MEDS: Ascorbic Acid 500 MG Tablet 1000 MG PO ×2 (08:37→17:54)
[2024-01-03] MEDS: guaiFENesin 1,200 MG Tablet 1200 MG PO ×2 (08:37→21:05)
[2024-01-03] MEDS: Zinc Sulfate 50 mg zinc (220 mg) ORAL capsule PO (08:38)
[2024-01-03] MEDS: MethylPREDNISolone 125 MG/2 ML Vial 60 MG IV ×2 (08:38→21:04)
[2024-01-03] MEDS: Cholecalciferol (Vit D3) 125 MCG CAPSULE (5,000 UNITS) PO (08:38)
[2024-01-03] MEDS: Pantoprazole Sodium 40 MG Tablet PO (08:39)
--- NOTE | 2024-01-03 09:08 | RAD_ITS ---
STUDY: X-RAY CHEST REASON FOR EXAM: Male, 58 years old. Pneumonia-486 -- PORTABLE TECHNIQUE: Single AP portable view of the chest. COMPARISON: Comparison is made with prior study of January 02, 2024. FINDINGS: EKG electrodes are seen. Stable bilateral pulmonary infiltrates worse in the left upper lobe. Stable right lower lobe infiltrate. There is no demonstrated pleural abnormality. Normal size heart. Normal mediastinum and fantasma. Normal visualized pulmonary arteries. Normal visualized aortic arch and descending thoracic aorta. Normal visualized thoracic spine. Normal visualized ribs, clavicles, and shoulders. There is no demonstrated abnormality of the visualized soft tissue structures of the upper abdomen. RAD/Chest 1 View IMPRESSION: Stable bilateral lung infiltrates worse in the right upper lobe. Stable focal right lower lobe infiltrate. Electronically Signed: Simba Diaz MD at 9:50 EDT ,
--- NOTE | 2024-01-03 09:41 | EX.PCM.CONCC ---
Assessment & Plan Assessment/Plan (1) Chronic respiratory failure with hypoxia: (2) Appendicitis: QUALIFIERS: Appendicitis type: unspecified Qualified Code(s): K37 - Unspecified appendicitis PLAN: Plan RECOMMENDATIONS: 1. Confirm diagnosis of MAC from [facility] 2. If MAC confirmed, discontinue respiratory precautions 3. Abdominal evaluation per surgery 4. Okay to continue with therapeutic substitution of baseline medications from a respiratory standpoint 5. Walking oximetry prior to discharge 6. Close follow-up with [facility] team following discharge IMPRESSIONS: 1. 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 However, both of these findings can be seen with concomitant MAC infection. Patient appears to be knowledgeable on this condition and states he has been treated for over a year. This would not be abnormal for MAC. Once MAC infection is confirmed from the [facility], would recommend no further sputum or respiratory isolation. Patient will have positive AFB smears, but MAC is not infectious or dangerous to others. Patient does have what appears to be advanced respiratory conditions, but is already well-established with [facility]. Patient would be okay to go to surgery if necessary from my perspective. Likely okay to discontinue steroid burst from my opinion as this will only complicate diabetes management 2. Abdominal pain Patient with significant acidosis on presentation, but appears to be improving with conservative therapy. Surgery has been following the patient. Continue with empiric antibiotics 3. Diabetes mellitus type 2/hypertension/hyperlipidemia/CAD/chronic diastolic CHF/OA Complicates care, management, recovery and prognosis. Okay to discontinue systemic steroids from my perspective as this will allow better control of diabetes. Patient should be continued on Pulmicort as a therapeutic substitution for home Dulera. HPI Consult Data Date of Consult: 01/03/24 HPI Narrative Reason for Consultation: Possible TB HPI Narrative: LEOBARDO AG is a 58 M, with past medical history listed below, who presents to [facility] on 01/02/2024 secondary to right-sided low back pain with radiation to his right lower abdomen that have been progressing over the last 3 days. Patient had reported nausea and several episodes of emesis. Patient does have a history of COPD and MAC infection and wears 2 L/min of oxygen at all times. Patient does have a chronic cough. Patient is not reporting any significant change in cough frequency, color or consistency. Patient does not have a history of kidney stones or previous abdominal surgeries. Patient is on Dulera and Spiriva at baseline. Patient gets most of his care at the [facility]. In the ER, patient was afebrile, but tachypneic at 22 breaths/min. Patient's blood pressures were marginal initially at 88/62. Patient was on his baseline 2 L nasal cannula. Laboratory data showed a white blood cell count of 11.6, hemoglobin of 11.6 and platelets of 415. Chemistry showed a bicarbonate of 11 with glucose of 51 and a potassium of 5. Liver enzymes did show a slightly elevated alkaline phosphatase and UA did show some positive nitrites, but no leukocyte esterase or WBCs. CT of the abdomen and pelvis that showed no abscess or free air, but large amount of fluid stool in the large colon. There was an irregularity noted at the right lung base in the periphery, so the patient was admitted to the hospital for further evaluation and respiratory precautions with a pulmonary consult. Upon discussing with the patient, he has been in treatment at the [facility] for MAC infection for several months. Patient is not clear, but believes he has received antibiotics for the last year. Patient states his last CT scan at the [facility] was last month and he had PFTs in October. Patient states there has been progression of disease, so there has been a discussion about transitioning to liposomal amikacin, but insurance has been denying it to this point. Patient states he is to see an infectious disease specialist to help with my case. Patient has not reported any hemoptysis, fever, chills or recent weight loss. Patient states from an abdominal standpoint he feels much improved compared to previous. Patient's nausea is improved compared to previous. Patient does not report any significant lower extremity edema or syncope. Patient states he does have advanced lung disease, but is unaware of his current FEV1. Review of systems otherwise negative from a constitutional, HEENT, respiratory, cardiovascular, GI, genitourinary, musculoskeletal, skin, neurologic, psychiatric and hematologic system unless stated above. [facility] Medical History Acute exacerbation of chronic obstructive pulmonary disease (COPD) Atherosclerosis of coronary artery without angina pectoris Bronchiolitis Chronic HFrEF (heart failure with reduced ejection fraction) Chronic respiratory failure with hypoxia Community acquired pneumonia COPD (chronic obstructive pulmonary disease) Emphysema lung Essential hypertension History of non-ST elevation myocardial infarction (NSTEMI) (10/22/21) Hyperlipidemia Ischemic cardiomyopathy Lung nodule Old anteroseptal myocardial infarction Old inferior wall myocardial infarction Tobacco dependence due to cigarettes Type 2 diabetes mellitus Home Medications albuterol sulfate 90 mcg/actuation aerosol inhaler (Ventolin HFA) 2 puff inhalation Q6H PRN PRN Sob &/Or Wheezing 11/29/15 [History Last Taken 10/13/21] metformin 500 mg tablet 500 mg PO DAILY DM 09/05/19 [History Last Taken 10/13/21] mometasone-formoterol HFA 200 mcg-5 mcg/actuation aerosol inhaler 2 puff IH BID COPD 09/05/19 [History Last Taken 10/13/21] ezetimibe 10 mg tablet 10 mg PO DAILY CHOLESTEROL 10/13/21 [History Last Taken 10/13/21] tiotropium bromide 18 mcg capsule with inhalation device (Spiriva with HandiHaler) 18 mcg inhalation DAILY COPD 10/13/21 [History Last Taken 10/13/21] nitroglycerin 0.4 mg sublingual tablet 0.4 mg sublingual PRN PRN Chest Pain 11/07/21 [History Last Taken Unknown] hydroxyzine HCl 25 mg tablet 25 mg PO Q6H PRN anxiety 11/10/21 [History Last Taken Unknown] oxygen-air delivery systems 12/08/21 [History Last Taken Unknown] albuterol sulfate 2.5 mg/3 mL (0.083 %) solution for nebulization 2.5 mg inhalation Q4H PRN bronchospasm 12/22/21 [History Last Taken Unknown] acetaminophen 500 mg tablet 1,000 mg PO ONCE PRN pain 03/24/22 [History Last Taken Unknown] furosemide 40 mg tablet (Lasix) 40 mg PO DAILY #90 tabs 11/22/22 [Rx Last Taken Unknown] aspirin 81 mg chewable tablet 81 mg PO DAILY #90 tabs 01/25/23 [Rx Last Taken Unknown] sacubitril 49 mg-valsartan 51 mg tablet (Entresto) 1 tab PO BID #60 tabs 02/23/23 [Rx Last Taken Unknown] carvedilol 12.5 mg tablet 12.5 mg PO BID #60 tabs 06/20/23 [Rx Last Taken Unknown] dapagliflozin propanediol 5 mg tablet (Farxiga) See Rx Instructions .Route .COMPLEX #90 tabs 07/25/23 [Rx Last Taken Unknown] azithromycin 500 mg tablet 500 mg PO .COMPLEX history of tb 09/08/23 [History Last Taken Unknown] ethambutol 400 mg tablet 400 mg PO .COMPLEX hx tb 09/08/23 [History Last Taken Unknown] rifampin 300 mg capsule 300 mg PO .COMPLEX hx tb 09/08/23 [History Last Taken Unknown] Allergy/AdvReac Type Severity Reaction Status Date / Time bee venom protein (honey bee) Allergy Severe swelling Verified 09/08/23 08:28 [id number] Reductase Allergy Severe myalgias Verified 09/08/23 08:28 Inhibitor Family History Other COPD (chronic obstructive pulmonary disease) Diabetes Heart disease Hypertension Surgical History History of coronary artery stent placement (11/03/21) History of hand surgery History of hernia repair History of left heart catheterization (10/22/21) Social History household members: none Smoking Status: Former smoker quit date: 10/22/21 pack-years: 35 how long ago did patient quit smokin10/23/21 alcohol intake: current alcohol intake frequency: holidays/special occasions only substance use type: does not use caffeine: Yes Type: carbonated beverages Number of servings: 5 ROS ROS Narrative See HPI Physical Exam Const alert and oriented x3 Constitutional Narrative: Patient is awake and alert with mild conversational dyspnea. Appears older than stated age. General Appearance: cooperative HEENT normocephalic, head/scalp atraumatic, hearing grossly normal bilaterally and moist oral mucous membranes Eyes PERRL and EOMs intact bilaterally Neck no lymphadenopathy and supple Chest Chest Narrative: Increased AP diameter Resp Auscultation: wheezes and diminished lung sounds; Negative for rales or rhonchi Cardio regular rate, regular rhythm, S1 normal heart sound, S2 normal heart sound, no murmurs, no rub and no gallops GI normal to inspection, nondistended, normoactive bowel sounds, soft to palpation and non-distended Palpation: tender RLQ; Negative for guarding or rigid Extremity normal to inspection, full ROM and no clubbing, cyanosis or edema Skin no rashes or lesions noted Neuro oriented x3, CN's II-XII intact bilaterally, moves all extremities and no focal motor deficits Motor Exam: strength 5/5 throughout Psych affect normal Medical Records Data Attestation: I reviewed the patient's medical records Medical records narrative: Records from [facility] have been requested Lab / Micro Data Attestation: I reviewed the patient's lab results. 01/02/24 17:07 01/02/24 17:07 Labs: Laboratory Results - last 24 hr 01/02/24 17:07: WBC 11.6 H, RBC 3.51 L, Hgb 11.6 L, Hct 36.6 L, MCV 104.3 H, MCH 33.0 H, MCHC 31.7 L, RDW Std Deviation 53.5 H, RDW Coeff of [place]ange 14.1, Plt Count 415, MPV 8.6, Immature Gran % (Auto) 0.500, Neut % (Auto) 81.0 H, Lymph % (Auto) 13.2 L, [place] % (Auto) 4.5, Eos % (Auto) 0.4, Baso % (Auto) 0.4, Absolute Neuts (auto) 9.4 H, Absolute Lymphs (auto) 1.53, Nucleated RBC % 0, Sodium 134 L, Potassium 5.0, Chloride 107, Carbon Dioxide 11.0 L, Anion Gap 16 H, BUN 25 H, Creatinine 1.05, Est GFR (MDRD) Af Amer 94, Est GFR (MDRD) Non-Af 78, BUN/Creatinine Ratio 23.8 H, Glucose 51 L, Lactic Acid 1.1, Calcium 9.8, Total Bilirubin 0.20, AST < 3 L, ALT 7 L, Alkaline Phosphatase 138 H, Troponin I High Sens 7, Total Protein 7.5, Albumin 2.9 L, Globulin 4.6 H, Albumin/Globulin Ratio 0.6 L, Lipase 36 01/02/24 19:00: Urine Color Yellow, Urine Clarity Clear, Urine pH 5.0, Ur Specific [place] 1.015, Urine Protein 30 H, Urine Glucose (UA) 1000 H, Urine Ketones 50 H, Urine Occult Blood 10 H, Urine Nitrite Positive H, Urine Bilirubin Negative, Urine Urobilinogen Normal, Ur Leukocyte Esterase Negative, Urine RBC 0 SEEN, Urine WBC 0 SEEN, Ur Squamous Epith Cells 0 SEEN, Urine Bacteria RARE, Urine Mucus 0 SEEN Micro: Microbiology 01/02/24 22:55 Mucosa - Nasopharyngeal Respiratory Panel (PCR) - Final 01/02/24 23:20 Urine, Clean Catch Legionella Antigen - Final 01/02/24 23:20 Urine, Clean Catch Streptococcus pneumoniae Antigen (M - Final 01/02/24 17:07 Mucosa - Nose SARS-CoV-2, Influenza & RSV (PCR) - Final Imaging Radiology Impression Abdomen/Pelvis CT 01/02/24 16:57 IMPRESSION: 1. No masses bowel obstruction abscess free fluid or free air. 2. Large bowel contains large amount of fluid stool, no formed stool noted, sequelae of diffuse colitis is a consideration. 3. No mucosal fold thickening, pneumatosis, masses or diverticulitis. 4. No evidence small bowel obstruction. The appendix is not visualized. 5. Bilateral renal cysts greater on the RIGHT than LEFT. No obstructive uropathy. 6. Gallbladder is distended, no calcifications or ductal dilatation. 7. Hiatal hernia. 8. Irregular pleural and parenchymal scar and thickening along the periphery of the RIGHT lung base. Focal area of infiltrate is a consideration however appearance is suspicious of a area of consolidation in potential obscured mass. Previous imaging not available for comparison to assess interval change. In the absence of previous comparison, consider short-term follow-up following treatment to assess stability. Electronically Signed: Rob Amaya MD at 19:12 EDT , Chest X-Ray 01/02/24 17:55 IMPRESSION: 1. Area of irregular density in the LEFT suprahilar region suspicious of an area of consolidation however pulmonary mass is a consideration. Additional areas of pleural thickening at the RIGHT lung base. 2. Consider follow-up evaluation with CT of the chest due to the significant interval change and to exclude underlying pulmonary mass. 3. No evidence congestive failure. Electronically Signed: Rob Amaya MD at 19:48 EDT , Abdomen CT 01/02/24 20:30 IMPRESSION: 1. Oral contrast present. No evidence of bowel obstruction. Contrast passes to the mid to distal small bowel. 2. Fluid-filled large bowel without interval change. Negligible formed stool noted as previously described. 3. The appendix is not positively identified however no CT evidence of appendicitis. Fluid-filled mildly distended cecum extends into the RIGHT hemipelvis. 4. RIGHT renal cyst. No evidence of obstructive uropathy. 5. No evidence cholelithiasis or duct dilatation. 6. Redemonstration of pleural-parenchymal thickening along the periphery of the RIGHT lower lobe 7. Redemonstration of mild deformity superior endplate of L3 and L1 without change. Electronically Signed: Rob Amaya MD at 23:10 EDT Reading Location ID and State: [facility] Tel , Service support , Charges/Coding Visit Charges Inpatient E&M: 50096 Init Hosp L2
--- NOTE | 2024-01-03 10:33 | CON.PCM.ID_ITS ---
Assessment & Plan Assessment/Plan (1) Pneumonia: QUALIFIERS: Pneumonia type: due to unspecified organism Laterality: right Lung location: unspecified part of lung Qualified Code(s): J18.9 - Pneumonia, unspecified organism PLAN: On ceftriaxone, feeling better. UAgs neg. Resp pcr panel neg. Sputum cx pending. Pt on azithro/rifampin/ethambutol for almost a year for ANGELITA infection; no h/o TB. Reviewed [facility] records. No need for airborne/droplet iso. Some diarrhea at home, not here; if cannot give sample would cancel enteric iso and cancel stool studies. Will follow, thank you, d/w Dr. Orellana (2) ANGELITA (mycobacterium avium-intracellulare) infection: HPI Consult Data Date of Consult: 01/03/24 HPI Narrative Reason for Consultation: pneumonia HPI Narrative: LEOBARDO AG, is a 58 M with COPD on home O2, started treatment for ANGELITA around 02/2023 as outpt with azithro/ethambutol/rifampin. Tolerating meds ok, has had h earing and vision screening while on meds. Over past week, c/o progressive moderate pleuritic R sided chest pain, not feeling well, dyspnea. Kids and with recent URI. Sputum has not changed much. No fever. Came to ED, admitted on ceftriaxone. No h/o TB. Had some diarrhea at home, not since arriving here. Full ROS performed and neg except as noted above. [facility] Medical History Acute exacerbation of chronic obstructive pulmonary disease (COPD) Atherosclerosis of coronary artery without angina pectoris Bronchiolitis Chronic HFrEF (heart failure with reduced ejection fraction) Chronic respiratory failure with hypoxia Community acquired pneumonia COPD (chronic obstructive pulmonary disease) Emphysema lung Essential hypertension History of non-ST elevation myocardial infarction (NSTEMI) (10/22/21) Hyperlipidemia Ischemic cardiomyopathy Lung nodule Old anteroseptal myocardial infarction Old inferior wall myocardial infarction Tobacco dependence due to cigarettes Type 2 diabetes mellitus Home Medications albuterol sulfate 90 mcg/actuation aerosol inhaler (Ventolin HFA) 2 puff inhalation Q6H PRN PRN Sob &/Or Wheezing 11/29/15 [History Last Taken 10/13/21] metformin 500 mg tablet 500 mg PO DAILY DM 09/05/19 [History Last Taken 10/13/21] mometasone-formoterol HFA 200 mcg-5 mcg/actuation aerosol inhaler 2 puff IH BID COPD 09/05/19 [History Last Taken 10/13/21] ezetimibe 10 mg tablet 10 mg PO DAILY CHOLESTEROL 10/13/21 [History Last Taken 10/13/21] tiotropium bromide 18 mcg capsule with inhalation device (Spiriva with HandiHaler) 18 mcg inhalation DAILY COPD 10/13/21 [History Last Taken 10/13/21] nitroglycerin 0.4 mg sublingual tablet 0.4 mg sublingual PRN PRN Chest Pain 11/07/21 [History Last Taken Unknown] hydroxyzine HCl 25 mg tablet 25 mg PO Q6H PRN anxiety 11/10/21 [History Last Taken Unknown] oxygen-air delivery systems 12/08/21 [History Last Taken Unknown] albuterol sulfate 2.5 mg/3 mL (0.083 %) solution for nebulization 2.5 mg inhalation Q4H PRN bronchospasm 12/22/21 [History Last Taken Unknown] acetaminophen 500 mg tablet 1,000 mg PO ONCE PRN pain 03/24/22 [History Last Taken Unknown] furosemide 40 mg tablet (Lasix) 40 mg PO DAILY #90 tabs 11/22/22 [Rx Last Taken Unknown] aspirin 81 mg chewable tablet 81 mg PO DAILY #90 tabs 01/25/23 [Rx Last Taken Unknown] sacubitril 49 mg-valsartan 51 mg tablet (Entresto) 1 tab PO BID #60 tabs 02/23/23 [Rx Last Taken Unknown] carvedilol 12.5 mg tablet 12.5 mg PO BID #60 tabs 06/20/23 [Rx Last Taken Unknown] dapagliflozin propanediol 5 mg tablet (Farxiga) See Rx Instructions .Route .COMPLEX #90 tabs 07/25/23 [Rx Last Taken Unknown] azithromycin 500 mg tablet 500 mg PO .COMPLEX history of tb 09/08/23 [History Last Taken Unknown] ethambutol 400 mg tablet 400 mg PO .COMPLEX hx tb 09/08/23 [History Last Taken Unknown] rifampin 300 mg capsule 300 mg PO .COMPLEX hx tb 09/08/23 [History Last Taken Unknown] Allergy/AdvReac Type Severity Reaction Status Date / Time bee venom protein (honey bee) Allergy Severe swelling Verified 09/08/23 08:28 [id number] Reductase Allergy Severe myalgias Verified 09/08/23 08:28 Inhibitor Family History Other COPD (chronic obstructive pulmonary disease) Diabetes Heart disease Hypertension Surgical History History of coronary artery stent placement (11/03/21) History of hand surgery History of hernia repair History of left heart catheterization (10/22/21) Social History household members: none Smoking Status: Former smoker quit date: 10/22/21 pack-years: 35 how long ago did patient quit smokin10/23/21 alcohol intake: current alcohol intake frequency: holidays/special occasions only substance use type: does not use caffeine: Yes Type: carbonated beverages Number of servings: 5 Physical Exam Const alert, oriented x3 and no apparent distress General Appearance: cooperative HEENT normocephalic and head/scalp atraumatic Neck supple and No nodes Resp Auscultation: diminished lung sounds Cardio regular rate and regular rhythm GI soft to palpation, non-tender and non-distended Extremity General Extremity: Negative for edema Skin no rashes or lesions noted Neuro CN's II-XII intact bilaterally Lab / Micro Data Attestation: I reviewed the patient's lab results. 01/02/24 17:07 01/02/24 17:07 Labs: Laboratory Results - last 24 hr 01/02/24 17:07: WBC 11.6 H, RBC 3.51 L, Hgb 11.6 L, Hct 36.6 L, MCV 104.3 H, MCH 33.0 H, MCHC 31.7 L, RDW Std Deviation 53.5 H, RDW Coeff of [place] 14.1, Plt Count 415, MPV 8.6, Immature Gran % (Auto) 0.500, Neut % (Auto) 81.0 H, Lymph % (Auto) 13.2 L, [place] % (Auto) 4.5, Eos % (Auto) 0.4, Baso % (Auto) 0.4, Absolute Neuts (auto) 9.4 H, Absolute Lymphs (auto) 1.53, Nucleated RBC % 0, Sodium 134 L, Potassium 5.0, Chloride 107, Carbon Dioxide 11.0 L, Anion Gap 16 H, BUN 25 H, Creatinine 1.05, Est GFR (MDRD) Af Amer 94, Est GFR (MDRD) Non-Af 78, BUN/Creatinine Ratio 23.8 H, Glucose 51 L, Lactic Acid 1.1, Calcium 9.8, Total Bilirubin 0.20, AST < 3 L, ALT 7 L, Alkaline Phosphatase 138 H, Troponin I High Sens 7, Total Protein 7.5, Albumin 2.9 L, Globulin 4.6 H, Albumin/Globulin Ratio 0.6 L, Lipase 36 01/02/24 19:00: Urine Color Yellow, Urine Clarity Clear, Urine pH 5.0, Ur Specific [place] 1.015, Urine Protein 30 H, Urine Glucose (UA) 1000 H, Urine Ketones 50 H, Urine Occult Blood 10 H, Urine Nitrite Positive H, Urine Bilirubin Negative, Urine Urobilinogen Normal, Ur Leukocyte Esterase Negative, Urine RBC 0 SEEN, Urine WBC 0 SEEN, Ur Squamous Epith Cells 0 SEEN, Urine Bacteria RARE, Urine Mucus 0 SEEN Micro: Microbiology 01/02/24 22:55 Mucosa - Nasopharyngeal Respiratory Panel (PCR) - Final 01/02/24 23:20 Urine, Clean Catch Legionella Antigen - Final 01/02/24 23:20 Urine, Clean Catch Streptococcus pneumoniae Antigen (M - Final 01/02/24 17:07 Mucosa - Nose SARS-CoV-2, Influenza & RSV (PCR) - Final Imaging Radiology Impression Abdomen/Pelvis CT 01/02/24 16:57 IMPRESSION: 1. No masses bowel obstruction abscess free fluid or free air. 2. Large bowel contains large amount of fluid stool, no formed stool noted, sequelae of diffuse colitis is a consideration. 3. No mucosal fold thickening, pneumatosis, masses or diverticulitis. 4. No evidence small bowel obstruction. The appendix is not visualized. 5. Bilateral renal cysts greater on the RIGHT than LEFT. No obstructive uropathy. 6. Gallbladder is distended, no calcifications or ductal dilatation. 7. Hiatal hernia. 8. Irregular pleural and parenchymal scar and thickening along the periphery of the RIGHT lung base. Focal area of infiltrate is a consideration however appearance is suspicious of a area of consolidation in potential obscured mass. Previous imaging not available for comparison to assess interval change. In the absence of previous comparison, consider short-term follow-up following treatment to assess stability. Electronically Signed: Rob Amaya MD at 19:12 EDT , Chest X-Ray 01/02/24 17:55 IMPRESSION: 1. Area of irregular density in the LEFT suprahilar region suspicious of an area of consolidation however pulmonary mass is a consideration. Additional areas of pleural thickening at the RIGHT lung base. 2. Consider follow-up evaluation with CT of the chest due to the significant interval change and to exclude underlying pulmonary mass. 3. No evidence congestive failure. Electronically Signed: Rob Amaya MD at 19:48 EDT , Abdomen CT 01/02/24 20:30 IMPRESSION: 1. Oral contrast present. No evidence of bowel obstruction. Contrast passes to the mid to distal small bowel. 2. Fluid-filled large bowel without interval change. Negligible formed stool noted as previously described. 3. The appendix is not positively identified however no CT evidence of appendicitis. Fluid-filled mildly distended cecum extends into the RIGHT hemipelvis. 4. RIGHT renal cyst. No evidence of obstructive uropathy. 5. No evidence cholelithiasis or duct dilatation. 6. Redemonstration of pleural-parenchymal thickening along the periphery of the RIGHT lower lobe 7. Redemonstration of mild deformity superior endplate of L3 and L1 without change. Electronically Signed: Rob Amaya MD at 23:10 EDT , Chest X-Ray 01/03/24 09:08 IMPRESSION: Stable bilateral lung infiltrates worse in the right upper lobe. Stable focal right lower lobe infiltrate. Electronically Signed: Simba Diaz MD at 9:50 EDT ,
--- NOTE | 2024-01-03 13:40 | CASEMGMT ---
RN CM Face to Face with patient for initial transition planning/care coordination assessment. RN CM introduced self and role at [facility]. Patient lying in bed, alert and oriented. Patient willing to participate in assessment and is able to answer all questions appropriately. Care providers, pharmacy, and demographics verified. PCP: Teo Specialists: Jayesh Gonzalez, production supv; Aaron, research and development researcher Preferred Pharmacy: [facility] Insurance: [employer] Prescription Benefit: yes Living Will/HPOA: none LNOK: , daughter Living Arrangements: Patient lives with in a duplex. Patient is independent at home and able to ambulate stairs. Transportation: self, friends DME/HHC: Patient has walker, wheelchair, nebulizer, pulse ox, and home oxygen with portability through [employer]. Will monitor for increase in home oxygen Patient wishes to discharge home, denies need for home health at this time. Patient states he has no further needs or concerns at this time. CM to follow for discharge planning needs that may arise. Disposition Plan: Patient to discharge home with family support and follow-up plans in place. Nancy CRAWFORD, RN, CM
[2024-01-03 14:00] VITALS: BP 99/61; PULSE 79; RESP 18; TEMP 36.4; O2SAT 100
--- NOTE | 2024-01-03 15:32 | PCM.PROGNOTE ---
Subjective Subjective Patient seen and examined. He had no active complaints.He admitted to a cough an episodic shortness of breath. HE was also admitted for these symptoms as well as right sided lower back pain with radiation to right lower abdomen. He had associated nausea and vomiting. He has been managed for COPD flareup as well as acute on chronic respiratory failure due to reported MAC infection. He states he is feeling better. His breathing has improved slightly. Review of systems otherwise negative. Objective Data Objective Data Vital Signs: Vital Signs Temp Pulse Resp BP Pulse Ox O2 Del Method O2 Flow Rate 97.3 F L 66 16 95/57 L 95 Nasal Cannula 2 01/03/24 08:00 01/03/24 08:00 01/03/24 08:00 01/03/24 08:00 01/03/24 08:25 01/03/24 10:00 01/03/24 10:00 Oxygen Flow Rate (L/min) 2 Oxygen Delivery Method Nasal Cannula Weight: 115 lb 8.356 oz Body Mass Index (BMI) 16.5 Intake & Output: Intake and Output for Last 24 Hours 01/01/24 01/02/24 01/03/24 23:59 23:59 23:59 Intake Total 2123.75 / 2123.75 2394.17 / 2394.17 Output Total 200 / 200 375 / 375 Balance 1923.75 / 1923.75 Medical Nutrition Assessment Dietitian: Malnutrition Criteria Met Start: 01/03/24 15:13 Freq: Status: Active Protocol: Document 01/03/24 15:13 AG (Rec: 01/03/24 15:13 [id number]) Nutrition Malnutrition Evidence of Malnutrition Exists Yes Malnutrition (severe): Chronic Evidenced By Weight Loss (Severe),Physical Changes (Severe) Clinical Problem Chronic Disease or Condition Related Malnutrition Etiology severe, chronic malnutrition related to inadequate energy intake w/ increased energy needs d/t lung disease Signs/Symptoms as evidenced by unintentional 21% wt loss x 1 year, severe muscle wasting/fat loss per physical exam in orbital, clavicle, acromion and temporal areas, BMI 16.6 Status Active Problem Recommendation Dietitian Recommendations/Changes recommend advance diet as tolerated to regular, ensure w / medpass given evidence of malnutrition Lab / Micro Data 01/02/24 17:07 01/02/24 17:07 Labs: Laboratory Results - last 24 hr 01/02/24 17:07: WBC 11.6 H, RBC 3.51 L, Hgb 11.6 L, Hct 36.6 L, MCV 104.3 H, MCH 33.0 H, MCHC 31.7 L, RDW Std Deviation 53.5 H, RDW Coeff of Solange 14.1, Plt Count 415, MPV 8.6, Immature Gran % (Auto) 0.500, Neut % (Auto) 81.0 H, Lymph % (Auto) 13.2 L, [place] % (Auto) 4.5, Eos % (Auto) 0.4, Baso % (Auto) 0.4, Absolute Neuts (auto) 9.4 H, Absolute Lymphs (auto) 1.53, Nucleated RBC % 0, Sodium 134 L, Potassium 5.0, Chloride 107, Carbon Dioxide 11.0 L, Anion Gap 16 H, BUN 25 H, Creatinine 1.05, Est GFR (MDRD) Af Amer 94, Est GFR (MDRD) Non-Af 78, BUN/Creatinine Ratio 23.8 H, Glucose 51 L, Lactic Acid 1.1, Calcium 9.8, Total Bilirubin 0.20, AST < 3 L, ALT 7 L, Alkaline Phosphatase 138 H, Troponin I High Sens 7, Total Protein 7.5, Albumin 2.9 L, Globulin 4.6 H, Albumin/Globulin Ratio 0.6 L, Lipase 36 01/02/24 19:00: Urine Color Yellow, Urine Clarity Clear, Urine pH 5.0, Ur Specific [place] 1.015, Urine Protein 30 H, Urine Glucose (UA) 1000 H, Urine Ketones 50 H, Urine Occult Blood 10 H, Urine Nitrite Positive H, Urine Bilirubin Negative, Urine Urobilinogen Normal, Ur Leukocyte Esterase Negative, Urine RBC 0 SEEN, Urine WBC 0 SEEN, Ur Squamous Epith Cells 0 SEEN, Urine Bacteria RARE, Urine Mucus 0 SEEN Micro: Microbiology 01/02/24 22:55 Mucosa - Nasopharyngeal Respiratory Panel (PCR) - Final 01/02/24 23:20 Urine, Clean Catch Legionella Antigen - Final 01/02/24 23:20 Urine, Clean Catch Streptococcus pneumoniae Antigen (M - Final 01/02/24 17:07 Mucosa - Nose SARS-CoV-2, Influenza & RSV (PCR) - Final Radiography Diagnostic Testing: Radiology Impression Abdomen/Pelvis CT 01/02/24 16:57 IMPRESSION: 1. No masses bowel obstruction abscess free fluid or free air. 2. Large bowel contains large amount of fluid stool, no formed stool noted, sequelae of diffuse colitis is a consideration. 3. No mucosal fold thickening, pneumatosis, masses or diverticulitis. 4. No evidence small bowel obstruction. The appendix is not visualized. 5. Bilateral renal cysts greater on the RIGHT than LEFT. No obstructive uropathy. 6. Gallbladder is distended, no calcifications or ductal dilatation. 7. Hiatal hernia. 8. Irregular pleural and parenchymal scar and thickening along the periphery of the RIGHT lung base. Focal area of infiltrate is a consideration however appearance is suspicious of a area of consolidation in potential obscured mass. Previous imaging not available for comparison to assess interval change. In the absence of previous comparison, consider short-term follow-up following treatment to assess stability. Electronically Signed: Rob Amaya MD at 19:12 EDT , Chest X-Ray 01/02/24 17:55 IMPRESSION: 1. Area of irregular density in the LEFT suprahilar region suspicious of an area of consolidation however pulmonary mass is a consideration. Additional areas of pleural thickening at the RIGHT lung base. 2. Consider follow-up evaluation with CT of the chest due to the significant interval change and to exclude underlying pulmonary mass. 3. No evidence congestive failure. Electronically Signed: Rob Amaya MD at 19:48 EDT , Abdomen CT 01/02/24 20:30 IMPRESSION: 1. Oral contrast present. No evidence of bowel obstruction. Contrast passes to the mid to distal small bowel. 2. Fluid-filled large bowel without interval change. Negligible formed stool noted as previously described. 3. The appendix is not positively identified however no CT evidence of appendicitis. Fluid-filled mildly distended cecum extends into the RIGHT hemipelvis. 4. RIGHT renal cyst. No evidence of obstructive uropathy. 5. No evidence cholelithiasis or duct dilatation. 6. Redemonstration of pleural-parenchymal thickening along the periphery of the RIGHT lower lobe 7. Redemonstration of mild deformity superior endplate of L3 and L1 without change. Electronically Signed: Rob Amaya MD at 23:10 EDT , Chest X-Ray 01/03/24 09:08 IMPRESSION: Stable bilateral lung infiltrates worse in the right upper lobe. Stable focal right lower lobe infiltrate. Electronically Signed: Simba Diaz MD at 9:50 EDT , Physical Exam Const alert, oriented x3 and no apparent distress General Appearance: cooperative HEENT normocephalic, head/scalp atraumatic, moist oral mucous membranes and oropharynx normal Eyes PERRL and EOMs intact bilaterally Neck no lymphadenopathy and supple Lymph Lymphatic: no lymphadenopathy noted and no lymphedema noted Resp Resp Narrative: diminished breath sounds bibasally, few wheezes, no crackles. On 2L of oxygen by nasal canula. Cardio regular rate, regular rhythm, S1 normal heart sound, S2 normal heart sound and no murmurs GI normal to inspection, nondistended, normoactive bowel sounds, soft to palpation, non-tender and non-distended Extremity normal capillary refill, no clubbing, cyanosis or edema and no calf tenderness General Extremity: no tenderness to palpation of joints or extremities Skin General Skin Exam: no breakdown Neuro CN's II-XII intact bilaterally, no focal motor deficits, no sensory deficits noted and deep tendon reflexes 2+ bilaterally Motor Exam: strength 5/5 throughout and general weakness Psych thought process normal and cooperative Appearance: appropriate Assessment & Plan Assessment/Plan (1) ANGELITA (mycobacterium avium-intracellulare) infection: (2) Acute exacerbation of chronic obstructive pulmonary disease: PLAN: Plan #Acute exacerbation of COPD #Mycobacterium avium intracellulare complex infection being followed at [facility] on rifampin and ethambutol ID and pulmonology on board breathing treatment with bronchodilators titrate oxygen to maintain sats >90% Records requested from [facility]. If MAC infection confirmed, would DC precautions. on antibiotics, for pneumonia-ceftriaxone and azithromycin. #Abdominal pain: CT of the abdomen was concerning for appendicitis but general surgery saw patient and doesnt think it is acute appendicitis. . Currently on empiric antibiotics. Will continue until cultures result. # Type 2 diabetes mellitus: Was hypoglycemic on admission. On insulin sliding scale. Checks ACHS. #Benign essential hypertension: #Hyperlipidemia: Not on statins due to allergy. Will monitor. #CAD s/p stents: On aspirin and Plavix #Heart failure preserved ejection fraction: Stable #Osteoarthritis: On Tylenol as needed DVT prophylaxis: Lovenox. Charges/Coding Visit Charges Inpatient E&M: 64638 Subs Hosp L2
[2024-01-03 20:30] VITALS: BP 111/69; PULSE 77; RESP 16; TEMP 36.7; O2SAT 98
[2024-01-03] MEDS: Enoxaparin 40 MG/0.4 ML Syringe SC (21:04)
[2024-01-03] MEDS: Ceftriaxone 1 GM/50 ML BAG IV (21:11)
[2024-01-03] MEDS: Azithromycin 250 MG in Dextrose 5%-Water (250mL Bag) 250 ML IV (21:57)
[2024-01-04 04:49] VITALS: BP 100/62; PULSE 70; RESP 18; TEMP 36.7; O2SAT 99
[2024-01-04 07:30] VITALS: O2SAT 98
[2024-01-04 07:36] LABS: Absolute Lymphocyte Count 0.36 X10^3/uL (0.83-4.51); Absolute Neutrophil Count 13.9 X10^3/uL (2.0-7.7); Basophil# 0.01 X10^3/uL; Basophil% 0.1 % (0-1); Hematocrit 28.2 % (40-54); Hemoglobin 9.3 g/dL (13.0-16.5); Lymphocyte # 0.36 X10^3/ul (0.83-4.51); Lymphocyte % 2.5 % (19-41); Mean Corpuscular Hgb 33.1 pg (27.0-32.0); Mean Corpuscular Volume 100.4 fL (80-94); Monocyte# 0.28 X10^3/uL; Monocyte% 1.9 % (0-10); NRBC Flagged by Analyzer 0 % (0-5); Neutrophil % 94.8 % (47-70); POSITIVE DIFFERENTIAL YES; Platelet Count 380 K/mm3 (150-450); RBC Distribution Width CV 13.9 % (11.6-14.6); RBC Distribution Width SD 50.4 fl (35.1-43.9); Red Blood Count 2.81 M/mm3 (4.6-6.2); White Blood Count 14.7 K/mm3 (4.4-11.0)
--- NOTE | 2024-01-04 07:58 | PN.CC_ITS ---
Assessment & Plan Assessment/Plan (1) Chronic respiratory failure with hypoxia: (2) Appendicitis: QUALIFIERS: Appendicitis type: unspecified Qualified Code(s): K37 - Unspecified appendicitis PLAN: Plan RECOMMENDATIONS: 1. Agree with discontinuation of respiratory isolation given confirmation of MAC from [facility] 2. Discontinue systemic steroids 3. Abdominal evaluation per surgery 4. Okay to continue with therapeutic substitution of baseline medications from a respiratory standpoint 5. Walking oximetry prior to discharge 6. Close follow-up with [facility] team following discharge IMPRESSIONS: 1. 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 However, both of these findings can be seen with concomitant MAC infection. Patient appears to be knowledgeable on this condition and states he has been treated for over a year. This would not be abnormal for MAC. Patient can have a walking oximetry prior to discharge, but would be okay for discharge as long as patient does not require 5 L or more of supplemental oxygen with ambulation. Patient can follow- up with his primary team at [facility]. Do not believe there is a need for a CT of the chest 2. Abdominal pain Patient with significant acidosis on presentation, but appears to be improving with conservative therapy. Surgery has been following the patient. Continue with empiric antibiotics 3. Diabetes mellitus type 2/hypertension/hyperlipidemia/CAD/chronic diastolic CHF/OA Complicates care, management, recovery and prognosis. Okay to discontinue systemic steroids from my perspective as this will allow better control of diabetes. Patient should be continued on Pulmicort as a therapeutic substitution for home Dulera. Subjective Subjective Patient did well overnight. No acute issues were reported. Patient states abdominal pain has significantly improved. Patient did have a bowel movement overnight that he described as normal. Patient does have some lower back pain, but states this is similar to his chronic issues Objective Data Objective Data Vital Signs: Vital Signs Temp Pulse Resp BP Pulse Ox O2 Del Method O2 Flow Rate 36.7 C 70 18 100/62 98 Nasal Cannula 2 01/04/24 04:49 01/04/24 04:49 01/04/24 04:49 01/04/24 04:49 01/04/24 07:30 01/04/24 07:30 01/04/24 07:30 Oxygen Flow Rate (L/min) 2 Oxygen Delivery Method Nasal Cannula Weight: 52.4 kg Body Mass Index (BMI) 16.5 Intake & Output: Intake and Output for Last 24 Hours 01/02/24 01/03/24 01/04/24 23:59 23:59 23:59 Intake Total 2123.75 / 2123.75 3616.67 / 3616.67 Output Total 200 / 200 1075 / 1075 450 / 450 Balance 1923.75 / 1923.75 2541.67 / 2541.67 -450 / -450 Medical Nutrition Assessment Dietitian: Malnutrition Criteria Met Start: 01/03/24 15:13 Freq: Status: Active Protocol: Document 01/03/24 15:13 AG (Rec: 01/03/24 15:13 AG [id number]) Nutrition Malnutrition Evidence of Malnutrition Exists Yes Malnutrition (severe): Chronic Evidenced By Weight Loss (Severe),Physical Changes (Severe) Clinical Problem Chronic Disease or Condition Related Malnutrition Etiology severe, chronic malnutrition related to inadequate energy intake w/ increased energy needs d/t lung disease Signs/Symptoms as evidenced by unintentional 21% wt loss x 1 year, severe muscle wasting/fat loss per physical exam in orbital, clavicle, acromion and temporal areas, BMI 16.6 Status Active Problem Recommendation Dietitian Recommendations/Changes recommend advance diet as tolerated to regular, ensure w / medpass given evidence of malnutrition Lab / Micro Data Attestation: I reviewed the patient's lab results. 01/04/24 07:03 01/02/24 17:07 Labs: Laboratory Results - last 24 hr 01/04/24 07:03: WBC 14.7 H, RBC 2.81 L, Hgb 9.3 L, Hct 28.2 L, MCV 100.4 H, MCH 33.1 H, MCHC 33.0, RDW Std Deviation 50.4 H, RDW Coeff of Solange 13.9, Plt Count 380, MPV 9.0, Immature Gran % (Auto) 0.700, Neut % (Auto) 94.8 H, Lymph % (Auto) 2.5 L, [place] % (Auto) 1.9, Eos % (Auto) 0.0, Baso % (Auto) 0.1, Absolute Neuts (auto) 13.9 H, Absolute Lymphs (auto) 0.36 L, Nucleated RBC % 0 Micro: Microbiology 01/02/24 22:55 Mucosa - Nasopharyngeal Respiratory Panel (PCR) - Final 01/02/24 23:20 Urine, Clean Catch Legionella Antigen - Final 01/02/24 23:20 Urine, Clean Catch Streptococcus pneumoniae Antigen (M - Final 01/02/24 17:07 Mucosa - Nose SARS-CoV-2, Influenza & RSV (PCR) - Final Radiography Diagnostic Testing: Radiology Impression Chest X-Ray 01/03/24 09:08 IMPRESSION: Stable bilateral lung infiltrates worse in the right upper lobe. Stable focal right lower lobe infiltrate. Electronically Signed: Simba Diaz MD at 9:50 EDT , Physical Exam Const alert and oriented x3 Constitutional Narrative: Patient is awake and alert with mild conversational dyspnea. Appears older than stated age. General Appearance: cooperative HEENT normocephalic, head/scalp atraumatic, hearing grossly normal bilaterally and moist oral mucous membranes Eyes PERRL and EOMs intact bilaterally Neck no lymphadenopathy and supple Chest Chest Narrative: Increased AP diameter Resp Auscultation: wheezes and diminished lung sounds; Negative for rales or rhonchi Cardio regular rate, regular rhythm, S1 normal heart sound, S2 normal heart sound, no murmurs, no rub and no gallops GI normal to inspection, nondistended, normoactive bowel sounds, soft to palpation and non-distended Palpation: tender RLQ; Negative for guarding or rigid Extremity normal to inspection, full ROM and no clubbing, cyanosis or edema Skin no rashes or lesions noted Neuro oriented x3, CN's II-XII intact bilaterally, moves all extremities and no focal motor deficits Motor Exam: strength 5/5 throughout Psych affect normal Charges/Coding Visit Charges Inpatient E&M: 39136 Subs Hosp L2
[2024-01-04 08:17] LABS: Anion Gap 5 (5-15); BUN 15 mg/dL (7-18); BUN/Creat Ratio 21.1 RATIO (10-20); Calcium,Total 9.8 mg/dL (8.5-10.1); Chloride 111 mmol/L (98-107); Creatinine, Serum 0.71 mg/dL (0.70-1.30); EST Glomerular Filtration Rate 122 mL/min (>60); Est Glom Filt Rate - Afr Amer 147 mL/min (>60); Glucose 150 mg/dL (74-106); Potassium 4.4 mmol/L (3.5-5.1); Sodium Level 140 mmol/L (136-145)
[2024-01-04] MEDS: Ascorbic Acid 500 MG Tablet 1000 MG PO (08:41)
[2024-01-04] MEDS: Pantoprazole Sodium 40 MG Tablet PO (08:41)
[2024-01-04] MEDS: guaiFENesin 1,200 MG Tablet 1200 MG PO (08:41)
[2024-01-04] MEDS: rifAMPin 300 MG Capsule 600 MG PO (08:42)
[2024-01-04] MEDS: Zinc Sulfate 50 mg zinc (220 mg) ORAL capsule PO (08:42)
[2024-01-04] MEDS: Cholecalciferol (Vit D3) 125 MCG CAPSULE (5,000 UNITS) PO (08:42)
[2024-01-04] MEDS: Enoxaparin 40 MG/0.4 ML Syringe SC (08:48)
--- NOTE | 2024-01-04 09:22 | PN.SURG_ITS ---
Subjective Subjective Patient reports he is feeling well with no nausea or vomiting or abdominal pain today. He is still having right low back pain. He tolerated clear liquids with no issues yesterday. He reports he is passing gas. He has not had a bowel movement since admission. Objective Data Objective Data Vital Signs: Vital Signs Temp Pulse Resp BP Pulse Ox O2 Del Method O2 Flow Rate 98.1 F 70 18 100/62 98 Nasal Cannula 2 01/04/24 04:49 01/04/24 04:49 01/04/24 04:49 01/04/24 04:49 01/04/24 07:30 01/04/24 07:30 01/04/24 09:08 Oxygen Flow Rate (L/min) 2 Oxygen Delivery Method Nasal Cannula Weight: 115 lb 8.356 oz Body Mass Index (BMI) 16.5 Intake & Output: Intake and Output for Last 24 Hours 01/02/24 01/03/24 01/04/24 23:59 23:59 23:59 Intake Total 2123.75 / 2123.75 3616.67 / 3616.67 Output Total 200 / 200 1075 / 1075 450 / 450 Balance 1923.75 / 1923.75 2541.67 / 2541.67 -450 / -450 Medical Nutrition Assessment Dietitian: Malnutrition Criteria Met Start: 01/03/24 15:13 Freq: Status: Active Protocol: Document 01/03/24 15:13 (Rec: 01/03/24 15:13 [id number]) Nutrition Malnutrition Evidence of Malnutrition Exists Yes Malnutrition (severe): Chronic Evidenced By Weight Loss (Severe),Physical Changes (Severe) Clinical Problem Chronic Disease or Condition Related Malnutrition Etiology severe, chronic malnutrition related to inadequate energy intake w/ increased energy needs d/t lung disease Signs/Symptoms as evidenced by unintentional 21% wt loss x 1 year, severe muscle wasting/fat loss per physical exam in orbital, clavicle, acromion and temporal areas, BMI 16.6 Status Active Problem Recommendation Dietitian Recommendations/Changes recommend advance diet as tolerated to regular, ensure w / medpass given evidence of malnutrition Lab / Micro Data 01/04/24 07:03 01/04/24 07:03 Labs: Laboratory Results - last 24 hr 01/04/24 07:03: WBC 14.7 H, RBC 2.81 L, Hgb 9.3 L, Hct 28.2 L, MCV 100.4 H, MCH 33.1 H, MCHC 33.0, RDW Std Deviation 50.4 H, RDW Coeff of Solange 13.9, Plt Count 380, MPV 9.0, Immature Gran % (Auto) 0.700, Neut % (Auto) 94.8 H, Lymph % (Auto) 2.5 L, [place] % (Auto) 1.9, Eos % (Auto) 0.0, Baso % (Auto) 0.1, Absolute Neuts (auto) 13.9 H, Absolute Lymphs (auto) 0.36 L, Nucleated RBC % 0, Sodium 140, Potassium 4.4, Chloride 111 H, Carbon Dioxide 24.0, Anion Gap 5, BUN 15, Creatinine 0.71, Estim Creat Clear Calc 86.10, Est GFR (MDRD) Af Amer 147, Est GFR (MDRD) Non-Af 122, BUN/Creatinine Ratio 21.1 H, Glucose 150 H, Calcium 9.8 Micro: Microbiology 01/02/24 22:55 Mucosa - Nasopharyngeal Respiratory Panel (PCR) - Final 01/02/24 23:20 Urine, Clean Catch Legionella Antigen - Final 01/02/24 23:20 Urine, Clean Catch Streptococcus pneumoniae Antigen (M - Final 01/02/24 17:07 Mucosa - Nose SARS-CoV-2, Influenza & RSV (PCR) - Final Radiography Diagnostic Testing: Radiology Impression Chest X-Ray 01/03/24 09:08 IMPRESSION: Stable bilateral lung infiltrates worse in the right upper lobe. Stable focal right lower lobe infiltrate. Electronically Signed: Simba Diaz MD at 9:50 EDT , Physical Exam Const oriented x3 and no apparent distress Resp normal respiratory effort GI soft to palpation and non-tender Assessment & Plan Assessment/Plan (1) Diarrhea: QUALIFIERS: Diarrhea type: presumed infectious Qualified Code(s): R19.7 - Diarrhea, unspecified PLAN: Patient reports no abdominal pain or nausea or vomiting. He is tolerating clear liquid diet and will advance him to a regular diet. Justin Martino MD Pager: [facility] [address] [place] [address], [address] [place] [address] Office:
[2024-01-04 10:30] VITALS: BP 108/64; PULSE 75; RESP 18; TEMP 36.9; O2SAT 96
[2024-01-04 12:04] VITALS: O2SAT 100; O2SAT 96
--- NOTE | 2024-01-04 13:20 | CASEMGMT ---
Patient has order for discharge. Patient ambulated standby with therapy and maintained on home oxygen of 2lpm continuously. RN CM in to discuss needs at discharge. Patient states family will bring oxygen tank from home for at discharge. Patient states he is at his baseline and denies needs for therapy at discharge. Patient denies further needs or concerns at this time.
--- NOTE | 2024-01-04 13:23 | PCM.PN.ID ---
Physical Exam Narrative Feeling better, breathing improved, no fever Const alert and no apparent distress Resp Auscultation: wheezes Cardio regular rate and regular rhythm GI soft to palpation, non-tender and non-distended Skin no rashes or lesions noted ID ID: Route of nutrition/ use of supplements: [] Nutritional Intake: [] IV Site: [] Swanson Catheter: [] Assessment & Plan Assessment/Plan (1) Pneumonia: QUALIFIERS: Pneumonia type: due to unspecified organism Laterality: right Lung location: unspecified part of lung Qualified Code(s): J18.9 - Pneumonia, unspecified organism PLAN: On ceftriaxone, feeling better. UAgs neg. Resp pcr panel neg. Sputum cx ordered. Pt on azithro/rifampin/ethambutol for almost a year for ANGELITA infection; no h/o TB. Reviewed [facility] records. No need for airborne/droplet iso. Plan on short course po abx at discharge, continue jail ANGELITA therapy. Will follow (2) ANGELITA (mycobacterium avium-intracellulare) infection:
--- NOTE | 2024-01-04 15:45 | DCINST_ITS ---
Discharge Instructions Diet Discharge Diet: Low fat / Low cholesterol Activity Discharge Activity: Return to Normal Activity Weight Bearing Status: Weight bearing as tolerated Dressing / Incision Call your doctor if you observe: Fever of 101 or Higher, Shortness of breath, Dizziness and Swelling in the ankles Follow Up Care Test Results: Test results from this visit will be discussed in further detail at your follow- up appointment, if applicable. Discharge Plan Admission Admit Date/Time: 01/02/24 20:54 Primary Reason for Your Visit: COPD exacerbation Attending Provider: Gabbie Moran Primary Care Provider: Adolfo Bruce Consulting Providers: Kevin Jasso; Pérez Luna; Eduardo Orellana; Saud Gonzalez; Barry Leyva; Marcia Bo; Mohit Allen; Rhoda Carey; Phoenix Howe; Reji Anderson; Anoop Randle; Jay Epstein; Adolfo White; Alex Cole Instructions Patient Instructions: COPD: Chronic Coughing, COPD Controlled Breathing Dc Additional Instructions / Restrictions: use oxygen as needed for shortness of breath Discharge Orders/Prescriptions Prescriptions: Continued albuterol sulfate 2.5 mg /3 mL (0.083 %) solution for nebulization 2.5 mg inhalation Q4H PRN (Reason: bronchospasm) acetaminophen 500 mg tablet 1,000 mg PO ONCE PRN (Reason: pain) azithromycin 500 mg tablet 500 mg PO .COMPLEX Patient Comments: TAKE 1 TABLET BY MOUTH 3 (THREE) TIMES A WEEK Rx Instructions: 500 mg orally three times a week; three times a week ethambutol 400 mg tablet 400 mg PO .COMPLEX Patient Comments: Take 4 tablets by mouth every Tuesday,Tuesday,Tuesday. Rx Instructions: 400 mg orally every tuesday, tuesday, and tuesday; rifampin 300 mg capsule 300 mg PO .COMPLEX Patient Comments: TAKE 2 CAPSULES BY MOUTH 3 (THREE) TIMES A WEEK Rx Instructions: 300 mg orally three times a week; albuterol sulfate [Ventolin HFA] 1 INHALER inhaler 2 puff inhalation Q6H PRN PRN (Reason: Sob &/Or Wheezing) Patient Comments: breathing metformin 500 MG tablet 500 mg PO DAILY mometasone-formoterol 13 GM HFA aerosol inhaler 2 puff IH BID Patient Comments: Inhale 2 Puffs as instructed twice daily. ezetimibe 10 mg tablet 10 mg PO DAILY Patient Comments: Take 1 tablet by mouth once daily. tiotropium bromide [Spiriva with HandiHaler] 18 mcg capsule, w/inhalation device 18 mcg INHALATION DAILY Patient Comments: Inhale 1 capsule as instructed once daily. USE WITH HANDIHALER. nitroglycerin 0.4 mg tablet, sublingual 0.4 mg sublingual PRN PRN (Reason: Chest Pain) hydroxyzine HCl 25 mg tablet 25 mg PO Q6H PRN (Reason: anxiety) (DME) oxygen-air delivery systems Device MISCELLANEOUS Rx Instructions: 2 liters furosemide [Lasix] 40 mg tablet 40 mg PO DAILY Qty: 90 4RF Patient Comments: pt. states he only takes this when his legs get swollen which is about 2/3 times a week aspirin 81 mg tablet,chewable 81 mg PO DAILY Qty: 90 3RF Entresto 49-51 mg tablet 1 tab PO BID Qty: 60 12RF carvedilol 12.5 mg tablet 12.5 mg PO BID Qty: 60 11RF Rx Instructions: must administer with a meal/food dapagliflozin propanediol [Farxiga] 5 mg tablet See Rx Instructions .ROUTE .COMPLEX Qty: 90 3RF Dose Instruction: TAKE 1 TABLET BY MOUTH DAILY Rx Instructions: TAKE 1 TABLET BY MOUTH DAILY Referrals / Follow Up: Adolfo Bruce MD [Primary Care Provider] - 01/09/24 9:00 am Disposition Disposition (needs filled in before D/C Order can be placed): Home, Self Care
--- NOTE | 2024-01-04 15:49 | DS.PCM_ITS ---
Providers Date of Admission: 01/02/24 Date of Discharge: 01/04/24 Primary Care Physician: Dr. Adolfo Bruce MD Consultations 01/02/24 20:43 Consult: Infectious Disease Routine Consulting Provider: Kevin Jasso Reason for Consult: CAP with known hx of TB EMERGENT Consult: No Notified: Yes Date Notified: 01/03/24 Time Notified: 06:05 Method of Notification: Text 01/02/24 21:15 Consult: Repair Tech / Pulmonary Medicine Routine Consulting Provider: Intensivists/Pulmonary Med Reason for Consult: History of TB with PNA. EMERGENT Consult: No Notified: Yes Date Notified: 01/03/24 Time Notified: 06:05 Method of Notification: Text Reason For Visit: AE COPD, PNA WITH HISTORY OF TB + ? APPENDICITIS Diagnosis Discharge Diagnosis (1) Pneumonia: Status: Acute Code(s): J18.9 - Pneumonia, unspecified organism Qualifiers: Pneumonia type: due to unspecified organism Laterality: right Lung location: unspecified part of lung Qualified Code(s): J18.9 - Pneumonia, unspecified organism (2) ANGELITA (mycobacterium avium-intracellulare) infection: Status: Acute Code(s): A31.0 - Pulmonary mycobacterial infection Plan #Acute exacerbation of COPD #Mycobacterium avium intracellulare complex infection * being followed at [facility] * on rifampin and ethambutol * ID and pulmonology on board * breathing treatment with bronchodilators * titrate oxygen to maintain sats >90% * Records requested from [facility]. If MAC infection confirmed, would DC precautions. * on antibiotics, for pneumonia-ceftriaxone and azithromycin. * #Abdominal pain: CT of the abdomen was concerning for appendicitis but general surgery saw patient and doesnt think it is acute appendicitis. . Currently on empiric antibiotics. Will continue until cultures result. * # Type 2 diabetes mellitus: Was hypoglycemic on admission. On insulin sliding scale. Checks ACHS. #Benign essential hypertension: #Hyperlipidemia: Not on statins due to allergy. Will monitor. #CAD s/p stents: On aspirin and Plavix #Heart failure preserved ejection fraction: Stable #Osteoarthritis: On Tylenol as needed DVT prophylaxis: Lovenox. Medications at Discharge Home Medications albuterol sulfate 90 mcg/actuation aerosol inhaler (Ventolin HFA) 2 puff inhalation Q6H PRN PRN Sob &/Or Wheezing 11/29/15 metformin 500 mg tablet 500 mg PO DAILY DM 09/05/19 mometasone-formoterol HFA 200 mcg-5 mcg/actuation aerosol inhaler 2 puff IH BID COPD 09/05/19 ezetimibe 10 mg tablet 10 mg PO DAILY CHOLESTEROL 10/13/21 tiotropium bromide 18 mcg capsule with inhalation device (Spiriva with HandiHaler) 18 mcg inhalation DAILY COPD 10/13/21 nitroglycerin 0.4 mg sublingual tablet 0.4 mg sublingual PRN PRN Chest Pain 11/07/21 hydroxyzine HCl 25 mg tablet 25 mg PO Q6H PRN anxiety 11/10/21 oxygen-air delivery systems 12/08/21 albuterol sulfate 2.5 mg/3 mL (0.083 %) solution for nebulization 2.5 mg inhalation Q4H PRN bronchospasm 12/22/21 acetaminophen 500 mg tablet 1,000 mg PO ONCE PRN pain 03/24/22 furosemide 40 mg tablet (Lasix) 40 mg PO DAILY diuretic #90 tabs 11/22/22 aspirin 81 mg chewable tablet 81 mg PO DAILY heart health #90 tabs 01/25/23 sacubitril 49 mg-valsartan 51 mg tablet (Entresto) 1 tab PO BID heart #60 tabs 02/23/23 carvedilol 12.5 mg tablet 12.5 mg PO BID #60 tabs 06/20/23 dapagliflozin propanediol 5 mg tablet (Farxiga) See Rx Instructions .Route .COMPLEX diabetes #90 tabs 07/25/23 azithromycin 500 mg tablet 500 mg PO .COMPLEX history of tb 09/08/23 ethambutol 400 mg tablet 400 mg PO .COMPLEX hx tb 09/08/23 rifampin 300 mg capsule 300 mg PO .COMPLEX hx tb 09/08/23 amoxicillin 875 mg-potassium clavulanate 125 mg tablet 1 tab PO BID #6 tabs 01/04/24 Hospital Course Operations None Summary of Care Provided Minutes Spent on Discharge: 47 Hospital Course: Patient is a 58-year-old male with a past medical history as outlined was admitted through the ED on 01/02/2024 with a complaints of back pain which radiated to his right lower abdomen and had been worsening for about 3 days. He had associated nausea and vomiting. He did have a history of COPD and Mycobacterium avium intracellular infection and 1 2 L of oxygen at home. On admission he was noted to have low bicarb of 11 [address] potassium of [address] of the abdomen and pelvis showed no acute abdominal pathology though there was initial concern for possible appendicitis. General surgery reviewed patient and did not think that he had appendicitis. Patient had been treated in the [facility] for MAC infection for several months and had had a CT done within the past month prior to admission at [facility]. He had been talk about transitioning him to liposomal amikacin but he had been having problems with getting insurance approval. He was admitted and managed for acute exacerbation of COPD in the setting of chronic respiratory failure. As stated general surgery reviewed patient and did not think that he had acute appendicitis. He was placed on a diet and advanced and tolerated it. Pulmonology and ID were consulted. He was placed on antibiotics for possible pneumonia. Patient subsequently felt much better he was weaned down to his 2 L of oxygen. He remained stable and was discharged on 01/04/2024. Per discussion with ID he was discharged on a 3-day course of Augmentin as patient was already on azithromycin 500 mg 3 times weekly at home. He is follow-up with his primary care doctor and follow-up with his doctors at [facility] within 1 to 2 weeks. Patient seen and examined prior to discharge. He had no active complaints and had an uneventful night. Review of symptoms otherwise negative. Labs and vitals reviewed. Medications reviewed and reconciled. Physical Exam Const alert, oriented x3 and no apparent distress Constitutional Narrative: Patient is awake and alert with mildly labored respirations. General Appearance: cooperative HEENT normocephalic, head/scalp atraumatic, hearing grossly normal bilaterally, moist oral mucous membranes and oropharynx normal Mouth: oral and palatal mucosa normal Eyes PERRL, EOMs intact bilaterally and conjunctivae normal Neck no lymphadenopathy and supple Lymph Lymphatic: no lymphadenopathy noted and no lymphedema noted Resp Resp Narrative: diminished breath sounds bibasally, few wheezes, no crackles. On 2L of oxygen by nasal canula. Cardio regular rate, regular rhythm, S1 normal heart sound, S2 normal heart sound and no murmurs GI normal to inspection, nondistended, normoactive bowel sounds, soft to palpation, non-tender and non-distended Extremity normal to inspection, full ROM, normal capillary refill, no clubbing, cyanosis or edema and no calf tenderness General Extremity: no tenderness to palpation of joints or extremities Skin no rashes or lesions noted General Skin Exam: no breakdown Neuro oriented x3, CN's II-XII intact bilaterally, moves all extremities, no focal motor deficits, no sensory deficits noted and deep tendon reflexes 2+ bilater ally Sensorium / Orientation: awake, alert, oriented to person, oriented to place and oriented to time Speech: speech normal Motor Exam: strength 5/5 throughout and general weakness Psych thought process normal, cooperative and affect normal Appearance: appropriate Medical Records Data Medical Nutrition Assessment Dietitian: Malnutrition Criteria Met Start: 01/03/24 15:13 Freq: Status: Active Protocol: Document 01/03/24 15:13 (Rec: 01/03/24 15:13 [id number]) Nutrition Malnutrition Evidence of Malnutrition Exists Yes Malnutrition (severe): Chronic Evidenced By Weight Loss (Severe),Physical Changes (Severe) Clinical Problem Chronic Disease or Condition Related Malnutrition Etiology severe, chronic malnutrition related to inadequate energy intake w/ increased energy needs d/t lung disease Signs/Symptoms as evidenced by unintentional 21% wt loss x 1 year, severe muscle wasting/fat loss per physical exam in orbital, clavicle, acromion and temporal areas, BMI 16.6 Status Active Problem Recommendation Dietitian Recommendations/Changes recommend advance diet as tolerated to regular, ensure w / medpass given evidence of malnutrition Weight / BMI Weight Weight: 115 lb 8.356 oz Body Mass Index (BMI) 16.5 ABG / Lab / Microbiology Data 01/04/24 07:03 01/04/24 07:03 Laboratory: Laboratory Results - last 24 hr 01/04/24 07:03: WBC 14.7 H, RBC 2.81 L, Hgb 9.3 L, Hct 28.2 L, MCV 100.4 H, MCH 33.1 H, MCHC 33.0, RDW Std Deviation 50.4 H, RDW Coeff of Solange 13.9, Plt Count 380, MPV 9.0, Immature Gran % (Auto) 0.700, Neut % (Auto) 94.8 H, Lymph % (Auto) 2.5 L, [place] % (Auto) 1.9, Eos % (Auto) 0.0, Baso % (Auto) 0.1, Absolute Neuts (auto) 13.9 H, Absolute Lymphs (auto) 0.36 L, Nucleated RBC % 0, Sodium 140, Potassium 4.4, Chloride 111 H, Carbon Dioxide 24.0, Anion Gap 5, BUN 15, Cr eatinine 0.71, Estim Creat Clear Calc 86.10, Est GFR (MDRD) Af Amer 147, Est GFR (MDRD) Non-Af 122, BUN/Creatinine Ratio 21.1 H, Glucose 150 H, Calcium 9.8 Microbiology: Microbiology 01/02/24 22:55 Mucosa - Nasopharyngeal Respiratory Panel (PCR) - Final 01/02/24 23:20 Urine, Clean Catch Legionella Antigen - Final 01/02/24 23:20 Urine, Clean Catch Streptococcus pneumoniae Antigen (M - Final 01/02/24 17:07 Mucosa - Nose SARS-CoV-2, Influenza & RSV (PCR) - Final D/C Instructions Discharge Diet: Low fat / Low cholesterol Discharge Activity: Return to Normal Activity Weight Bearing Status: Weight bearing as tolerated Call your doctor if you observe: Fever of 101 or Higher, Shortness of breath, Dizziness and Swelling in the ankles Meaningful Use Info Meaningful Use Diagnoses (Choose all that apply): None applicable Discharge Plan Admission Admit Date/Time: 01/02/24 20:54 Primary Reason for Your Visit: COPD exacerbation Attending Provider: Gabbie Moran Primary Care Provider: Adolfo Bruce Consulting Providers: Kevin Jasso; Pérez Luna; Eduardo Orellana; Saud Gonzalez; Barry Leyva; Marcia Bo; Mohit Allen; Rhoda Carey; Phoenix Howe; Reji Anderson; Anoop Randle; Jay Epstein; Adolfo White; Alex Cole Instructions Patient Instructions: COPD: Chronic Coughing, COPD Controlled Breathing Dc Additional Instructions / Restrictions: use oxygen as needed for shortness of breath Discharge Orders/Prescriptions Prescriptions: New amoxicillin-pot clavulanate 875-125 mg tablet 1 tab PO BID Qty: 6 0RF Continued albuterol sulfate 2.5 mg /3 mL (0.083 %) solution for nebulization 2.5 mg inhalation Q4H PRN (Reason: bronchospasm) acetaminophen 500 mg tablet 1,000 mg PO ONCE PRN (Reason: pain) azithromycin 500 mg tablet 500 mg PO .COMPLEX Patient Comments: TAKE 1 TABLET BY MOUTH 3 (THREE) TIMES A WEEK Rx Instructions: 500 mg orally three times a week; three times a week ethambutol 400 mg tablet 400 mg PO .COMPLEX Patient Comments: Take 4 tablets by mouth every Tuesday,Tuesday,Tuesday. Rx Instructions: 400 mg orally every tuesday, tuesday, and tuesday; rifampin 300 mg capsule 300 mg PO .COMPLEX Patient Comments: TAKE 2 CAPSULES BY MOUTH 3 (THREE) TIMES A WEEK Rx Instructions: 300 mg orally three times a week; albuterol sulfate [Ventolin HFA] 1 INHALER inhaler 2 puff inhalation Q6H PRN PRN (Reason: Sob &/Or Wheezing) Patient Comments: breathing metformin 500 MG tablet 500 mg PO DAILY mometasone-formoterol 13 GM HFA aerosol inhaler 2 puff IH BID Patient Comments: Inhale 2 Puffs as instructed twice daily. ezetimibe 10 mg tablet 10 mg PO DAILY Patient Comments: Take 1 tablet by mouth once daily. tiotropium bromide [Spiriva with HandiHaler] 18 mcg capsule, w/inhalation device 18 mcg INHALATION DAILY Patient Comments: Inhale 1 capsule as instructed once daily. USE WITH HANDIHALER. nitroglycerin 0.4 mg tablet, sublingual 0.4 mg sublingual PRN PRN (Reason: Chest Pain) hydroxyzine HCl 25 mg tablet 25 mg PO Q6H PRN (Reason: anxiety) (DME) oxygen-air delivery systems Device MISCELLANEOUS Rx Instructions: 2 liters furosemide [Lasix] 40 mg tablet 40 mg PO DAILY Qty: 90 4RF Patient Comments: pt. states he only takes this when his legs get swollen which is about 2/3 times a week aspirin 81 mg tablet,chewable 81 mg PO DAILY Qty: 90 3RF Entresto 49-51 mg tablet 1 tab PO BID Qty: 60 12RF carvedilol 12.5 mg tablet 12.5 mg PO BID Qty: 60 11RF Rx Instructions: must administer with a meal/food dapagliflozin propanediol [Farxiga] 5 mg tablet See Rx Instructions .ROUTE .COMPLEX Qty: 90 3RF Dose Instruction: TAKE 1 TABLET BY MOUTH DAILY Rx Instructions: TAKE 1 TABLET BY MOUTH DAILY Referrals / Follow Up: Adolfo Bruce MD [Primary Care Provider] - 01/09/24 9:00 am Disposition Disposition (needs filled in before D/C Order can be placed): Home, Self Care Charges/Coding Visit Charges Inpatient E&M: 01719 Disch Hosp >30min
--- NOTE | 2024-01-04 16:40 | PHA.DC.MC.R ---
Pharmacy [facility] Pharmacy Service has performed discharge medication reconciliation and counseling for this patient. 1. AUGMENTIN 875MG PO BID X 3 DAYS The patient's discharge medication list was reviewed for discrepancies and discrepancies were resolved. The patient was counseled on the following discharge medications and changes in medications for homegoing were reviewed. The Reason for Use, instructions for use, and potential side effects were reviewed for all new medications. The patient's questions regarding all of their medications were answered. The patient was able to verbally demonstrate an understanding of their discharge medications. Medications at Discharge Home Medications albuterol sulfate 90 mcg/actuation aerosol inhaler (Ventolin HFA) 2 puff inhalation Q6H PRN PRN Sob &/Or Wheezing 11/29/15 metformin 500 mg tablet 500 mg PO DAILY DM 09/05/19 mometasone-formoterol HFA 200 mcg-5 mcg/actuation aerosol inhaler 2 puff IH BID COPD 09/05/19 ezetimibe 10 mg tablet 10 mg PO DAILY CHOLESTEROL 10/13/21 tiotropium bromide 18 mcg capsule with inhalation device (Spiriva with HandiHaler) 18 mcg inhalation DAILY COPD 10/13/21 nitroglycerin 0.4 mg sublingual tablet 0.4 mg sublingual PRN PRN Chest Pain 11/07/21 hydroxyzine HCl 25 mg tablet 25 mg PO Q6H PRN anxiety 11/10/21 oxygen-air delivery systems 12/08/21 albuterol sulfate 2.5 mg/3 mL (0.083 %) solution for nebulization 2.5 mg inhalation Q4H PRN bronchospasm 12/22/21 acetaminophen 500 mg tablet 1,000 mg PO ONCE PRN pain 03/24/22 furosemide 40 mg tablet (Lasix) 40 mg PO DAILY diuretic #90 tabs 11/22/22 aspirin 81 mg chewable tablet 81 mg PO DAILY heart health #90 tabs 01/25/23 sacubitril 49 mg-valsartan 51 mg tablet (Entresto) 1 tab PO BID heart #60 tabs 02/23/23 carvedilol 12.5 mg tablet 12.5 mg PO BID #60 tabs 06/20/23 dapagliflozin propanediol 5 mg tablet (Farxiga) See Rx Instructions .Route .COMPLEX diabetes #90 tabs 07/25/23 azithromycin 500 mg tablet 500 mg PO .COMPLEX history of tb 09/08/23 ethambutol 400 mg tablet 400 mg PO .COMPLEX hx tb 09/08/23 rifampin 300 mg capsule 300 mg PO .COMPLEX hx tb 09/08/23 amoxicillin 875 mg-potassium clavulanate 125 mg tablet 1 tab PO BID #6 tabs 01/04/24
[2024-01-04 17:00] VITALS: BP 114/72; PULSE 76; RESP 16; TEMP 36.8; O2SAT 97
== END 2024-01-04 17:03 | disposition home or self-care (01) | DRG 137 ==
LOC: ED 20:39 → MS3 21:20 → PCU 21:34
PROVIDERS: Admitting Provider Internal Medicine; Emergency Provider Emergency Medicine; PCP Family Medicine; Visit Provider Student in an Organized Health Care Education/Training Program
DX: A31.0 Pulmonary mycobacterial infection (principal); E43 Unspecified severe protein-calorie malnutrition; E11.649 Type 2 diabetes mellitus with hypoglycemia without coma; J96.11 Chronic respiratory failure with hypoxia; I11.0 Hypertensive heart disease with heart failure; I50.32 Chronic diastolic (congestive) heart failure; J44.1 Chronic obstructive pulmonary disease with (acute) exacerbation; J18.9 Pneumonia, unspecified organism; J44.0 Chronic obstructive pulmonary disease with (acute) lower respiratory infection; I25.10 Atherosclerotic heart disease of native coronary artery without angina pectoris; E78.5 Hyperlipidemia, unspecified; I25.5 Ischemic cardiomyopathy; I25.2 Old myocardial infarction; R10.31 Right lower quadrant pain; Z95.5 Presence of coronary angioplasty implant and graft; Z68.1 Body mass index [BMI] 19.9 or less, adult; Z99.81 Dependence on supplemental oxygen; Z79.2 Long term (current) use of antibiotics; Z79.51 Long term (current) use of inhaled steroids; Z79.82 Long term (current) use of aspirin; Z79.84 Long term (current) use of oral hypoglycemic drugs; Z79.899 Other long term (current) drug therapy; Z87.891 Personal history of nicotine dependence; Z23 Encounter for immunization
CPT/HCPCS: 36415; 71045; 74176; 74177; 80048; 80053; 81001; 83605; 83690; 84484; 85025; 87040; 87177; 87209; 87449; 87631; 87633; 93005; 94640; 97116; 97162; 97802; 99284; J7030; J7040; Q9967; 90686; A4216; J2405

== ENCOUNTER → 2024-07-04 | Outpatient (CLI) | payer MEDICAID, SELFPAY ==
[2022-01-04 13:24] VITALS: BMI 24.0
--- NOTE | 2024-07-04 07:42 | ECHOD_ITS ---
Reason For Study: ISCHEMIC CARDIOMYOPATHY Procedure This was a 2D Doppler, Color Flow transthoracic echocardiogram. The study was technically difficult. Exam performed in department. Left Ventricle Normal LV size. The left ventricular ejection fraction is 35 %. [place] : Severely Hypokinetic. There is moderate global hypokinesis of the left ventricle. Right Ventricle Normal RV size. Normal systolic function. Atria Normal left atrium. Normal right atrium. Mitral Valve Normal mitral valve. Tricuspid Valve Normal tricuspid valve. Aortic Valve Trisinus/trileaflet aortic valve. Pulmonic Valve Normal pulmonic valve. Great Vessels Normal aortic root. The pulmonary artery is normal size. Normal inferior vena cava. Pericardium/Pleural No pericardial effusion. MMode/2D Measurements & Calculations LVIDd: 5.6 cm IVSd: 0.94 cm LVOT diam: 2.0 cm LVIDs: 4.3 cm LVPWd: 0.84 cm LVOT area: 3.0 cm2 RVDd: 3.7 cm FS: 23.1 % Ao root diam: 3.4 cm LAV(MOD-bp): 21.4 ml LVAd ap4: 31.6 cm2 LAV(MOD-bp) Indexed: 12.9 ml/m2 LVLd ap4: 8.5 cm LAV(MOD-sp2): 22.1 ml EDV(MOD-sp4): 98.8 ml LAV(MOD-sp4): 22.9 ml EDV(sp4-el): 100.0 ml LVAs ap4: 24.9 cm2 LVLs ap4: 7.9 cm ESV(MOD-sp4): 65.4 ml ESV(sp4-el): 66.8 ml EF(MOD-sp4): 33.8 % EF(sp4-el): 33.2 % LVAd ap2: 31.6 cm2 SV(MOD-sp4): 33.4 ml SV(MOD-sp2): 22.0 ml LVLd ap2: 8.4 cm EDV(MOD-sp2): 97.5 ml EDV(sp2-el): 101.5 ml LVAs ap2: 27.0 cm2 LVLs ap2: 8.0 cm ESV(MOD-sp2): 75.4 ml ESV(sp2-el): 77.4 ml EF(MOD-sp2): 22.6 % SV(sp4-el): 33.[address] Junction: 2.9 cm LA A4 area: 10.7 cm2 LA dimension(2D): 2.8 cm RA A4 area: 7.8 cm2 TAPSE: 1.3 cm Time Measurements MV dec time: 0.18 sec Doppler Measurements & Calculations MV E max addi: 49.2 cm/sec Lat Peak E' Addi: 8.1 cm/sec Med Peak E' Addi: 7.7 cm/sec MV A max addi: 49.2 cm/sec E/E' lat: 6.1 E/E' med: 6.4 MV E/A: 1.0 Ao V2 max: 93.5 cm/sec LV V1 max: 82.5 cm/sec MV dec slope: 277.6 cm/sec2 Ao max P.5 mmHg LV V1 max P.7 mmHg Ao V2 mean: 66.0 cm/sec LV V1 mean P.6 mmHg Ao mean P.0 mmHg LV V1 mean: 59.7 cm/sec Ao V2 VTI: 18.7 cm LV V1 VTI: 13.5 cm AV (velocity ratio): 0.72 JAYSHREE(I,D): 2.2 cm2 JAYSHREE(V,D): 2.6 cm2 SV(LVOT): 40.2 ml PA V2 max: 54.6 cm/sec PA max PG (full): 0.30 mmHg ECHO/Echo Complete Interpretation Summary The left ventricular ejection fraction is 35 %. Normal LV size. There is moderate global hypokinesis of the left ventricle. [place] : Severely Hypokinetic. Compared to previous study, the left ventricular systolic function is the same. . Ordering Physician: Adrian Walker Referring Physician: Adrian Walker MD Performed By: Haylee Tracy RDCS
== END | disposition home or self-care (01) ==
LOC: CVS 07:39
PROVIDERS: PCP Family Medicine; Referring Provider Internal Medicine Cardiovascular Disease; Visit Provider Internal Medicine Cardiovascular Disease
DX: I25.5 Ischemic cardiomyopathy (principal); Z95.5 Presence of coronary angioplasty implant and graft
CPT/HCPCS: 93306